=== PATIENT | male | born 1950 | race Caucasian/White ===

== ENCOUNTER 2019-08-28 14:04 | Outpatient (CLI) | payer BC, SELFPAY ==
--- NOTE | 2019-08-28 14:13 | CT_ITS ---
WS: [id number] CT ABDOMEN AND PELVIS WITH CONTRAST HISTORY: COLON CANCER TECHNIQUE: Imaging performed of the abdomen and pelvis with IV contrast. Single phase imaging of the abdomen. Coronal and sagittal reformats are submitted. All CT scans at [facility] use at least one of these dose optimization techniques: automated exposure control; mA and/or kV adjustment per patient size (includes targeted exams where dose is matched to clinical indication); or iterativ e reconstruction. IV CONTRAST: Omnipaque 300; 95 mL IV. Oral contrast: Yes. DLP: 1317.43 mGy.cm COMPARISON: None available. Lower thorax: Lung bases are clear. Mild enlargement of the cardiac chambers. There is an area of per icardial thickening posteriorly over the LEFT ventricle which has been present on multiple prior stud ies. Scattered coronary artery calcifications. No hiatal hernia. Liver/biliary system: Normal size with no intrahepatic dilatation. Gallbladder: Normal. No gallstones or wall thickening. No pericholecystic fluid. Pancreas: Calcifications in the pancreatic head have been present for multiple prior years and probab ly related to chronic pancreatitis. Spleen: Normal size spleen with granulomata. Adrenal glands: Normal. Right kidney: Severe atrophy of the RIGHT kidney. There is still enhancement of the cortex with sever e multifocal areas of cortical thinning. No hydronephrosis. Left kidney: Exophytic mass from the lower pole measures 17 mm. This could be a complex cyst. Overall mass has decreased in size from 33 mm on 05/27/2018 to 17 mm today. Additional smaller exophytic cyst from the mid kidney. The LEFT renal pelvis and the LEFT ureter are very slightly dilated. LEFT urete r becomes dilated to 10 mm near the pelvic brim. Ureter remains slightly dilated to the urinary bladd er. These findings were present on the prior studies but more prominent today. Etiology of the obstru ction and mild dilatation is not evident. Aorta: Mild atherosclerosis. No aneurysm. Lymphadenopathy: None. Free fluid: None. GI tract: Prior ileocolic anastomosis. Anastomotic sutures are unchanged in position. No solid mass o r obstruction. Perirectal fat stranding is again noted. Slightly asymmetric in course mucosal thicken ing on the LEFT measuring up to 10 mm. Abdominal wall: Unremarkable abdominal wall. No hernia. Pelvis: Normally distended urinary bladder. Surgical clip posterior to the bladder and anterior to th e rectum. No adenopathy or fluid. Bones: Mild anterior wedging of T10 and T12 is stable. CT/CT abdomen pelvis w con* [id number] IMPRESSION: 1. Status post RIGHT hemicolectomy with ileocolic anastomosis. No recurrent ma ss or obstruction. 2. There is continued perirectal fat stranding and soft tissue thickening surr ounding the rectum. This was described on the prior study. As described before this could be post therapeutic or inflammatory or neoplastic. 3. No adenopathy or metastatic disease identified. 4. Very minimal dilatation of the LEFT ureter but no obstructing process.
[2019-08-28] MEDS: iohexol 300 mg/mL 50 mL Btl PO (14:43)
[2019-08-28 15:52] LABS: Basophils % 0.7 %; Eosinophils # 0.3 10^3/uL (0.0-0.8); Eosinophils % 5.8 %; Hematocrit 34.2 % (42.0-52.0); Hemoglobin 11.4 g/dL (11.7-16.6); Lymphocytes # 1.5 10^3/uL (0.8-4.8); Lymphocytes % 26.4 %; Mean Corpuscular HGB Conc 33.3 g/dL (30.0-36.0); Mean Corpuscular Hemoglobin 29.3 pg (28.0-34.0); Mean Corpuscular Volume 87.9 fL (80-94); Mean Platelet Volume 8.7 fL (7.4-10.4); Monocytes # 0.4 10^3/uL (0.2-0.9); Monocytes % 6.7 %; Neutrophils # 3.3 10^3/uL (1.8-7.7); Neutrophils % 60.2 %; Nucleated Red Blood Cells % 0 %; Platelet Count 150 10^3/cmm (130-400); Red Blood Count 3.89 10^6/uL (4.1-5.3); Red Cell Distribution Width 13.9 % (12.1-15.1); White Blood Count 5.5 10^3/uL (4.0-10.0)
[2019-08-28 16:14] LABS: Carcinoembryonic Antigen 4.1 ng/mL (0.0-4.7)
[2019-08-28 16:29] LABS: Alanine Aminotransferase 25 U/L (0-41); Albumin Level 3.8 g/dL (3.5-5.2); Alkaline Phosphatase 160 IU/L (40-130); Anion Gap 17.7 (5-19); Aspartate Amino Transferase 33 U/L (0-40); Blood Urea Nitrogen 12 mg/dL (8-23); Calcium 9.7 mg/dL (8.5-10.5); Carbon Dioxide 24 mmol/L (22-29); Chloride 90 mmol/L (98-107); Globulin 4.1 g/dL (1.3-4.6); Glomerular Filtration Rate 60.4 mL/min (90-130); Glucose 109 mg/dL (65-115); Osmolality Calculated 259 mOsm/kg (285-295); Potassium 5.7 mmol/L (3.5-5.1); Sodium 126 mmol/L (136-145); Total Bilirubin 0.8 mg/dL (0.15-1.2); Total Protein 7.9 g/dL (6.6-8.7)
== END 2019-08-28 14:05 | disposition home or self-care (01) ==
PROVIDERS: Family Provider Nurse Practitioner Family; Visit Provider Internal Medicine Medical Oncology
DX: C18.2 Malignant neoplasm of ascending colon (principal); Z90.49 Acquired absence of other specified parts of digestive tract
CPT/HCPCS: 36415; 74177; 80053; 82378; 85025; Q9967

== ENCOUNTER → 2019-08-29 15:30 | Outpatient (BNVA) | payer BC, SELFPAY | PROVIDERS: Family Provider Nurse Practitioner Family; Visit Provider Internal Medicine Rheumatology | DX: M1A.9XX1 Chronic gout, unspecified, with tophus (tophi) (principal); M81.0 Age-related osteoporosis without current pathological fracture; M15.0 Primary generalized (osteo)arthritis; I10 Essential (primary) hypertension; M1A.0790 Idiopathic chronic gout, unspecified ankle and foot, without tophus (tophi); Z79.899 Other long term (current) drug therapy; Z87.891 Personal history of nicotine dependence | CPT/HCPCS: 36415; 84550; 99214 ==

== ENCOUNTER 2019-09-04 16:05 | Outpatient (CLI) | payer BC, SELFPAY ==
--- NOTE | 2019-09-08 15:13 | ONC FU_ITS ---
Dr. Matos Patient Follow-Up Note Patient: Darion Hamilton Unit #: [id number]: 1950 Dicatated By: Skyler Matos M.D.Date of Visit:Sep 04, 2019 Onc Med Follow-up/Prog Note Chief Complaint: Colon cancer. History of Present Illness: This is a 69 year-old man with low-grade (grade 1-2) infiltrating adenocarcinoma of the ascending colon, stage IIB (T4a, N0, M0). He had presented in March 2016 with iron deficiency anemia, hemoglobin 6.0 g. He was transfused a total of 4 units of packed red blood cells. He had noted some blood in the stool for 6-8 months. He had been aware of some decrease in his energy/activity tolerance, but he was not severely symptomatic with it. He underwent upper GI endoscopy and colonoscopy on 03/25/2016. The upper endoscopy did show some evidence of erosive gastritis in the antrum. Colonoscopy showed a 4 cm ulcerated mass in the ascending colon, suspicious for malignancy. Biopsy showed low-grade infiltrating adenocarcinoma. CT abdomen/pelvis showed a markedly atrophic right kidney. The pancreas also appeared to be atrophic. There were no acute findings. On 03/30/2016 he underwent laparoscopic right hemicolectomy with extracorporeal ileocolic stapled anastomosis. Pathology showed low-grade (well to moderately differentiated) infiltrating adenocarcinoma measuring 3.0 x 2.4 x 0.4 centimeters. There was invasion through the muscularis propria to the serosal surface. The proximal and distal margins were free, the tumor was noted to be extending to the radial margin. There was no involvement and 18 pericolonic lymph nodes. Mismatch repair protein analysis showed intact nuclear expression of MLH1, MSH2, MSH6, and PMS2. He had further evaluation with Oncotype DX. It showed a recurrence score of 11, corresponding to a 3-year recurrence risk of 20% for a T4 primary tumor. Given those results he opted not to take adjuvant chemotherapy. He is being followed on observation/expectant management. Surveillance colonoscopy on 05/25/2017 showed 2 pedunculated polyps measuring 5 mm and 2 sessile polyps measuring 3 mm, all in the descending colon. All were removed endoscopically. Pathology reported 2 adenomatous polyps and [address] Surve[address] scans on 08/13/2017 showed slight enlargement of a nonsimple cyst in the inferior pole of the left kidney compared to a previous study from March 2017. There was no evidence of recurrent or metastatic disease in the chest, abdomen, or pelvis. His repeat CT scans on 11/24/2017 showed no evidence of metastatic disease in the chest, abdomen, or pelvis. There was evidence of hepatomegaly with diffuse fatty infiltration of the liver. There was chronic compression of the T10 and T12 vertebral bodies with anterior wedging. He continued on observation/expectant management. At his follow-up visit in May 2018 there was a significant increase in his CEA level, to 13.7 ng/mL. His surveillance CT scans from 05/27/2018, though, showed no evidence of metastatic disease or other acute abnormality in the chest, abdomen, or pelvis. A repeat CEA level on 07/12/2018 was slightly higher at 15.0 ng/mL. His surveillance colonoscopy at that time showed patent ileocolic anastomosis with no evidence of recurrence. The only other finding was scattered diverticuli in the sigmoid colon. Further evaluation with PET/CT on 07/30/2018 showed an FDG avid 3.2 x 3.0 cm soft tissue lesion at the ascending colonic anastomosis, SUV 11.7. This was felt to have a high likelihood of recurrence. There was no evidence of any other metastatic disease. On review of his diagnostic CT scans, her did appear to be evidence of an enlarging mass lesion in the area of the anastomosis. With those findings, he was referred to Dr. Trinh. On 09/14/2018 he underwent laparoscopic surgery which included lysis of adhesions and ileocolectomy with extracorporeal stapled ileocolic anastomosis. A mass was present at the site of the prior ileocolic anastomosis. It was noted to be adherent to the abdominal wall. It was completely resected. Pathology showed low-grade mucinous adenocarcinoma measuring 4.1 x 3.2 x 3.0 cm. It was noted to be contained within serosal connective tissues, consistent with local recurrence as opposed to a new primary disease. The surgical margins were free. There was no involvement in 4 mesenteric lymph nodes. I had seen him for a follow-up visit on 09/27/2018. In the setting of completely resected recurrent disease, he was recommended to undergo adjuvant chemotherapy with 4 cycles of oxaliplatin/Xeloda. He was initially undecided about the chemotherapy, but he ultimately did opt to have treatment. His other medical illnesses include hypertension, GERD, degenerative arthritis, and anxiety/depression. He had a previous episode of GI bleeding from a duodenal diverticulum in 2006. He had smoked 1 pack of cigarettes daily for 35 years. He quit smoking in 2006. He had also chewed tobacco, but that he quit in March 2016. INTERIM HISTORY: He returned on 10/26/2018 for cycle 1 of oxaliplatin/Xeloda. He tolerated it pretty well. He was then able to continue with cycle 2 on 11/16/2018, with cycle 3 on 12/07/2018, and with cycle 4 on 12/28/2018. At that point, there had been a significant increase in his CEA level, to 8.1 ng/mL. Restaging PET/CT on 01/21/2019 showed a lesion at the colonic anastomosis with SUV increased to 17.0 compared to 11.7 on the prior study from July 2018. This did appear to be consistent with recurrence at the colonic anastomosis. There were no new lesions identified. He then had a surveillance colonoscopy on 02/08/2019. The colon was examined up to the ileocolic anastomosis, and there were no abnormalities seen. With those findings, he was taken back to surgery on 02/22/2019. The procedure included laparoscopic lysis of adhesions and laparoscopic partial colectomy with extracorporeal [id number] ileocolic stapled anastomosis and with omentectomy. There was no evidence, though, of any recurrent tumor. Pathology was benign. He was then followed on observation/expectant management. Surveillance CT abdomen/pelvis on 08/28/2019 showed no evidence of recurrent or metastatic disease. There was evidence of some perirectal fat stranding and soft tissue thickening surrounding the rectum, but unchanged from the prior study. There was severe atrophy of the right kidney. A 17 mm exophytic mass in the lower pole of the left kidney had decreased from the 05/27/2018 study. The left renal pelvis and left ureter were noted to be very slightly dilated. There was no evidence of an obstructing process. He is seen for a follow-up visit. He has been feeling pretty good generally. His main complaint is that his left knee is been hurting a lot, enough to limit his activity. His ECOG score is 1. He has good appetite. He has no fever or night sweats. He has no shortness of breath, cough, or chest pain. His acid reflux is adequately managed with medication. He complains that he has diarrhea quite a bit. He is not having abdominal pain. He has no complaints. He has no other joint or bone pain. He does report having headaches in the has occasional orthostatic lightheadedness. He has no focal neurologic symptoms. Medications: Amitriptyline HCl 1 (50 mg) Tablet Oral b.i.d., ClonazePAM 0.5 Tablet Oral daily, [facility] Omeprazole 1 (20 mg) Tablet, enteric coated Oral daily, Hydrocodone-Acetaminophen 1 (5-325 mg) Tablet Oral t.i.d., Metoprolol Tartrate 1 Tablet (of 50 mg) Oral t.i.d. Allergies: PenicillAMINE and Sulfa Antibiotics. Review of Systems: Constitutional - His energy level is okay. His activity is limited due to his left knee. He does some light walking and light non-strenous activity. Appetite is good and weight is up a few pounds from lst visit. No fever, chills, hot flashes, or night sweats. ECOG score is 1, ENMT - He has some sinus congestion/drainage. No mouth sores. No sore throat or difficulty swallowing, Hematologic/Lymphatic - No abnormal bruising or bleeding, Respiratory - No shortness of breath. No cough. No pleuritic pain or hemoptysis, Cardiovascular - No angina pain. No palpitations, Gastrointestinal - No nausea or vomiting. He has heartburn but it is well controlled with medication. He has frequent loose stools. No constipation. No blood in the stool or black stools. Denies any abdominal pain, Genitourinary (M) - No dysuria or hematuria. No urinary frequency. No urgency or incontinence, Musculoskeletal - He was arthritic pain in his left knee that has worsened and is limiting his activity, Integumentary - No skin complications, Neurologic - He has occasional sinus headaches. He has some occasional orthostatic dizziness. No numbness/paresthesias or other focal neurologic symptoms, Psychiatric - No anxiety or depression. No insomnia. Vital Signs: Blood pressure 148/74, pulse 63, respirations 18, temp 97.7 degrees, oxygen saturation 97%. Weight is 209 pounds. Physical Examination: Constitutional - He looks pretty good generally, Eyes - Sclerae nonicteric. Conjunctivae clear, ENMT - No lesions noted in the oral cavity, Hematologic/Lymphatic - No cervical, clavicular, or axillary adenopathy, Respiratory - Lungs are clear, Cardiovascular - Heart rhythm is regular. There is no murmur, gallop, or rub noted, Abdomen - Soft. Liver and spleen are not enlarged. There is no abdominal mass or ascites noted and there is no inguinal adenopathy, Extremities - Mild edema at the ankles, Neurologic - No focal neurologic deficits noted. Lab/Imaging: Test performed on Aug 28, 2019 15:40 Sodium 126 mmol/L Potassium 5.7 mmol/L Chloride 90 mmol/L CO2 24 mmol/L Anion Gap 17.7 BUN 12 mg/dL Creatinine 1.2 mg/dL Cr Clearance (Est) 79.3300 mL/min eGFR 60.4 mL/min Glucose 109 mg/dL Calcium 9.7 mg/dL Protein, Total 7.9 g/dL Albumin 3.8 g/dL Globulin 4.1 g/dL Bilirubin, Total 0.8 mg/dL ALT (SGPT) 25 U/L AST (SGOT) 33 U/L Alkaline Phosphatase 160 IU/L WBC 5.5 10 3/uL RBC 3.89 10 6/uL HGB 11.4 g/dL HCT 34.2 % MCV 87.9 fL MCH 29.3 pg MCHC 33.3 g/dL RDW 13.9 % Platelet Count 150 10 3/cmm MPV 8.7 fL Neutrophils 3.3 10 3/uL Lymphocytes 1.5 10 3/uL Monocytes 0.4 10 3/uL Eosinophils 0.3 10 3/uL Basophils 0.0 10 3/uL Neutrophil % 60.2 % Lymphocyte % 26.4 % Monocyte % 6.7 % Eosinophil % 5.8 % Basophils % 0.7 % CEA 4.1 ng/mL Impression: 1. Patient with moderately differentiated adenocarcinoma of the ascending colon, stage IIB (T4a, N0, M0). He underwent laparoscopic right hemicolectomy on 03/30/2016. The tumor was found to have intact mismatch repair proteins. An Oncotype DX assay showed a recurrence score of 11, corresponding to a 3-year risk of recurrence of 20%. 2. He had iron deficiency anemia at initial presentation, presumed secondary to GI blood loss. His other medical illnesses include: 3. Hypertension. 4. GERD. 5. Degenerative arthritis. 6. Anxiety/depression. 7. He has nicotine dependence (chewing tobacco). He opted not to take adjuvant chemotherapy. As such, he has been followed on observation/expectant management. At his follow-up visit in May 2018 there was a significant increase in his CEA level. There were no abnormal findings reported on his surveillance CT scans on 05/27/2018 and his repeat colonoscopy on 07/12/2018 also showed no significant abnormal findings. He CEA level, though, remained elevated, and a restaging PET/CT on 07/30/2018 did show an FDG avid soft tissue mass at the colonic anastomosis which was felt to be suspicious for local recurrence. There was no evidence for any other metastatic involvement. On review the diagnostic CT scan, it did appear that there was an enlarging mass in the area of the ileocolonic anastomosis. On 09/14/2018 he underwent laparoscopic surgery. A mass was noted at the anastomosis site. It was adherent to the abdominal wall. The procedure included lysis of adhesions and ileocolectomy with extracorporeal stapled ileocolic anastomosis. Pathology showed well-differentiated infiltrating adenocarcinoma involving serosal connective tissues, consistent with recurrent versus new primary colonic carcinoma. The tumor was completely resected with free margins. There was no involvement in 4 mesenteric lymph nodes. In the setting of completely resected recurrent disease, he was recommended to undergo adjuvant chemotherapy with 4 cycles of oxaliplatin/Xeloda. Initially he was undecided, but he ultimately did opt for treatment. He began his 4th cycle on 12/28/2018. Overall, he tolerated the chemotherapy well. However, at that point there was a significant increase in his CEA level, to 8.1 ng/mL. A restaging PET/CT on 01/21/2019 showed increased uptake at the ileocolonic anastomosis, consistent with recurrence at that site. There were no other areas of abnormal uptake. Surveillance colonoscopy on 2018 showed no abnormal findings. With those findings he was taken back to surgery on 02/22/2019. The procedure included laparoscopic lysis of adhesions and laparoscopic partial colectomy with ileal colonic anastomosis and with omentectomy. There was no evidence of recurrent tumor, and pathology was benign. A specific cause for the CEA elevation and for the PET/CT findings was never determined, but he had adequate recovery from the surgery, and at his followup visit on 03/14/2019 his CEA level was back down to 3.4 ng/mL. He has since then continued on observation/expectant management. Thus far his CEA has remained stable and he has has remained stable clinically with no evidence of recurrence of the colon cancer. Plan: He continues on observation/expectant management. He will have repeat lab studies in 3 months and he will be scheduled for a follow-up visit in 6 months. Signed By: Skyler Matos M.D. <<Signature on File>>
== END 2019-09-04 16:06 | disposition home or self-care (01) ==
LOC: ONCMED 16:15
PROVIDERS: Family Provider Nurse Practitioner Family; Visit Provider Internal Medicine Medical Oncology
DX: Z08 Encounter for follow-up examination after completed treatment for malignant neoplasm (principal); Z85.038 Personal history of other malignant neoplasm of large intestine; I10 Essential (primary) hypertension; K21.9 Gastro-esophageal reflux disease without esophagitis; M19.90 Unspecified osteoarthritis, unspecified site; F41.8 Other specified anxiety disorders; I12.9 Hypertensive chronic kidney disease with stage 1 through stage 4 chronic kidney disease, or unspecified chronic kidney disease; N18.9 Chronic kidney disease, unspecified; Z79.891 Long term (current) use of opiate analgesic; Z79.899 Other long term (current) drug therapy; Z90.49 Acquired absence of other specified parts of digestive tract; Z87.891 Personal history of nicotine dependence; Z92.21 Personal history of antineoplastic chemotherapy
CPT/HCPCS: G0463

== ENCOUNTER → 2019-09-13 09:13 | Outpatient (BNVA) | payer BC, SELFPAY | PROVIDERS: Family Provider Nurse Practitioner Family; PCP Nurse Practitioner Family; Referring Provider Nurse Practitioner Family; Visit Provider Anesthesiology Pain Medicine | DX: M25.562 Pain in left knee (principal); M81.0 Age-related osteoporosis without current pathological fracture; M15.0 Primary generalized (osteo)arthritis; M1A.9XX1 Chronic gout, unspecified, with tophus (tophi); Z79.891 Long term (current) use of opiate analgesic | CPT/HCPCS: 99205 ==

== ENCOUNTER → 2020-03-07 09:56 | Outpatient (BNVA) | payer BC, SELFPAY | PROVIDERS: PCP Nurse Practitioner Family; Visit Provider Internal Medicine Medical Oncology | DX: Z85.038 Personal history of other malignant neoplasm of large intestine (principal) | CPT/HCPCS: 80053; 82378; 82728; 83550; 85025 ==

== ENCOUNTER 2020-03-11 16:18 | Outpatient (CLI) | payer BC, SELFPAY ==
--- NOTE | 2020-03-15 07:00 | ONC FU_ITS ---
Dr. Matos Patient Follow-Up Note Patient: Darion Hamilton Unit #: [id number]: 1950 Dicatated By: Skyler Matos M.D.Date of Visit:Mar 11, 2020 Onc Med Follow-up/Prog Note Chief Complaint: Colon cancer. History of Present Illness: This is a 69 year-old man with low-grade (grade 1-2) infiltrating adenocarcinoma of the ascending colon, stage IIB (T4a, N0, M0). He had presented in March 2016 with iron deficiency anemia, hemoglobin 6.0 g. He was transfused a total of 4 units of packed red blood cells. He had noted some blood in the stool for 6-8 months. He had been aware of some decrease in his energy/activity tolerance, but he was not severely symptomatic with it. He underwent upper GI endoscopy and colonoscopy on 03/25/2016. The upper endoscopy did show some evidence of erosive gastritis in the antrum. Colonoscopy showed a 4 cm ulcerated mass in the ascending colon, suspicious for malignancy. Biopsy showed low-grade infiltrating adenocarcinoma. CT abdomen/pelvis showed a markedly atrophic right kidney. The pancreas also appeared to be atrophic. There were no acute findings. On 03/30/2016 he underwent laparoscopic right hemicolectomy with extracorporeal ileocolic stapled anastomosis. Pathology showed low-grade (well to moderately differentiated) infiltrating adenocarcinoma measuring 3.0 x 2.4 x 0.4 centimeters. There was invasion through the muscularis propria to the serosal surface. The proximal and distal margins were free, the tumor was noted to be extending to the radial margin. There was no involvement and 18 pericolonic lymph nodes. Mismatch repair protein analysis showed intact nuclear expression of MLH1, MSH2, MSH6, and PMS2. He had further evaluation with Oncotype DX. It showed a recurrence score of 11, corresponding to a 3-year recurrence risk of 20% for a T4 primary tumor. Given those results he opted not to take adjuvant chemotherapy. He is being followed on observation/expectant management. Surveillance colonoscopy on 05/25/2017 showed 2 pedunculated polyps measuring 5 mm and 2 sessile polyps measuring 3 mm, all in the descending colon. All were removed endoscopically. Pathology reported 2 adenomatous polyps and [address] hyper[address] polyp[address] Surve[address] scans on 08/13/2017 showed slight enlargement of a nonsimple cyst in the inferior pole of the left kidney compared to a previous study from March 2017. There was no evidence of recurrent or metastatic disease in the chest, abdomen, or pelvis. His repeat CT scans on 11/24/2017 showed no evidence of metastatic disease in the chest, abdomen, or pelvis. There was evidence of hepatomegaly with diffuse fatty infiltration of the liver. There was chronic compression of the T10 and T12 vertebral bodies with anterior wedging. He continued on observation/expectant management. At his follow-up visit in May 2018 there was a significant increase in his CEA level, to 13.7 ng/mL. His surveillance CT scans from 05/27/2018, though, showed no evidence of metastatic disease or other acute abnormality in the chest, abdomen, or pelvis. A repeat CEA level on 07/12/2018 was slightly higher at 15.0 ng/mL. His surveillance colonoscopy at that time showed patent ileocolic anastomosis with no evidence of recurrence. The only other finding was scattered diverticuli in the sigmoid colon. Further evaluation with PET/CT on 07/30/2018 showed an FDG avid 3.2 x 3.0 cm soft tissue lesion at the ascending colonic anastomosis, SUV 11.7. This was felt to have a high likelihood of recurrence. There was no evidence of any other metastatic disease. On review of his diagnostic CT scans, her did appear to be evidence of an enlarging mass lesion in the area of the anastomosis. With those findings, he was referred to Dr. Trinh. On 09/14/2018 he underwent laparoscopic surgery which included lysis of adhesions and ileocolectomy with extracorporeal stapled ileocolic anastomosis. A mass was present at the site of the prior ileocolic anastomosis. It was noted to be adherent to the abdominal wall. It was completely resected. Pathology showed low-grade mucinous adenocarcinoma measuring 4.1 x 3.2 x 3.0 cm. It was noted to be contained within serosal connective tissues, consistent with local recurrence as opposed to a new primary disease. The surgical margins were free. There was no involvement in 4 mesenteric lymph nodes. I had seen him for a follow-up visit on 09/27/2018. In the setting of completely resected recurrent disease, he was recommended to undergo adjuvant chemotherapy with 4 cycles of oxaliplatin/Xeloda. He was initially undecided about the chemotherapy, but he ultimately did opt to have treatment. He returned on 10/26/2018 for cycle 1 of oxaliplatin/Xeloda. He tolerated it pretty well. He was then able to continue with cycle 2 on 11/16/2018, with cycle 3 on 12/07/2018, and with cycle 4 on 12/28/2018. At that point, there had been a significant increase in his CEA level, to 8.1 ng/mL. Restaging PET/CT on 01/21/2019 showed a lesion at the colonic anastomosis with SUV increased to 17.0 compared to 11.7 on the prior study from July 2018. This did appear to be consistent with recurrence at the colonic anastomosis. There were no new lesions identified. He then had a surveillance colonoscopy on 02/08/2019. The colon was examined up to the ileocolic anastomosis, and there were no abnormalities seen. With those findings, he was taken back to surgery on 02/22/2019. The procedure included laparoscopic lysis of adhesions and laparoscopic partial colectomy with extracorporeal [id number] ileocolic stapled anastomosis and with omentectomy. There was no evidence, though, of any recurrent tumor. Pathology was benign. He was then followed on observation/expectant management. His other medical illnesses include hypertension, GERD, degenerative arthritis, and anxiety/depression. He had a previous episode of GI bleeding from a duodenal diverticulum in 2006. He had smoked 1 pack of cigarettes daily for 35 years. He quit smoking in 2006. He had also chewed tobacco, but that he quit in March 2016. INTERIM HISTORY: Surveillance CT abdomen/pelvis on 08/28/2019 showed no evidence of recurrent or metastatic disease. There was evidence of some perirectal fat stranding and soft tissue thickening surrounding the rectum, but unchanged from the prior study. There was severe atrophy of the right kidney. A 17 mm exophytic mass in the lower pole of the left kidney had decreased from the 05/27/2018 study. The left renal pelvis and left ureter were noted to be very slightly dilated. There was no evidence of an obstructing process. He is seen for a follow-up visit. He continued on observation/expectant management. He has been feeling pretty good generally. His energy has been okay, though he does have limited activity. He is able to do light work. ECOG score is 1. He has good appetite. He has gained weight. He has no fever or night sweats. He has had a recent cold with sore throat and cough. He is not short of breath. He does not complain of chest pain. His acid reflux is adequately managed with medication. His bowels are still sometimes runny. He has no complaints. He has pain in his left knee. He has no other joint or bone pain. He has no focal neurologic symptoms. Medications: Amitriptyline HCl 1 (50 mg) Tablet Oral b.i.d., ClonazePAM 0.5 Tablet Oral daily, [facility] Omeprazole 1 (20 mg) Tablet, enteric coated Oral daily, Metoprolol Tartrate 1 Tablet (of 50 mg) Oral t.i.d. Allergies: PenicillAMINE and Sulfa Antibiotics. Review of Systems: Constitutional - His energy has been okay, but he does have somewhat limited activity. He is able to do light work. He has good appetite. He has gained weight. He has no fever or night sweats. ECOG score is 1, ENMT - No sinus congestion/drainage. No mouth sores. He occasionally has sore throat. No difficulty swallowing, Hematologic/Lymphatic - No abnormal bruising or bleeding, Respiratory - No shortness of breath. He does have cough. No pleuritic pain or hemoptysis, Cardiovascular - No angina pain. No palpitations, Gastrointestinal - No nausea or vomiting. His acid reflux is adequately managed with medication. Bowel movements are still sometimes runny. No blood in the stool or black stools, Genitourinary (M) - No dysuria or hematuria. No urinary frequency. No urgency or incontinence, Musculoskeletal - He has pain in his left knee. No other joint or bone pain, Integumentary - No skin rash, Neurologic - No headache. He has a little bit of dizziness. No numbness or tingling. No other focal neurologic symptoms, Psychiatric - He has some anxiety. No depression. No insomnia. Vital Signs: Performed on Mar 11, 2020 13:17 Height - 71.00 in Weight - 217.4 lbs (HIGH) BSA - 2.19 sq.m BMI - 30.32 (HIGH) Temperature - 97.3 F (LOW) Pulse - 60 /min Respiration - 22 /min BP - 181/85 mm(hg) (HIGH) O2 Sat - 98 % Pain - 8 Physical Examination: Constitutional - He looks pretty good generally, Eyes - Sclerae nonicteric. Conjunctivae clear, ENMT - No lesions noted in the oral cavity, Hematologic/Lymphatic - No cervical, clavicular, or axillary adenopathy, Respiratory - Lungs are clear, Cardiovascular - Heart rhythm is regular. There is no murmur, gallop, or rub noted, Abdomen - Soft. Liver and spleen are not enlarged. There is no abdominal mass or ascites noted and there is no inguinal adenopathy, Extremities - Slight edema, Neurologic - No focal neurologic deficits noted. Lab/Imaging: CBC shows hemoglobin 11.2 g, white blood cell count 7200, and platelet count 143,000. Comprehensive metabolic profile is unremarkable except for slightly low sodium at 129 mmol/L. His bilirubin and liver enzymes are normal. Serum iron studies show low transferrin saturation at 16.4%. CEA level has increased just slightly, to 4.6 ng/mL. Impression: 1. Patient with moderately differentiated adenocarcinoma of the ascending colon, stage IIB (T4a, N0, M0). He underwent laparoscopic right hemicolectomy on 03/30/2016. The tumor was found to have intact mismatch repair proteins. An Oncotype DX assay showed a recurrence score of 11, corresponding to a 3-year risk of recurrence of 20%. 2. He had iron deficiency anemia at initial presentation, presumed secondary to GI blood loss. His other medical illnesses include: 3. Hypertension. 4. GERD. 5. Degenerative arthritis. 6. Anxiety/depression. 7. He has nicotine dependence (chewing tobacco). He opted not to take adjuvant chemotherapy. As such, he has been followed on observation/expectant management. At his follow-up visit in May 2018 there was a significant increase in his CEA level. There were no abnormal findings reported on his surveillance CT scans on 05/27/2018 and his repeat colonoscopy on 07/12/2018 also showed no significant abnormal findings. He CEA level, though, remained elevated, and a restaging PET/CT on 07/30/2018 did show an FDG avid soft tissue mass at the colonic anastomosis which was felt to be suspicious for local recurrence. There was no evidence for any other metastatic involvement. On review the diagnostic CT scan, it did appear that there was an enlarging mass in the area of the ileocolonic anastomosis. On 09/14/2018 he underwent laparoscopic surgery. A mass was noted at the anastomosis site. It was adherent to the abdominal wall. The procedure included lysis of adhesions and ileocolectomy with extracorporeal stapled ileocolic anastomosis. Pathology showed well-differentiated infiltrating adenocarcinoma involving serosal connective tissues, consistent with recurrent versus new primary colonic carcinoma. The tumor was completely resected with free margins. There was no involvement in 4 mesenteric lymph nodes. In the setting of completely resected recurrent disease, he was recommended to undergo adjuvant chemotherapy with 4 cycles of oxaliplatin/Xeloda. Initially he was undecided, but he ultimately did opt for treatment. He began his 4th cycle on 12/28/2018. Overall, he tolerated the chemotherapy well. However, at that point there was a significant increase in his CEA level, to 8.1 ng/mL. A restaging PET/CT on 01/21/2019 showed increased uptake at the ileocolonic anastomosis, consistent with recurrence at that site. There were no other areas of abnormal uptake. Surveillance colonoscopy on 2018 showed no abnormal findings. With those findings he was taken back to surgery on 02/22/2019. The procedure included laparoscopic lysis of adhesions and laparoscopic partial colectomy with ileal colonic anastomosis and with omentectomy. There was no evidence of recurrent tumor, and pathology was benign. A specific cause for the CEA elevation and for the PET/CT findings was never determined, but he had adequate recovery from the surgery, and at his followup visit on 03/14/2019 his CEA level was back down to 3.4 ng/mL. He then continued on observation/expectant management. His surveillance CT scans in August 2019 showed no evidence of recurrent or metastatic disease. His clinical status has since then remained stable. Thus far there has been just a slight increase in his CEA level. He is mildly anemic, though, and his serum iron studies are suggestive of iron deficiency. Plan: He continues on observation/expectant management for the colon cancer. He will be scheduled for a follow-up visit with surveillance CT scans in 6 months. In the meantime, he will start an oral iron supplement. Signed By: Skyler Matos M.D. <<Signature on File>>
== END 2020-03-11 16:19 | disposition home or self-care (01) ==
LOC: ONCMED 16:19
PROVIDERS: PCP Nurse Practitioner Family; Visit Provider Internal Medicine Medical Oncology
DX: Z08 Encounter for follow-up examination after completed treatment for malignant neoplasm (principal); Z85.038 Personal history of other malignant neoplasm of large intestine; D64.9 Anemia, unspecified; R97.0 Elevated carcinoembryonic antigen [CEA]; I10 Essential (primary) hypertension; K21.9 Gastro-esophageal reflux disease without esophagitis; M19.90 Unspecified osteoarthritis, unspecified site; F41.8 Other specified anxiety disorders; F17.220 Nicotine dependence, chewing tobacco, uncomplicated; Z92.21 Personal history of antineoplastic chemotherapy; Z90.49 Acquired absence of other specified parts of digestive tract
CPT/HCPCS: 99214

== ENCOUNTER 2020-03-18 08:48 | Outpatient (CLI) | payer BC, SELFPAY ==
--- NOTE | 2020-03-18 09:07 | CT_ITS ---
WS: [id number] CT CHEST, ABDOMEN, AND PELVIS TECHNIQUE: Contrast-enhanced CT of the chest, abdomen, and pelvis with coronal and sagittal reformatt ed images. CLINICAL INFORMATION: MALIGNANT NEOPLASM OF ASCENDING COLON COMPARISON: CT August 28, 2019, , May 27, 2018. PET/CT and 2 DLP: 2687.[address] scans at [facility] use at least one of these dose optimization techniques: automat ed exposure control; mA and/or kV adjustment per patient size (includes targeted exams where dose is matched to clinical indication); or iterative reconstruction. CT CHEST: Mild chronic emphysematous changes. Lungs well aerated. No suspicious pulmonary parenchymal abnormalities. Stable slight left pleural thickening. This is stable since May 27, 2018. Subseg mental atelectasis left lower lobe. Aortic arch calcification. Proximal main pulmonary arteries are normal. No mediastinal or hilar lymph adenopathy. No axillary lymphadenopathy.Stable posterior pericardial thickening. Stable mild compression T10 and T12 superior endplates. CT ABDOMEN AND PELVIS: Prior postoperative changes right hemicolectomy with ileocolic anastomosis. No evidence of recurrent mass or obstructing lesion. No adenopathy in the abdomen or pelvis. Mild rectosigmoid colonic wall thickening with perirectal fat induration is unchanged in appearance. Diffuse fatty infiltration liver. Gallbladder is contracted. Normal GE junction. Splenic granulomas. Small splenules. Mild fatty atrophy of the pancreas. Calcifications in the pancreatic head. Adrenal glands are normal. Atrophic right kidney. Mild left ureter dilatation. No evidence of obstruc tion. No significant hydronephrosis. This is unchanged in appearance. Increased attenuation exophytic left lower pole renal lesion measuring 14 mm is unchanged and may represent complex cyst. Normal caliber abdominal aorta. Aortic calcification. No abdominal or pelvic lymphadenopathy. No ing uinal lymphadenopathy. CT/CT chest abd pel w con* IMPRESSION: 1. No adenopathy in the chest abdomen or pelvis. 2. Both lungs are well aerated. 3. Status post right hemicolectomy with ileocolic anastomosis. No recurrent ma ss or obstructive lesion. 4. Stable mild induration the perirectal fat may be post therapeutic or inflam matory. 5. No other significant interval changes.
[2020-03-18] MEDS: iohexol 300 mg/mL 50 mL Btl PO (09:12)
[2020-03-18] MEDS: iohexol 300 mg/mL 100 mL Btl IV (10:23)
== END 2020-03-18 08:49 | disposition home or self-care (01) ==
LOC: RADWPI 08:54
PROVIDERS: PCP Nurse Practitioner Family; Visit Provider Internal Medicine Medical Oncology
DX: C18.2 Malignant neoplasm of ascending colon (principal)
CPT/HCPCS: 71260; 74177; Q9967

== ENCOUNTER 2020-09-09 12:42 | Outpatient (CLI) | payer MEDICARE, SELFPAY ==
[2020-09-09 13:24] LABS: Basophils # 0.1 10^3/uL (0.0-0.1); Eosinophils # 0.3 10^3/uL (0.0-0.8); Eosinophils % 3.5 %; Hematocrit 36.9 % (42.0-52.0); Hemoglobin 12.2 g/dL (11.7-16.6); Lymphocytes # 1.5 10^3/uL (0.8-4.8); Lymphocytes % 17.1 %; Mean Corpuscular HGB Conc 33.1 g/dL (30.0-36.0); Mean Corpuscular Hemoglobin 29.9 pg (28.0-34.0); Mean Corpuscular Volume 90.4 fL (80-94); Mean Platelet Volume 9.2 fL (7.4-10.4); Monocytes # 0.6 10^3/uL (0.2-0.9); Monocytes % 6.8 %; Neutrophils # 6.12 10^3/uL (1.8-7.7); Nucleated Red Blood Cells % 0 %; Platelet Count 152 10^3/cmm (130-400); Red Blood Count 4.08 10^6/uL (4.1-5.3); White Blood Count 8.6 10^3/uL (4.0-10.0)
[2020-09-09 13:50] LABS: Alanine Aminotransferase 31 U/L (0-41); Albumin Level 3.7 g/dL (3.5-5.2); Alkaline Phosphatase 129 IU/L (40-130); Anion Gap 15.4 (5-19); Aspartate Amino Transferase 33 U/L (0-40); Blood Urea Nitrogen 12 mg/dL (8-23); Calcium 8.6 mg/dL (8.5-10.5); Carbon Dioxide 24 mmol/L (22-29); Chloride 97 mmol/L (98-107); Globulin 3.3 g/dL (1.3-4.6); Glomerular Filtration Rate 66.6 mL/min (90-130); Glucose 113 mg/dL (65-115); Iron 72 ug/dL (59-158); Osmolality Calculated 275 mOsm/kg (285-295); Percent Saturation 25.6 % (20-50); Potassium 4.4 mmol/L (3.5-5.1); Sodium 132 mmol/L (136-145); Total Bilirubin 0.7 mg/dL (0.15-1.2); Total Iron Binding Capacity 281 mcg/dl; Unsaturated Iron Binding 209 ug/dL (112-347)
[2020-09-09 16:54] LABS: Carcinoembryonic Antigen 5.5 ng/mL (0.0-4.7)
--- NOTE | 2020-09-09 20:02 | ONC FU_ITS ---
Dr. Matos Patient Follow-Up Note Patient: Darion Hamilton Unit #: [id number]: 1950 Dicatated By: Skyler Matos M.D.Date of Visit:Sep 09, 2020 Onc Med Follow-up/Prog Note Chief Complaint: Colon cancer. History of Present Illness: This is a 69 year-old man with low-grade (grade 1-2) infiltrating adenocarcinoma of the ascending colon, stage IIB (T4a, N0, M0). He had presented in March 2016 with iron deficiency anemia, hemoglobin 6.0 g. He was transfused a total of 4 units of packed red blood cells. He had noted some blood in the stool for 6-8 months. He had been aware of some decrease in his energy/activity tolerance, but he was not severely symptomatic with it. He underwent upper GI endoscopy and colonoscopy on 03/25/2016. The upper endoscopy did show some evidence of erosive gastritis in the antrum. Colonoscopy showed a 4 cm ulcerated mass in the ascending colon, suspicious for malignancy. Biopsy showed low-grade infiltrating adenocarcinoma. CT abdomen/pelvis showed a markedly atrophic right kidney. The pancreas also appeared to be atrophic. There were no acute findings. On 03/30/2016 he underwent laparoscopic right hemicolectomy with extracorporeal ileocolic stapled anastomosis. Pathology showed low-grade (well to moderately differentiated) infiltrating adenocarcinoma measuring 3.0 x 2.4 x 0.4 centimeters. There was invasion through the muscularis propria to the serosal surface. The proximal and distal margins were free, the tumor was noted to be extending to the radial margin. There was no involvement and 18 pericolonic lymph nodes. Mismatch repair protein analysis showed intact nuclear expression of MLH1, MSH2, MSH6, and PMS2. He had further evaluation with Oncotype DX. It showed a recurrence score of 11, corresponding to a 3-year recurrence risk of 20% for a T4 primary tumor. Given those results he opted not to take adjuvant chemotherapy. He is being followed on observation/expectant management. Surveillance colonoscopy on 05/25/2017 showed 2 pedunculated polyps measuring 5 mm and 2 sessile polyps measuring 3 mm, all in the descending colon. All were removed endoscopically. Pathology reported 2 adenomatous polyps and [address] scans on 08/13/2017 showed slight enlargement of a nonsimple cyst in the inferior pole of the left kidney compared to a previous study from March 2017. There was no evidence of recurrent or metastatic disease in the chest, abdomen, or pelvis. His repeat CT scans on 11/24/2017 showed no evidence of metastatic disease in the chest, abdomen, or pelvis. There was evidence of hepatomegaly with diffuse fatty infiltration of the liver. There was chronic compression of the T10 and T12 vertebral bodies with anterior wedging. He continued on observation/expectant management. At his follow-up visit in May 2018 there was a significant increase in his CEA level, to 13.7 ng/mL. His surveillance CT scans from 05/27/2018, though, showed no evidence of metastatic disease or other acute abnormality in the chest, abdomen, or pelvis. A repeat CEA level on 07/12/2018 was slightly higher at 15.0 ng/mL. His surveillance colonoscopy at that time showed patent ileocolic anastomosis with no evidence of recurrence. The only other finding was scattered diverticuli in the sigmoid colon. Further evaluation with PET/CT on 07/30/2018 showed an FDG avid 3.2 x 3.0 cm soft tissue lesion at the ascending colonic anastomosis, SUV 11.7. This was felt to have a high likelihood of recurrence. There was no evidence of any other metastatic disease. On review of his diagnostic CT scans, her did appear to be evidence of an enlarging mass lesion in the area of the anastomosis. With those findings, he was referred to Dr. Trinh. On 09/14/2018 he underwent laparoscopic surgery which included lysis of adhesions and ileocolectomy with extracorporeal stapled ileocolic anastomosis. A mass was present at the site of the prior ileocolic anastomosis. It was noted to be adherent to the abdominal wall. It was completely resected. Pathology showed low-grade mucinous adenocarcinoma measuring 4.1 x 3.2 x 3.0 cm. It was noted to be contained within serosal connective tissues, consistent with local recurrence as opposed to a new primary disease. The surgical margins were free. There was no involvement in 4 mesenteric lymph nodes. I had seen him for a follow-up visit on 09/27/2018. In the setting of completely resected recurrent disease, he was recommended to undergo adjuvant chemotherapy with 4 cycles of oxaliplatin/Xeloda. He was initially undecided about the chemotherapy, but he ultimately did opt to have treatment. He returned on 10/26/2018 for cycle 1 of oxaliplatin/Xeloda. He tolerated it pretty well. He was then able to continue with cycle 2 on 11/16/2018, with cycle 3 on 12/07/2018, and with cycle 4 on 12/28/2018. At that point, there had been a significant increase in his CEA level, to 8.1 ng/mL. Restaging PET/CT on 01/21/2019 showed a lesion at the colonic anastomosis with SUV increased to 17.0 compared to 11.7 on the prior study from July 2018. This did appear to be consistent with recurrence at the colonic anastomosis. There were no new lesions identified. He then had a surveillance colonoscopy on 02/08/2019. The colon was examined up to the ileocolic anastomosis, and there were no abnormalities seen. With those findings, he was taken back to surgery on 02/22/2019. The procedure included laparoscopic lysis of adhesions and laparoscopic partial colectomy with extracorporeal [id number] ileocolic stapled anastomosis and with omentectomy. There was no evidence, though, of any recurrent tumor. Pathology was benign. He was then followed on observation/expectant management. His other medical illnesses include hypertension, GERD, degenerative arthritis, and anxiety/depression. He had a previous episode of GI bleeding from a duodenal diverticulum in 2006. He had smoked 1 pack of cigarettes daily for 35 years. He quit smoking in 2006. He had also chewed tobacco, but that he quit in March 2016. INTERIM HISTORY: His CT abdomen/pelvis on 08/28/2019 showed no evidence of recurrent or metastatic disease. There was evidence of some perirectal fat stranding and soft tissue thickening surrounding the rectum, but unchanged from the prior study. There was severe atrophy of the right kidney. A 17 mm exophytic mass in the lower pole of the left kidney had decreased from the 05/27/2018 study. The left renal pelvis and left ureter were noted to be very slightly dilated. There was no evidence of an obstructing process. Surveillance CT scans of the chest, abdomen, and pelvis on 03/18/2020 showed no evidence of recurrent or metastatic disease. Stable mild induration in the perirectal fat was felt to be consistent with post therapeutic or inflammatory change. The right kidney was noted to be atrophic and there was mild left ureteral dilatation but without evidence of obstruction. He is seen for a follow-up visit. He has been feeling pretty good generally. His energy has been okay. His ECOG score is 1. He has good appetite. He has no fever or night sweats. He does not complain of cough, shortness of breath, or chest pain. He has no GI or complaints. He continues to have pain in his left knee, which does limit his activity. He does not complain of headache. He sometimes has orthostatic dizziness. He has no focal neurologic symptoms. Medications: Amitriptyline HCl 1 (50 mg) Tablet Oral b.i.d., ClonazePAM 0.5 Tablet Oral daily, [facility] Omeprazole 1 (20 mg) Tablet, enteric coated Oral daily, Metoprolol Tartrate 1 Tablet (of 50 mg) Oral t.i.d. Allergies: PenicillAMINE and Sulfa Antibiotics. Vital Signs: Performed on Sep 09, 2020 14:54 Height - 71.00 in Weight - 218 lbs (HIGH) BSA - 2.19 sq.m BMI - 30.41 (HIGH) Temperature - 97.9 F (LOW) Pulse - 60 /min Respiration - 18 /min BP - 152/74 mm(hg) (HIGH) O2 Sat - 96 % Pain - 8 Fatigue - 5 Physical Examination: Constitutional - He looks pretty good generally, Eyes - Sclerae nonicteric. Conjunctivae clear, ENMT - No lesions noted in the oral cavity, Hematologic/Lymphatic - No cervical, clavicular, or axillary adenopathy, Respiratory - Lungs are clear, Cardiovascular - Heart rhythm is regular. There is no murmur, gallop, or rub noted, Abdomen - Soft. Liver and spleen are not enlarged. There is no abdominal mass or ascites noted and there is no inguinal adenopathy, Extremities - No edema, Neurologic - No focal neurologic deficits noted. Lab/Imaging: Test performed on Sep 09, 2020 13:04 Iron 72 mcg/dL Sodium 132 mmol/L Iron Binding Capacity (TIBC) 281 mcg/dl Potassium 4.4 mmol/L % Iron Saturation 25.6 % Chloride 97 mmol/L CO2 24 mmol/L UIBC 209 mcg/dL Anion Gap 15.4 BUN 12 mg/dL Creatinine 1.1 mg/dL Cr Clearance (Est) 89.90 mL/min eGFR 66.6 mL/min Glucose 113 mg/dL Osmolality - Calculated 275 mOsm/kg Calcium 8.6 mg/dL Protein, Total 7.0 g/dL Albumin 3.7 g/dL Globulin 3.3 g/dL Bilirubin, Total 0.7 mg/dL ALT (SGPT) 31 U/L AST (SGOT) 33 U/L Alkaline Phosphatase 129 IU/L WBC 8.6 10 3/uL RBC 4.08 10 6/uL HGB 12.2 g/dL HCT 36.9 % MCV 90.4 fL MCH 29.9 pg MCHC 33.1 g/dL RDW 14.0 % Platelet Count 152 10 3/cmm MPV 9.2 fL Neutrophils 6.12 10 3/uL Lymphocytes 1.5 10 3/uL Monocytes 0.6 10 3/uL Eosinophils 0.3 10 3/uL Basophils 0.1 10 3/uL Neutrophil % 71.0 % Lymphocyte % 17.1 % Monocyte % 6.8 % Eosinophil % 3.5 % Basophils % 1.0 % NRBC % 0 % CEA 5.5 ng/mL Problem List: 1. Patient with moderately differentiated adenocarcinoma of the ascending colon, stage IIB (T4a, N0, M0). He underwent laparoscopic right hemicolectomy on 03/30/2016. The tumor was found to have intact mismatch repair proteins. An Oncotype DX assay showed a recurrence score of 11, corresponding to a 3-year risk of recurrence of 20%. He declined adjuvant chemotherapy. 2. On 09/14/2018 he underwent laparoscopic surgery for an enlarging mass in the area of the ileocolonic anastomosis. A mass was noted at the anastomosis site. It was adherent to the abdominal wall. The procedure included lysis of adhesions and ileocolectomy with extracorporeal stapled ileocolic anastomosis. Pathology showed well-differentiated infiltrating adenocarcinoma involving serosal connective tissues, consistent with recurrent versus new primary colonic carcinoma. The tumor was completely resected with free margins. There was no involvement in 4 mesenteric lymph nodes. 3. He also required treatment for iron deficiency anemia. 4. Hypertension. 5. GERD. 6. Degenerative arthritis. 7. Anxiety/depression. 8. He has nicotine dependence (chewing tobacco). Problems Addressed with this Encounter and Plan: Patient with moderately differentiated adenocarcinoma of the ascending colon, stage IIB (T4a, N0, M0). He underwent laparoscopic right hemicolectomy on 03/30/2016. The tumor was found to have intact mismatch repair proteins. An Oncotype DX assay showed a recurrence score of 11, corresponding to a 3-year risk of recurrence of 20%. He opted not to take adjuvant chemotherapy. As such, he was followed on observation/expectant management. At his follow-up visit in May 2018 there was a significant increase in his CEA level. A restaging PET/CT on 07/30/2018 did show an FDG avid soft tissue mass at the colonic anastomosis which was felt to be suspicious for local recurrence. There was no evidence for any other metastatic involvement. On 09/14/2018 he underwent laparoscopic surgery. A mass was noted at the anastomosis site. It was adherent to the abdominal wall. The procedure included lysis of adhesions and ileocolectomy with extracorporeal stapled ileocolic anastomosis. Pathology showed well-differentiated infiltrating adenocarcinoma involving serosal connective tissues, consistent with recurrent versus new primary colonic carcinoma. The tumor was completely resected with free margins. There was no involvement in 4 mesenteric lymph nodes. In the setting of completely resected recurrent disease, he was recommended to undergo adjuvant chemotherapy with 4 cycles of oxaliplatin/Xeloda, which he completed in December 2018. At that point there was a significant increase in his CEA level, to 8.1 ng/mL. A restaging PET/CT on 01/21/2019 showed increased uptake at the ileocolonic anastomosis, consistent with recurrence at that site. There were no other areas of abnormal uptake. Surveillance colonoscopy on 02/08/2019 showed no abnormal findings. With those findings he was taken back to surgery on 02/22/2019. The procedure included laparoscopic lysis of adhesions and laparoscopic partial colectomy with ileal colonic anastomosis and with omentectomy. There was no evidence of recurrent tumor, and pathology was benign. He then continued on observation/expectant management. During follow-up his clinical status has remained stable. As of his follow-up visit in February [address] findings to suggest any further recurrence of the colon cancer. He is again showing a very gradual increase in his CEA level. As such, I will schedule a repeat his CT abdomen/pelvis. In the absence of any evidence of recurrent disease, I will just see him again in 6 months. Signed By: Skyler Matos M.D. <<Signature on File>>
== END 2020-09-09 12:43 | disposition home or self-care (01) ==
PROVIDERS: PCP Nurse Practitioner Family; Visit Provider Internal Medicine Medical Oncology
DX: Z08 Encounter for follow-up examination after completed treatment for malignant neoplasm (principal); Z85.038 Personal history of other malignant neoplasm of large intestine; R97.0 Elevated carcinoembryonic antigen [CEA]; Z86.2 Personal history of diseases of the blood and blood-forming organs and certain disorders involving the immune mechanism; Z90.49 Acquired absence of other specified parts of digestive tract; Z92.21 Personal history of antineoplastic chemotherapy; Z98.0 Intestinal bypass and anastomosis status
CPT/HCPCS: 80053; 82378; 83540; 83550; 85025; 99214

== ENCOUNTER 2020-09-24 11:17 | Outpatient (CLI) | payer MEDICARE, SELFPAY ==
--- NOTE | 2020-09-24 11:22 | CTR_ITS ---
PROCEDURE INFORMATION: Exam: CT Abdomen And Pelvis With Contrast Exam date and time: 09/24/2020 11:23 AM Age: 70 years old Clinical indication: Condition or disease; Cancer; Other: Colon; Additional info: Colon cancer TECHNIQUE: Imaging protocol: Computed tomography of the abdomen and pelvis with contrast. Radiation optimization: All CT scans at this facility use at least one of these dose optimization techniques: automated exposure control; mA and/or kV adjustment per patient size (includes targeted exams where dose is matched to clinical indication); or iterative reconstruction. Contrast material: OMNI 300; Contrast volume: 95 ml; Contrast route: INTRAVENOUS (IV); COMPARISON: CT chest abd pel w con* 03/18/2020 10:19 AM RADIATION DOSE METRICS: Total DLP (mGy-cm): 1959.59 FINDINGS: Lungs: Trace scarring/atelectasis in the lung bases. Liver: Normal size and density. No focal mass. Gallbladder and bile ducts: No intrahepatic or extrahepatic biliary dilitation. No calcified stones. Pancreas: Partial fatty atrophy of the pancreas. Calcifications in the pancreatic head and uncinate process, likely from prior pancreatitis. Spleen: Small splenules noted. Adrenal glands: Normal. Kidneys and ureters: Atrophy of the right kidney. A 1.5 cm exophytic lesion along the lateral left kidney measures 9 Hounsfield units and is unchanged compared to the prior exam. No stones or hydronephrosis. Stomach and bowel: Indistinct fat stranding around the rectum. Suture line noted in the transverse colon with changes of right hemicolectomy and ileocolic anastomosis. There is slight nodular thickening along the suture line which was not evident on the prior exam. Contrast passes normally into the colon. No signs of obstruction. No significant diverticula. Appendix: Status post appendectomy. Intraperitoneal space: No free air. No free fluid or evidence of abscess. Vasculature: Scattered vascular calcifications. Lymph nodes: No lymphadenopathy. Urinary bladder: Normal CT appearance. Reproductive: Normal CT appearance for age. Bones/joints: No acute abnormality. Soft tissues: Mild bilateral gynecomastia, greater on the left. Small fat containing right inguinal hernia. CT/CT abdomen pelvis w con* [id number] IMPRESSION: 1. Slight nodular thickening along the suture line at the ileocolic anastomosis which was not evident on the prior exam. This is concerning for possible recurrence. 2. Compared to the prior exam indistinct fat stranding around the rectum is more prominent. This may reflect posttreatment changes or proctitis. Rectal malignancy or metastatic disease is considered less likely. Radiation Dose CTDIVOL = (mGy): DLP = 1959.59 (mGy-cm)
[2020-09-24] MEDS: iohexol 300 mg/mL 100 mL Btl IV (12:56)
== END 2020-09-24 11:18 | disposition home or self-care (01) ==
PROVIDERS: PCP Nurse Practitioner Family; Visit Provider Internal Medicine Medical Oncology
DX: C18.2 Malignant neoplasm of ascending colon (principal)
CPT/HCPCS: 74177

== ENCOUNTER → 2020-12-13 15:26 | Outpatient (BNVA) | payer MEDICARE, SELFPAY | PROVIDERS: PCP Nurse Practitioner Family; Visit Provider Surgery | DX: Z11.52 Encounter for screening for COVID-19 (principal) | CPT/HCPCS: 87635 ==

== ENCOUNTER 2020-12-19 08:31 | Day surgery (SDC) | payer MEDICARE, SELFPAY ==
[2020-12-13 11:11] VITALS: BMI 30.1
[2020-12-16 13:07] VITALS: BMI 30.1
--- NOTE | 2020-12-19 09:10 | ANES.PREANE2 ---
Pre-Anesthetic Assessment Pre-Anesthetic Assessment: Height/Weight: Height 1.78 m Weight 95.254 kg Preop Diagnosis: screening colonoscopy Proposed Procedure: Operation Date: 12/19/20 10:00 Proposed Procedures p Colonoscopy 28891 z85.038(Not Applicable) - Adam Trinh MD Was Beta Danilo taken within 24 hours: Yes Was Clonidine taken within 24 hours: N/A Social: Social History: No alcohol and No tobacco Exam: Pre-Anes Outpt Exam: alert, oriented x 3, clear to auscultation bilaterally and regular rate & rhythm Airway: Submandibular: WNL Cervical ROM: WNL MP: 2 Dentition: Chipped Additional comments: Poor dentition CV/HEM: CV/HEM: HTN GI: GI: GERD Comments: Colon CA Musc/skel: Musc/skel: OA/DJD Neuropsych: Neuropsych: Anxiety Anesthetic Plan: ASA status: 3 Anesthesia: MAC Risk of > 500 ml blood loss (7ml/kg in children): No PFSH Anesthesia PFSH: Medical History (Updated 10/04/20 @ 16:24 by Adam Trinh MD) Chronic tophaceous gout of both hands History of colon cancer Hypertension Osteoarthritis Osteoporosis Surgical History (Updated 10/04/20 @ 16:24 by Adam Trinh MD) History of colonoscopy 2019 History of hemicolectomy History of laparoscopy adhesions Family History Other Arthritis Hypertension Denies family history of Rheumatoid arthritis Diabetes Lupus Anesthesia complication Bleeding disorder Social History Smoking and tobacco status: former smoker Alcohol intake: current Alcohol intake frequency: few times a month Alcohol type: beer Data Anesthesia Cardiac Studies: No Data to Display
--- NOTE | 2020-12-19 09:16 | W.PM.OPSFHP ---
Same Day Surgery H&P Indication for Procedure/HPI DATE OF PROCEDURE: December 19, 2020 CHIEF COMPLAINT/INDICATIONFOR SURGICAL PROCEDURE: colon cancer history PREOP DIAGNOSIS: screening colonoscopy PLANNED PROCEDRUE: Operation Date: 12/19/20 10:00 Proposed Procedures p Colonoscopy 19826 z85.038(Not Applicable) - Adam Trinh MD Medications/Allergies* Home Medications Medication Instructions Recorded Confirmed Type metoprolol tartrate 25 mg tablet 25 mg PO DAILY 08/28/19 12/16/20 History amitriptyline 50 mg tablet 50 mg PO .bedtime tab 08/29/19 12/16/20 History clonidine HCl 0.1 mg tablet 0.1 mg PO DAILY tab 08/29/19 12/16/20 History omeprazole 20 mg capsule,delayed 20 mg PO DAILY 08/29/19 12/16/20 History release triamterene 37.5 1 cap PO DAILY 08/29/19 12/16/20 History mg-hydrochlorothiazide 25 mg capsule clonazepam 1 mg tablet 1 mg PO BID tab 10/06/19 12/16/20 History allopurinol 300 mg PO QAM 12/16/20 12/16/20 History Allergies/Adverse Reactions Allergy/AdvReac Type Severity Reaction Status Date / Time Penicillins Allergy Unknown Unknown Verified 12/19/20 09:13 Sulfa (Sulfonamide Allergy Unknown Unknown Verified 12/19/20 09:13 Antibiotics) aspirin AdvReac Intermediate GI bleed Verified 12/19/20 09:13 ibuprofen AdvReac Intermediate GI bleed Verified 12/19/20 09:13 [From NeoProfen (ibuprofen lysn)(PF)] Pertinent History/Comorbid Conditions* Medical History (Updated 10/04/20 @ 16:24 by Adam Trinh MD) Chronic tophaceous gout of both hands History of colon cancer Hypertension Osteoarthritis Osteoporosis Surgical History (Updated 10/04/20 @ 16:24 by Adam Trinh MD) History of colonoscopy 2019 History of hemicolectomy History of laparoscopy adhesions Family History (Updated 10/16/19 @ 10:26 by Tara Harris, BOWEN) Arthritis Hypertension Denies family history of Rheumatoid arthritis Diabetes Lupus Anesthesia complication Bleeding disorder Social History Smoking and tobacco status: former smoker Alcohol intake: current Alcohol intake frequency: few times a month Alcohol type: beer Pertinent Exam Findings alert, oriented x 3 and regular rate & rhythm Recommendations Surgery/Procedure today Coding Level of Care Code Acute 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
[2020-12-19 09:18] VITALS: BP 126/70; PULSE 48; RESP 18; TEMP 36.2; O2SAT 100
[2020-12-19] MEDS: sodium chloride 0.9% 1,000 ML 30 ML IV (09:29)
[2020-12-19 10:30] VITALS: BP 125/66; PULSE 53; RESP 16; TEMP 36.5; O2SAT 100
[2020-12-19 10:43] VITALS: BP 145/72; PULSE 56; RESP 18; TEMP 36.4; O2SAT 95
--- NOTE | 2020-12-19 14:02 | ANE.PACU2 ---
Inpatient post-anesthesia follow up: Airway intact: Yes Vital signs: Temperature 97.5 F Pulse Rate 56 Respiratory Rate 18 Blood Pressure 145/72 Pulse Oximetry 95 Oxygen Delivery Me thod Room Air Oxygen Flow Rate 3 Fraction of Inspir ed Oxygen Hydration adequate: Yes Nausea and vomiting: No Pain level: 1 Mental status: Baseline
== END 2020-12-19 11:00 | disposition home or self-care (01) ==
PROVIDERS: PCP Nurse Practitioner Family; Visit Provider Surgery
PROC: 0DJD8ZZ Inspection of Lower Intestinal Tract, Via Natural or Artificial Opening Endoscopic (ICD-10-PCS; CPT 45378; principal; 2020-12-19 10:00)
DX: Z12.11 Encounter for screening for malignant neoplasm of colon (principal); Z85.038 Personal history of other malignant neoplasm of large intestine; I10 Essential (primary) hypertension; M19.90 Unspecified osteoarthritis, unspecified site; M81.0 Age-related osteoporosis without current pathological fracture; Z87.891 Personal history of nicotine dependence; K64.8 Other hemorrhoids; K21.9 Gastro-esophageal reflux disease without esophagitis
CPT/HCPCS: 45378; 96360; J2704; J7030

== ENCOUNTER → 2021-05-14 09:45 | Outpatient (BNVA) | payer MEDICARE, SELFPAY | PROVIDERS: PCP Nurse Practitioner Family; Visit Provider Orthopaedic Surgery | DX: M17.12 Unilateral primary osteoarthritis, left knee (principal); Z20.822 Contact with and (suspected) exposure to COVID-19 | CPT/HCPCS: 73562 ==

== ENCOUNTER → 2021-06-16 00:01 | Outpatient (BNVA) | payer MEDICARE, SELFPAY | PROVIDERS: PCP Nurse Practitioner Family; Visit Provider Orthopaedic Surgery | DX: Z20.822 Contact with and (suspected) exposure to COVID-19 (principal); Z01.812 Encounter for preprocedural laboratory examination | CPT/HCPCS: 87635 ==

== ENCOUNTER 2021-06-24 15:30 | Observation (INO) | payer MEDICARE, SELFPAY ==
[2021-06-18 10:20] VITALS: BMI 31.5
--- NOTE | 2021-06-18 10:24 | ECG_ITS ---
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 Measurements Intervals [place] Rate: 57 P: 193 IA: 169 QRS: 214 QRSD: 105 T: 196 QT: 404 QTc: 395 Interpretive Statements ECTOPIC ATRIAL BRADYCARDIA POSSIBLE ANTERIOR MYOCARDIAL INFARCTION , OF INDETERMINATE AGE [30 ms Q WAVE IN V3/V4, OR R < 0.2 mV IN V4] Compared to ECG 02/21/2019 12:52:40 Bradycardia, nonsinus now present Sinus rhythm no longer present Myocardial infarct finding still present Electronically Signed On 06-18-2021 20:48:01 LENS EXAMINER by Alexandro Alfaro M.D. [id number]
--- NOTE | 2021-06-18 11:19 | ANES.PREANE2 ---
Pre-Anesthetic Assessment Pre-Anesthetic Assessment: Height/Weight: Height 1.78 m Weight 99.79 kg Preop Diagnosis: screening colonoscopy Proposed Procedure: Operation Date: 06/23/21 09:35 Proposed Procedures p Total Knee Arthroplasty 88473 M17.12(Left) - Junior Decker MD Was Beta Danilo taken within 24 hours: Yes Was Clonidine taken within 24 hours: Yes Social: Social History: No alcohol and No tobacco Exam: Pre-Anes Outpt Exam: alert, oriented x 3, clear to auscultation bilaterally and regular rate & rhythm Airway: Submandibular: WNL Cervical ROM: WNL MP: 2 Dentition: Chipped Additional comments: Very poor dentition CV/HEM: CV/HEM: HTN GI: GI: GERD Musc/skel: Musc/skel: OA/DJD Neuropsych: Neuropsych: Anxiety Anesthetic Plan: ASA status: 3 Anesthesia: Regional (specify below) Other: SAB wit adductor blk Risk of > 500 ml blood loss (7ml/kg in children): No PFSH Anesthesia PFSH: Medical History Chronic tophaceous gout of both hands History of colon cancer Hypertension Osteoarthritis Osteoporosis Surgical History History of colonoscopy (12/19/20) 2019 History of hemicolectomy History of laparoscopy adhesions Family History Other Arthritis Hypertension Denies family history of Rheumatoid arthritis Diabetes Lupus Anesthesia complication Bleeding disorder Social History Smoking and tobacco status: former smoker Alcohol intake: current Alcohol intake frequency: few times a month Alcohol type: beer Data Anesthesia Cardiac Studies: No Data to Display
[2021-06-23] VITALS (32 sets, daily range): BP systolic 88–144; BP diastolic 48–81; PULSE 74–112; RESP 14–18; TEMP 36.4–36.9; O2SAT 95–99
[2021-06-23] MEDS: oxyCODONE 20 mg ER (12 HR) Tablet PO (08:45)
[2021-06-23] MEDS: acetaminophen 500 mg Tablet 1000 MG PO ×2 (08:45→19:15)
[2021-06-23] MEDS: sodium chloride 0.9% 1,000 ML 30 ML IV (08:45)
--- NOTE | 2021-06-23 08:54 | W.PM.OPSFHP ---
Same Day Surgery H&P Indication for Procedure/HPI DATE OF PROCEDURE: June 23, 2021 CHIEF COMPLAINT/INDICATIONFOR SURGICAL PROCEDURE: Osteoarthritis osteoarthritis left knee with severe pain and disability PREOP DIAGNOSIS: OsteoarthritisLeft knee PLANNED PROCEDRUE: Operation Date: 06/23/21 09:35 Proposed Procedures p Total Knee Arthroplasty 23322 M17.12(Left) - Junior Decker MD 71-year radiographs show severe tricompartmental degenerative disease with medial tibial bone loss Medications/Allergies* Home Medications Medication Instructions Recorded Confirmed Type metoprolol tartrate 25 mg tablet 25 mg PO DAILY 08/28/19 06/23/21 History amitriptyline 50 mg tablet 50 mg PO .bedtime tab 08/29/19 06/23/21 History clonidine HCl 0.1 mg tablet 0.1 mg PO DAILY tab 08/29/19 06/23/21 History omeprazole 20 mg capsule,delayed 20 mg PO DAILY 08/29/19 06/23/21 History release triamterene 37.5 1 cap PO DAILY 08/29/19 06/23/21 History mg-hydrochlorothiazide 25 mg capsule clonazepam 1 mg tablet 1 mg PO BID tab 10/06/19 06/23/21 History allopurinol 300 mg PO QAM 12/16/20 06/23/21 History Allergies/Adverse Reactions Allergy/AdvReac Type Severity Reaction Status Date / Time Penicillins Allergy Unknown Unknown Verified 05/14/21 09:37 Sulfa (Sulfonamide Allergy Unknown Unknown Verified 05/14/21 09:37 Antibiotics) aspirin AdvReac Intermediate GI bleed Verified 05/14/21 09:37 ibuprofen AdvReac Intermediate GI bleed Verified 05/14/21 09:37 [From NeoProfen (ibuprofen lysn)(PF)] Pertinent History/Comorbid Conditions* Medical History (Updated 05/14/21 @ 10:29 by Junior Decker MD) Chronic tophaceous gout of both hands History of colon cancer Hypertension Osteoarthritis Osteoporosis Surgical History (Updated 12/19/20 @ 10:33 by Adam Trinh MD) History of colonoscopy (12/19/20) 2019 History of hemicolectomy History of laparoscopy adhesions Family History (Updated 10/16/19 @ 10:26 by Tara Harris RN) Arthritis Hypertension Denies family history of Rheumatoid arthritis Diabetes Lupus Anesthesia complication Bleeding disorder Social History Smoking and tobacco status: former smoker Alcohol intake: current Alcohol intake frequency: few times a month Alcohol type: beer Pertinent Exam Findings alert, oriented x 3, clear to auscultation bilaterally, regular rate & rhythm and operative site marked Recommendations Surgery/Procedure today Other Plans: We will proceed with left will have revision components available to deal with medial tibial bone loss. 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
[2021-06-23] MEDS: gabapentin 300 mg Capsule PO ×2 (08:55→19:15)
[2021-06-23 09:24] LABS: Potassium 4.3 mmol/L (3.5-5.1)
--- NOTE | 2021-06-23 09:29 | P.ANESUD_ITS ---
Pre-Anesthetic Update Pre-Anesthetic Assessment: Date of Surgery/Procedure: 06/23/21 Preop Lore gnosis: OsteoarthritisLeft knee Proposed Procedure: Operation Date: 06/23/21 09:35 Proposed Procedures p Total Knee Arthroplasty 01287 M17.12(Left) - Junior Decker MD Any changes to Pre-Anesthetic Assessment?: No Last Intake: Intake Last Liquid Date 06/22/21 Last Liquid Time 18:30 Last Solid Date 06/22/21 Last Solid Time 18:30 Labs Last 48hrs: Laboratory Results - last 48 hr 06/23/21 08:45 Potassium 4.3 Vitals: Temperature 97.9 F 06/23/21 08:53 Temperature Source Temporal Artery S can 06/23/21 08:53 Pulse Rate 75 06/23/21 08:53 Pulse Rhythm 06/23/21 08:53 Pulse Strength 3+ Normal 06/23/21 08:53 Respiratory Rate 18 06/23/21 08:53 Blood Pressure 142/75 06/23/21 08:53 Blood Pressure Charline n 97 06/23/21 08:53 Pulse Oximetry 99 06/23/21 08:53 Oxygen Delivery Me thod 06/23/21 08:53 Exam: Pre-Anes Outpt Exam: alert, oriented x 3, clear to auscultation bilaterally and regular rate & rhythm Cardiac Studies: No Data to Display
[2021-06-23] MEDS: tranexamic acid 1,000 mg/10mL SDV 1000 MG IV (10:05)
--- NOTE | 2021-06-23 10:08 | ANES.PROC ---
Anesthesia Procedures Procedure/Date: 06/23/21 Nerve Block ^: Nerve Block 1: Main Anesthesia: spinal anesthesia block Time Out Performed: Yes Consent: requested by attending/covering physician, from patient, risks and benefits reviewed and patient agrees to proceed Nerve block location: adductor canal (left) Anesthesia monitors applied: pulse oximetry, EKG, BP cuff and oxygen Anesthetic Used: ropivicaine 0.5% Amount of anesthesia used (mL): 20 Ultrasound used to: recognize landmarks Nerve Stimulator Used?: No Interscalene/Femoral BLK: 4 stimuplex 21 g needle used for position and inplane approach and visualize local anesthetic spread Injection: neg aspiration of heme Patient Tolerated Procedure: well Complications: none
--- NOTE | 2021-06-23 10:11 | SUR.OPER ---
family updated of surgical status
[2021-06-23] MEDS: EPINEPHrine 1 mg/mL INJ XX (10:20)
[2021-06-23] MEDS: tranexamic acid 1,000 mg/10mL SDV 1000 MG XX (10:20)
[2021-06-23] MEDS: ketorolac 30 mg/mL INJ IM (10:21)
--- NOTE | 2021-06-23 11:22 | SUR.OPER ---
family updated of surgical status
--- NOTE | 2021-06-23 12:22 | SUR.OPER ---
family updated of surgical status
--- NOTE | 2021-06-23 13:16 | XRR_ITS ---
PROCEDURE INFORMATION: Exam: XR Left Knee Exam date and time: 06/23/2021 1:16 PM Age: 71 years old Clinical indication: Device placement; Joint replacement hardware; Prior surgery; Surgery date: Post-operative (0-2 days); Additional info: Left total knee arthroplasty TECHNIQUE: Imaging protocol: XR Left knee. Views: 1 or 2 views. COMPARISON: CR XR knee LT 3V* [id number] 05/14/2021 9:53 AM FINDINGS: Bones/joints: Metallic orthopedic joint replacement is present in good position. Soft tissues: Normal. Other findings: No evidence of loosening is seen. This finding was not visible on prior examination. XR/XR knee LT 1-2V [id number] IMPRESSION: 1. Metallic knee replacement in good position 2. Otherwise No acute findings.
--- NOTE | 2021-06-23 13:47 | P.OP_ITS ---
Operative Report Date of procedure: June 23, 2021 Pre-op Diagnosis: OsteoarthritisLeft knee Post-op diagnosis: same Post-op Findings: Same Procedure Done: Left total knee arthroplasty Implants: Jose total knee arthroplasty components were used includin) Size 7 Triathalon total stablized femoral component 2) Size 7 universal Triathalon tibial component 3) 38 mm /11 mm thickness Tritanium asymetric patella 4) Size 7/9 mm thickness CPS tibial bearing insert 5) 15 mm x 50mm cemented femoral stem with 25 mm stem family welfare social work professor 6) 12 mm x 50 mm cemented tibial stem with 25 mm stem family welfare social work professor 7) 10 mm, size 7 tibial augmentation half block Pathology: none sent Surgeon: Junior Decker Anesthesia: Nerve Block (Spinal, adductor canal block) Estimated blood loss (mL): 200 Tourniquet time (min): 118 Complications: None Findings: The patient had severe tricompartmental with marked medial tibial bone loss, multiple loose bodies, and fixed varus alignment. He had a hypoplastic lateral femoral condyle Condition: stable Disposition: PACU Procedure: The patient was taken to the operating room. Patient was given 1 g of tranexamic acid . The above anesthesia provided by the anesthesia service. A timeout was performed. The patient was prepped and draped in the usual fashion with the lower extremity exposed. A anterior incision was made, midline, from a point proximal to the patella to the distal tibial tubercle. The knee was entered through a medial parapatellar approach. The patella could be displaced laterally and the knee flexed. Large fixed synovial loose bodies were removed from the medial gutter. Prominent osteophytes about the patella were removed to allow better access to the knee. The patellar fat pad was resected to provide better visibility. Retractors were placed medially and laterally adjacent to the tibial plateau. I release of the medial deep and proximal superficial collateral ligaments was accomplished and dissection accomplished posteriorly. Multiple fixed loose bodies were removed from that medial synovial soft tissue. To allow more room to work in visualization of the tibial deformity a saw was used to remove prominent anterior tibial articular bone. The femoral canal was drilled in line with the longitudinal axis of the femur. Intramedullary femoral guide for used to make a distal femoral cut in 5 degrees of valgus, resecting 8 mm from the more prominent medial condyle. The femoral measuring guide was then placed over the distal femur. Rotation was verified checking the relationship of the guide to the condyle and the trochlear groove. Due to the hypoplastic lateral femoral condyle an extra 5 degrees of rotation was placed across the cutting guidethe femur was measured and cut for the size 7 femoral component. The resection resulted in minimal posterior chamfer and posterior cuts from the dysplastic lateral femoral condyle. As this left us with approximately 4 mm of cement buildup required over the posterior distal femur I decision was made to proceed with a stem. The box cut was made for the Total Stabilized femoral component. The distal femoral canal was reamed up to 15 mm for a cemented stem. Next a extra medullary guide was placed across the tibia removing approximately 11 mm from the higher lateral tibial plateau. This resulted in a remaining 1 cm posterior medial defect. The tibial canal was entered with sequential hand reamers and the intramedullary guides used to create a 10 mm step cut across the medial tibial plateau limiting the posterior medial bony deficiency. The desired tibial baseplate was then chosen. The tibia was prepared and sequential reaming performed distally to 15 mm. A trial reduction with the femur, tibial baseplate, and stems was done with a 9 mm thickness posterior stabilizing insert, assuring that the knee was stable throughout full motion. Patellar thickness was then measured. The patella was cut removing articular cartilage and prepared for appropriate size patellar button. The posterior capsule and collateral ligaments were then injected with a solution of 100 mL of 0.2% ropivacaine, 1 mL of a 1:1000 epinephrine solution, 30 mg of Toradol, and 1 g of tranexamic acid. The tourniquet was then deflated at 90 minutes. On the back table the femoral component was assembled to the 15 x 50mm cemented stem. The tibial component was assembled with the 10 mm tibial augment half block and 12 mm x 50 mm cemented stem. Initially, 2 bags of [place] Simplex cement with tobramycin were mixed. Cement was packed in to the trabecular bone over the tibia and is well placed around the tibial stem. The stem was then cemented into place. 2 additional bags of tobramycin cement were mixed with cement again packed around the stem and abundant cement over the area of the lateral femoral condyle and the femoral component was cemented in the place. Finally the patellar button was cemented. The knee was irrigated with pulsatile lavage. The extensor retinaculum was closed with a running 1 Stratafix.. The subcutaneous tissues were closed with 2-0 Vicryl and the skin was closed with a running 4-0 Stratafix. The wound was covered with a Dermabond Prinio dressing. It was covered with 4xrs and a compressive Tubigauae was applied. The patient was taken to recovery room in stable condition.
[2021-06-23] MEDS: albumin 12.5 GM/50 ML VIAL IV (14:14)
--- NOTE | 2021-06-23 14:54 | ANE.PACU2 ---
Inpatient post-anesthesia follow up: Airway intact: Yes Vital signs: Temperature 98.5 F Pulse Rate 110 Respiratory Rate 18 Blood Pressure 106/52 Pulse Oximetry 98 Oxygen Delivery Me thod Nasal Cannula Oxygen Flow Rate 3 Fraction of Inspir ed Oxygen Hydration adequate: Yes Nausea and vomiting: No Pain level: 2 Additional Comments: Patient confused pre-op with some difficulty answering questions correctly per pre op RN. Patient responsive to voice. He does know his current location at the hospital in [place] however does not respond correctly to month or year.
--- NOTE | 2021-06-23 15:00 | ANE.PACU2 ---
Inpatient post-anesthesia follow up: Airway intact: Yes Vital signs: Temperature 98.5 F Pulse Rate 110 Respiratory Rate 18 Blood Pressure 106/52 Pulse Oximetry 98 Oxygen Delivery Me thod Nasal Cannula Oxygen Flow Rate 3 Fraction of Inspir ed Oxygen Hydration adequate: Yes (Initially soft in PACU. 25% albumin and 500ml crystalloid improved BP) Nausea and vomiting: No Pain level: 3 Mental status: Baseline Additional Comments: Patient confused in pre op with difficulty in answering questions appropriately and requiring assistance from his spouse. Know location [facility] however not able to correctly identify month/year stating May 1920 alternating with 2001 and 2021.
--- NOTE | 2021-06-23 16:20 | SUR.PHASEI ---
1414 Pts blood pressure continues to run low. CUSTOMER CARE VOICE CONSULTANT Will notified and orders for Albumin and to be followed by a 250 cc bolus. Albumin started. Blood pressures began to trend upward. Pt arouses to verbal stimuli. Is alert and confused.
[2021-06-23] MEDS: allopurinol 100 mg Tablet 200 MG PO (19:15)
[2021-06-23] MEDS: oxyCODONE 5 mg IR Tab/Cap PO ×2 (19:47→21:52)
[2021-06-23] MEDS: sodium chloride 0.9% 1,000 ML 100 ML IV (21:02)
[2021-06-23] MEDS: amitriptyline 25 mg Tablet 50 MG PO (21:53)
[2021-06-24] VITALS (11 sets, daily range): BP systolic 112–143; BP diastolic 52–76; PULSE 76–115; RESP 14–20; TEMP 36.5–36.8; O2SAT 92–100
[2021-06-24] MEDS: oxyCODONE 5 mg IR Tab/Cap 10 MG PO ×3 (01:58→10:58)
[2021-06-24] MEDS: acetaminophen 500 mg Tablet 1000 MG PO ×3 (03:02→17:55)
[2021-06-24 04:12] LABS: Hemoglobin 10.6 g/dL (11.7-16.6)
[2021-06-24] MEDS: allopurinol 300 mg Tablet PO (06:05)
--- NOTE | 2021-06-24 09:17 | PC.NURSE ---
Patient Fall Patient assisted to chair by PT, call light within reach, as well as phone and remote for TV. Patient instructed not to get up without assistance. Patient up in chair for 5 minutes and attempted to ambulate to find his phone. Timothy from housekeeping heard patient yelling for help. Upon entry patient noted to be sitting in the floor leaning against his bed. Patient reports he hit his face on the bedside table, no bruising or lacerations noted. Patient has small skin tear on left arm. No other injuries noted, full assessment performed. Dr. Decker notified and no further orders at this time.
[2021-06-24] MEDS: pantoprazole DR 40 mg Tablet PO (09:50)
[2021-06-24] MEDS: cloNIDine 0.1 mg Tablet PO (09:50)
[2021-06-24] MEDS: aspirin 325 mg EC Tablet PO (09:50)
[2021-06-24] MEDS: metoprolol tartrate 25 mg Tablet PO (09:50)
[2021-06-24] MEDS: gabapentin 300 mg Capsule PO ×2 (09:50→17:55)
--- NOTE | 2021-06-24 11:12 | PC.NURSE ---
Patient is sitting in chair, extensive education provided to regarding patient ambulating without assistance. Call light in lap.
[2021-06-24] MEDS: allopurinol 100 mg Tablet 200 MG PO (17:55)
--- NOTE | 2021-06-24 20:00 | PC.NURSE ---
Ice pack changed
--- NOTE | 2021-06-24 20:02 | P.PN_ITS ---
Subjective Subjective: Interval history: Pain ok with po meds. Sandoval dc'd this afternoon. Unable to voidas of 1730pm. Unsteady with gait Vitals/I&O/Wt Last Vital Signs Temp 98.2 F 06/24/21 13:48 Pulse 78 06/24/21 13:48 Resp 16 06/24/21 13:48 BP 136/52 06/24/21 13:48 Pulse Ox 100 06/24/21 13:48 06/24/21 06/24/21 06/24/21 06:59 14:59 22:59 Intake Total 2160 / 2160 500 / 2660 Output Total 400 / 1350 150 / 150 Balance -400 / 1570 2009 500 / 2510 Physical Exam Narrative: EXAM NARRATIVE: L knee dressing clean and dry. Expected swelling knee Urinary Catheter Management^: Sandoval Latex: Cath Placed During This Visit: yes, but has since been removed by the nurse Reason for Continuing Indwelling Catheter: Decision to DC Catheter Urinary Catheter Date of Insertion: 06/23/21 Urinary Catheter Time of Insertion: 10:00 Date Urinary Catheter Removed: 06/24/21 Time Urinary Catheter Discontinued: 07:58 Data : 06/24/21 04:00 06/23/21 08:45 A&P Assessment and plan (1) Osteoarthritis of left knee: Status: Resolved (2) Status post left knee replacement: Continyue with physical therapy. Status: Acute Attestations Medical Necessity Statement*: DC home when stable with walker Coding Level of Care Code Acute Machine Operator Replanter for Dary Juan Diagnoses Osteoarthritis of left knee M17.12 Status post left knee replacement Z96.652
[2021-06-24] MEDS: amitriptyline 25 mg Tablet 50 MG PO (20:39)
--- NOTE | 2021-06-24 22:30 | PC.NURSE ---
Bladder scan average 450-500. Straight cath done, 450 urine out.
[2021-06-24 23:10] LABS: Basophils # 0.1 10^3/uL (0.0-0.1); Basophils % 0.6 %; Eosinophils # 0.7 10^3/uL (0.0-0.8); Eosinophils % 5.1 %; Hematocrit 31.2 % (42.0-52.0); Hemoglobin 9.8 g/dL (11.7-16.6); Lymphocytes # 1.5 10^3/uL (0.8-4.8); Lymphocytes % 11.5 %; Mean Corpuscular HGB Conc 31.4 g/dL (30.0-36.0); Mean Corpuscular Hemoglobin 30.5 pg (28.0-34.0); Mean Corpuscular Volume 97.2 fl (80-94); Mean Platelet Volume 9.8 fL (7.4-10.4); Monocytes # 1.1 10^3/uL (0.2-0.9); Monocytes % 7.9 %; Neutrophils # 9.97 10^3/uL (1.8-7.7); Neutrophils % 74.4 %; Nucleated Red Blood Cells % 0 %; Platelet Count 133 10^3/cmm (130-400); Red Blood Count 3.21 10^6/uL (4.1-5.3); Red Cell Distribution Width 13.9 % (12.1-15.1); White Blood Count 13.4 10^3/uL (4.0-10.0)
[2021-06-24 23:26] LABS: Alanine Aminotransferase 6 U/L (0-41); Albumin Level 2.3 g/dL (3.5-5.2); Alkaline Phosphatase 124 IU/L (40-130); Anion Gap 13.9 (5-19); Aspartate Amino Transferase 22 U/L (0-40); Blood Urea Nitrogen 12 mg/dL (8-23); Calcium 6.7 mg/dL (8.5-10.5); Carbon Dioxide 20 mmol/L (22-29); Chloride 106 mmol/L (98-107); Globulin 2.7 g/dL (1.3-4.6); Glomerular Filtration Rate 35.3 mL/min (90-130); Glucose 143 mg/dL (65-115); Osmolality Calculated 284 mOsm/kg (285-295); Potassium 3.9 mmol/L (3.5-5.1); Sodium 136 mmol/L (136-145); Total Bilirubin 0.7 mg/dL (0.15-1.2)
[2021-06-25] MEDS: acetaminophen 500 mg Tablet 1000 MG PO ×2 (01:58→08:36)
[2021-06-25 04:30] VITALS: BP 103/58; PULSE 90; RESP 14; O2SAT 94
[2021-06-25 04:57] VITALS: RESP 16; O2SAT 94
[2021-06-25] MEDS: oxyCODONE 5 mg IR Tab/Cap 10 MG PO (04:57)
[2021-06-25] MEDS: allopurinol 300 mg Tablet PO (06:25)
[2021-06-25 08:00] VITALS: BP 112/71; PULSE 90; RESP 20; TEMP 37
[2021-06-25] MEDS: metoprolol tartrate 25 mg Tablet PO (08:36)
[2021-06-25] MEDS: pantoprazole DR 40 mg Tablet PO (08:36)
[2021-06-25 08:37] VITALS: BP 112/71
[2021-06-25] MEDS: cloNIDine 0.1 mg Tablet PO (08:37)
[2021-06-25] MEDS: gabapentin 300 mg Capsule PO (08:37)
[2021-06-25] MEDS: aspirin 325 mg EC Tablet PO (08:38)
--- NOTE | 2021-06-25 08:57 | PC.OT ---
OT TREATMENT ATTEMPTED. OFFERED GROOMING. PATIENT REFUSES STATING THAT HIS WILL HELP HIM WHEN SHE COMES IN TO VISIT. AGAIN OFFERED GROOMING TO FRESHEN UP BEFORE HIS CAME BUT HE DECLINED ADAMANTLY.
[2021-06-25] MEDS: pneumococcal (23 valent) SDV 0.5 mL IM (10:29)
[2021-06-25 13:00] VITALS: BP 112/60; PULSE 92; RESP 18; TEMP 36.8; O2SAT 99
--- NOTE | 2021-06-25 13:07 | P.DS_ITS ---
Discharge Providers Date of Admission: 06/24/21 15:30 Date of Discharge: June 25, 2021 Attending Provider at Admission: Junior Decker MD Attending Provider at Discharge: Junior Decker MD Primary Care Provider: Julia Diego APN Diagnoses at Discharge Discharge Diagnosis (1) Osteoarthritis of left knee: Status: Resolved (2) Status post left knee replacement: Status: Acute Reason for Visit Reason for Visit: Left knee arthritis Hospital Course Hospital Course The patient tolerated surgery well. They remained hemodynamically stable. They was begun on aspirin and foot pumps for DVT prophylaxis. The patient was mobi lized with therapy beginning the day of surgery but had some confusion and was slow to follow therapy cues. By the second postoperative day he was independent with the walker. He was unable to urinate the first day and a Sandoval catheter was placed. As the pain was adequately controlled and they were fully mobile they were discharged home. He will be discharged with his Sandoval catheter to be removed in clinic on Wednesday Physical Exam Narrative: EXAM NARRATIVE: On the day of discharge his knee incision was clean. They had no drainage. There is minimal swelling in the thigh and knee and the calf. No distal neurovascular deficits were noted Urinary Catheter Management^: Sandoval Latex: Cath Placed During This Visit: yes, but has since been removed by the nurse Reason for Continuing Indwelling Catheter: Acute Urinary Retention or Obstruction Urinary Catheter Date of Insertion: 06/25/21 Urinary Catheter Time of Insertion: 05:30 Date Urinary Catheter Removed: 06/24/21 Time Urinary Catheter Discontinued: 07:58 Discharge Data Data Completed and Pending: Completed Studies During Hospitalization Category Date Time Status XR knee LT 1-2V 7 3560 Routine Exams 06/23/21 13:16 Completed Labs from last 24 hours 06/24/21 06/24/21 22:57 22:57 WBC 13.4 H RBC 3.21 L Hgb 9.8 L Hct 31.2 L MCV 97.2 H MCH 30.5 MCHC 31.4 RDW 13.9 Plt Count 133 MPV 9.8 Neut % (Auto) 74.4 Lymph % (Auto) 11.5 Carbon % (Auto) 7.9 Eos % (Auto) 5.1 Baso % (Auto) 0.6 Neut # (Auto) 9.97 H Lymph # (Auto) 1.5 Carbon # (Auto) 1.1 H Eos # (Auto) 0.7 Baso # (Auto) 0.1 Nucleated RBC % (a uto) 0 Nucleated RBCs # 0.0 Sodium 136 Potassium 3.9 Chloride 106 Carbon Dioxide 20 L Anion Gap 13.9 BUN 12 Creatinine 1.9 H GFR Calculation 35.3 L Glucose 143 H Calculated Osmolal ity 284 L Calcium 6.7 L Total Bilirubin 0.7 AST 22 ALT 6 Alkaline Phosphata se 124 Total Protein 5.0 L Albumin 2.3 L Globulin 2.7 Vitals: Last Vital Signs Temp 98.6 F 06/25/21 08:00 Pulse 90 06/25/21 08:00 Resp 20 H 06/25/21 08:00 BP 112/71 06/25/21 08:37 Pulse Ox 94 06/25/21 04:57 Discharge Plan Discharge Condition: Stable Prescriptions: New oxycodone 5 mg Tablet 5 mg PO Q4H PRN (Reason: Severe Pain) 7 Days Qty: 40 RF: 0 gabapentin 300 mg Capsule 300 mg PO BID 7 Days Qty: 14 RF: 0 acetaminophen 500 mg Tablet 1,000 mg PO Q8H 7 Days Qty: 42 RF: 0 aspirin 325 mg Tablet,Delayed Release (Dr/Ec) 325 mg PO DAILY 30 Days RF: 0 Continued amitriptyline 50 mg tablet 50 mg PO .bedtime RF: 0 omeprazole 20 mg capsule,delayed release(DR/EC) 20 mg PO DAILY RF: 0 triamterene-hydrochlorothiazid 37.5-25 mg capsule 1 cap PO DAILY RF: 0 clonidine HCl 0.1 mg tablet 0.1 mg PO DAILY RF: 0 allopurinol 100 mg tablet 200 mg PO QDAY Qty: 60 RF: 3 alendronate [Fosamax] 70 mg tablet 70 mg PO .once a week 30 Days Qty: 4 RF: 3 metoprolol tartrate 25 mg tablet 25 mg PO DAILY RF: 0 clonazepam 1 mg tablet 1 mg PO BID RF: 0 allopurinol 300 mg tablet 300 mg PO QAM RF: 0 Discontinued mupirocin 2 % ointment 1 applic topical BID Qty: 15 RF: 0 Discharge Orders: Discharge Order (Routine); Ordered 06/25/21 Ordered By: Junior Decker Other Ambulatory Orders: DME: [employer] (Order) Location: None Selected Ordered By: Junior Decker DME: Walker (Order) Location: None Selected Ordered By: Junior Decker [place] [facility] [place] [facility] [place] [Outside] Junior Decker MD [Physician] - 06/27/21 8:45 am Discharge Diet: Advance as tolerated Discharge Activity: Limit activity as instructed Activity Restrictions/Additional Instructions: Okay to shower Keep Tubigauze sleeve in place for swelling. Okay to remove for hygiene. Apply FirstIce up to 20 min/hr for pain and swelling Take Celebrex twice a day for the next 15 days for pain , discontinue other anti-inflammatories Take Neurontin twice a day for 7 days. Take Tylenol 500mg (1-2 tabs) as needed 3 times a day for mild pain take oxycodone for breakthrough pain. Exercises per physical therapy. May weight-bear as tolerated on total knee arthroplasty Discharge Attestations Time Spent in Discharge Care*: other Quality Metrics Clinical Quality Measures During this hospital stay, did patient experience: None Coding Level of Care Code Acute g [facility] note Diagnoses Osteoarthritis of left knee M17.12 Status post left knee replacement Z96.652
[2021-06-25 13:30] VITALS: BP 112/60; PULSE 92; RESP 18; TEMP 36.8; O2SAT 99
== END 2021-06-25 13:50 | disposition home or self-care (01) ==
LOC: OBGYN 06-25 10:21
PROVIDERS: Admitting Provider Orthopaedic Surgery; PCP Nurse Practitioner Family; Visit Provider Orthopaedic Surgery
PROC: (CPT 27447; principal; 2021-06-23 09:15)
DX: M17.12 Unilateral primary osteoarthritis, left knee (principal); I10 Essential (primary) hypertension; K21.9 Gastro-esophageal reflux disease without esophagitis; Z85.038 Personal history of other malignant neoplasm of large intestine; M81.0 Age-related osteoporosis without current pathological fracture; Z87.891 Personal history of nicotine dependence
CPT/HCPCS: 27447; 36415; 36592; 51702; 64447; 73560; 76942; 80053; 84132; 85018; 85025; 90471; 90686; 90732; 93005; 96365; 97110; 97116; 97162; 97166; 97530; C1776; G0378; J0171; J0690; J1580; J1885; J2250; J2405; J2704; J2795; J3010; J7030; P9047

== ENCOUNTER → 2021-08-18 14:35 | Outpatient (BNVA) | payer MEDICARE, SELFPAY | PROVIDERS: PCP Nurse Practitioner Family; Visit Provider Orthopaedic Surgery | DX: Z47.1 Aftercare following joint replacement surgery (principal); Z96.652 Presence of left artificial knee joint | CPT/HCPCS: 73562 ==

== ENCOUNTER 2021-08-21 13:16 | Outpatient (CLI) | payer MEDICARE, SELFPAY ==
[2021-08-21 13:55] LABS: Basophils % 0.8 %; Eosinophils # 0.3 10^3/uL (0.0-0.8); Eosinophils % 6.5 %; Hematocrit 27.7 % (42.0-52.0); Hemoglobin 8.8 g/dL (11.7-16.6); Lymphocytes # 0.7 10^3/uL (0.8-4.8); Lymphocytes % 19.1 %; Mean Corpuscular HGB Conc 31.8 g/dL (30.0-36.0); Mean Corpuscular Hemoglobin 29.1 pg (28.0-34.0); Mean Corpuscular Volume 91.7 fl (80-94); Mean Platelet Volume 10.7 fL (7.4-10.4); Monocytes # 0.2 10^3/uL (0.2-0.9); Neutrophils # 2.62 10^3/uL (1.8-7.7); Neutrophils % 68.3 %; Nucleated Red Blood Cells % 0 %; Platelet Count 140 10^3/cmm (130-400); Red Blood Count 3.02 10^6/uL (4.1-5.3); Red Cell Distribution Width 14.3 % (12.1-15.1); White Blood Count 3.8 10^3/uL (4.0-10.0)
== END 2021-08-21 13:17 | disposition home or self-care (01) ==
PROVIDERS: PCP Nurse Practitioner Family; Visit Provider Orthopaedic Surgery
DX: S72.141D Displaced intertrochanteric fracture of right femur, subsequent encounter for closed fracture with routine healing (principal); X58.XXXD Exposure to other specified factors, subsequent encounter
CPT/HCPCS: 85025

== ENCOUNTER 2021-10-02 08:28 | Outpatient (CLI) | payer MEDICARE, SELFPAY ==
[2021-10-02 09:00] LABS: Basophils # 0.1 10^3/uL (0.0-0.1); Eosinophils # 0.6 10^3/uL (0.0-0.8); Lymphocytes # 1.4 10^3/uL (0.8-4.8); Lymphocytes % 18.5 %; Mean Corpuscular Hemoglobin 28.2 pg (28.0-34.0); Monocytes # 0.4 10^3/uL (0.2-0.9); Monocytes % 5.3 %; Neutrophils # 5.19 10^3/uL (1.8-7.7); Neutrophils % 66.7 %; Nucleated Red Blood Cells % 0 %; Platelet Count 185 10^3/cmm (130-400); Red Blood Count 2.84 10^6/uL (4.1-5.3); Red Cell Distribution Width 15.9 % (12.1-15.1); White Blood Count 7.8 10^3/uL (4.0-10.0)
[2021-10-02 09:17] LABS: Alanine Aminotransferase 15 U/L (0-41); Albumin Level 2.5 g/dL (3.5-5.2); Alkaline Phosphatase 211 IU/L (40-130); Anion Gap 20.5 (5-19); Aspartate Amino Transferase 16 U/L (0-40); Blood Urea Nitrogen 56 mg/dL (8-23); Carbon Dioxide 13 mmol/L (22-29); Chloride 106 mmol/L (98-107); Ferritin 504 ng/mL (30-400); Globulin 4.3 g/dL (1.3-4.6); Glomerular Filtration Rate 8.2 mL/min (90-130); Glucose 120 mg/dL (65-115); Iron 45 ug/dL (59-158); Osmolality Calculated 299 mOsm/kg (285-295); Percent Saturation 37.5 % (20-50); Potassium 3.5 mmol/L (3.5-5.1); Sodium 136 mmol/L (136-145); Total Bilirubin 0.3 mg/dL (0.15-1.2); Total Iron Binding Capacity 120 mcg/dl; Total Protein 6.8 g/dL (6.6-8.7); Unsaturated Iron Binding 75 ug/dL (112-347)
[2021-10-02 09:52] LABS: Carcinoembryonic Antigen 7.6 ng/mL (0.0-4.7)
--- NOTE | 2021-10-02 10:13 | US_ITS ---
WS: [id number] ULTRASOUND RENAL TECHNIQUE: Ultrasound examination of both kidneys. CLINICAL INFORMATION: ELEVATED CREATININE COMPARISON: CT September 24, 2020 FINDINGS: RIGHT: Atrophic RIGHT kidney. History of trauma. Atrophic RIGHT kidney. Hydronephrosis: None. Perinephric fluid: None. Right kidney measures: 6.2 cm x 3.6 cm x 3.9 cm. LEFT: Left kidney is somewhat enlarged with increased echogenicity Echogenicity: Increased Cortical thickness: 1.5 cm; Normal. Hydronephrosis: None. Perinephric fluid: None. Left kidney measures: 12.3 cm x 5.7 cm x 5.4 cm. Normal visualized aorta. Distended bladder. US/US renal BI* [id number] IMPRESSION: 1. Atrophic RIGHT kidney. 2. Increased echogenicity LEFT kidney can be seen with chronic medical renal d isease. 3. No hydronephrosis in either kidney. 4. Urine distended bladder measuring 341 cc 5. Previously described LEFT lower pole renal cyst not seen today.
--- NOTE | 2021-10-02 11:22 | ONC FU_ITS ---
Dr. Matos Patient Follow-Up Note Patient: Darion Hamilton Unit #: [id number]: 1950 Dicatated By: Skyler Matos M.D.Date of Visit:Oct 02, 2021 Onc Med Follow-up/Prog Note Chief Complaint: Colon cancer. History of Present Illness: This is a 71 year-old man with low-grade (grade 1-2) infiltrating adenocarcinoma of the ascending colon, stage IIB (T4a, N0, M0) at initial diagnosis in 2015. He had presented in March 2016 with iron deficiency anemia, hemoglobin 6.0 g. He was transfused a total of 4 units of packed red blood cells. He had noted some blood in the stool for 6-8 months. He had been aware of some decrease in his energy/activity tolerance, but he was not severely symptomatic with it. He underwent upper GI endoscopy and colonoscopy on 03/25/2016. The upper endoscopy did show some evidence of erosive gastritis in the antrum. Colonoscopy showed a 4 cm ulcerated mass in the ascending colon, suspicious for malignancy. Biopsy showed low-grade infiltrating adenocarcinoma. CT abdomen/pelvis showed a markedly atrophic right kidney. The pancreas also appeared to be atrophic. There were no acute findings. On 03/30/2016 he underwent laparoscopic right hemicolectomy with extracorporeal ileocolic stapled anastomosis. Pathology showed low-grade (well to moderately differentiated) infiltrating adenocarcinoma measuring 3.0 x 2.4 x 0.4 centimeters. There was invasion through the muscularis propria to the serosal surface. The proximal and distal margins were free, the tumor was noted to be extending to the radial margin. There was no involvement and 18 pericolonic lymph nodes. Mismatch repair protein analysis showed intact nuclear expression of MLH1, MSH2, MSH6, and PMS2. He had further evaluation with Oncotype DX. It showed a recurrence score of 11, corresponding to a 3-year recurrence risk of 20% for a T4 primary tumor. Given those results he opted not to take adjuvant chemotherapy. He is being followed on observation/expectant management. Surveillance colonoscopy on 05/25/2017 showed 2 pedunculated polyps measuring 5 mm and 2 sessile polyps measuring 3 mm, all in the descending colon. All were removed endoscopically. Pathology reported 2 adenomatous polyps and [address] hyper[address] scans on 08/13/2017 showed slight enlargement of a nonsimple cyst in the inferior pole of the left kidney compared to a previous study from March 2017. There was no evidence of recurrent or metastatic disease in the chest, abdomen, or pelvis. His repeat CT scans on 11/24/2017 showed no evidence of metastatic disease in the chest, abdomen, or pelvis. There was evidence of hepatomegaly with diffuse fatty infiltration of the liver. There was chronic compression of the T10 and T12 vertebral bodies with anterior wedging. He continued on observation/expectant management. At his follow-up visit in May 2018 there was a significant increase in his CEA level, to 13.7 ng/mL. His surveillance CT scans from 05/27/2018, though, showed no evidence of metastatic disease or other acute abnormality in the chest, abdomen, or pelvis. A repeat CEA level on 07/12/2018 was slightly higher at 15.0 ng/mL. His surveillance colonoscopy at that time showed patent ileocolic anastomosis with no evidence of recurrence. The only other finding was scattered diverticuli in the sigmoid colon. Further evaluation with PET/CT on 07/30/2018 showed an FDG avid 3.2 x 3.0 cm soft tissue lesion at the ascending colonic anastomosis, SUV 11.7. This was felt to have a high likelihood of recurrence. There was no evidence of any other metastatic disease. On review of his diagnostic CT scans, her did appear to be evidence of an enlarging mass lesion in the area of the anastomosis. With those findings, he was referred to Dr. Trinh. On 09/14/2018 he underwent laparoscopic surgery which included lysis of adhesions and ileocolectomy with extracorporeal stapled ileocolic anastomosis. A mass was present at the site of the prior ileocolic anastomosis. It was noted to be adherent to the abdominal wall. It was completely resected. Pathology showed low-grade mucinous adenocarcinoma measuring 4.1 x 3.2 x 3.0 cm. It was noted to be contained within serosal connective tissues, consistent with local recurrence as opposed to a new primary disease. The surgical margins were free. There was no involvement in 4 mesenteric lymph nodes. I had seen him for a follow-up visit on 09/27/2018. In the setting of completely resected recurrent disease, he was recommended to undergo adjuvant chemotherapy with 4 cycles of oxaliplatin/Xeloda. He was initially undecided about the chemotherapy, but he ultimately did opt to have treatment. He returned on 10/26/2018 for cycle 1 of oxaliplatin/Xeloda. He tolerated it pretty well. He was then able to continue with cycle 2 on 11/16/2018, with cycle 3 on 12/07/2018, and with cycle 4 on 12/28/2018. At that point, there had been a significant increase in his CEA level, to 8.1 ng/mL. Restaging PET/CT on 01/21/2019 showed a lesion at the colonic anastomosis with SUV increased to 17.0 compared to 11.7 on the prior study from July 2018. This did appear to be consistent with recurrence at the colonic anastomosis. There were no new lesions identified. He then had a surveillance colonoscopy on 02/08/2019. The colon was examined up to the ileocolic anastomosis, and there were no abnormalities seen. With those findings, he was taken back to surgery on 02/22/2019. The procedure included laparoscopic lysis of adhesions and laparoscopic partial colectomy with extracorporeal [id number] ileocolic stapled anastomosis and with omentectomy. There was no evidence, though, of any recurrent tumor. Pathology was benign. He was then followed on expectant management. His CT abdomen/pelvis on 08/28/2019 showed no evidence of recurrent or metastatic disease. There was evidence of some perirectal fat stranding and soft tissue thickening surrounding the rectum, but unchanged from the prior study. There was severe atrophy of the right kidney. A 17 mm exophytic mass in the lower pole of the left kidney had decreased from the 05/27/2018 study. The left renal pelvis and left ureter were noted to be very slightly dilated. There was no evidence of an obstructing process. Surveillance CT scans of the chest, abdomen, and pelvis on 03/18/2020 showed no evidence of recurrent or metastatic disease. Stable mild induration in the perirectal fat was felt to be consistent with post therapeutic or inflammatory change. The right kidney was noted to be atrophic and there was mild left ureteral dilatation but without evidence of obstruction. As of his follow-up visit on 09/09/2020 he appeared stable clinically. His surveillance CT of the abdomen/pelvis on 09/24/2020 showed slight nodular thickening along the suture line at the ileocolic anastomosis and compared to the prior exam indistinct fat stranding noted around the rectum appeared slightly more prominent. This was thought to most likely represent posttreatment changes of proctitis. His follow-up colonoscopy on 12/19/2020 showed no evidence of recurrence at the ileocolic anastomosis. Findings in the rectum were limited to internal hemorrhoids. There were no other abnormalities noted. He His other medical illnesses include hypertension, GERD, degenerative arthritis, and anxiety/depression. He had a previous episode of GI bleeding from a duodenal diverticulum in 2006. He had smoked 1 pack of cigarettes daily for 35 years. He quit smoking in 2006. He had also chewed tobacco, but that he quit in March 2016. INTERIM HISTORY: On 06/23/2021 he underwent left total knee arthroplasty. There were no complications with the procedure. He is seen for a scheduled follow-up visit. He has not been feeling good. He has very limited activity. He is doing physical therapy, but he wears down very quickly, and he does not have much activity otherwise. ECOG score is 3. His appetite is poor. He has had a weight loss of more than 40 pounds in the past year. He does not have fever or night sweats. He has not had sore mouth or throat. He does not complain of cough, and he has not been having shortness of breath or chest pain. He sometimes has nausea. His acid reflux is adequately managed with medication. Bowel function has been okay. He has no complaints. In particular, he seems to have good urine output. He still has some pain in the left knee, which he has been managing with tramadol. He has not been taking any nonsteroidal medication. He has a little bit of orthostatic lightheadedness. He does not complain of headache, and he has no focal neurologic symptoms. Medications: Amitriptyline HCl 1 - 2 Tablet (of 75 mg) Oral at bedtime, ClonazePAM 0.5 - 1 Tablet Oral t.i.d., [facility] Omeprazole 1 (20 mg) Tablet, enteric coated Oral daily, Cyproheptadine HCl 1 Tablet (of 4 mg) Oral b.i.d., hydrOXYzine HCl 0.5 - 1 Tablet (of 50 mg) Oral b.i.d., Omeprazole 1 Tablet (of 20 mg) Tablet, enteric coated Oral b.i.d., Ondansetron 1 Tablet (of 4 mg) Tablet Dispersable Oral q 4 hours, Triamterene-HCTZ 1 Tablet (of 37.5-25 mg) Oral b.i.d. PRN Allergies: PenicillAMINE and Sulfa Antibiotics. Vital Signs: Performed on Oct 02, 2021 10:28 Height - 71.00 in Weight - 175.0 lbs (LOW) BSA - 1.99 sq.m BMI - 24.41 Temperature - 97.9 F (LOW) Pulse - 91 /min Respiration - 18 /min BP - 106/70 mm(hg) O2 Sat - 99 % Pain - 0 Fatigue - 5 Physical Examination: Constitutional - He appears generally weak, Eyes - Sclerae nonicteric. Conjunctivae clear, ENMT - No lesions noted in the oral cavity, Hematologic/Lymphatic - No cervical, clavicular, or axillary adenopathy, Respiratory - Lungs sound clear, Cardiovascular - Heart rhythm is regular. There is no murmur, gallop, or rub noted, Abdomen - Soft. Liver and spleen are not enlarged. There is no abdominal mass or ascites noted and there is no inguinal adenopathy, Extremities - Slight edema, Neurologic - No focal neurologic deficits noted. Lab/Imaging: CBC shows hemoglobin 8.0 g with hematocrit 25.0%. Red cell indices are normal. The white blood cell count is 7800 and the platelet count is 185,000. Comprehensive metabolic profile shows elevated BUN and creatinine at 56 and 6.7 mg/dL. The venous CO2 is low at 13 mmol/L. Potassium is borderline at 3.5 mmol/L. Alkaline phosphatase is mildly elevated at 211/130 IU/L. Bilirubin and the other liver enzymes are normal. Albumin is low at 2.5 g/dL. The calculated serum globulin is normal at 4.3 g/dL. His CEA level is up slightly at 7.6 ng/mL. Problem List: 1. Patient with moderately differentiated adenocarcinoma of the ascending colon, stage IIB (T4a, N0, M0). He underwent laparoscopic right hemicolectomy on 03/30/2016. The tumor was found to have intact mismatch repair proteins. An Oncotype DX assay showed a recurrence score of 11, corresponding to a 3-year risk of recurrence of 20%. He declined adjuvant chemotherapy. 2. On 09/14/2018 he underwent laparoscopic surgery for an enlarging mass in the area of the ileocolonic anastomosis. A mass was noted at the anastomosis site. It was adherent to the abdominal wall. The procedure included lysis of adhesions and ileocolectomy with extracorporeal stapled ileocolic anastomosis. Pathology showed well-differentiated infiltrating adenocarcinoma involving serosal connective tissues, consistent with recurrent versus new primary colonic carcinoma. The tumor was completely resected with free margins. There was no involvement in 4 mesenteric lymph nodes. 3. He also required treatment for iron deficiency anemia. 4. Hypertension. 5. GERD. 6. Degenerative arthritis. 7. Anxiety/depression. 8. He has nicotine dependence (chewing tobacco). Problems Addressed with this Encounter and Plan: Patient with moderately differentiated adenocarcinoma of the ascending colon, stage IIB (T4a, N0, M0). He underwent laparoscopic right hemicolectomy on 03/30/2016. The tumor was found to have intact mismatch repair proteins. An Oncotype DX assay showed a recurrence score of 11, corresponding to a 3-year risk of recurrence of 20%. He opted not to take adjuvant chemotherapy. As such, he was followed on observation/expectant management. At his follow-up visit in May 2018 there was a significant increase in his CEA level. A restaging PET/CT on 07/30/2018 did show an FDG avid soft tissue mass at the colonic anastomosis which was felt to be suspicious for local recurrence. There was no evidence for any other metastatic involvement. On 09/14/2018 he underwent laparoscopic surgery. A mass was noted at the anastomosis site. It was adherent to the abdominal wall. The procedure included lysis of adhesions and ileocolectomy with extracorporeal stapled ileocolic anastomosis. Pathology showed well-differentiated infiltrating adenocarcinoma involving serosal connective tissues, consistent with recurrent versus new primary colonic carcinoma. The tumor was completely resected with free margins. There was no involvement in 4 mesenteric lymph nodes. In the setting of completely resected recurrent disease, he was recommended to undergo adjuvant chemotherapy with 4 cycles of oxaliplatin/Xeloda, which he completed in December 2018. At that point there was a significant increase in his CEA level, to 8.1 ng/mL. A restaging PET/CT on 01/21/2019 showed increased uptake at the ileocolonic anastomosis, consistent with recurrence at that site. There were no other areas of abnormal uptake. Surveillance colonoscopy on 02/08/2019 showed no abnormal findings. With those findings he was taken back to surgery on 02/22/2019. The procedure included laparoscopic lysis of adhesions and laparoscopic partial colectomy with ileal colonic anastomosis and with omentectomy. There was no evidence of recurrent tumor, and pathology was benign. He then continued on expectant management. As of his follow-up visit in August 2020 he appeared stable clinically, and his surveillance CT scan in September 2020 showed just minor changes at the ileocolic anastomosis and in the rectum. His repeat colonoscopy in December 2020 showed no significant abnormalities. He presents today for scheduled follow-up. There has been a significant decline in his performance status following a left total knee arthroplasty procedure in June 2021. At that time there had been some decline in his renal function with his creatinine increased to 1.9 mg/dL. He is now in complete renal failure with BUN 56 and creatinine 6.7 mg/dL. He is acidotic with his venous CO2 decreased at 13 mmol/L. He also now has moderately severe anemia, hemoglobin 8.0 g/dL. At this point I have arranged for bilateral renal ultrasound to be done urgently. I have contacted Dr. Llanos and I am arranging for direct admission to the hospital. Signed By: Skyler Matos M.D. <<Signature on File>>
== END 2021-10-02 08:29 | disposition home or self-care (01) ==
PROVIDERS: PCP Nurse Practitioner Family; Visit Provider Internal Medicine Medical Oncology
DX: Z08 Encounter for follow-up examination after completed treatment for malignant neoplasm (principal); Z85.038 Personal history of other malignant neoplasm of large intestine; N19 Unspecified kidney failure; D50.9 Iron deficiency anemia, unspecified; I10 Essential (primary) hypertension; K21.9 Gastro-esophageal reflux disease without esophagitis; F41.9 Anxiety disorder, unspecified; F32.A Depression, unspecified; F17.220 Nicotine dependence, chewing tobacco, uncomplicated
CPT/HCPCS: 36415; 76770; 80053; 82378; 82728; 83540; 83550; 85025; 99215

== ENCOUNTER 2021-10-02 12:24 | Inpatient (IN) | payer MEDICARE, SELFPAY ==
[2021-10-02 12:20] VITALS: BMI 24.4
--- NOTE | 2021-10-02 12:29 | PM.HP ---
Providers/Chief Complaint Admitting Physician: Brendan Llanos MD Primary Care Provider: Julia Diego APN Chief Complaint: Acute kidney Injury History of Present Illness Darion Hamilton is a 71 year old male with history of colon cancer stage IIb with diagnosis in 2015. He is currently on expectant management. Presenting as a direct admission from his oncologist office when he was discovered to have severe acute kidney injury. Patient reports he takes occasional dose of ibuprofen. He has had urinary retention in the past. Last renal function measured was a creatinine of 1.9 in June. He denies any dysuria, blood in his urine, fever. He has been very weak lately, itches, and has not been eating very much. He has not had any vomiting. Review of Systems General: Reports: 10 or more systems reviewed and unremarkable except in HPI and below Const: Reports: fatigue and malaise; Denies: fever(s) or chills Eyes: Denies: change in vision ENMT: Denies: throat pain Card: Denies: chest pain Resp: Reports: other (Some shortness of breath with exertion) GI: Reports: early satiety; Denies: abdominal pain, nausea or vomiting : Denies: flank pain or difficulty urinating Musc: Denies: neck pain Skin/Breast: Denies: rash Neuro: Denies: headache(s) Psych: Denies: anxiety or depression Endo: Denies: polyuria Ba/Lymph: Denies: easy bruising All/Imm: Denies: urticaria Medications/Allergies Home Medications Medication Instructions Recorded Confirmed Last Taken Type omeprazole 20 mg capsule,delayed 20 mg PO BID 08/29/19 10/02/21 06/22/21 History release triamterene 37.5 1 cap PO DAILY 08/29/19 10/02/21 06/22/21 History mg-hydrochlorothiazide 25 mg capsule clonazepam 1 mg tablet 0.5 - 1 mg PO BID tab 10/06/19 10/02/21 06/23/21 History amitriptyline 75 mg tablet 75 - 150 mg PO BEDTIME 10/02/21 10/02/21 Unknown History cyproheptadine 4 mg tablet 4 mg PO BID 10/02/21 10/02/21 Unknown History hydroxyzine HCl 50 mg tablet 25 - 50 mg PO BID 10/02/21 10/02/21 Unknown History ondansetron 4 mg disintegrating 4 mg PO Q6H 10/02/21 10/02/21 Unknown History tablet Allergies Allergy/AdvReac Type Severity Reaction Status Date / Time Penicillins Allergy Unknown Unknown Verified 07/08/21 13:47 Sulfa (Sulfonamide Allergy Unknown Unknown Verified 07/08/21 13:47 Antibiotics) aspirin AdvReac Intermediate GI bleed Verified 07/08/21 13:47 ibuprofen AdvReac Intermediate GI bleed Verified 07/08/21 13:47 [From NeoProfen (ibuprofen lysn)(PF)] PFSH Acute PFSH: Medical History Chronic tophaceous gout of both hands History of colon cancer Hypertension Osteoarthritis Osteoporosis Surgical History History of colonoscopy (12/19/20) 2019 History of hemicolectomy History of laparoscopy adhesions Family History Other Arthritis Hypertension Denies family history of Rheumatoid arthritis Diabetes Lupus Anesthesia complication Bleeding disorder Social History Smoking and tobacco status: former smoker Alcohol intake: current Alcohol intake frequency: few times a month Alcohol type: beer Physical Exam Narrative: General exam is a white male, tired appearing, in no distress HEENT: Pupils equally round. Oropharynx clear. Neck is supple no lymphadenopathy or thyromegaly Cardiovascular regular rate and rhythm, no murmur Lungs clear no wheezing or crackles Abdomen soft nontender positive bowel sounds. No obvious organomegaly exams deferred Extremities no cyanosis clubbing. Trace edema bilaterally. Skin no rash Neuro no focal deficits. Data Other Labs: Renal ultrasound done today demonstrated increased echogenicity left kidney, atrophic right kidney, distended bladder with 340 cc. Left renal cyst noted. White blood cell count 7.8, hemoglobin 8.0, platelet count 185 Sodium 136 potassium 3.5 chloride 106 CO2 13 BUN 56 creatinine 6.7 iron 45% saturation 37 LFTs normal with exception of alk phos of 211 Albumin 2.5 CEA 7.6 A&P Assessment and plan (1) Acute kidney injury: Severe acute kidney injury, etiology unknown. Has an atrophic kidney on ultrasound, urinary retention Place Sandoval, start on Flomax Avoid all anti-inflammatories As renal function deterioration is associated with significant metabolic acidosis will start on sodium bicarb twice daily Hold diuretics if he is still on these. Med rec has yet to be completed. Discontinue his tricyclic antidepressant if still on this medicine, med rec has yet to be completed Hydration Check CK Consider nephrology consult if function does not improve Status: Acute (2) Urinary retention: See above Status: Acute (3) Anemia: May be related to renal failure Check stool Hemoccult Iron saturation normal Continue to follow closely Status: Acute (4) Hypertension: Hold diuretics Status: Acute Qualifiers: Hypertension type: essential hypertension Qualified Code(s): I10 - Essential (primary) hypertension Plan Multiple other medical problems as outlined in past medical history Full code Heparin for DVT prophylaxis Attestations Medical Necessity Statement*: Will need greater than 2 midnight stay secondary to severe acute kidney injury Coding Level of Care Code 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
--- NOTE | 2021-10-02 12:34 | XR_ITS ---
WS: [id number] Portable AP upright chest, 10/02/2021 Clinical Data: dyspnea Comparison: Portable chest, 04/08/2016. Findings: No nodules, masses or effusions are seen. The heart is normal. The pulmonary vascularity is not increased. No pneumonia or pneumothorax is seen. The aortic arch and descending thoracic aorta s how calcification tortuosity. Right diaphragm is elevated. XR/XR chest 1V portable [id number] Impression: Atherosclerosis.
[2021-10-02] MEDS: heparin 5,000 unit/mL INJ 1 mL 5000 UNIT SUBCUT (13:58)
[2021-10-02 14:30] LABS: Creatine Phosphokinase 20 U/L (39-308); Thyroid Stimulating Hormone 4.38 uIU/mL (0.27-4.20)
[2021-10-02 14:45] VITALS: PULSE 63; O2SAT 99
[2021-10-02] MEDS: sodium chloride 0.9% 1,000 ML 100 ML IV (15:09)
[2021-10-02 15:32] LABS: Add Urine Microscopic? NO; Charge for UA Resulting for Rev
[2021-10-02 15:36] LABS: Bilirubin Urine Neg (Negative); Blood Urine Neg (Negative); Glucose Urine UA Norm (Normal); Ketones Urine Negative (Negative); Leukocyte Esterase Urine Negative (Negative); Nitrate Urine Negative (Negative); Protein Urine Neg (Negative); Urine Appearance Clear (CLEAR); Urine Color Yellow (Yellow); Urobilinogen Urine Norm (Negative); pH Urine 5 (5-7)
[2021-10-02 15:47] LABS: Estmated Average Glucose 100; Hemoglobin A1C 5.1 % (4.0-6.0)
[2021-10-02 16:00] VITALS: BP 131/77; PULSE 82; RESP 12; TEMP 36.4; O2SAT 100
[2021-10-02] MEDS: sodium bicarbonate 650 mg Tablet PO (18:08)
[2021-10-02 20:00] VITALS: BP 128/72; PULSE 76; RESP 17; TEMP 36.6; O2SAT 98
[2021-10-02] MEDS: tamsulosin 0.4 mg Capsule PO (20:02)
[2021-10-02 23:56] VITALS: BP 137/80; PULSE 83; RESP 16; TEMP 36.7; O2SAT 98
[2021-10-03] VITALS (10 sets, daily range): BP systolic 102–133; BP diastolic 57–76; PULSE 74–85; RESP 16–20; TEMP 36.1–37; O2SAT 96–99
[2021-10-03] MEDS: sodium chloride 0.9% 1,000 ML 100 ML IV (00:26)
[2021-10-03] MEDS: heparin 5,000 unit/mL INJ 1 mL 5000 UNIT SUBCUT ×2 (00:26→13:38)
[2021-10-03 07:31] LABS: Alanine Aminotransferase 15 U/L (0-41); Alkaline Phosphatase 199 IU/L (40-130); Anion Gap 18.5 (5-19); Aspartate Amino Transferase 19 U/L (0-40); Basophils % 0.6 %; Blood Urea Nitrogen 60 mg/dL (8-23); Calcium 6.8 mg/dL (8.5-10.5); Carbon Dioxide 12 mmol/L (22-29); Chloride 111 mmol/L (98-107); Eosinophils # 0.2 10^3/uL (0.0-0.8); Globulin 3.2 g/dL (1.3-4.6); Glomerular Filtration Rate 8.1 mL/min (90-130); Glucose 99 mg/dL (65-115); Hematocrit 21.3 % (42.0-52.0); Hemoglobin 6.6 g/dL (11.7-16.6); Lymphocytes # 0.7 10^3/uL (0.8-4.8); Lymphocytes % 14.5 %; Magnesium 1.3 mg/dL (1.7-2.3); Mean Corpuscular Hemoglobin 27.8 pg (28.0-34.0); Mean Corpuscular Volume 89.9 fl (80-94); Mean Platelet Volume 10.3 fL (7.4-10.4); Monocytes # 0.3 10^3/uL (0.2-0.9); Neutrophils # 3.57 10^3/uL (1.8-7.7); Neutrophils % 73.7 %; Nucleated Red Blood Cells % 0 %; Osmolality Calculated 303 mOsm/kg (285-295); Phosphorus 6.9 mg/dL (2.5-4.5); Platelet Count 140 10^3/cmm (130-400); Potassium 3.5 mmol/L (3.5-5.1); Red Blood Count 2.37 10^6/uL (4.1-5.3); Red Cell Distribution Width 15.8 % (12.1-15.1); Sodium 138 mmol/L (136-145); Total Bilirubin 0.2 mg/dL (0.15-1.2); Total Protein 5.2 g/dL (6.6-8.7); White Blood Count 4.8 10^3/uL (4.0-10.0)
--- NOTE | 2021-10-03 08:14 | PC.NURSE ---
Notified Dr. Llanos of critical creat at 6.8 and repeat Hgb of 6.6
--- NOTE | 2021-10-03 09:53 | PM.PN ---
Subjective Subjective: Darion reports he feels okay. Denies any particular concerns. No chest pain or shortness of breath. Medications: Reviewed: Yes Vitals/I&O/Wt Last Vital Signs Temp 98.3 F 10/03/21 07:06 Pulse 81 10/03/21 08:46 Resp 16 10/03/21 07:06 BP 128/67 10/03/21 07:06 Pulse Ox 99 10/03/21 08:46 10/02/21 10/03/21 10/03/21 22:59 06:59 14:59 Intake Total 928.333 / 928.333 Output Total 660 / 660 Balance 268.333 / 268.333 Weight last 48 hrs Weight 79.379 kg Physical Exam Narrative: General exam is a white male, pale appearing Neck is supple no lymphadenopathy or thyromegaly Cardiovascular regular rate and rhythm, no murmur Lungs clear no wheezing or crackles Abdomen soft nontender positive bowel sounds. No obvious organomegaly exams deferred Extremities no cyanosis clubbing. Trace edema bilaterally. Skin no rash Urinary Catheter Management: Sandoval: Cath Placed During This Visit: yes Reason for Continuing Indwelling Catheter: Acute Urinary Retention or Obstruction Urinary Catheter Date of Insertion: 10/02/21 Urinary Catheter Time of Insertion: 15:10 Data : 10/03/21 06:46 10/03/21 06:46 A&P Assessment and plan (1) Acute kidney injury: Severe acute kidney injury, etiology unknown. Has an atrophic kidney on ultrasound, urinary retention Sandoval placed yesterday. Patient started on Flomax. Avoid all anti-inflammatories As renal function deterioration is associated with significant metabolic acidosis will start on sodium bicarb twice daily Hold diuretics if he is still on these. Med rec has yet to be completed. Discontinue his tricyclic antidepressant if still on this medicine, med rec has yet to be completed Continue hydration CK was checked and not elevated Nephrology consult today secondary to failure of renal function to improve Urinalysis was checked and normal. Status: Acute (2) Urinary retention: See above. Sandoval placed Status: Acute (3) Anemia: May be related to renal failure Stool Hemoccult pending Iron saturation normal Secondary to hemoglobin decreasing to 6.6 will transfuse 1 unit of packed red blood cells, and recheck hemoglobin 1 hour following transfusion Continue Protonix Status: Acute (4) Hypertension: Hold diuretics Status: Acute Qualifiers: Hypertension type: essential hypertension Qualified Code(s): I10 - Essential (primary) hypertension Plan Hypomagnesemia, supplement Low albumin. 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
[2021-10-03] MEDS: magnesium sulfate premix 2 GM/50 ML PIGGYBACK IV (09:57)
[2021-10-03] MEDS: pantoprazole DR 40 mg Tablet PO (10:00)
[2021-10-03] MEDS: sodium bicarbonate 650 mg Tablet PO ×2 (10:00→17:46)
--- NOTE | 2021-10-03 10:23 | PC.PHAR ---
pt [facility] pt just started with them on 09/26/21-pt states he knows what medications he takes-pts med list from [facility] has the pt takes allopurinol 300mg daily last filled 10/06/20 90d/s and aspirin 81mg daily pt states cant take aspirin-pt states he thinks he takes metoprolol tart 50mg bid prn bp last filled 06/26/21 90d/s medication is not on pts med list from [facility]-omeprazole 20mg bid and hydroxyzine hcl 25-50mg bid prn filled on 09/21/21 90d/s was not on the pts med list from [facility]-pt states he is taking-notes are made in the pharmacy comments-
--- NOTE | 2021-10-03 10:29 | PC.CHAP ---
Pastoral Care Encounter/Spiritual Assessment Type of Contact [] Declined pe electrical engineer visit [] Patient/Family/Request visit [] Outpatient visit [] Follow-up visit [] Physician referral [] Code/Alert [x] Routine visit [] Staff referral [] Actively dying [x] Patient sleeping [] Family support [] [] Out of room [] Palliative care [] [] Receiving care in room [] Pre-surgical visit [] Trauma [] Long length of stay [] ICU visit [] Other: Relational/Emotional Strength [] Patient feels connected with others/family/visitors/staff [] Distress [] Loneliness/isolation [] Abandonment Spirituality of Patient [] Person of Aletha [] Attends Pentecostalism of their Aletha [] Believes in Prayer [] Reads Bible or Gnosticist materials [] There are Spiritual issues to be addressed Draw Machine Operator Interventions [] Prayer [] Active listening [] Non-anxious presence [] Spiritual/emotional support [] Crisis/trauma care [] Spiritual counseling [] Bereavement support [] Provided bereavement packet [] Provided Bible/devotional materials [] Provided toy/stuffed animal, coloring book to patient or family member [] Provided Communion [] Anointing/[place] [] Salvation [] Completed spiritual assessment [] Other: Impact on Illness or Injury [] Angry [] Fearful [] Anxious [] Often cries [] Exhaustion [] Unable to work [] Unable to attend adventist [] Unable to walk/stand [] Unable to read [] Unable to drive [] Unable to eat/drink [] Unable to sleep [] Unable to be with family [] Patient intubated [] Other: Summary Time spent with patient
--- NOTE | 2021-10-03 13:28 | P.CONIM_ITS ---
Providers/Reason For Consult Consulting Physician/Specialty*: Nephrology Reason for Consult*: Renal Failure Attending Physician: Brendan Llanos MD Primary Care Provider: Julia Diego APN History of Present Illness History of Present Illness Thank for consultation, today had the pleasure of reviewing Mr. Hamilton for evaluation of renal failure. Back in June, he had his knee replaced. It was noted that his creatinine was 1.9 which was higher than had previously been in 2020, at which time his creatinine was 1.1 mg/dL. Postoperatively he had difficulty passing his urine, however, his Sandoval catheter was removed and subsequently he was able to pass urine. Following this time, he had a relatively unremarkable clinical course. However it was noted over the last few months that he progressively became more anorexic and weaker. This became progressively more profound over the last few weeks to the point where he was taken to his primary care doctor's office. Labs were performed to anemia was identified with a hemoglobin of 8.8. No specific therapy was recommended, and no renal function panel was done at that particular time. He was seen in his outpatient oncology office, where he is being followed for colon cancer, and labs were done that identified an elevated creatinine he was subsequently referred to our facility. He has no other obvious inciting trigger i.e. no recent exposure to potentially nephrotoxic medications including anti-inflammatory medications, Bactrim etc. He is passing his urine with sluggish flow, admission ultrasound scan did not identify hydronephrosis. He came off his antihypertensives a few months ago as he had lost weight and the blood pressure came down and so his stopped giving them to him. He has taken omeprazole now for the last few years, it is not changed and is the only potential nephrotoxic exposure. On admission creatinine 6.8, he received gentle IV fluid, Sandoval catheter was placed, creatinine went up to 6.9 mg/dL. Acidosis was also noted as well as a variety of other chemical abnormalities including anion gap metabolic acidosis, hypocalcemia, hypoproteinemia. Renal sonogram demonstrated right renal atrophy which is known and is chronic, the left kidney looks normal. Urinalysis performed demonstrates no evidence of protein or blood and is entirely benign. He denies any extremity edema, shortness of breath or other hypervolemic symptoms. No specific uremic symptoms, other than the fatigue that he describes. This includes myoclonus, altered mental status, dysgeusia, nausea and vomiting. Review of Systems Narrative: ROS 12 point review of systems completed per HPI and subjective assessment, this includes Constitutional: Weakness, fatigue Respiratory: No SOB on exertion, comfortable at rest CardioVasc: No chest pain, palpitations Gastrointestinal: No nausea, no vomiting Neurological: No seizures, no AMS Derm: No new rashes, lesions or wounds Immunological: No seasonal and no food allergies Medications/Allergies Home Medications Medication Instructions Recorded Confirmed Last Taken Type omeprazole 20 mg capsule,delayed 20 mg PO BID 08/29/19 10/03/21 06/22/21 History release clonazepam 1 mg tablet 0.5 - 1 mg PO TID PRN tab 10/06/19 10/03/21 06/23/21 History amitriptyline 75 mg tablet 75 - 150 mg PO BEDTIME 10/02/21 10/03/21 Unknown History cyproheptadine 4 mg tablet 4 mg PO BID 10/02/21 10/03/21 Unknown History hydroxyzine HCl 50 mg tablet 25 - 50 mg PO BID PRN 10/02/21 10/03/21 Unknown History ondansetron 4 mg disintegrating 4 mg PO Q4H PRN 10/02/21 10/03/21 Unknown H istory tablet acetaminophen 500 mg tablet 1,000 mg PO Q8H PRN 10/03/21 10/03/21 Unknown Hist ory metoprolol tartrate 50 mg tablet 50 mg PO BID PRN 10/03/21 10/03/21 Unknown History triamterene 37.5 1 tab PO DAILY 10/03/21 10/03/21 Unknown History mg-hydrochlorothiazide 25 mg tablet Allergies Allergy/AdvReac Type Severity Reaction Status Date / Time Penicillins Allergy Unknown Unknown Verified 07/08/21 13:47 Sulfa (Sulfonamide Allergy Unknown Unknown Verified 07/08/21 13:47 Antibiotics) aspirin AdvReac Intermediate GI bleed Verified 07/08/21 13:47 ibuprofen AdvReac Intermediate GI bleed Verified 07/08/21 13:47 [From NeoProfen (ibuprofen lysn)(PF)] Current Medications Generic Name Dose Route Start Last Admin Trade Name Freq PRN Reason Stop Dose Admin Heparin Sodium (Porcine) 5,000 unit 10/02/21 13:00 10/03/21 00:26 Heparin 5,000 Unit/Ml Inj 1 Ml SUBCUT 5,000 unit Q12H LAURE Administration Pantoprazole Sodium 40 mg 10/03/21 09:00 10/03/21 10:[address] 40 Mg Tablet PO 40 mg DAILY LAURE Administration Sodium Bicarbonate 650 mg 10/02/21 18:00 10/03/21 10:00 Sodium Bicarbonate 650 Mg Tablet PO 650 mg BID LAURE Administration Tamsulosin HCl 0.4 mg 10/02/21 21:00 10/02/21 20:02 Tamsulosin 0.4 Mg Capsule PO 0.4 mg BEDTIME LAURE Administration PFSH Acute PFSH: Medical History Chronic tophaceous gout of both hands History of colon cancer Hypertension Osteoarthritis Osteoporosis Surgical History History of colonoscopy (12/19/20) 2019 History of hemicolectomy History of laparoscopy adhesions Family History Other Arthritis Hypertension Denies family history of Rheumatoid arthritis Diabetes Lupus Anesthesia complication Bleeding disorder Social History Smoking and tobacco status: former smoker Alcohol intake: current Alcohol intake frequency: few times a month Alcohol type: beer Vitals/I&O/Wt Last Vital Signs Temp 97.0 F L 10/03/21 13:25 Pulse 74 10/03/21 13:25 Resp 16 10/03/21 13:25 BP 117/64 10/03/21 13:25 Pulse Ox 97 10/03/21 11:33 10/02/21 10/03/21 10/03/21 22:59 06:59 14:59 Intake Total 928.333 / 928.333 170 / 170 Output Total 660 / 660 Balance 268.333 / 268.333 170 / 170 Weight last 48 hrs Weight 79.379 kg Physical Exam Narrative: Constitutional: Awake, comfortable HEENT: Wet mucosa, no jvp, non icteric Lungs: Bilaterally clear without discernible wheeze, rales in all lung zones CVS: S1 S2, no murmurs Abdo: Soft, BS ok Ext 4: Minimal edema, peripheral perfusion with no cyanosis Neurological: Grossly non-focal Urinary Catheter Management: Sandoval: Cath Placed During This Visit: yes Reason for Continuing Indwelling Catheter: Acute Urinary Retention or Obstruction Urinary Catheter Date of Insertion: 10/02/21 Urinary Catheter Time of Insertion: 15:10 Data : 10/03/21 06:46 10/03/21 06:46 A&P Assessment and plan (1) Acute kidney injury: Status: Acute Plan 1. Renal failure This is a troublesome, vexing case. He has benign urine, and atrophic right kidney but a normal-appearing left kidney with subacute decline in his kidney functionality over the last few months. The benign urine would argue against there being an acute glomerulonephritis which would be amenable to intervention should it be diagnosed i.e. with kidney biopsy, however, a kidney biopsy may be the only way to diagnose the underlying cause of renal failure. I think is reasonable to treat with blood transfusion as well as gentle IV hyd ration over the , I will send basic serology as well and make a decision by Wednesday to either pursue kidney biopsy of the left kidney versus empirically starting hemodialysis if there is no recovery. Avoid usual nephrotoxic agents Work-up to include urinalysis, urine sodium, creatinine, urea, urine protein, urine eosinophils We will get uric acid, will send EMMY, ANCA, SPEP for what it is with although I believe the diagnostic yield will be very low. Strict I's and O's 2. Chemistry Reflective of advanced kidney disease including anion gap metabolic acidosis, hypocalcemia, hyperphosphatemia. On oral bicarb we will switch IV fluids to bicarb infusion, will replace calcium and give calcitriol 3. Anemia Again reflective of advanced kidney disease given the normal MCV. Receiving a blood transfusion, will give a dose of Epogen, iron levels look okay. 4. Hypertension Since he had such a low oral intake, his blood pressure has come down. We will continue to monitor blood pressure closely. Thank you for consultation, as always it is a pleasure to follow patients with you > 20 minutes spent in evaluation management of case with greater than 50% of time in [id number] counseling. Joey Rothman MD Nephrology [phone] Patient seen and examined via telemedicine, with the assistance of the bedside RN Coding Level of Care Code Acute Lead Tinner for [facility] Yessica Diagnoses Acute kidney injury N17.9
[2021-10-03] MEDS: sodium bicarbonate 150 MEQ in dextrose 5% 1,000 ML 100 MEQ IV (13:30)
[2021-10-03] MEDS: sodium chloride 0.9% (100 ml) 100 ML (13:38)
[2021-10-03 17:31] LABS: Basophils % 0.5 %; Eosinophils # 0.3 10^3/uL (0.0-0.8); Eosinophils % 5.5 %; Hemoglobin 8.4 g/dL (11.7-16.6); Lymphocytes # 0.9 10^3/uL (0.8-4.8); Lymphocytes % 15.2 %; Mean Corpuscular HGB Conc 33.6 g/dL (30.0-36.0); Mean Corpuscular Hemoglobin 29.3 pg (28.0-34.0); Mean Corpuscular Volume 87.1 fl (80-94); Monocytes # 0.4 10^3/uL (0.2-0.9); Monocytes % 7.7 %; Neutrophils # 3.96 10^3/uL (1.8-7.7); Neutrophils % 70.7 %; Nucleated Red Blood Cells % 0 %; Platelet Count 145 10^3/cmm (130-400); Red Blood Count 2.87 10^6/uL (4.1-5.3); Red Cell Distribution Width 15.3 % (12.1-15.1); White Blood Count 5.6 10^3/uL (4.0-10.0)
[2021-10-03] MEDS: tamsulosin 0.4 mg Capsule PO (20:52)
[2021-10-04] VITALS: BP 125/76; PULSE 80; RESP 20; TEMP 36.7; O2SAT 96
[2021-10-04] MEDS: heparin 5,000 unit/mL INJ 1 mL 5000 UNIT SUBCUT ×2 (00:14→13:30)
[2021-10-04] MEDS: sodium bicarbonate 150 MEQ in dextrose 5% 1,000 ML 100 MEQ IV ×2 (01:20→16:42)
[2021-10-04 04:00] VITALS: BP 132/66; PULSE 80; RESP 18; TEMP 36.7; O2SAT 98
[2021-10-04 05:51] LABS: Basophils % 0.5 %; Eosinophils # 0.2 10^3/uL (0.0-0.8); Eosinophils % 5.3 %; Hemoglobin 7.1 g/dL (11.7-16.6); Lymphocytes % 24.8 %; Mean Corpuscular HGB Conc 32.3 g/dL (30.0-36.0); Mean Corpuscular Hemoglobin 28.7 pg (28.0-34.0); Mean Corpuscular Volume 89.1 fl (80-94); Mean Platelet Volume 10.4 fL (7.4-10.4); Monocytes # 0.3 10^3/uL (0.2-0.9); Monocytes % 7.5 %; Neutrophils # 2.46 10^3/uL (1.8-7.7); Neutrophils % 61.6 %; Nucleated Red Blood Cells % 0 %; Platelet Count 135 10^3/cmm (130-400); Red Blood Count 2.47 10^6/uL (4.1-5.3); Red Cell Distribution Width 15.4 % (12.1-15.1)
[2021-10-04 06:09] LABS: Alanine Aminotransferase 13 U/L (0-41); Albumin Level 1.7 g/dL (3.5-5.2); Alkaline Phosphatase 175 IU/L (40-130); Anion Gap 17.9 (5-19); Aspartate Amino Transferase 15 U/L (0-40); Blood Urea Nitrogen 50 mg/dL (8-23); Calcium 6.7 mg/dL (8.5-10.5); Carbon Dioxide 14 mmol/L (22-29); Chloride 108 mmol/L (98-107); Glucose 113 mg/dL (65-115); Magnesium 1.8 mg/dL (1.7-2.3); Osmolality Calculated 298 mOsm/kg (285-295); Sodium 137 mmol/L (136-145); Total Bilirubin 0.3 mg/dL (0.15-1.2); Total Protein 4.7 g/dL (6.6-8.7)
[2021-10-04 06:29] LABS: Potassium 2.9 mmol/L (3.5-5.1)
[2021-10-04] MEDS: potassium chloride ER 20 mEq Tablet 40 MEQ PO (06:44)
[2021-10-04 07:45] VITALS: BP 123/65; PULSE 77; RESP 17; TEMP 36.8; O2SAT 96
[2021-10-04] MEDS: sodium bicarbonate 650 mg Tablet PO ×2 (09:24→18:21)
[2021-10-04] MEDS: pantoprazole DR 40 mg Tablet PO (09:24)
--- NOTE | 2021-10-04 11:09 | PC.NURSE ---
RN ANSWERED PTS CALL LIGHT. IV HAD ALARMED. PTS VISITOR HAD TURNED PUMP OFF. EDUC HER THAT SHE COULD NOT BOTHER THE MEDICATION PUMPS. SHE GOT UPSET AND STATED, THAT IT BOTHERED THEM. RN REEDUCATED PT AND VISITOR ABOUT NOT BOTHERING MEDICATION PUMP.
--- NOTE | 2021-10-04 11:16 | P.PN_ITS ---
Subjective Subjective: Mr. Hamilton feels arguably slightly improved. A little more brighter. Still feels very weak, still appears very ashen. Urine output noted to be 1000 mL. Received blood transfusion remains on intravenous fluid. No overt uremic symptoms except for fatigue. No extremity edema no other hypervolemic symptoms. Medications: Reviewed: Yes Vitals/I&O/Wt Last Vital Signs Temp 98.3 F 10/04/21 07:45 Pulse 77 10/04/21 07:45 Resp 17 10/04/21 07:45 BP 123/65 10/04/21 07:45 Pulse Ox 96 10/04/21 07:45 10/03/21 10/04/21 10/04/21 22:59 06:59 14:59 Intake Total 590 / 1760 1950 / 3710 Output Total 1000 / 1000 Balance 590 / 1760 950 / 2710 Weight last 48 hrs Weight 81.012 kg Weight 79.379 kg Physical Exam Narrative: Constitutional: Awake, comfortable HEENT: Wet mucosa, no jvp, non icteric Lungs: Bilaterally clear without discernible wheeze, rales in all lung zones CVS: S1 S2, no murmurs Abdo: Soft, BS ok Ext 4: Minimal edema, peripheral perfusion with no cyanosis Neurological: Grossly non-focal Urinary Catheter Management: Sandoval: Cath Placed During This Visit: yes Reason for Continuing Indwelling Catheter: Acute Urinary Retention or Obstruction Urinary Catheter Date of Insertion: 10/02/21 Urinary Catheter Time of Insertion: 15:10 Data : 10/04/21 04:24 10/04/21 04:24 A&P Assessment and plan (1) Acute kidney injury: Status: Acute Plan 1. Renal failure Renal function is slightly improved. I remain very cautiously optimistic that perhaps we are seeing some degree of renal recovery although GFR has only improved from 8 up to 9 mL/min. As I wrote yesterday this is a troublesome, vexing case. He has benign urine, and atrophic right kidney but a normal-appearing left kidney with subacute decline in his kidney functionality over the last few months. The benign urine would argue against there being an acute glomerulonephritis which would be amenable to intervention should it be diagnosed i.e. with kidney biopsy, however, a kidney biopsy may be the only way to diagnose the underlying cause of renal failure. Continue very gentle IV hydration No acute indication for dialysis today, continue to monitor closely over the next few days. Strict I's and O's 2. Chemistry Reflective of advanced kidney disease including anion gap metabolic acidosis, hypocalcemia, hyperphosphatemia. Potassium replacement On oral bicarb we will switch IV fluids to bicarb infusion, will replace calcium and give calcitriol 3. Anemia Again reflective of advanced kidney disease given the normal MCV. Receiving a blood transfusion, s/p Epogen, iron levels look okay. 4. Hypertension Since he had such a low oral intake, his blood pressure has come down. We will continue to monitor blood pressure closely. Thank you for consultation, as always it is a pleasure to follow patients with you > 20 minutes spent in evaluation management of case with greater than 50% of time in [id number] counseling. Joey Rothman MD Nephrology [phone] Patient seen and examined via telemedicine, with the assistance of the bedside RN Attestations Medical Necessity Statement*: Eval for TIMMY Coding Level of Care Code Acute Financial Reporting Accountant for [facility] Diagnoses Acute kidney injury N17.9
[2021-10-04 12:00] VITALS: BP 134/65; PULSE 77; RESP 17; TEMP 36.9; O2SAT 97
[2021-10-04] MEDS: calcium gluconate 0.9% NaCL 1 GM/50 ML PREMIX IV (13:24)
--- NOTE | 2021-10-04 15:49 | P.PN_ITS ---
Subjective Subjective: Patient was seen and examined this morning currently having good urine output, BUN and serum creatinine is trending down, no need for urgent dialysis. Medications: Reviewed: Yes Medication Review Details: Generic Name Dose Route Start Last Admin Trade Name Leandra PRN Reason Stop Dose Admin Calcitriol 0.25 mcg 10/04/21 18:00 10/05/21 08:51 Calcitriol 0.25 Mcg Capsule PO 0.25 mcg BID LAURE Administration Heparin Sodium (Po rcine) 5,000 unit 10/02/21 13:00 10/05/21 00:13 Heparin 5,000 Un it/Ml Inj 1 Ml SUBCUT 5,000 unit Q12H LAURE Administration Sodium Bicarbonate 150 meq/ 1,150 mls @ 100 m ls/hr 10/03/21 12:30 10/05/21 02:06 Dextrose IV 100 mls/hr .[id number] LAURE Administration Ondansetron HCl 4 mg 10/02/21 12:24 10/05/21 02:08 Ondansetron 2 Mg /Ml Sdv 2 Ml IVP 4 mg Q6H PRN Administration vomiting, or N/V if npo Pantoprazole Sodiu m 40 mg 10/03/21 09:00 10/05/21 08:[address] 40 Mg Tablet PO 40 mg DAILY LAURE Administration Sodium Bicarbonate 650 mg 10/02/21 18:00 10/05/21 08:51 Sodium Bicarbona te 650 Mg Tablet PO 650 mg BID LAURE Administration Tamsulosin HCl 0.4 mg 10/02/21 21:00 10/04/21 20:11 Tamsulosin 0.4 M g Capsule PO 0.4 mg BEDTIME LAURE Administration Vitals/I&O/Wt Last Vital Signs Temp 98.5 F 10/04/21 12:00 Pulse 77 10/04/21 12:00 Resp 17 10/04/21 12:00 BP 134/65 10/04/21 12:00 Pulse Ox 97 10/04/21 12:00 10/04/21 10/04/21 10/04/21 06:59 14:59 22:59 Intake Total 1950 / 3710 240 / 240 50 / 290 Output Total 1000 / 1000 Balance 950 / 2710 240 / 240 50 / 290 Weight last 48 hrs Weight 81.012 kg Physical Exam Const: COMMON NORMALS: patient oriented x3 HENMT: COMMON NORMALS: normocephalic and atraumatic HEAD & SCALP: normoce phalic and atraumatic Eye: GENERAL EYE: appearance normal, both eyes and all related structures Chest: COMMONS NORMALS: normal inspection of the chest and normal palpation of entire chest wall CHEST: Yes Symmetrical chest wall rise Resp: COMMON NORMALS: normal respiratory effort, No retractions, No use of accessory muscles and clear to auscultation bilaterally EFFORT & INSPECTION: Yes symmetric chest movement AUSCULTATION: clear to auscultation bilaterally Cardio: COMMON NORMALS: regular rate, regular rhythm, S1 normal heart sound present, S2 normal heart sound present, No gallops present (Cardio), No murmurs present (Cardio), No rub (Cardio) and Peripheral pulses 2+ throughout RATE: regular rate RHYTHM: regular rhythm HEART SOUNDS: S1 normal heart sound present and S2 normal heart sound present PERIPHERAL PULSES: Peripheral pulses 2+ throughout GI: COMMON NORMALS: Normal to inspection, nondistended, normoactive bowel sounds present, Soft to palpation, non-tender, No hepatosplenomegaly present and no masses AUSCULTATION: Yes normoactive bowel sounds PALPATION: Yes Soft t o palpation and Yes No hepatosplenomegaly present RECTAL EXAM: Yes deferred Extremity: COMMON NORMALS: no clubbing, cyanosis or edema and no pedal edema Neuro: COMMON NORMALS: patient oriented x3 Urinary Catheter Management: Sandoval: Cath Placed During This Visit: yes Reason for Continuing Indwelling Catheter: Acute Urinary Retention or Obstruction Urinary Catheter Date of Insertion: 10/02/21 Urinary Catheter Time of Insertion: 15:10 Data : 10/04/21 04:24 10/05/21 09:06 A&P Assessment and plan (1) Acute kidney injury: Severe acute kidney injury, etiology unknown. Has an atrophic kidney on ultrasound, urinary retention Sandoval placed yesterday. Patient started on Flomax. Avoid all anti-inflammatories As renal function deterioration is associated with significant metabolic acidosis will start on sodium bicarb twice daily Hold diuretics if he is still on these. Med rec has yet to be completed. Discontinue his tricyclic antidepressant if still on this medicine, med rec has yet to be completed Continue hydration CK was checked and not elevated Nephrology consult today secondary to failure of renal function to improve Urinalysis was checked and normal. Status: Acute (2) Urinary retention: See above. Sandoval placed Status: Acute (3) Anemia: May be related to renal failure Stool Hemoccult pending Iron saturation normal Secondary to hemoglobin decreasing to 6.6 will transfuse 1 unit of packed red blood cells, and recheck hemoglobin 1 hour following transfusion Continue Protonix Status: Acute (4) Hypertension: Hold diuretics Status: Acute Qualifiers: Hypertension type: essential hypertension Qualified Code(s): I10 - Essential (primary) hypertension Plan Hypomagnesemia, supplement Low albumin. Probably secondary to protein calorie malnutrition Multiple other medical problems as outlined in past medical history Full code Heparin for DVT prophylaxis Attestations Medical Necessity Statement*: Patient is still in hospital for management of acute renal failure. Time Spent in Patient Care: Greater than 35 minutes (>than 50% of time spent in counselling and/or direct pt care on unit) . Coding Level of Care Code Acute Last Puller for [facility] Fwd Exam Comprehensive Diagnoses Acute kidney injury N17.9 Urinary retention R33.9 Anemia D64.9 Hypertension I10 Hypertension type: essential hypertension
[2021-10-04 16:00] VITALS: BP 138/72; PULSE 76; RESP 17; TEMP 36.8; O2SAT 98
[2021-10-04] MEDS: calcitriol 0.25 mcg Capsule PO (18:20)
[2021-10-04 20:00] VITALS: BP 135/68; PULSE 80; RESP 17; TEMP 36.6; O2SAT 98
[2021-10-04] MEDS: tamsulosin 0.4 mg Capsule PO (20:11)
[2021-10-05] VITALS: BP 120/61; PULSE 80; RESP 16; TEMP 36.8; O2SAT 96
[2021-10-05] MEDS: heparin 5,000 unit/mL INJ 1 mL 5000 UNIT SUBCUT ×2 (00:13→13:17)
[2021-10-05] MEDS: sodium bicarbonate 150 MEQ in dextrose 5% 1,000 ML 100 MEQ IV ×2 (02:06→17:39)
[2021-10-05] MEDS: ondansetron 2 mg/ML SDV 2 mL 4 MG IVP ×3 (02:08→17:39)
[2021-10-05 04:00] VITALS: BP 118/63; PULSE 91; TEMP 36.6; O2SAT 94
[2021-10-05 07:52] VITALS: BP 161/81; PULSE 84; RESP 14; TEMP 36.7; O2SAT 97
--- NOTE | 2021-10-05 08:49 | P.PN_ITS ---
Subjective Subjective: No new issues with Mr. Hamilton today. He did miss his clonazepam and amitriptyline, feels that he has some anxiety, nausea and sickness related to missing this dosing otherwise no acute issues. Making a good volume of urine, made 1300 mL of urine yesterday. Labs pending for today. No other acute uremic symptoms. No extremity edema or other hypervolemic symptoms. Medications: Reviewed: Yes Vitals/I&O/Wt Last Vital Signs Temp 97.9 F 10/05/21 04:00 Pulse 91 10/05/21 04:00 Resp 16 10/05/21 00:00 BP 118/63 10/05/21 04:00 Pulse Ox 94 10/05/21 04:00 10/04/21 10/05/21 10/05/21 22:59 06:59 14:59 Intake Total 410 / 1800 1180 / 2980 Output Total 800 / 800 500 / 1300 Balance -390 / 1000 680 / 1680 Weight last 48 hrs Weight 81.012 kg Physical Exam Narrative: Constitutional: Awake, comfortable HEENT: Wet mucosa, no jvp, non icteric Lungs: Bilaterally clear without discernible wheeze, rales in all lung zones CVS: S1 S2, no murmurs Abdo: Soft, BS ok Ext 4: Minimal edema, peripheral perfusion with no cyanosis Neurological: Grossly non-focal Urinary Catheter Management: Sandoval: Cath Placed During This Visit: yes Reason for Continuing Indwelling Catheter: Acute Urinary Retention or Obstruction Urinary Catheter Date of Insertion: 10/02/21 Urinary Catheter Time of Insertion: 15:10 Data : 10/04/21 04:24 10/04/21 04:24 A&P Assessment and plan (1) Acute kidney injury: Status: Acute Plan 1. Renal failure Renal function pending for today Renal function is slightly improved. I remain very cautiously optimistic that perhaps we are seeing some degree of renal recovery although GFR has only improved from 8 up to 9 mL/min. As I wrote yesterday this is a troublesome, vexing case. He has benign urine, and atrophic right kidney but a normal-appearing left kidney with subacute decline in his kidney functionality over the last few months. The benign urine would argue against there being an acute glomerulonephritis which would be amenable to intervention should it be diagnosed i.e. with kidney biopsy, however, a kidney biopsy may be the only way to diagnose the underlying cause of renal failure. Continue very gentle IV hydration No acute indication for dialysis today, continue to monitor closely over the next few days. Strict I's and O's 2. Chemistry Labs pending for today Reflective of advanced kidney disease including anion gap metabolic acidosis, hypocalcemia, hyperphosphatemia. Potassium replacement On oral bicarb we will switch IV fluids to bicarb infusion, will replace calcium and give calcitriol 3. Anemia Again reflective of advanced kidney disease given the normal MCV. Receiving a blood transfusion, s/p Epogen, iron levels look okay. 4. Hypertension Since he had such a low oral intake, his blood pressure has come down. We will continue to monitor blood pressure closely. Thank you for consultation, as always it is a pleasure to follow patients with you > 20 minutes spent in evaluation management of case with greater than 50% of time in [id number] counseling. Joey Rothman MD Nephrology [phone] Patient seen and examined via telemedicine, with the assistance of the bedside RN Attestations Medical Necessity Statement*: iesha for TIMMY Coding Level of Care Code Acute Audiovisual Technician for [facility] Diagnoses Acute kidney injury N17.9
[2021-10-05] MEDS: pantoprazole DR 40 mg Tablet PO (08:51)
[2021-10-05] MEDS: potassium chloride ER 20 mEq Tablet 40 MEQ PO (08:51)
[2021-10-05] MEDS: sodium bicarbonate 650 mg Tablet PO ×2 (08:51→17:13)
[2021-10-05] MEDS: calcitriol 0.25 mcg Capsule PO ×2 (08:51→17:13)
[2021-10-05 09:36] LABS: Anion Gap 16.3 (5-19); Blood Urea Nitrogen 43 mg/dL (8-23); Calcium 6.7 mg/dL (8.5-10.5); Carbon Dioxide 25 mmol/L (22-29); Chloride 102 mmol/L (98-107); Glomerular Filtration Rate 9.6 mL/min (90-130); Glucose 108 mg/dL (65-115); Potassium 3.3 mmol/L (3.5-5.1); Sodium 140 mmol/L (136-145)
[2021-10-05] MEDS: CLONazepam 1 mg Tablet PO ×2 (10:03→21:34)
--- NOTE | 2021-10-05 10:56 | PC.SOCIAL ---
IMM Update pg 2 of IMM updated and reviewed w/ patient. Copy provided and Copy placed in chart.
[2021-10-05 11:26] VITALS: BP 124/65; PULSE 73; RESP 14; TEMP 36.6; O2SAT 97
[2021-10-05 15:54] VITALS: BP 123/75; PULSE 79; RESP 16; TEMP 36.4; O2SAT 100
--- NOTE | 2021-10-05 16:55 | P.PN_ITS ---
Subjective Subjective: Overall it seems that his kidney function is on the road to recovery, no uremic symptoms, BUN/creatinine is trending down, decent urine output, hypokalemic. No other acute events Medications: Reviewed: Yes Medication Review Details: Generic Name Dose Route Start Last Admin Trade Name Freq PRN Reason Stop Dose Admin Calcitriol 0.25 mcg 10/04/21 18:00 10/05/21 08:51 Calcitriol 0.25 Mcg Capsule PO 0.25 mcg BID LAURE Administration Heparin Sodium (Po rcine) 5,000 unit 10/02/21 13:00 10/05/21 00:13 Heparin 5,000 Un it/Ml Inj 1 Ml SUBCUT 5,000 unit Q12H LAURE Administration Sodium Bicarbonate 150 meq/ 1,150 mls @ 100 m ls/hr 10/03/21 12:30 10/05/21 02:06 Dextrose IV 100 mls/hr .[id number] LAURE Administration Ondansetron HCl 4 mg 10/02/21 12:24 10/05/21 02:08 Ondansetron 2 Mg /Ml Sdv 2 Ml IVP 4 mg Q6H PRN Administration vomiting, or N/V if npo Pantoprazole Sodiu m 40 mg 10/03/21 09:00 10/05/21 08:[address] 40 Mg Tablet PO 40 mg DAILY LAURE Administration Sodium Bicarbonate 650 mg 10/02/21 18:00 10/05/21 08:51 Sodium Bicarbona te 650 Mg Tablet PO 650 mg BID LAURE Administration Tamsulosin HCl 0.4 mg 10/02/21 21:00 10/04/21 20:11 Tamsulosin 0.4 M g Capsule PO 0.4 mg BEDTIME LAURE Administration Vitals/I&O/Wt Last Vital Signs Temp 97.9 F 10/05/21 11:26 Pulse 73 10/05/21 11:26 Resp 14 10/05/21 11:26 BP 124/65 10/05/21 11:26 Pulse Ox 97 10/05/21 11:26 10/05/21 10/05/21 10/05/21 06:59 14:59 22:59 Intake Total 1180 / 2980 Output Total 500 / 1300 Balance 680 / 1680 Weight last 48 hrs Weight 81.012 kg Physical Exam Const: COMMON NORMALS: patient oriented x3 HENMT: COMMON NORMALS: normocephalic and atraumatic HEAD & SCALP: normocephalic and atraumatic Eye: GENERAL EYE: appearance normal, both eyes and all related structures Chest: COMMONS NORMALS: normal inspection of the chest and normal palpation of entire chest wall CHEST: Yes Symmetrical chest wall rise Resp: COMMON NORMALS: normal respiratory effort, No retractions, No use of accessory muscles and clear to auscultation bilaterally EFFORT & INSPECTION: Yes symmetric chest movement AUSCULTATION: clear to auscultation bilaterally Cardio: COMMON NORMALS: regular rate, regular rhythm, S1 normal heart sound present, S2 normal heart sound present, No gallops present (Cardio), No murmurs present (Cardio), No rub (Cardio) and Peripheral pulses 2+ throughout RATE: regular rate RHYTHM: regular rhythm HEART SOUNDS: S1 normal heart sound present and S2 normal heart sound present PERIPHERAL PULSES: Peripheral pulses 2+ throughout GI: COMMON NORMALS: Normal to inspection, nondistended, normoactive bowel sounds present, Soft to palpation, non-tender, No hepatosplenomegaly present and no masses AUSCULTATION: Yes normoactive bowel sounds PALPATION: Yes Soft to palpation and Yes No hepatosplenomegaly present RECTAL EXAM: Yes deferred Extremity: COMMON NORMALS: no clubbing, cyanosis or edema and no pedal edema Neuro: COMMON NORMALS: patient oriented x3 Urinary Catheter Management: Sandoval: Cath Placed During This Visit: yes Reason for Continuing Indwelling Catheter: Acute Urinary Retention or Obstruction Urinary Catheter Date of Insertion: 10/02/21 Urinary Catheter Time of Insertion: 15:10 Data : 10/04/21 04:24 10/05/21 09:06 A&P Assessment and plan (1) Acute kidney injury: Severe acute kidney injury, etiology unknown. Has an atrophic kidney on ultrasound, urinary retention Sandoval placed yesterday. Patient started on Flomax. Avoid all anti-inflammatories As renal function deterioration is associated with significant metabolic acidosis will start on sodium bicarb twice daily Hold diuretics if he is still on these. Med rec has yet to be completed. Discontinue his tricyclic antidepressant if still on this medicine, med rec has yet to be completed Continue hydration CK was checked and not elevated Nephrology consult today secondary to failure of renal function to improve Urinalysis was checked and normal. Status: Acute (2) Urinary retention: See above. Sandoval placed Status: Acute (3) Anemia: May be related to renal failure Stool Hemoccult pending Iron saturation normal Secondary to hemoglobin decreasing to 6.6 will transfuse 1 unit of packed red blood cells, and recheck hemoglobin 1 hour following transfusion Continue Protonix Status: Acute (4) Hypertension: Hold diuretics Status: Acute Qualifiers: Hypertension type: essential hypertension Qualified Code(s): I10 - Essential (primary) hypertension Plan Hypomagnesemia, supplement Low albumin. Probably secondary to protein calorie malnutrition Multiple other medical problems as outlined in past medical history Full code Heparin for DVT prophylaxis Attestations Medical Necessity Statement*: Patient is still in hospital management acute renal failure. Time Spent in Patient Care: Greater than 35 minutes (>than 50% of time spent in counselling and/or direct pt care on unit) . Coding Level of Care Code Acute Subsurface Augmentee Operator for Dary Juan Diagnoses Acute kidney injury N17.9 Urinary retention R33.9 Anemia D64.9 Hypertension I10 Hypertension type: essential hypertension
[2021-10-05 20:00] VITALS: BP 126/70; PULSE 82; RESP 22; TEMP 36.8; O2SAT 95
[2021-10-05] MEDS: tamsulosin 0.4 mg Capsule PO (21:31)
[2021-10-05 21:46] LABS: Glucose Point of Care 109 mg/dL (70-110)
[2021-10-06] VITALS (7 sets, daily range): BP systolic 106–136; BP diastolic 57–79; PULSE 71–81; RESP 16–18; TEMP 36.5–37.5; O2SAT 92–98
[2021-10-06] MEDS: heparin 5,000 unit/mL INJ 1 mL 5000 UNIT SUBCUT ×2 (03:05→13:37)
[2021-10-06] MEDS: sodium bicarbonate 150 MEQ in dextrose 5% 1,000 ML 100 MEQ IV (04:28)
--- NOTE | 2021-10-06 04:57 | PC.NURSE ---
Event- Assist to the floor While Nurse tech was assisting patient from the bedside commode back into the bed, patient's sock was slipping off of his foot and patient's foot began to slide on the floor. The patient was not able to continue to bear his weight and was leaning heavily on the Nurse Tech, who then lowered the patient to the floor and called for assistance to help move him the the bed safely. This nurse assisted the Nurse Tech and helped lift the patient back to his feet and back into bed. Patient denied any complaints of pain, this nurse assessed for redness and/or bruising but no injury noted. Vital signs were taken and found to be WNL for this patient.
[2021-10-06 05:44] LABS: Basophils % 0.5 %; Eosinophils # 0.3 10^3/uL (0.0-0.8); Eosinophils % 5.8 %; Hematocrit 22.3 % (42.0-52.0); Hemoglobin 7.3 g/dL (11.7-16.6); Lymphocytes # 0.6 10^3/uL (0.8-4.8); Lymphocytes % 14.7 %; Mean Corpuscular HGB Conc 32.7 g/dL (30.0-36.0); Mean Corpuscular Hemoglobin 28.4 pg (28.0-34.0); Mean Corpuscular Volume 86.8 fl (80-94); Mean Platelet Volume 10.4 fL (7.4-10.4); Monocytes # 0.2 10^3/uL (0.2-0.9); Monocytes % 4.4 %; Neutrophils # 3.19 10^3/uL (1.8-7.7); Neutrophils % 74.4 %; Nucleated Red Blood Cells % 0 %; Platelet Count 136 10^3/cmm (130-400); Red Blood Count 2.57 10^6/uL (4.1-5.3); Red Cell Distribution Width 15.3 % (12.1-15.1); White Blood Count 4.3 10^3/uL (4.0-10.0)
[2021-10-06 06:11] LABS: Albumin Level 1.9 g/dL (3.5-5.2); Anion Gap 14.5 (5-19); Blood Urea Nitrogen 45 mg/dL (8-23); Calcium 7.5 mg/dL (8.5-10.5); Carbon Dioxide 30 mmol/L (22-29); Chloride 100 mmol/L (98-107); Glomerular Filtration Rate 10.1 mL/min (90-130); Glucose 111 mg/dL (65-115); Phosphorus 4.2 mg/dL (2.5-4.5); Potassium 3.5 mmol/L (3.5-5.1); Sodium 141 mmol/L (136-145)
[2021-10-06] MEDS: pantoprazole DR 40 mg Tablet PO (08:58)
[2021-10-06] MEDS: sodium bicarbonate 650 mg Tablet PO (08:58)
[2021-10-06] MEDS: calcitriol 0.25 mcg Capsule PO ×2 (08:58→17:40)
[2021-10-06 12:22] LABS: Glucose Point of Care 102 mg/dL (70-110)
--- NOTE | 2021-10-06 14:00 | P.PN_ITS ---
Subjective Subjective: Mr. Hamilton is doing well. No acute issues. Passing his urine. Receiving intravenous fluid, not becoming fluid overloaded i.e. no extremity edema, shortness of breath etc. His energy level is improving. Hemodynamics look stable. Medications: Reviewed: Yes Medication Review Details: Generic Name Dose Route Start Last Admin Trade Name Freq PRN Reason Stop Dose Admin Calcitriol 0.25 mcg 10/04/21 18:00 10/05/21 08:51 Calcitriol 0.25 Mcg Capsule PO 0.25 mcg BID LAURE Administration Heparin Sodium (Po rcine) 5,000 unit 10/02/21 13:00 10/05/21 00:13 Heparin 5,000 Un it/Ml Inj 1 Ml SUBCUT 5,000 unit Q12H LAURE Administration Sodium Bicarbonate 150 meq/ 1,150 mls @ 100 m ls/hr 10/03/21 12:30 10/05/21 02:06 Dextrose IV 100 mls/hr .[id number] LAURE Administration Ondansetron HCl 4 mg 10/02/21 12:24 10/05/21 02:08 Ondansetron 2 Mg /Ml Sdv 2 Ml IVP 4 mg Q6H PRN Administration vomiting, or N/V if npo Pantoprazole Sodiu m 40 mg 10/03/21 09:00 10/05/21 08:[address] 40 Mg Tablet PO 40 mg DAILY LAURE Administration Sodium Bicarbonate 650 mg 10/02/21 18:00 10/05/21 08:51 Sodium Bicarbona te 650 Mg Tablet PO 650 mg BID LAURE Administration Tamsulosin HCl 0.4 mg 10/02/21 21:00 10/04/21 20:11 Tamsulosin 0.4 M g Capsule PO 0.4 mg BEDTIME LAURE Administration Vitals/I&O/Wt Last Vital Signs Temp 98.2 F 10/06/21 11:48 Pulse 75 10/06/21 11:48 Resp 18 10/06/21 11:48 BP 136/75 10/06/21 11:48 Pulse Ox 94 10/06/21 11:48 10/05/21 10/06/21 10/06/21 22:59 06:59 14:59 Intake Total 240 / 1390 1321.667 / 2711.667 500 / 500 Output Total 400 / 400 750 / 1150 Balance -160 / 990 571.667 / 1561.667 500 / 500 Physical Exam Narrative: Constitutional: Awake, comfortable HEENT: Wet mucosa, no jvp, non icteric Lungs: Bilaterally clear without discernible wheeze, rales in all lung zones CVS: S1 S2, no murmurs Abdo: Soft, BS ok Ext 4: Minimal edema, peripheral perfusion with no cyanosis Neurological: Grossly non-focal Urinary Catheter Management: Sandoval: Cath Placed During This Visit: yes Reason for Continuing Indwelling Catheter: Acute Urinary Retention or Obstruction Urinary Catheter Date of Insertion: 10/02/21 Urinary Catheter Time of Insertion: 15:10 Data : 10/06/21 05:32 10/06/21 05:32 A&P Assessment and plan (1) Acute kidney injury: Status: Acute Plan 1. Renal failure Renal function continues to improve with gentle IV hydration and stopping his PPI. Therefore, he either has prerenal azotemia to cause this decline in kidney function versus chronic tubulointerstitial nephritis from PPI. Renal function does continue to get better, continue gentle IV hydration for the time being. This is reassuring news, moving away from him dialysis. Continue very gentle IV hydration No acute indication for dialysis today, continue to monitor closely over the next few days. Strict I's and O's 2. Chemistry Labs appreciated. Becoming alkalotic. DC bicarb. Will give lactated Ringer's. Cont calcitriol 3. Anemia Again reflective of advanced kidney disease given the normal MCV. Receiving a blood transfusion, s/p Epogen, iron levels look okay. 4. Hypertension Since he had such a low oral intake, his blood pressure has come down. We will continue to monitor blood pressure closely. Thank you for consultation, as always it is a pleasure to follow patients with you > 20 minutes spent in evaluation management of case with greater than 50% of time in [id number] counseling. Joey Rothman MD Nephrology [phone] Patient seen and examined via telemedicine, with the assistance of the bedside RN Attestations Medical Necessity Statement*: eval for TIMMY Coding Level of Care Code Acute Manager Wealth Management for [employer] Diagnoses Acute kidney injury N17.9
[2021-10-06 15:59] LABS: Add Urine Culture? Yes; Add Urine Microscopic? YES; Bilirubin Urine Neg (Negative); Blood Urine 3+ (Negative); Glucose Urine UA Norm (Normal); Ketones Urine Negative (Negative); Leukocyte Esterase Urine 1+ (Negative); Nitrate Urine Negative (Negative); Protein Urine Trace (Negative); RBC Urine 80-100 /hpf (0-2); Specific Gravity, Urine 1.005 (1.005-1.030); Urine Appearance Hazy (CLEAR); Urine Color Yellow (Yellow); Urobilinogen Urine Neg (Negative); pH Urine 5 (5-7)
--- NOTE | 2021-10-06 17:11 | PM.PN ---
Subjective Subjective: Hospital course, labs appreciated. On examination lying comfortably in bed with family at bedside. Patient awake and alert. Denies any nausea vomiting, headache. Good urine output in last [address] Denies any new active complaints. Vitals/I&O/Wt Last Vital Signs Temp 98.3 F 10/06/21 15:41 Pulse 75 10/06/21 15:41 Resp 18 10/06/21 15:41 BP 127/75 10/06/21 15:41 Pulse Ox 98 10/06/21 15:41 10/06/21 10/06/21 10/06/21 06:59 14:59 22:59 Intake Total 1321.667 / 2711.667 1458.333 / 1458.333 Output Total 750 / 1150 Balance 571.667 / 9046.552 1695.333 / 1458.333 Physical Exam Narrative: General exam is a white male, pale appearing Neck is supple no lymphadenopathy or thyromegaly Cardiovascular regular rate and rhythm, no murmur Lungs clear no wheezing or crackles Abdomen soft nontender positive bowel sounds. No obvious organomegaly exams deferred Extremities no cyanosis clubbing. Trace edema bilaterally. Skin no rash Urinary Catheter Management: Sandoval: Cath Placed During This Visit: yes Reason for Continuing Indwelling Catheter: Acute Urinary Retention or Obstruction Urinary Catheter Date of Insertion: 10/02/21 Urinary Catheter Time of Insertion: 15:10 Data : 10/06/21 05:32 10/06/21 05:32 A&P Assessment and plan (1) Acute kidney injury: Severe acute kidney injury, etiology unknown. Stable to resolving. Appreciate nephrology recommendations. Hold off on kidney biopsy for now. Medical reconciliation done for nephrotoxic drugs. Avoid usual. Monitor urine output. Continue Sandoval catheter. Continue with gentle IV hydration. Monitor BMP daily. Status: Acute (2) Urinary retention: See above. Sandoval placed Status: Acute (3) Anemia: Hemoglobin stable. Most likely secondary to renal failure. Transfuse keeping hemoglobin over 7. Protonix. Status: Acute (4) Hypertension: Hold diuretics Status: Acute Qualifiers: Hypertension type: essential hypertension Qualified Code(s): I10 - Essential (primary) hypertension Plan Full code Heparin for DVT prophylaxis Protonix OPD prophylaxis Attestations Medical Necessity Statement*: Require further hospitalization for management of acute renal failure Time Spent in Patient Care: Greater than 35 minutes Coding Level of Care Code Acute Diazo Technician for g 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
[2021-10-06] MEDS: lactated ringers 1,000 ML 75 ML IV (17:40)
--- NOTE | 2021-10-06 18:20 | PC.NURSE ---
Patient AAOx4, resting in bed currently but OOBTC most of shift. Lost IV access for long period with US having difficulty placing. New IV placed and new orders started. VSS, no new events, tolerating diet, good berrios UOP, no needs at this time. Room clean and clutter free with call light in reach. WIll report to oncoming nurse at shift change.
[2021-10-06] MEDS: tamsulosin 0.4 mg Capsule PO (20:17)
[2021-10-06 20:19] LABS: Glucose Point of Care 112 mg/dL (70-110)
[2021-10-07] VITALS (11 sets, daily range): BP systolic 96–144; BP diastolic 63–76; PULSE 72–83; RESP 14–18; TEMP 36.4–36.9; O2SAT 96–100
[2021-10-07] MEDS: heparin 5,000 unit/mL INJ 1 mL 5000 UNIT SUBCUT ×2 (00:51→13:43)
[2021-10-07] MEDS: lactated ringers 1,000 ML 75 ML IV (03:55)
--- NOTE | 2021-10-07 05:25 | NUR.SHIFT ---
Rested in bed throughout shift, oriented x4. Up to bedside commode with stand by assist without distress, did have bm so stool sent to lab for occult blood test per orders, test negative for occult blood. No complaints of pain made this shift. Sandoval intact and patent draining clear yellow urine. 20 G IV in left antecubital intact and infusing LR at 75ml/hr.
[2021-10-07 05:30] LABS: Basophils % 0.6 %; Eosinophils # 0.2 10^3/uL (0.0-0.8); Eosinophils % 4.7 %; Hematocrit 21.8 % (42.0-52.0); Lymphocytes # 0.9 10^3/uL (0.8-4.8); Lymphocytes % 27.9 %; Mean Corpuscular HGB Conc 32.1 g/dL (30.0-36.0); Mean Corpuscular Hemoglobin 28.9 pg (28.0-34.0); Mean Corpuscular Volume 90.1 fl (80-94); Mean Platelet Volume 10.6 fL (7.4-10.4); Monocytes # 0.3 10^3/uL (0.2-0.9); Neutrophils % 56.5 %; Nucleated Red Blood Cells % 0 %; Platelet Count 111 10^3/cmm (130-400); Red Blood Count 2.42 10^6/uL (4.1-5.3); Red Cell Distribution Width 15.2 % (12.1-15.1); White Blood Count 3.2 10^3/uL (4.0-10.0)
[2021-10-07 05:42] LABS: Albumin Level 1.9 g/dL (3.5-5.2); Blood Urea Nitrogen 35 mg/dL (8-23); Calcium 7.3 mg/dL (8.5-10.5); Carbon Dioxide 30 mmol/L (22-29); Chloride 98 mmol/L (98-107); Glomerular Filtration Rate 10.1 mL/min (90-130); Glucose 92 mg/dL (65-115); Phosphorus 4.3 mg/dL (2.5-4.5); Sodium 138 mmol/L (136-145)
[2021-10-07 05:49] LABS: Anion Gap 13.3 (5-19); Potassium 3.3 mmol/L (3.5-5.1)
--- NOTE | 2021-10-07 06:16 | PC.NURSE ---
Asked patient to get up to chair at this time. Patient states he would like to wait until its closer to the time that food arrives.
[2021-10-07 06:42] LABS: Glucose Point of Care 109 mg/dL (70-110)
[2021-10-07 06:42] LABS: Glucose Point of Care 97 mg/dL (70-110)
[2021-10-07] MEDS: calcitriol 0.25 mcg Capsule PO ×2 (08:34→17:14)
[2021-10-07] MEDS: pantoprazole DR 40 mg Tablet PO (08:35)
--- NOTE | 2021-10-07 11:04 | PC.SOCIAL ---
IMM Update Pg. 2 of IMM updated and reviewed with patient, who verbalized understanding. Copy provided.
[2021-10-07 11:38] LABS: Glucose Point of Care 94 mg/dL (70-110)
[2021-10-07 12:26] LABS: Creatinine, Random Urine 77 mg/dL (20-320); Protein, Total, Random 51 mg/dL (5-25); Protein/Creatinine Ratio 0.662 (0.022-0.128); Protein/Creatinine Ratio 662 mg/g creat (22-128)
--- NOTE | 2021-10-07 12:44 | PM.PN ---
Subjective Subjective: Feels good, no new issues. Sandoval removed. Feels otherwise well. No edema and no uremic Sx Medications: Reviewed: Yes Medication Review Details: Generic Name Dose Route Start Last Admin Trade Name Freq PRN Reason Stop Dose Admin Calcitriol 0.25 mcg 10/04/21 18:00 10/05/21 08:51 Calcitriol 0.25 Mcg Capsule PO 0.25 mcg BID LAURE Administration Heparin Sodium (Po rcine) 5,000 unit 10/02/21 13:00 10/05/21 00:13 Heparin 5,000 Un it/Ml Inj 1 Ml SUBCUT 5,000 unit Q12H LAURE Administration Sodium Bicarbonate 150 meq/ 1,150 mls @ 100 m ls/hr 10/03/21 12:30 10/05/21 02:06 Dextrose IV 100 mls/hr .[id number] LAURE Administration Ondansetron HCl 4 mg 10/02/21 12:24 10/05/21 02:08 Ondansetron 2 Mg /Ml Sdv 2 Ml IVP 4 mg Q6H PRN Administration vomiting, or N/V if npo Pantoprazole Sodiu m 40 mg 10/03/21 09:00 10/05/21 08:[address] 40 Mg Tablet PO 40 mg DAILY LAURE Administration Sodium Bicarbonate 650 mg 10/02/21 18:00 10/05/21 08:51 Sodium Bicarbona te 650 Mg Tablet PO 650 mg BID LAURE Administration Tamsulosin HCl 0.4 mg 10/02/21 21:00 10/04/21 20:11 Tamsulosin 0.4 M g Capsule PO 0.4 mg BEDTIME LAURE Administration Vitals/I&O/Wt Last Vital Signs Temp 97.9 F 10/07/21 12:00 Pulse 81 10/07/21 12:00 Resp 18 10/07/21 12:00 BP 96/63 10/07/21 12:00 Pulse Ox 97 10/07/21 12:00 10/06/21 10/07/21 10/07/21 22:59 06:59 14:59 Intake Total 240 / 6226.434 5265 / 2698.333 120 / 120 Output Total 500 / 500 450 / 950 300 / 300 Balance -260 / 1198.333 550 / 1748.333 -180 / -180 Physical Exam Narrative: Constitutional: Awake, comfortable HEENT: Wet mucosa, no jvp, non icteric Lungs: Bilaterally clear without discernible wheeze, rales in all lung zones CVS: S1 S2, no murmurs Abdo: Soft, BS ok Ext 4: Minimal edema, peripheral perfusion with no cyanosis Neurological: Grossly non-focal Urinary Catheter Management: Sandoval: Cath Placed During This Visit: yes, but has since been removed by the nurse Reason for Continuing Indwelling Catheter: Decision to DC Catheter Urinary Catheter Date of Insertion: 10/02/21 Urinary Catheter Time of Insertion: 15:10 Date Urinary Catheter Removed: 10/07/21 Time Urinary Catheter Discontinued: 11:58 Data : 10/07/21 04:05 10/07/21 04:05 Micro: Microbiology 10/07/21 00:46 Occult Blood (FIT) - Final Stool - Stool Aspirate A&P Assessment and plan (1) Acute kidney injury: Status: Acute Plan 1. Renal failure Renal functionstalled at 5.6 Either has prerenal azotemia to cause this decline in kidney function versus chronic tubulointerstitial nephritis from PPI. Sandoval removed DC ivf Oral intake is encouraged Strict I's and O's 2. Chemistry Labs appreciated. Becoming alkalotic. Bicarb now stopped. Cont calcitriol 3. Anemia Again reflective of advanced kidney disease given the normal MCV. Receiving a blood transfusion, s/p Epogen, iron levels look okay. 4. Hypertension Since he had such a low oral intake, his blood pressure has come down. We will continue to monitor blood pressure closely. - ok for DC f/u in Dr Scott's office in 1-2 weeks time Thank you for consultation, as always it is a pleasure to follow patients with you > 20 minutes spent in evaluation management of case with greater than 50% of time in [id number] counseling. Joey Rothman MD Nephrology [phone] Patient seen and examined via telemedicine, with the assistance of the bedside RN Attestations Medical Necessity Statement*: eval for TIMMY Coding Level of Care Code Acute Storage Battery Inspector And Tester for Dary Fwd Diagnoses Acute kidney injury N17.9
--- NOTE | 2021-10-07 12:48 | P.DS_ITS ---
Discharge Providers Date of Admission: 10/02/21 12:24 Date of Discharge: October 07, 2021 Attending Provider at Admission: Brendan Llanos MD Attending Provider at Discharge: Davin Wei MD Consults: Nephrology Primary Care Provider: Julia Diego APN Diagnoses at Discharge Discharge Diagnosis (1) Acute kidney injury: Status: Acute Reason for Visit Reason for Visit: Acute kidney Injury Hospital Course Hospital Course Darion Hamilton is a 71 year old male with history of colon cancer stage IIb with diagnosis in 2016.? He is currently on expectant management. Presenting as a direct admission from his oncologist office when he was discovered to have severe acute kidney injury. As per his history: Back in June, he had his knee replaced.? It was noted that his creatinine was 1.9 which was higher than had previously been in 2020, at which time his creatinine was 1.1 mg/dL.? Postoperatively he had difficulty passing his urine, however, his Sandoval catheter was removed and subsequently he was able to pass urine. Following this time, he had a relatively unremarkable clinical course.? However it was noted over the last few months that he progressively became more anorexic and weaker.? This became progressively more profound over the last few weeks to the point where he was taken to his primary care doctor's office.? Labs were performed to anemia was identified with a hemoglobin of 8.8.? No specific therapy was recommended, and no renal function panel was done at that particular time. He has no other obvious inciting trigger i.e. no recent exposure to potentially nephrotoxic medications including anti-inflammatory medications, Bactrim etc.? He is passing his urine with sluggish flow, admission ultrasound scan did not identify hydronephrosis.? He came off his antihypertensives a few months ago as he had lost weight and the blood pressure came down and so his stopped giving them to him. He has taken omeprazole now for the last few years, it is not changed and is the only potential nephrotoxic exposure. On admission creatinine 6.8, he received gentle IV fluid, Sandoval catheter was placed, creatinine went up to 6.9 mg/dL.? Acidosis was also noted as well as a variety of other chemical abnormalities including anion gap metabolic acidosis, hypocalcemia, hypoproteinemia.? Renal sonogram demonstrated right renal atrophy which is known and is chronic, the left kidney looks normal.? Urinalysis performed demonstrates no evidence of protein or blood and is entirely benign. Patient admitted to the hospital for further evaluation and management of acute renal failure. Nephrology was consulted and he was started on conservative treatment with IV fluids and management of acidosis. Patient continued to have appropriate urine output. His kidney functions improved and then stabilized. It is believed that patient either had prerenal azotemia to cause a decline in kidney function versus chronic tubulointerstitial nephritis from PPI. As kidney function stabilized and he was found to have a single kidney plans for possible kidney biopsy of working kidney were put on hold. During hospitalization patient was found to be anemic which is most likely secondary to iron deficiency anemia in setting of chronic kidney disease. He was given overall treatment of blood transfusion. His hemoglobin otherwise remained stable. He has been discharged hemodynamically stable condition advised to follow-up with Dr. Scott from nephrology within the next 2 weeks for close follow-up. Physical Exam Narrative: General exam is a white male, pale appearing Neck is supple no lymphadenopathy or thyromegaly Cardiovascular regular rate and rhythm, no murmur Lungs clear no wheezing or crackles Abdomen soft nontender positive bowel sounds. No obvious organomegaly exams deferred Extremities no cyanosis clubbing. Trace edema bilaterally. Skin no rash Urinary Catheter Management: Sandoval: Cath Placed During This Visit: yes, but has since been removed by the nurse Reason for Continuing Indwelling Catheter: Decision to DC Catheter Urinary Catheter Date of Insertion: 10/02/21 Urinary Catheter Time of Insertion: 15:10 Date Urinary Catheter Removed: 10/07/21 Time Urinary Catheter Discontinued: 11:58 Discharge Data Studies Completed and Pending Completed Studies During Hospitalization Category Date Time Status XR chest 1V portable [id number] Routine Exams 10/02/21 12:34 Completed Pending at discharge Category Date Time Status ANCA [Anti-Neutrophil Cytoplasmic AB] Routine Lab 10/06/21 17:00 Received CBC Auto Diff [Complete Blood Count w/Auto] AM LABS Lab 10/08/21 04:00 Ordered Leukocyte Reduced RBC Stat Lab 10/07/21 11:55 Results [facility] EMMY Profile Routine Lab 10/06/21 17:00 Received Renal Function Panel AM LABS Lab 10/08/21 04:00 Ordered Serum Protien Electrophoresis [Total Protein Lab 10/06/21 17:00 Received Electrophoresis] Routine Type and Screen Stat Lab 10/07/21 11:55 Results Urine Protein Electrop Random Routine Lab 10/06/21 14:38 Results Radiology Impressions Chest X-Ray 10/02/21 12:34 Impression: Atherosclerosis. Laboratory Results WBC 3.2 10^3/uL (4.0-10.0) L 10/07/21 04:05 Corrected WBC Cancelled 10/03/21 04:20 RBC 2.42 10^6/uL (4.1-5.3) L 10/07/21 04:05 Hgb 7.0 g/dL (11.7-16.6) L 10/07/21 04:05 Hct 21.8 % (42.0-52.0) L 10/07/21 04:05 MCV 90.1 fl (80-94) 10/07/21 04:05 MCH 28.9 pg (28.0-34.0) 10/07/21 04:05 MCHC 32.1 g/dL (30.0-36.0) 10/07/21 04:05 RDW 15.2 % (12.1-15.1) H 10/07/21 04:05 Plt Count 111 10^3/cmm (130-400) L 10/07/21 04:05 MPV 10.6 fL (7.4-10.4) H 10/07/21 04:05 Gran % Cancelled 10/03/21 04:20 Neut % (Auto) 56.5 % 10/07/21 04:05 Lymph % (Auto) 27.9 % 10/07/21 04:05 Pershing % (Auto) 10.0 % 10/07/21 04:05 Eos % (Auto) 4.7 % 10/07/21 04:05 Baso % (Auto) 0.6 % 10/07/21 04:05 Neut # (Auto) 1.80 10^3/uL (1.8-7.7) 10/07/21 04:05 Lymph # (Auto) 0.9 10^3/uL (0.8-4.8) 10/07/21 04:05 Pershing # (Auto) 0.3 10^3/uL (0.2-0.9) 10/07/21 04:05 Eos # (Auto) 0.2 10^3/uL (0.0-0.8) 10/07/21 04:05 Baso # (Auto) 0.0 10^3/uL (0.0-0.1) 10/07/21 04:05 Absolute Gran (auto) Cancelled 10/03/21 04:20 Nucleated RBC % (auto) 0 % 10/07/21 04:05 Nucleated RBCs # 0.0 /100WBC 10/07/21 04:05 Sodium 138 mmol/L (136-145) 10/07/21 04:05 Potassium 3.3 mmol/L (3.5-5.1) L 10/07/21 04:05 Chloride 98 mmol/L (98-107) 10/07/21 04:05 Carbon Dioxide 30 mmol/L (22-29) H 10/07/21 04:05 Anion Gap 13.3 (5-19) 10/07/21 04:05 BUN 35 mg/dL (8-23) H 10/07/21 04:05 Creatinine 5.6 mg/dL (0.7-1.2) H* 10/07/21 04:05 GFR Calculation 10.1 mL/min (90-130) L 10/07/21 04:05 Glucose 92 mg/dL (65-115) 10/07/21 04:05 POC Glucose 94 mg/dL (70-110) 10/07/21 11:26 Estimat Average Glucose 100 10/02/21 08:48 Hemoglobin A1c 5.1 % (4.0-6.0) 10/02/21 08:48 Calculated Osmolality 298 mOsm/kg (285-295) H 10/04/21 04:24 Calcium 7.3 mg/dL (8.5-10.5) L 10/07/21 04:05 Phosphorus 4.3 mg/dL (2.5-4.5) 10/07/21 04:05 Magnesium 1.8 mg/dL (1.7-2.3) 10/04/21 04:24 Total Bilirubin 0.3 mg/dL (0.15-1.2) 10/04/21 04:24 AST 15 U/L (0-40) 10/04/21 04:24 ALT 13 U/L (0-41) 10/04/21 04:24 Alkaline Phosphatase 175 IU/L (40-130) H 10/04/21 04:24 Creatine Kinase 20 U/L (39-308) L 10/02/21 08:48 Total Protein 4.7 g/dL (6.6-8.7) L 10/04/21 04:24 Albumin 1.9 g/dL (3.5-5.2) L 10/07/21 04:05 Globulin 3.0 g/dL (1.3-4.6) 10/04/21 04:24 TSH 4.38 uIU/mL (0.27-4.20) H 10/02/21 08:48 Urine Color Yellow (Yellow) 10/06/21 14:28 Urine Appearance Hazy (CLEAR) A 10/06/21 14:28 Urine pH 5 (5-7) 10/06/21 14:28 Ur Specific [place] 1.005 (1.005-1.030) 10/06/21 14:28 Urine Protein Trace (Negative) 10/06/21 14:28 Urine Glucose (UA) Norm (Normal) 10/06/21 14: Urine Ketones Negative (Negative) 10/06/21 14:28 Urine Blood 3+ (Negative) H 10/06/21 14:28 Urine Nitrate Negative (Negative) 10/06/21 14:28 Urine Bilirubin Neg (Negative) 10/06/21 14:28 Urine Urobilinogen Neg mg/dL (Negative) 10/06/21 14:28 Ur Leukocyte Esterase 1+ (Negative) H 10/06/21 14:28 Urine RBC 80-100 /hpf (0-2) H 10/06/21 14:28 Urine WBC 5-10 /hpf (0-5) H 10/06/21 14:28 Ur Squamous Epith Cells None /hpf (0-5) 10/06/21 14:28 Amorphous Sediment Not Reportable 10/06/21 14:28 Urine Bacteria None /hpf (NONE) 10/06/21 14:28 Ur Random Creatinine 77 mg/dL (20-320) 10/06/21 14:38 U Random Total Protein 51 mg/dL (5-25) H 10/06/21 14:38 Protein/Creatinin Ratio 662 mg/g creat (22-128) H 10/06/21 14:38 Protein/Creat Ratio 24h 0.662 (0.022-0.128) H 04/18/22 14:38 Blood Type A Positive 10/07/21 11:55 Rho(D) Type Positive 10/07/21 11:55 Antibody Screen Negative 10/03/21 08:25 Crossmatch See Detail 10/07/21 11:55 Vitals Last Vital Signs Temp 97.9 F 10/07/21 12:00 Pulse 81 10/07/21 12:00 Resp 18 10/07/21 12:00 BP 96/63 10/07/21 12:00 Pulse Ox 97 10/07/21 12:00 Discharge Plan Discharge Patient Disposition: Home Condition: Stable Prescriptions: New tamsulosin 0.4 mg Capsule 0.4 mg PO BEDTIME Qty: 30 0RF calcitriol 0.25 mcg Capsule 0.25 mcg PO BID Qty: 30 0RF Continued omeprazole 20 mg capsule,delayed release(DR/EC) 20 mg PO BID 0RF cyproheptadine [Periactin] 4 mg Tablet 4 mg PO BID 0RF hydroxyzine HCl 50 mg Tablet 25 - 50 mg PO BID PRN (Reason: moderate anxiety) 0RF ondansetron [Zofran ODT] 4 mg Tablet,Disintegrating 4 mg PO Q4H PRN (Reason: Nausea And Vomiting) 0RF Tylenol Ex Str Rapid Release 500 mg Tablet 1,000 mg PO Q8H PRN (Reason: Pain) 0RF metoprolol tartrate 50 mg tablet 50 mg PO BID PRN (Reason: Blood Pressure) 0RF Changed clonazepam 1 mg tablet 0.5 mg PO TID PRN (Reason: Anxiety) Qty: 0 0RF amitriptyline 75 mg tablet 75 mg PO BEDTIME Qty: 0 0RF Discontinued triamterene-hydrochlorothiazid 37.5-25 mg tablet 1 tab PO DAILY 0RF Discharge Orders: Discharge Order (Routine); Ordered 10/07/21 Ordered By: Davin Wei Referrals: [facility] [Outside] Alan Scott MD [Referring] - 2 weeks Diego,LIAM Dumont [Primary Care Provider] - 7-10 days Discharge Diet: As Directed Discharge Activity: Resume usual activity and Increase activity as tolerated Patient Instructions: Opioid Safety Activity Restrictions/Additional Instructions: Renal nondialysis diet. Please follow-up with your primary care provider within the next 1 week for repeat CBC, CMP. Please follow-up with nephrology/Dr. Scott close monitoring as an outpatient. Discharge Attestations Time Spent in Discharge Care*: greater than 30 min Specific Discharge Activities: educating patient, educating and/or supporting family/caregiver, discussing with pcp/other providers, discussing with director case management/social workers/dc planners, documenting/other paperwork and evaluating patient/reviewing data Status at Discharge: Cognitive status at discharge: cognitively intact , Behavioral status at discharge: cooperative , Functional status at discharge: independent ambulation , Overall status at discharge: patient is progressing back to baseline Quality Metrics Clinical Quality Measures [ No reported AMI, CVA or VTE this stay] Coding Level of Care Code Acute Chg FW DC note Diagnoses Acute kidney injury N17.9
[2021-10-07] MEDS: sodium chloride 0.9% (100 ml) 100 ML 30 ML (13:43)
[2021-10-07 18:00] LABS: Glucose Point of Care 114 mg/dL (70-110)
[2021-10-07] MEDS: tamsulosin 0.4 mg Capsule PO (18:35)
--- NOTE | 2021-10-07 18:36 | PC.NURSE ---
Patient having urinary retention, Noemi notified orders to place berrios and have patient f/u with [facility]entino. Dicharge education reviewed with patient and at bedside with education on changing berrios bags and care. Verbally acknowledges to call for appointment and to follow discharge plan of care.
[2021-10-08 09:37] LABS: PROTEIN, TOTAL 5.1 g/dL (6.1-8.1)
[2021-10-08 12:29] LABS: Anti-Double Strand DNA AB 1 IU/mL; Jo-1 Antibody <1.0 NEG AI (<1.0 NEG); SM/RNP Antibodies <1.0 NEG AI (<1.0 NEG); SS-B/LA IGG <1.0 NEG AI (<1.0 NEG); Scleroderma Ab(Scl-70) Ab <1.0 NEG AI (<1.0 NEG); Ss-A/Ro Igg <1.0 NEG AI (<1.0 NEG)
[2021-10-08 16:23] LABS: ALPHA 1 GLOBULIN 0.4 g/dL (0.2-0.3); ALPHA 2 GLOBULIN 0.6 g/dL (0.5-0.9); BETA 1 GLOBULIN 0.3 g/dL (0.4-0.6); BETA 2 GLOBULIN 0.7 g/dL (0.2-0.5); GAMMA GLOBULIN 1.2 g/dL (0.8-1.7)
[2021-10-09 08:49] LABS: Albumin,Urine Random 40 %; Alpha-1-Globulins Urine Random 5 %; Alpha-2-Globulins Urine Random 11 %; Beta-Globulin,Urine Random 23 %; Gamma Globulin,Urine Random 21 %
[2021-10-09 12:13] LABS: ANCA Screen NEGATIVE (NEGATIVE)
== END 2021-10-07 19:07 | disposition home health service (06) | DRG 683 ==
PROVIDERS: Internal Medicine; Internal Medicine Nephrology; Admitting Provider Internal Medicine; PCP Nurse Practitioner Family; Visit Provider Student in an Organized Health Care Education/Training Program
DX: N17.9 Acute kidney failure, unspecified (principal); E87.2 Acidosis; Z85.038 Personal history of other malignant neoplasm of large intestine; M1A.9XX1 Chronic gout, unspecified, with tophus (tophi); I12.9 Hypertensive chronic kidney disease with stage 1 through stage 4 chronic kidney disease, or unspecified chronic kidney disease; N18.9 Chronic kidney disease, unspecified; M81.0 Age-related osteoporosis without current pathological fracture; Z90.49 Acquired absence of other specified parts of digestive tract; Z87.891 Personal history of nicotine dependence; R33.9 Retention of urine, unspecified; D50.9 Iron deficiency anemia, unspecified; E83.42 Hypomagnesemia; E83.51 Hypocalcemia
CPT/HCPCS: 36415; 36416; 36430; 51702; 71045; 76770; 80053; 80069; 81001; 81003; 82274; 82378; 82550; 82570; 82728; 82962; 83036; 83516; 83540; 83550; 83735; 84100; 84155; 84156; 84165; 84166; 84443; 85025; 86225; 86235; 86850; 86900; 86920; 96372; J0610; J1644; J2405; J3475; J7030; P9016; Q3014

== ENCOUNTER 2021-10-15 16:02 | Outpatient (CLI) | payer MEDICARE, SELFPAY ==
[2021-10-15 16:18] LABS: Blood Urea Nitrogen 32 mg/dL (8-23); Calcium 7.4 mg/dL (8.5-10.5); Carbon Dioxide 16 mmol/L (22-29); Chloride 105 mmol/L (98-107); Glomerular Filtration Rate 13.1 mL/min (90-130); Glucose 97 mg/dL (65-115); Phosphorus 5.5 mg/dL (2.5-4.5); Sodium 138 mmol/L (136-145)
[2021-10-15 16:20] LABS: Anion Gap 21.2 (5-19); Potassium 4.2 mmol/L (3.5-5.1)
== END 2021-10-15 16:03 | disposition home or self-care (01) ==
PROVIDERS: PCP Nurse Practitioner Family; Visit Provider Internal Medicine Nephrology
DX: N17.9 Acute kidney failure, unspecified (principal)
CPT/HCPCS: 80069

== ENCOUNTER 2021-11-10 14:14 | Oncology outpatient (recurring) (ONCR) | payer MEDICARE, SELFPAY ==
[2021-11-10 15:24] LABS: Basophils % 0.4 %; Eosinophils # 0.2 10^3/uL (0.0-0.8); Eosinophils % 3.3 %; Hematocrit 25.6 % (42.0-52.0); Hemoglobin 8.1 g/dL (11.7-16.6); Lymphocytes # 0.8 10^3/uL (0.8-4.8); Lymphocytes % 11.4 %; Mean Corpuscular HGB Conc 31.6 g/dL (30.0-36.0); Mean Corpuscular Hemoglobin 29.7 pg (28.0-34.0); Mean Corpuscular Volume 93.8 fl (80-94); Mean Platelet Volume 10.7 fL (7.4-10.4); Monocytes # 0.4 10^3/uL (0.2-0.9); Neutrophils # 5.59 10^3/uL (1.8-7.7); Neutrophils % 79.3 %; Nucleated Red Blood Cells % 0 %; Platelet Count 151 10^3/cmm (130-400); Red Blood Count 2.73 10^6/uL (4.1-5.3); Red Cell Distribution Width 16.7 % (12.1-15.1)
[2021-11-10 15:54] LABS: Slide Review Slide Review Perform
[2021-11-10 16:04] LABS: Erythrocyte Sedimentation Rate 42 mm/hr (0-10)
[2021-11-10 16:49] LABS: Carcinoembryonic Antigen 8.5 ng/mL (0.0-4.7)
[2021-11-10 17:00] LABS: Alanine Aminotransferase 13 U/L (0-41); Albumin Level 2.6 g/dL (3.5-5.2); Alkaline Phosphatase 153 IU/L (40-130); Anion Gap 21.4 (5-19); Aspartate Amino Transferase 18 U/L (0-40); Blood Urea Nitrogen 57 mg/dL (8-23); Calcium 8.4 mg/dL (8.5-10.5); Carbon Dioxide 14 mmol/L (22-29); Chloride 105 mmol/L (98-107); Glomerular Filtration Rate 8.1 mL/min (90-130); Glucose 110 mg/dL (65-115); Osmolality Calculated 298 mOsm/kg (285-295); Potassium 4.4 mmol/L (3.5-5.1); Sodium 136 mmol/L (136-145); Total Bilirubin 0.3 mg/dL (0.15-1.2); Total Protein 6.6 g/dL (6.6-8.7)
[2021-11-10 17:59] LABS: Ferritin 525 ng/mL (30-400); Iron 24 ug/dL (59-158); Percent Saturation 19.6 % (20-50); Total Iron Binding Capacity 122 mcg/dl; Unsaturated Iron Binding 98 ug/dL (112-347)
[2021-11-11 15:13] LABS: Erythropoietin 6.9 mIU/mL (2.6-18.5)
== END 2021-11-18 23:59 | disposition home or self-care (01) ==
LOC: ONCMED 14:17
PROVIDERS: PCP Nurse Practitioner Family; Visit Provider Internal Medicine Medical Oncology
DX: C18.2 Malignant neoplasm of ascending colon (principal); N18.6 End stage renal disease
CPT/HCPCS: 36415; 80053; 82378; 82668; 82728; 83540; 83550; 85025; 85651; 99214; 99999

== ENCOUNTER → 2021-11-11 13:34 | Outpatient (BNVA) | payer MEDICARE, SELFPAY | PROVIDERS: PCP Nurse Practitioner Family; Visit Provider Nurse Practitioner Family | DX: N17.9 Acute kidney failure, unspecified (principal); R33.9 Retention of urine, unspecified | CPT/HCPCS: 99203 ==

== ENCOUNTER 2021-11-11 14:35 | Inpatient (IN) | payer MEDICARE, SELFPAY ==
[2021-11-11] VITALS (8 sets, daily range): BP systolic 128–141; BP diastolic 70–81; PULSE 76–100; RESP 14–18; TEMP 36.6–36.8; O2SAT 93–98; BMI 22.9
--- NOTE | 2021-11-11 14:40 | XR_ITS ---
WS: [id number] Exam: XR chest 1V portable [id number] Date/Time of Exam: 11/11/2021 2:43 PM Reason For Exam: fatigue Comparison 10/02/2021. The lungs are clear and fully expanded. Pleural thickening at the left costophrenic angle. Heart size is top limits normal. Large bowel interposed beneath the right diaphragm with chronic elevation of t he right diaphragm. The superior mediastinum is normal in contour. Bony structures are intact. XR/XR chest 1V portable [id number] IMPRESSION: 1. No acute cardiopulmonary finding. No change.
--- NOTE | 2021-11-11 14:40 | ECG_ITS ---
[facility] Test Date: 2021-11-11 Pat Name: Darion Hamilton Department: Room: Gender: Male It Analyst: : 1950 Requested By: Ida Flood Order Number: [id number] Alli MD: Alexandro Alfaro M.D. Measurements Intervals [place] Rate: 82 P: -2 VA: 162 QRS: -55 QRSD: 106 T: 3 QT: 400 QTc: 469 Interpretive Statements Possible SINUS RHYTHM LOW QRS VOLTAGE IN PRECORDIAL LEADS [QRS DEFLECTION < 1.0 mV IN CHEST LEADS] INCOMPLETE RIGHT BUNDLE BRANCH BLOCK [90+ ms QRS DURATION, TERMINAL R IN V1/V2, 40+ ms S IN I/aVL/V4/V5/V6] INFERIOR MYOCARDIAL INFARCTION , PROBABLY OLD [40+ ms Q WAVE AND/OR ST/T ABNORMALITY IN II/aVF] ANTEROSEPTAL MYOCARDIAL INFARCTION , OF INDETERMINATE AGE [40+ ms Q WAVE IN V1-V4] Compared to ECG 06/18/2021 10:33:21 Low QRS voltage now present Incomplete right bundle-branch block now present Bradycardia, nonsinus no longer present Myocardial infarct finding still present Heavy baseline artifact, need to repeat Electronically Signed On 11-11-2021 18:53:31 CDT by Alexandro Alfaro M.D. [email or web address]
--- NOTE | 2021-11-11 14:53 | W.ED.GENADLT ---
HPI - General Adult General: Chief complaint: Recheck/Abnormal Lab/Rx Stated complaint: high creatinine; weakness Time Seen by Provider: 11/11/21 14:38 History of Present Illness: Patient is a 70-year-old male with a history of colon adenocarcinoma followed by Dr. Matos not currently on chemotherapy, chronically Sandoval dependent, CKD who presents the emergency room for concerns of worsening creatinine. Patient was recently hospitalized in September of this year for acute kidney failure. Since then, patient was discharged with a Sandoval. Yesterday, patient had routine blood work done by Dr. Matos's office noted to have a creatinine of 6.9. Patient says that earlier this morning, he was seen in Dr. Pederson's office had his indwelling Sandoval removed. Since then, patient has been unable to urinate. Patient has no other focal complaints other than decreased p.o. intake. No other focal complaints at this time. Onset: chronic/unknown Duration:ongoing Location:home Severity:moderate Associated symptoms: Deny chest pain, dyspnea, nausea, rash, palpitations or vomiting Review of Systems Const: Denies: fever(s) or chills Eyes: Denies: change in vision ENMT: Denies: mouth pain Card: Denies: chest pain or palpitations Resp: Denies: dyspnea or non-productive cough GI: Denies: abdominal pain, nausea, vomiting or diarrhea : Denies: dysuria Musc: Denies: extremity pain Skin/Breast: Denies: rash or new lesions Neuro: Denies: weakness in extremities Psych: Reports: other (Normal mood) Ba/Lymph: Denies: easy bruising PFSH ED PFSH: Medical History Chronic tophaceous gout of both hands End stage renal disease Hypertension Malignant neoplasm of ascending colon Osteoarthritis Osteoporosis Surgical History History of colonoscopy (12/19/20) 2019 History of hemicolectomy (03/30/16) laparoscopic right hemicolectomy with extracorporeal ileocolic stapled anastomosis History of laparoscopy (09/14/18) laparoscopy with lysis of adhesions and ileocolectomy with extracorporeal stapled ileocolic anastomosis History of laparoscopy (02/22/19) laparoscopic lysis of adhesions and laparoscopic partial colectomy with ileal colonic anastomosis and with omentectomy Hx of total knee arthroplasty (06/23/21) left Family History Father , AT 72 CAD (coronary artery disease) Brother Cancer Brain Mother , AT AGE 96 Diabetes Other Arthritis Hypertension Denies family history of Rheumatoid arthritis Lupus Clotting disorder Dementia Hyperlipidemia Psychiatric illness Chronic kidney disease (CKD) Suicide Anesthesia complication Bleeding disorder Lung disease Stroke Social History Smoking and tobacco status: former smoker Alcohol intake: never Marital status: Current occupational status: retired History of recent travel: No Physical Exam Const: COMMON NORMALS: alert HENMT: COMMON NORMALS: atraumatic HEAD & SCALP: atraumatic MOUTH: moist mucous membranes abnormal Eye: COMMON NORMALS: EOMs intact bilaterally and conjunctivae normal CONJUNCTIVA: Yes conjunctivae normal Neck/C-Spine: COMMON NORMALS: full ROM and supple Resp: COMMON NORMALS: normal respiratory effort and clear to auscultation bilaterally AUSCULTATION: clear to auscultation bilaterally Cardio: COMMON NORMALS: regular rate RATE: regular rate GI: COMMON NORMALS: Soft to palpation and non-tender PALPATION: Yes Soft to palpation Extremity: COMMON NORMALS: full ROM Neuro: SENSORIUM/ORIENTATION: Yes alert MOTOR EXAM: No Abnormal motor strength present and Other motor observations present (no focal motor deficits) Psych: COMMON NORMALS: speech normal SPEECH: Yes normal speech MOOD & AFFECT: Yes euthymic mood Course Vital Signs: Vital signs: Vital Signs Temperature 98.9 F 11/14/21 11:22 Pulse Rate 78 11/14/21 11:22 Respiratory Rate 17 11/14/21 11:22 Blood Pressure 153/83 11/14/21 11:22 Pulse Oximetry 98 11/14/21 11:[address] [facility] - General Adult Medical Decision Making 71-year-old male with history of previous colon adenocarcinoma followed by Dr. Matos, CKD requiring chronic indwelling Sandoval followed by Dr. Pederson presenting to the emergency room for decreased p.o. intake, and elevated creatinine. On physical exam, patient appears to have dry mucous membrane. Rest of vitals within normal limit. No focal findings on physical exam. Patient had new indwelling Sandoval that was placed. Creatinine of 6.7. Case was discussed with Dr. Gee who recommended inpatient admission and close follow-up. Disposition: admission Lab Data : 11/14/21 03:21 11/14/21 03:21 Radiology Impressions Chest X-Ray 11/11/21 14:40 IMPRESSION: 1. No acute cardiopulmonary finding. No change. Renal Ultrasound 11/11/21 15:39 IMPRESSION: 1. Technically very difficult and extremely limited evaluation of the kidneys. 2. Would be difficult to exclude hydronephrosis or mass. Laboratory Results WBC 6.3 10^3/uL (4.0-10.0) 11/11/21 15:30 RBC 2.78 10^6/uL (4.1-5.3) L 11/11/21 15:30 Hgb 8.1 g/dL (11.7-16.6) L 11/11/21 15:30 Hct 25.6 % (42.0-52.0) L 11/11/21 15:30 MCV 92.1 fl (80-94) 11/11/21 15:30 MCH 29.1 pg (28.0-34.0) 11/11/21 15:30 MCHC 31.6 g/dL (30.0-36.0) 11/11/21 15:30 RDW 16.4 % (12.1-15.1) H 11/11/21 15:30 Plt Count 148 10^3/cmm (130-400) 11/11/21 15:30 MPV 10.0 fL (7.4-10.4) 11/11/21 15:30 Neut % (Auto) 80.4 % 11/11/21 15:30 Lymph % (Auto) 10.6 % 11/11/21 15:30 Ross % (Auto) 4.7 % 11/11/21 15:30 Eos % (Auto) 3.5 % 11/11/21 15:30 Baso % (Auto) 0.5 % 11/11/21 15:30 Neut # (Auto) 5.10 10^3/uL (1.8-7.7) 11/11/21 15:30 Lymph # (Auto) 0.7 10^3/uL (0.8-4.8) L 11/11/21 15:30 Ross # (Auto) 0.3 10^3/uL (0.2-0.9) 11/11/21 15:30 Eos # (Auto) 0.2 10^3/uL (0.0-0.8) 11/11/21 15:30 Baso # (Auto) 0.0 10^3/uL (0.0-0.1) 11/11/21 15:30 Nucleated RBC % (auto) 0 % 11/11/21 15:30 Nucleated RBCs # 0.0 /100WBC 11/11/21 15:30 Sodium 136 mmol/L (136-145) 11/11/21 15:30 Potassium 4.2 mmol/L (3.5-5.1) 11/11/21 15:30 Chloride 103 mmol/L (98-107) 11/11/21 15:30 Carbon Dioxide 15 mmol/L (22-29) L 11/11/21 15:30 Anion Gap 22.2 (5-19) H 11/11/21 15:30 BUN 55 mg/dL (8-23) H 11/11/21 15:30 Creatinine 6.8 mg/dL (0.7-1.2) H* 11/11/21 15:30 GFR Calculation 8.1 mL/min (90-130) L 11/11/21 15:30 Glucose 103 mg/dL (65-115) 11/11/21 15:30 Calculated Osmolality 297 mOsm/kg (285-295) H 11/11/21 15:30 Uric Acid 11.1 mg/dL (3.4-7.0) H 11/11/21 15:28 Calcium 8.5 mg/dL (8.5-10.5) 11/11/21 15:30 Total Bilirubin 0.3 mg/dL (0.15-1.2) 11/11/21 15:30 AST 20 U/L (0-40) 11/11/21 15:30 ALT 13 U/L (0-41) 11/11/21 15:30 Alkaline Phosphatase 158 IU/L (40-130) H 11/11/21 15:30 Troponin T Baseline 39 ng/L (0-15) H 11/11/21 15:30 Total Protein 6.9 g/dL (6.6-8.7) 11/11/21 15:30 Albumin 2.8 g/dL (3.5-5.2) L 11/11/21 15:30 Globulin 4.1 g/dL (1.3-4.6) 11/11/21 15:30 Lipase 5 U/L (13-60) L 11/11/21 15:30 Urine Color Yellow (Yellow) 11/11/21 17:00 Urine Appearance Cloudy (CLEAR) 11/11/21 17:00 Urine pH 5 (5-7) 11/11/21 17:00 Ur Specific [place] 1.010 (1.005-1.030) 11/11/21 17:00 Urine Protein Trace (Negative) 11/11/21 17:00 Urine Glucose (UA) Norm (Normal) 11/11/21 17:00 Urine Ketones Negative (Negative) 11/11/21 17:00 Urine Blood 3+ (Negative) H 11/11/21 17:00 Urine Nitrate Negative (Negative) 11/11/21 17:00 Urine Bilirubin Neg (Negative) 11/11/21 17:00 Urine Urobilinogen Norm mg/dL (Negative) 11/11/21 17:00 Ur Leukocyte Esterase 2+ (Negative) H 11/11/21 17:00 Urine RBC 0-4 /hpf (0-2) H 11/11/21 17:00 Urine WBC Too numerous to cnt /hpf (0-5) H 11/11/21 17:00 Ur Squamous Epith Cells 0-4 /hpf (0-5) H 11/11/21 17:00 Ur Transition Epith Cell Cancelled 11/11/21 17:00 Ur Renal Epithelial Cell Cancelled 11/11/21 17:00 Calcium Oxalate Crystal Cancelled 11/11/21 17:00 Uric Acid Crystals Cancelled 11/11/21 17:00 Triple Phos Crystals Cancelled 11/11/21 17:00 Other Crystals Cancelled 11/11/21 17:00 Amorphous Sediment Not Reportable 11/11/21 17:00 Urine Bacteria 1+ /hpf (NONE) H 11/11/21 17:00 Hyaline Casts Cancelled 11/11/21 17:00 Fine Granular Casts Cancelled 11/11/21 17:00 Coarse Granular Casts Cancelled 11/11/21 17:00 RBC Casts Cancelled 11/11/21 17:00 Other Casts Cancelled 11/11/21 17:00 Urine Mucus Cancelled 11/11/21 17:00 Urine Trichomonas Cancelled 11/11/21 17:00 Urine Yeast Cancelled 11/11/21 17:00 Urine Sperm Cancelled 11/11/21 17:00 Ur Oval Fat Bodies Cancelled 11/11/21 17:00 Ur Random Sodium 31 mmol/L 11/11/21 17:00 Ur Random Potassium 10 mmol/L 11/11/21 17:00 Ur Random Chloride 21 mmol/L 11/11/21 17:00 Hep Bs Antigen Non-reactive (Nonreactive) 11/11/21 15:28 Hep Bs Antibody 3.5 (11.5-1000) L 11/11/21 15:28 Hepatitis C Antibody Non-reactive (Nonreactive) 11/11/21 15:28 Discharge Plan Discharge Patient Disposition: Admitted As Inpatient Admit Provider: Sha Valentino Clinical Impression: Acute kidney injury superimposed on chronic kidney disease Condition: Stable Coding Level of Care Code ED Milieu Counselor for Chg Fwd Exam Comprehensive
--- NOTE | 2021-11-11 15:17 | P.CONIM_ITS ---
Providers/Reason For Consult Consulting Physician/Specialty*: dilcia morris md / telenephrology Reason for Consult*: progressive renal failure Primary Care Provider: Julia Diego APN History of Present Illness History of Present Illness Darion Hamilton is a 71 year old male with history of colon cancer stage IIb with diagnosis in 2016.? He is currently on expectant management. Pt had normal cr in 2020 at 1.1 mg/dl. by jun 2021- cr 1.9. he had a knee replacement and was admitted in September 2021 w/ TIMMY- peaked cr 6.8 mg/dl. had fluids and d/c w/ cr 5.6 mg/dl. by October 15 cr was 4.5 mg/dl. On November 10, 2021 cr again 6.8 mg/dl. Pt was referred to who removed his berrios and pt sent to ER for further renal eval. Pt had a renal us in September 2021 w/ atrophic right kidney and enlarged left kidney. On September admission was concern for obstruction, prerenal and possible AIN. his serologies were and SPEP were negative. He had BP meds stopped, PPI stopped and d/c home w/ a berrios. Pt c/o weakness and weight loss, poor appetite, itching, nausea, sleep reversal. Review of Systems Narrative: weak, weight loss, nausea, [place], SOB, normal uop. itching, poor MS Medications/Allergies Home Medications Medication Instructions Recorded Confirmed Last Taken Type hydroxyzine HCl 50 mg tablet 25 - 50 mg PO BID PRN 10/02/21 11/11/21 Unknown History acetaminophen 500 mg tablet 1,000 mg PO Q8H PRN 10/03/21 11/11/21 Unknown History calcitriol 0.25 mcg capsule 0.25 mcg PO BID #30 cap 10/07/21 11/11/21 Unknown Rx tamsulosin 0.4 mg capsule 0.4 mg PO DAILY 11/10/21 11/11/21 Unknown History clonazepam 1 mg tablet 0.5 - 1 mg PO TID PRN 11/11/21 11/11/21 11/10/21 History cyproheptadine 4 mg tablet 4 mg PO BID 11/11/21 11/11/21 11/10/21 History levofloxacin 500 mg tablet 500 mg PO DAILY 11/11/21 11/11/21 11/11/21 History sodium bicarbonate 650 mg tablet 650 mg PO TID 11/11/21 11/11/21 11/11/21 History Allergies Allergy/AdvReac Type Severity Reaction Status Date / Time Penicillins Allergy Unknown Unknown Verified 11/11/21 15:33 Sulfa (Sulfonamide Allergy Unknown Unknown Verified 11/11/21 15:33 Antibiotics) aspirin AdvReac Intermediate GI bleed Verified 11/11/21 15:33 ibuprofen AdvReac Intermediate GI bleed Verified 11/11/21 15:33 [From NeoProfen (ibuprofen lysn)(PF)] Home Medications ? tamsulosin 0.4 mg Capsule ?? 0.4 mg PO BEDTIME Qty: 30 0RF ? calcitriol 0.25 mcg Capsule ?? 0.25 mcg PO BID Qty: 30 0RF Continued ? omeprazole 20 mg capsule,delayed release(DR/EC) ?? 20 mg PO BID 0RF ? cyproheptadine [Periactin] 4 mg Tablet ?? 4 mg PO BID 0RF ? hydroxyzine HCl 50 mg Tablet ?? 25 - 50 mg PO BID PRN (Reason: moderate anxiety) 0RF ? ondansetron [Zofran ODT] 4 mg Tablet,Disintegrating ?? 4 mg PO Q4H PRN (Reason: Nausea And Vomiting) 0RF ? Tylenol Ex Str Rapid Release 500 mg Tablet ?? 1,000 mg PO Q8H PRN (Reason: Pain) 0RF ? metoprolol tartrate 50 mg tablet ?? 50 mg PO BID PRN (Reason: Blood Pressure) 0RF Changed ? clonazepam 1 mg tablet ?? 0.5 mg PO TID PRN (Reason: Anxiety) Qty: 0 0RF ? amitriptyline 75 mg tablet ?? 75 mg PO BEDTIME Qty: 0 0RF Discontinued ? triamterene-hydrochlorothiazid 37.5-25 mg tablet ?? 1 tab PO DAILY 0RF Discharge Orders: Discharge Order? (Routine); Ordered 10/07/21 ?? Ordered By:? Davin Wei PFSH Acute PFSH: Medical History Chronic tophaceous gout of both hands End stage renal disease Hypertension Malignant neoplasm of ascending colon Osteoarthritis Osteoporosis Surgical History History of colonoscopy (12/19/20) 2019 History of hemicolectomy (03/30/16) laparoscopic right hemicolectomy with extracorporeal ileocolic stapled anastomosis History of laparoscopy (09/14/18) laparoscopy with lysis of adhesions and ileocolectomy with extracorporeal stapled ileocolic anastomosis History of laparoscopy (02/22/19) laparoscopic lysis of adhesions and laparoscopic partial colectomy with ileal colonic anastomosis and with omentectomy Hx of total knee arthroplasty (06/23/21) left Family History Father , AT 72 CAD (coronary artery disease) Brother Cancer Brain Mother , AT AGE 96 Diabetes Other Arthritis Hypertension Denies family history of Rheumatoid arthritis Lupus Clotting disorder Dementia Hyperlipidemia Psychiatric illness Chronic kidney disease (CKD) Suicide Anesthesia complication Bleeding disorder Lung disease Stroke Social History Smoking and tobacco status: former smoker Alcohol intake: never Marital status: Current occupational status: retired History of recent travel: No Vitals/I&O/Wt Last Vital Signs Temp 98.1 F 11/11/21 14:47 Pulse 81 11/11/21 14:47 Resp 14 11/11/21 14:47 BP 135/73 11/11/21 14:47 Pulse Ox 93 11/11/21 14:47 Weight last 48 hrs Weight 72.575 kg Physical Exam Narrative: thin, NARD vss heent- nc/at, eomi, anicteric neck supple lungs clear heart reg abd soft, nt, nd, m+bs ext trace edema neuro- a,a, o x 3, asterixis Data : 11/11/21 03:28 11/11/21 03:28 A&P Assessment and plan (1) Acute kidney injury: 71 yr old man w/ colon ca and progressive renal failure 1. check ua, ur na, ur pr, cr. -check renal us. he has h/o atrophic right kidney and colon ca. ensure no hydronephrosis -urology removed berrios today -check ck, c3, c4, hep serologies -give bicarb drip -will likely need dialysis soon -check echo - for pericardial effusion 2. renal bone- mineral- metabolism- check pth, vit d, ca, phos- he is on home calcitriol 3. anemia- per onc- iv iron, may need SHIVA -check UIFE 4. BP okay 5. 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
[2021-11-11] MEDS: sodium chloride 0.9% 1,000 ML 999 ML IV (15:23)
[2021-11-11 15:32] LABS: Basophils % 0.5 %; Eosinophils # 0.2 10^3/uL (0.0-0.8); Eosinophils % 3.5 %; Hematocrit 25.6 % (42.0-52.0); Hemoglobin 8.1 g/dL (11.7-16.6); Lymphocytes # 0.7 10^3/uL (0.8-4.8); Lymphocytes % 10.6 %; Mean Corpuscular HGB Conc 31.6 g/dL (30.0-36.0); Mean Corpuscular Hemoglobin 29.1 pg (28.0-34.0); Mean Corpuscular Volume 92.1 fl (80-94); Monocytes # 0.3 10^3/uL (0.2-0.9); Monocytes % 4.7 %; Neutrophils % 80.4 %; Nucleated Red Blood Cells % 0 %; Platelet Count 148 10^3/cmm (130-400); Red Blood Count 2.78 10^6/uL (4.1-5.3); Red Cell Distribution Width 16.4 % (12.1-15.1); White Blood Count 6.3 10^3/uL (4.0-10.0)
--- NOTE | 2021-11-11 15:38 | USCV_ITS ---
Darion Hamilton Age: 71 Gender: M : 1950 Exam Date: 11/11/2021 16:10 Ordering Phys: Lazaro Riley MD Technologist: BETO Exam Location: [facility] [place] Indication: RENAL FAILURE, HYPERTENSION BP: 120 / 72 HR: 131 Rhythm: Sinus Technical Quality: MEASUREMENTS (Male / Female) Normal Values 2D ECHO LV Diastolic Diameter PLAX 5.6 cm 4.2 - 5.9 / 3.9 - 5.3 cm LV Systolic Diameter PLAX 3.8 cm IVS Diastolic Thickness 1.2 cm 0.6 - 1.0 / 0.6 - 0.9 cm IVS Systolic Thickness 1.8 cm LVPW Diastolic Thickness 1.2 cm 0.6 - 1.0 / 0.6 - 0.9 cm LVPW Systolic Thickness 1.8 cm LVOT Diameter 2.0 cm LV Ejection Fraction 2D Teich 60.5 % LV Ejection Fraction MOD 2C 66.5 % LV Ejection Fraction 2C AL 66.7 % LA Diameter 3.7 cm LA Width 4.1 cm LA Height 5.3 cm RA Width 3.6 cm RA Height 4.0 cm Aorta at Sinotubular Diameter 2.3 cm M-MODE Aortic Annulus Diameter 2.7 cm LA Ao Ratio MM 1.3 MV E Point Septal Separation 0.4 cm DOPPLER AV Peak Velocity 193.0 cm/s LVOT Peak Velocity 108.0 cm/s AV Area Cont Eq vti 1.7 cm squared AV Area Cont Eq pk 1.7 cm squared MV Peak Velocity 141.0 cm/s MV Area PHT 5.1 cm squared Mitral E to A Ratio 1.1 MV E' Velocity 62.0 cm/s Mitral E to MV E' Ratio 9.3 Mitral E to LV E' Lateral Ratio 9.4 Mitral E to LV E' Septal Ratio 9.2 TR Peak Velocity 235.8 cm/s TR Peak Gradient 22.2 mmHg TR Mean Velocity 204.6 cm/s TR Mean Gradient 17.6 mmHg TR Velocity Time Integral 76.7 cm TV Peak E Velocity 82.0 cm/s Right Atrial Pressure 8.0 mmHg Pulmonary Artery Systolic Pressu 30.2 mmHg PV Peak Velocity 182.0 cm/s RV Acceleration Time 0.1 s RV Ejection Time 0.3 s RV AcT/ET 0.2 FINDINGS Left Ventricle Normal left ventricular size, systolic function and wall thickness, with no regional wall motion abnormalities. Left ventricular ejection fraction is estimated at 65 %. Normal diastolic function. Right Ventricle Normal right ventricular size and systolic function. Right ventricular systolic pressure 30.2 mmHg. Right Atrium Normal right atrial size. Left Atrium Mildly increased left atrial size. Mitral Valve Mild mitral annular calcification. Mildly thickened mitral valve. No mitral valve stenosis. Mild mitral valve regurgitation. Aortic Valve Aortic valve not well visualized. No aortic valve stenosis. No aortic valve regurgitation. Tricuspid Valve Structurally normal tricuspid valve. Pulmonic Valve Pulmonic valve not well visualized. No pulmonary valve stenosis. No pulmonary valve regurgitation. Pericardium No pericardial effusion. Prominent epicardial fat. Aorta Normal size aortic root and proximal ascending aorta. IVC Inferior vena cava not visualized. CONCLUSIONS 1. Normal left ventricular size, systolic function and wall thickness, with no regional wall motion abnormalities. Left ventricular ejection fraction is estimated at 65 %. Normal diastolic function. 2. Normal right ventricular size and systolic function. 3. Mildly increased left atrial size. 4. Mild mitral valve regurgitation. 5. Normal pulmonary artery pressure. 6. No prior similar studies to compare. Paloma Tracey MD (Electronically Signed) Final Date: 11 Nov 2021 17:48 S
--- NOTE | 2021-11-11 15:39 | US_ITS ---
WS: [id number] RENAL ULTRASOUND HISTORY: becca COMPARISON: None available. TECHNIQUE: 2-D and color Doppler imaging of the kidney submitted. Right kidney: 8.1 cm x 5.3 cm x 4.1 cm. Very difficult to visualize the kidney. Kidney is very echogenic. Mass or hydronephrosis would not be visible. Left kidney: 10.4 cm x 5.3 cm x 5.0 cm. Poorly visualized kidney. Would be difficult to exclude mass or hydronephrosis. Aorta: Not visualized. Urinary Bladder: Not visualized. US/US renal BI* [id number] IMPRESSION: 1. Technically very difficult and extremely limited evaluation of the kidneys. 2. Would be difficult to exclude hydronephrosis or mass.
[2021-11-11] MEDS: ferric gluconate 125 MG in sodium chloride 0.9% (100 ml) 100 ML 110 MG IV (15:57)
[2021-11-11 15:59] LABS: Alanine Aminotransferase 13 U/L (0-41); Albumin Level 2.8 g/dL (3.5-5.2); Alkaline Phosphatase 158 IU/L (40-130); Anion Gap 22.2 (5-19); Aspartate Amino Transferase 20 U/L (0-40); Blood Urea Nitrogen 55 mg/dL (8-23); Calcium 8.5 mg/dL (8.5-10.5); Carbon Dioxide 15 mmol/L (22-29); Chloride 103 mmol/L (98-107); Globulin 4.1 g/dL (1.3-4.6); Glomerular Filtration Rate 8.1 mL/min (90-130); Glucose 103 mg/dL (65-115); Lipase 5 U/L (13-60); Osmolality Calculated 297 mOsm/kg (285-295); Potassium 4.2 mmol/L (3.5-5.1); Sodium 136 mmol/L (136-145); Total Bilirubin 0.3 mg/dL (0.15-1.2); Total Protein 6.9 g/dL (6.6-8.7)
[2021-11-11 16:01] LABS: Troponin(5th) Baseline 39 ng/L (0-15)
[2021-11-11 16:26] LABS: Hepatitis B Surface AB 3.5 (11.5-1000); Hepatitis B Surface Antigen Non-Reactive (Nonreactive); Hepatitis C Virus Antibody Non-Reactive (Nonreactive)
[2021-11-11 16:30] LABS: Uric Acid 11.1 mg/dL (3.4-7.0)
--- NOTE | 2021-11-11 16:36 | PM.HP ---
Providers/Chief Complaint Primary Care Provider: Julia Diego APN Chief Complaint: high creatinine; weakness History of Present Illness Darion Hamilton is a 71 year old male with PMH of ?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 diagnosed in 2015 currently on expectant management recent h/o ?left total knee arthroplasty in June 2021. patient was recently admitted in the hospital in september with TIMMY on CKD.During that hospital stay SCR had peaked to 6.8, he was managed conservatively during that hospital stay with I.V Fluids with improvement in renal function he was discharged home. Patient was in urology clinic today, where his berrios was removed and was sent to ER as his SCR was again found to be 6.8 today.During last admission patient was discharged on berrios catheter as he failed voiding trial. When I examined the patient today he was complaining of generalized weakness fatigue poor appetite for last couple of. Post discharge from the hospital in September he was ambulating at home with walker, but lately he has mostly been bed bound. Nephrology was consulted by the ER Physician for the possible need for dialysis. Pertinent imaging studies: US renal BI: Poor quality study: Right kidney: 8.1 cm x 5.3 cm x 4.1 cm, Left kidney: 10.4 cm x 5.3 cm x 5.0 cm, Xray chest : No pleural effusion, no infiltrates Pertinent Labs : WBC : 6.3 H&H : 8.1/25 , PLT : 148 , Na: 136 , K: 4.2 , BUN/SCR: 57/6.8 HCO3:14 , Patient was started on bicarb drip in the ER. Review of Systems General: Reports: 10 or more systems reviewed and unremarkable except in HPI and below Const: Denies: fever(s), chills, body aches, change in appetite or diaphoresis Card: Denies: palpitations, edema, swelling of feet/ankles, dyspnea on exertion, orthopnea or leg pain with exertion Resp: Denies: dyspnea, productive cough, wheezing or pain on inspiration GI: Denies: abdominal pain, nausea, vomiting, diarrhea or constipation : Denies: flank pain or difficulty urinating Musc: Denies: back pain, extremity pain or extremity swelling Neuro: Denies: headache(s), difficulty walking or confusion Medications/Allergies Home Medications Medication Instructions Recorded Confirmed Last Taken Type hydroxyzine HCl 50 mg tablet 25 - 50 mg PO BID PRN 10/02/21 11/11/21 Unknown History acetaminophen 500 mg tablet 1,000 mg PO Q8H PRN 10/03/21 11/11/21 Unknown History calcitriol 0.25 mcg capsule 0.25 mcg PO BID #30 cap 10/07/21 11/11/21 11/10/21 Rx tamsulosin 0.4 mg capsule 0.4 mg PO DAILY 11/10/21 11/11/21 11/10/21 History clonazepam 1 mg tablet 0.5 - 1 mg PO TID PRN 11/11/21 11/11/21 11/10/21 History cyproheptadine 4 mg tablet 4 mg PO BID 11/11/21 11/11/21 11/10/21 History levofloxacin 500 mg tablet 500 mg PO DAILY 11/11/21 11/11/21 11/11/21 History sodium bicarbonate 650 mg tablet 650 mg PO TID 11/11/21 11/11/21 11/11/21 History Allergies Allergy/AdvReac Type Severity Reaction Status Date / Time Penicillins Allergy Unknown Unknown Verified 11/11/21 15:33 Sulfa (Sulfonamide Allergy Unknown Unknown Verified 11/11/21 15:33 Antibiotics) aspirin AdvReac Intermediate GI bleed Verified 11/11/21 15:33 ibuprofen AdvReac Intermediate GI bleed Verified 11/11/21 15:33 [From NeoProfen (ibuprofen lysn)(PF)] PFSH Acute PFSH: Medical History Chronic tophaceous gout of both hands End stage renal disease Hypertension Malignant neoplasm of ascending colon Osteoarthritis Osteoporosis Surgical History History of colonoscopy (12/19/20) 2019 History of hemicolectomy (03/30/16) laparoscopic right hemicolectomy with extracorporeal ileocolic stapled anastomosis History of laparoscopy (09/14/18) laparoscopy with lysis of adhesions and ileocolectomy with extracorporeal stapled ileocolic anastomosis History of laparoscopy (02/22/19) laparoscopic lysis of adhesions and laparoscopic partial colectomy with ileal colonic anastomosis and with omentectomy Hx of total knee arthroplasty (06/23/21) left Family History Father , AT 72 CAD (coronary artery disease) Brother Cancer Brain Mother , AT AGE 96 Diabetes Other Arthritis Hypertension Denies family history of Rheumatoid arthritis Lupus Clotting disorder Dementia Hyperlipidemia Psychiatric illness Chronic kidney disease (CKD) Suicide Anesthesia complication Bleeding disorder Lung disease Stroke Social History Smoking and tobacco status: former smoker Alcohol intake: never Marital status: Current occupational status: retired History of recent travel: No Vitals/I&O/Wt Last Vital Signs Temp 98.1 F 11/11/21 14:47 Pulse 81 11/11/21 14:47 Resp 14 11/11/21 14:47 BP 135/73 11/11/21 14:47 Pulse Ox 93 11/11/21 14:47 Weight last 48 hrs Weight 72.575 kg Physical Exam Const: COMMON NORMALS: patient oriented x3 HENMT: COMMON NORMALS: normocephalic and atraumatic HEAD & SCALP: normocephalic and atraumatic Chest: CHEST: Yes Symmetrical chest wall rise Resp: COMMON NORMALS: normal respiratory effort, No retractions, No use of accessory muscles and clear to auscultation bilaterally EFFORT & INSPECTION: Yes symmetric chest movement AUSCULTATION: clear to auscultation bilaterally Cardio: COMMON NORMALS: regular rate, regular rhythm, S1 normal heart sound present, S2 normal heart sound present, No gallops present (Cardio), No murmurs present (Cardio), No rub (Cardio) and Peripheral pulses 2+ throughout RATE: regular rate RHYTHM: regular rhythm HEART SOUNDS: S1 normal heart sound present and S2 normal heart sound present PERIPHERAL PULSES: Peripheral pulses 2+ throughout GI: COMMON NORMALS: Normal to inspection, nondistended, normoactive bowel sounds present, Soft to palpation, non-tender, No hepatosplenomegaly present and no masses AUSCULTATION: Yes normoactive bowel sounds PALPATION: Yes Soft to palpation and Yes No hepatosplenomegaly present RECTAL EXAM: Yes deferred Extremity: NARRATIVE EXTREMITY EXAM: Trace bilateral lower extremity pitting edema Neuro: COMMON NORMALS: patient oriented x3 Urinary Catheter Management: Berrios: Cath Placed During This Visit: yes Urinary Catheter Date of Insertion: 11/11/21 Urinary Catheter Time of Insertion: 15:37 Data : 11/11/21 15:30 11/11/21 15:30 A&P Assessment and plan (1) Acute kidney injury superimposed on chronic kidney disease: Status: Acute (2) Anemia: Status: Acute (3) Hypertension: Status: Acute Plan 71 year old male with PMH of ?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 diagnosed in 2015 currently on expectant management recent h/o ?left total knee arthroplasty in June 2021. Came in with chief complaint of generalized weakness fatigue poor appetite going on for the last 1 to 2 weeks. Assessment: TIMMY on worsening CKD stage IV Random urine sodium: Random urine creatinine Random urine protein Renal ultrasound: Currently on bicarb drip Monitor intake output charting Avoid nephrotoxic's Monitor BMP Urinalysis: Too numerous to count WBC : Less likely UTI, possibly secondary to indwelling Berrios catheter. Follow 2D echo Renal on board Near possibility of dialysis. Increased anion gap metabolic acidosis likely secondary to TIMMY on CKD: Currently on bicarb drip Goal serum bicarb is 22-24 Iron deficiency anemia: Serum iron:24 , serum ferritin:525, percent saturation:19.6 , TIBC:122 Currently on IV iron Elevated troponin: Likely secondary to underlying CKD Patient currently denies any chest pain shortness of breath palpitation Follow 2D echo Attestations Medical Necessity Statement*: Patient needs to be in hospital for the management of TIMMY on worsening CKD,possible need for dialysis.Anticipated LOS Greater then 2 midnights. Time Spent in Patient Care: Greater than 35 minutes (>than 50% of time spent in counselling and/or direct pt care on unit). 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
--- NOTE | 2021-11-11 16:40 | ECG_ITS ---
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 Measurements Intervals [place] Rate: 84 P: 26 UT: 238 QRS: -50 QRSD: 114 T: 30 QT: 425 QTc: 505 Interpretive Statements Regular supraventricular rhythm. Heavy baseline artifact. Further interpretation is not possible Electronically Signed On 11-11-2021 18:57:58 CDT by Alexandro Alfaro M.D. [id number]
[2021-11-11] MEDS: calcitriol 0.25 mcg Capsule PO (17:29)
[2021-11-11] MEDS: heparin 5,000 unit/mL INJ 1 mL 5000 UNIT SUBCUT (17:29)
[2021-11-11 17:31] LABS: Add Urine Culture? Yes; Add Urine Microscopic? YES; Bacteria Urine 1+ /hpf; Bilirubin Urine Neg (Negative); Blood Urine 3+ (Negative); Glucose Urine UA Norm (Normal); Ketones Urine Negative (Negative); Leukocyte Esterase Urine 2+ (Negative); Nitrate Urine Negative (Negative); Protein Urine Trace (Negative); RBC Urine 0-4 /hpf (0-2); Squamous Epithelial Cell Urine 0-4 /hpf (0-5); Urine Appearance Cloudy (CLEAR); Urine Color Yellow (Yellow); Urobilinogen Urine Norm (Negative); WBC Urine TOO NUMEROUS TO CNT /hpf (0-5); pH Urine 5 (5-7)
[2021-11-11 17:44] LABS: Potassium, Radom Urine 10 mmol/L; Urine Random Chloride 21 mmol/L; Urine Random Sodium 31 mmol/L
[2021-11-11 17:51] LABS: Troponin 5 2HR 34.46 ng/L (0-15)
[2021-11-11 18:01] LABS: Troponin 5 2HR Delta -4.54 ABS# (0-10)
--- NOTE | 2021-11-11 20:40 | ECG_ITS ---
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 Measurements Intervals [place] Rate: 77 P: 101 RI: 204 QRS: -37 QRSD: 113 T: 8 QT: 412 QTc: 467 Interpretive Statements SINUS RHYTHM LEFT AXIS DEVIATION [QRS AXIS < -30] LOW QRS VOLTAGE IN PRECORDIAL LEADS [QRS DEFLECTION < 1.0 mV IN CHEST LEADS] POSSIBLE ANTERIOR MYOCARDIAL INFARCTION , PROBABLY OLD [30 ms Q WAVE IN V3/V4, OR R < 0.2 mV IN V4] Compared to ECG 11/11/2021 16:41:13 Left-axis deviation now present Low QRS voltage now present Myocardial infarct finding now present Supraventricular rhythm no longer present Electronically Signed On 11-12-2021 22:11:49 CDT by Paloma Tracey M.D. [id number]
[2021-11-12] VITALS (8 sets, daily range): BP systolic 110–130; BP diastolic 58–67; PULSE 67–84; RESP 12–19; TEMP 36.4–36.8; O2SAT 92–98
[2021-11-12 05:26] LABS: Basophils % 0.4 %; Eosinophils # 0.1 10^3/uL (0.0-0.8); Eosinophils % 3.5 %; Hematocrit 28.5 % (42.0-52.0); Hemoglobin 9.6 g/dL (11.7-16.6); Lymphocytes # 0.4 10^3/uL (0.8-4.8); Lymphocytes % 13.8 %; Mean Corpuscular HGB Conc 33.7 g/dL (30.0-36.0); Mean Corpuscular Hemoglobin 29.3 pg (28.0-34.0); Mean Corpuscular Volume 86.9 fl (80-94); Monocytes # 0.2 10^3/uL (0.2-0.9); Monocytes % 7.3 %; Neutrophils # 1.93 10^3/uL (1.8-7.7); Neutrophils % 74.2 %; Nucleated Red Blood Cells % 0 %; Platelet Count 106 10^3/cmm (130-400); Red Blood Count 3.28 10^6/uL (4.1-5.3); White Blood Count 2.6 10^3/uL (4.0-10.0)
[2021-11-12 05:46] LABS: Alanine Aminotransferase 10 U/L (0-41); Albumin Level 2.5 g/dL (3.5-5.2); Alkaline Phosphatase 118 IU/L (40-130); Anion Gap 19.8 (5-19); Aspartate Amino Transferase 16 U/L (0-40); Blood Urea Nitrogen 57 mg/dL (8-23); Calcium 7.6 mg/dL (8.5-10.5); Carbon Dioxide 17 mmol/L (22-29); Chloride 103 mmol/L (98-107); Globulin 2.9 g/dL (1.3-4.6); Glomerular Filtration Rate 7.6 mL/min (90-130); Glucose 107 mg/dL (65-115); Magnesium 1.3 mg/dL (1.7-2.3); Osmolality Calculated 298 mOsm/kg (285-295); Phosphorus 4.9 mg/dL (2.5-4.5); Potassium 3.8 mmol/L (3.5-5.1); Sodium 136 mmol/L (136-145); Total Bilirubin 0.3 mg/dL (0.15-1.2); Total Protein 5.4 g/dL (6.6-8.7)
[2021-11-12 05:47] LABS: Calcium 7.5 mg/dL (8.5-10.5)
[2021-11-12 05:54] LABS: Parathyroid Hormone 113.1 pg/mL (15-65)
[2021-11-12 06:01] LABS: 25 Hydroxy Vitamin D 7 ng/mL (30-100)
[2021-11-12] MEDS: heparin 5,000 unit/mL INJ 1 mL 5000 UNIT SUBCUT ×2 (06:18→18:26)
--- NOTE | 2021-11-12 09:25 | P.PN_ITS ---
Subjective Subjective: Patient was seen and examined this morning he was complaining of some abdominal discomfort. BUN and serum creatinine has progressively worsened: Urine output in the last 24 hours 450cc, Medications: Medication Review Details: Generic Name Dose Route Start Last Admin Trade Name Leandra PRN Reason Stop Dose Admin Calcitriol 0.25 mcg 11/11/21 18:00 11/11/21 17:29 Calcitriol 0.25 Mcg Capsule PO 0.25 mcg BID LAURE Administration Heparin Sodium (Po rcine) 5,000 unit 11/11/21 18:00 11/12/21 06:18 Heparin 5,000 Un it/Ml Inj 1 Ml SUBCUT 5,000 unit Q12H LAURE Administration Sodium Bicarbonate 100 meq/ 1,100 mls @ 100 m ls/hr 11/11/21 16:00 11/12/21 06:18 Dextrose IV 100 mls/hr .Q11H LAURE Administration Ferric Sodium Gluc stephenie 125 mg 110 mls @ 110 mls /hr 11/11/21 15:45 11/11/21 18:39 / Sodium Chlorid e IV 11/18/21 16:44 Infused Q24H LAURE Infusion Vitals/I&O/Wt Last Vital Signs Temp 97.7 F 11/12/21 08:00 Pulse 74 11/12/21 08:00 Resp 16 11/12/21 08:00 BP 125/65 11/12/21 08:00 Pulse Ox 97 11/12/21 08:00 11/11/21 11/12/21 11/12/21 22:59 06:59 14:59 Intake Total 1690 / 1690 620 / 2310 Output Total 450 / 450 Balance 1690 / 1690 170 / 1860 Weight last 48 hrs Weight 72.575 kg Physical Exam Const: COMMON NORMALS: patient oriented x3 HENMT: COMMON NORMALS: normocephalic and atraumatic HEAD & SCALP: normocephalic and atraumatic Eye: GENERAL EYE: appearance normal, both eyes and all related structures Resp: COMMON NORMALS: clear to auscultation bilaterally EFFORT & INSPECTION: Yes symmetric chest movement AUSCULTATION: clear to auscultation bilaterally Cardio: COMMON NORMALS: regular rate, regular rhythm, S1 normal heart sound present, S2 normal heart sound present, No gallops present (Cardio), No murmurs present (Cardio), No rub (Cardio) and Peripheral pulses 2+ throughout RATE: regular rate RHYTHM: regular rhythm HEART SOUNDS: S1 normal heart sound present and S2 normal heart sound present PERIPHERAL PULSES: Peripheral pulses 2+ throughout GI: COMMON NORMALS: Normal to inspection, nondistended, normoactive bowel sounds present, Soft to palpation, non-tender, No hepatosplenomegaly present and no masses AUSCULTATION: Yes normoactive bowel sounds PALPATION: Yes Soft to palpation and Yes No hepatosplenomegaly present RECTAL EXAM: Yes deferred Extremity: NARRATIVE EXTREMITY EXAM: Trace bilateral lower extremity pitting edema Neuro: COMMON NORMALS: patient oriented x3 Urinary Catheter Management: Sandoval: Cath Placed During This Visit: yes Reason for Continuing Indwelling Catheter: Other Urinary Catheter Date of Insertion: 11/11/21 Urinary Catheter Time of Insertion: 15:37 Data : 11/12/21 04:34 11/12/21 04:34 A&P Assessment and plan (1) Acute kidney injury superimposed on chronic kidney disease: Status: Acute (2) Anemia: Status: Acute (3) Hypertension: Status: Acute Plan 71 year old male with PMH of ?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 diagnosed in 2016 currently on expectant management recent h/o ?left total knee arthroplasty in June 2021. Came in with chief complaint of generalized weakness fatigue poor appetite going on for the last 1 to 2 weeks. Assessment: TIMMY on worsening CKD stage IV Random urine sodium:31 Random urine creatinine: Random urine protein UPCR FENA Renal ultrasound: Currently on bicarb drip Monitor intake output charting Avoid nephrotoxic's Monitor BMP Urinalysis: Too numerous to count WBC : Less likely UTI, possibly secondary to indwelling Sandoval catheter. Follow 2D echo Renal on board Near possibility of dialysis. Increased anion gap metabolic acidosis likely secondary to TIMMY on CKD: Currently on bicarb drip Goal serum bicarb is 22-24 Iron deficiency anemia: Serum iron:24 , serum ferritin:525, percent saturation:19.6 , TIBC:122 Currently on IV iron Elevated troponin: Likely secondary to underlying CKD Patient currently denies any chest pain shortness of breath palpitation Follow 2D echo Attestations Medical Necessity Statement*: Patient is to be in hospital for management of TIMMY and worsening CKD. Time Spent in Patient Care: Greater than 35 minutes (>than 50% of time spent in counselling and/or direct pt care on unit) . 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
[2021-11-12] MEDS: tamsulosin 0.4 mg Capsule PO (10:01)
[2021-11-12] MEDS: b-complex-vitamin c Tablet 1 EACH PO (10:01)
[2021-11-12] MEDS: calcitriol 0.25 mcg Capsule PO ×2 (10:01→18:27)
--- NOTE | 2021-11-12 10:13 | PC.CHAP ---
Pastoral Care Encounter/Spiritual Assessment Type of Contact [] Declined packing and wrapping supervisor visit [] Patient/Family/Request visit [] Outpatient visit [] Follow-up visit [] Physician referral [] Code/Alert [x] Routine visit [] Staff referral [] Actively dying [] Patient sleeping [] Family support [] [] Out of room [] Palliative care [] [] Receiving care in room [] Pre-surgical visit [] Trauma [] Long length of stay [] ICU visit [] Other: Relational/Emotional Strength [x] Patient feels connected with others/family/visitors/staff [] Distress [] Loneliness/isolation [] Abandonment Spirituality of Patient [x] Person of Aletha [x] Attends Protestant of their Aletha [x] Believes in Prayer [] Reads Bible or Worship materials [] There are Spiritual issues to be addressed 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 Vehicle Team Technician Interventions [x] Prayer [x] Active listening [x] Non-anxious presence [x] Spiritual/emotional support [] Crisis/trauma care [] Spiritual counseling [] Bereavement support [] Provided bereavement packet [] Provided Bible/devotional materials [] Provided toy/stuffed animal, coloring book to patient or family member [] Provided Communion [] Anointing/[facility] [] Salvation [x] Completed spiritual assessment [] Other: Impact on Illness or Injury [] Angry [] Fearful [] Anxious [] Often cries [] Exhaustion [] Unable to work [] Unable to attend mandaeism [] Unable to walk/stand [] Unable to read [] Unable to drive [] Unable to eat/drink [] Unable to sleep [] Unable to be with family [] Patient intubated [] Other: Summary Time spent with patient 10 min
--- NOTE | 2021-11-12 14:25 | P.PN_ITS ---
Subjective Subjective: Mrs. Hamilton feels okay, a little bit weak, some vague abdominal discomfort. No specifically uremic symptoms. Urine output 450 mL overnight. Remains on IV fluid. No extremity edema, shortness of breath or other hypervolemic symptoms. Vitals/I&O/Wt Last Vital Signs Temp 97.9 F 11/12/21 11:34 Pulse 74 11/12/21 11:34 Resp 18 11/12/21 11:34 BP 130/67 11/12/21 11:34 Pulse Ox 98 11/12/21 11:34 11/11/21 11/12/21 11/12/21 22:59 06:59 14:59 Intake Total 1690 / 1690 620 / 2310 Output Total 450 / 450 Balance 1690 / 1690 170 / 1860 Weight last 48 hrs Weight 72.575 kg Physical Exam Narrative: Constitutional: Awake, comfortable HEENT: Wet mucosa, no jvp, non icteric Lungs: Bilaterally clear without discernible wheeze, rales in all lung zones CVS: S1 S2, no murmurs Abdo: Soft, BS ok Ext 4: Minimal edema, peripheral perfusion with no cyanosis Neurological: Grossly non-focal Urinary Catheter Management: Sandoval: Cath Placed During This Visit: yes Reason for Continuing Indwelling Catheter: Other Urinary Catheter Date of Insertion: 11/11/21 Urinary Catheter Time of Insertion: 15:37 Data : 11/12/21 04:34 11/12/21 04:34 A&P Assessment and plan (1) Acute kidney injury superimposed on chronic kidney disease: Status: Acute Plan 1. Acute kidney injury on chronic kidney disease Unclear etiology, it may simply be progression of underlying glomerulopathy/nephron attrition Replacement Sandoval catheter has not helped If we do not see recovery of his renal function in the next 24-48 hours, will initiate him on what I anticipate to be long-term hemodialysis. Continue IV hydration for the time being Avoid usual nephrotoxic agents Dose medication for GFR less than 50 2. Chemistry Nongap metabolic acidosis, likely secondary to advanced kidney damage Currently on IV fluid with bicarb, continue this for the time being 3. CKD-MB Albumin 2.5 thus corrected calcium is roughly 8.8 i.e. within normal range. PTH is elevated, however this is secondary to vitamin D deficiency. Currently on Rocaltrol. 4. Hemodynamics These look stable. Joey Rothman MD Nephrology [phone] Patient seen and examined via telemedicine, with the assistance of the bedside RN > 25 min spent in evaluation and mgmt of patient Attestations Medical Necessity Statement*: Eval for TIMMY on CKD Coding Level of Care Code Acute Title One Kindergarten Teacher for g Fwd Diagnoses Acute kidney injury superimposed on chronic kidney disease N17.9; N18.9
[2021-11-12] MEDS: FUROsemide 10 mg/mL SDV 4mL 40 MG IVP (16:15)
[2021-11-12] MEDS: ferric gluconate 125 MG in sodium chloride 0.9% (100 ml) 100 ML 110 MG IV (16:50)
[2021-11-12 18:04] LABS: Creatinine Urine, Random 54 mg/dL (39-259)
[2021-11-13] VITALS (18 sets, daily range): BP systolic 90–148; BP diastolic 46–75; PULSE 68–87; RESP 14–17; TEMP 36.7–37.2; O2SAT 92–100
--- NOTE | 2021-11-13 04:10 | PC.NURSE ---
patient stated he urinated 1xs in toilet on his own.
[2021-11-13] MEDS: heparin 5,000 unit/mL INJ 1 mL 5000 UNIT SUBCUT (05:11)
[2021-11-13 06:08] LABS: Alanine Aminotransferase 9 U/L (0-41); Albumin Level 2.2 g/dL (3.5-5.2); Alkaline Phosphatase 108 IU/L (40-130); Aspartate Amino Transferase 16 U/L (0-40); Blood Urea Nitrogen 50 mg/dL (8-23); Calcium 7.4 mg/dL (8.5-10.5); Carbon Dioxide 24 mmol/L (22-29); Chloride 99 mmol/L (98-107); Globulin 3.5 g/dL (1.3-4.6); Glomerular Filtration Rate 7.5 mL/min (90-130); Glucose 118 mg/dL (65-115); Magnesium 1.2 mg/dL (1.7-2.3); Osmolality Calculated 294 mOsm/kg (285-295); Phosphorus 4.6 mg/dL (2.5-4.5); Sodium 135 mmol/L (136-145); Total Bilirubin 0.3 mg/dL (0.15-1.2); Total Protein 5.7 g/dL (6.6-8.7)
[2021-11-13 07:31] LABS: Basophils % 0.6 %; Eosinophils # 0.1 10^3/uL (0.0-0.8); Eosinophils % 4.1 %; Lymphocytes # 0.7 10^3/uL (0.8-4.8); Lymphocytes % 21.6 %; Mean Corpuscular HGB Conc 32.1 g/dL (30.0-36.0); Mean Corpuscular Hemoglobin 29.1 pg (28.0-34.0); Mean Corpuscular Volume 90.6 fl (80-94); Mean Platelet Volume 9.6 fL (7.4-10.4); Monocytes # 0.2 10^3/uL (0.2-0.9); Monocytes % 6.1 %; Neutrophils # 2.31 10^3/uL (1.8-7.7); Neutrophils % 67.3 %; Nucleated Red Blood Cells % 0 %; Platelet Count 129 10^3/cmm (130-400); Red Blood Count 2.13 10^6/uL (4.1-5.3); Red Cell Distribution Width 15.8 % (12.1-15.1); White Blood Count 3.4 10^3/uL (4.0-10.0)
[2021-11-13 07:43] LABS: Hematocrit 19.3 % (42.0-52.0); Hemoglobin 6.2 g/dL (11.7-16.6)
--- NOTE | 2021-11-13 08:17 | PC.NURSE ---
Notified Dr. Valentino of Critical Hgb 6.2. Dr. Valention wants Hgb repeated.
--- NOTE | 2021-11-13 08:18 | PC.NURSE ---
Notified Dr. Valentino of patient sliding of the bedside toilet onto bottom. Vitals at 0750 bp 97/47, p 87, temp 98.3, O2 97%, Resp 16. Vitals at 0800 BP 134/63, P 81, Temp 98.6, O2 100%, Rest 14. Patient stats he does not hurt any where.
[2021-11-13 09:48] LABS: Anti-streptolysin O <50 IU/mL (<200)
[2021-11-13 09:53] LABS: Hemoglobin 6.2 g/dL (11.7-16.6)
[2021-11-13] MEDS: b-complex-vitamin c Tablet 1 EACH PO (09:53)
[2021-11-13] MEDS: calcitriol 0.25 mcg Capsule PO ×2 (09:53→18:08)
[2021-11-13] MEDS: potassium chloride ER 20 mEq Tablet 40 MEQ PO (09:53)
[2021-11-13] MEDS: tamsulosin 0.4 mg Capsule PO (09:53)
--- NOTE | 2021-11-13 09:58 | PM.PN ---
Subjective Subjective: Mr. Hamilton feels generally unwell, he is confused, poor conception of everything is happening. He does tend to have delirious episodes in the hospital. No extremity edema, shortness of breath or other hypervolemic symptoms. No other overt uremic symptoms. Urine output is reasonable. Medications: Medication Review Details: Generic Name Dose Route Start Last Admin Trade Name Ariasq PRN Reason Stop Dose Admin Calcitriol 0.25 mcg 11/11/21 18:00 11/11/21 17:29 Calcitriol 0.25 Mcg Capsule PO 0.25 mcg BID LAURE Administration Heparin Sodium (Po rcine) 5,000 unit 11/11/21 18:00 11/12/21 06:18 Heparin 5,000 Un it/Ml Inj 1 Ml SUBCUT 5,000 unit Q12H LAURE Administration Sodium Bicarbonate 100 meq/ 1,100 mls @ 100 m ls/hr 11/11/21 16:00 11/12/21 06:18 Dextrose IV 100 mls/hr .Q11H LAURE Administration Ferric Sodium Gluc stephenie 125 mg 110 mls @ 110 mls /hr 11/11/21 15:45 11/11/21 18:39 / Sodium Chlorid e IV 11/18/21 16:44 Infused Q24H LAURE Infusion Vitals/I&O/Wt Last Vital Signs Temp 98.6 F 11/13/21 08:00 Pulse 74 11/13/21 08:00 Resp 14 11/13/21 08:00 BP 134/63 11/13/21 08:00 Pulse Ox 98 11/13/21 08:00 11/12/21 11/13/21 11/13/21 22:59 06:59 14:59 Intake Total 1690 / 1690 1255 / 2945 Output Total 2040 / 2040 900 / 2940 Balance -350 / -350 355 / 5 Weight last 48 hrs Weight 72.575 kg Physical Exam Narrative: Constitutional: Awake, comfortable HEENT: Wet mucosa, no jvp, non icteric Lungs: Bilaterally clear without discernible wheeze, rales in all lung zones CVS: S1 S2, no murmurs Abdo: Soft, BS ok Ext 4: Minimal edema, peripheral perfusion with no cyanosis Neurological: Grossly non-focal Urinary Catheter Management: Sandoval: Cath Placed During This Visit: yes Reason for Continuing Indwelling Catheter: Other Urinary Catheter Date of Insertion: 11/11/21 Urinary Catheter Time of Insertion: 15:37 Data : 11/13/21 08:50 11/13/21 04:56 Micro: Microbiology 11/11/21 17:00 Urine Culture - Preliminary Urine,Clean Catch Staphylococcus species A&P Assessment and plan (1) Acute kidney injury superimposed on chronic kidney disease: Status: Acute Plan 1. Acute kidney injury on chronic kidney disease Unclear etiology, it may simply be progression of underlying glomerulopathy/nephron attrition Replacement Sandoval catheter has not helped Renal function very poor but stable. I discussed with his Shantelle. I am concerned that if we discharge him with poor but stable function will be difficult for him to expeditiously have dialysis organized as an outpatient in the coming weeks, and with this in mind I would like to organize dialysis while he is here. Will keep n.p.o. tonight Unless there is a miraculous recovery and his renal function plan to do dialysis tomorrow Avoid usual nephrotoxic agents Dose medication for GFR less than 50 2. Chemistry DC bicarb, low dose K replacement 3. CKD-MB Albumin 2.5 thus corrected calcium is roughly 8.8 i.e. within normal range. PTH is elevated, however this is secondary to vitamin D deficiency. Currently on Rocaltrol. 4. Hemodynamics These look stable. Joey Rothman MD Nephrology [phone] Patient seen and examined via telemedicine, with the assistance of the bedside RN > 25 min spent in evaluation and mgmt of patient Attestations Medical Necessity Statement*: eval for renal failure Coding Level of Care Code Acute Slide Forming Machine Operator for [facility] Fwd Diagnoses Acute kidney injury superimposed on chronic kidney disease N17.9; N18.9
[2021-11-13 11:23] LABS: KAPPA LIGHT CHAIN, FREE, SERUM 156.4 mg/L (3.3-19.4); KAPPA/LAMBDA LIGHT CHAINS FREE 1.08 (0.26-1.65); LAMBDA LIGHT CHAIN, FREE, SERU 144.8 mg/L (5.7-26.3)
--- NOTE | 2021-11-13 11:41 | PM.PN ---
Subjective Subjective: Patient was seen and examined this morning, currently euvolemic, denies any shortness of breath, no bilateral lower extremity edema. Given his overall non improving kidney function, there is a good likelihood that he will go on long-term dialysis, possibly will plan to Put tunneled cath by tomorrow and start him on hemodialysis. Hemoglobin is dropped to 6.2 today: No evident active source of bleeding: We will plan to transfuse 2 units PRBC today. Hold on prophylactic anticoagulation, continue to monitor H&H. Medications: Medication Review Details: Generic Name Dose Route Start Last Admin Trade Name Leandra PRN Reason Stop Dose Admin Calcitriol 0.25 mcg 11/11/21 18:00 11/13/21 09:53 Calcitriol 0.25 Mcg Capsule PO 0.25 mcg BID LAURE Administration Heparin Sodium (Po rcine) 5,000 unit 11/11/21 18:00 11/13/21 05:11 Heparin 5,000 Un it/Ml Inj 1 Ml SUBCUT 5,000 unit Q12H LAURE Administration Ferric Sodium Gluc stephenie 125 mg 110 mls @ 110 mls /hr 11/11/21 15:45 11/12/21 19:51 / Sodium Chlorid e IV 11/18/21 16:44 Infused Q24H LAURE Infusion Multivitamins 1 each 11/12/21 09:00 11/13/21 09:53 U-Fcgxrbn-Ngpxxu n C Tablet PO 1 each DAILY LAURE Administration Tamsulosin HCl 0.4 mg 11/12/21 09:00 11/13/21 09:53 Tamsulosin 0.4 M g Capsule PO 0.4 mg DAILY LAURE Administration Vitals/I&O/Wt Last Vital Signs Temp 98.6 F 11/13/21 08:00 Pulse 74 11/13/21 08:00 Resp 14 11/13/21 08:00 BP 134/63 11/13/21 08:00 Pulse Ox 98 11/13/21 08:00 11/12/21 11/13/21 11/13/21 22:59 06:59 14:59 Intake Total 1690 / 1690 1255 / 2945 320 / 320 Output Total 0 / 0 900 / 2940 Balance -350 / -350 355 / 5 320 / 320 Weight last 48 hrs Weight 72.575 kg Physical Exam Const: COMMON NORMALS: patient oriented x3 HENMT: COMMON NORMALS: normocephalic and atraumatic HEAD & SCALP: normocephalic and atraumatic Eye: COMMON NORMALS: no scleral icterus GENERAL EYE: appearance normal, both eyes and all related structures Chest: COMMONS NORMALS: normal inspection of the chest and normal palpation of entire chest wall CHEST: Yes Symmetrical chest wall rise Resp: COMMON NORMALS: clear to auscultation bilaterally EFFORT & INSPECTION: Yes symmetric chest movement AUSCULTATION: clear to auscultation bilaterally Cardio: COMMON NORMALS: regular rate, regular rhythm, S1 normal heart sound present, S2 normal heart sound present, No gallops present (Cardio), No murmurs present (Cardio), No rub (Cardio) and Peripheral pulses 2+ throughout RATE: regular rate RHYTHM: regular rhythm HEART SOUNDS: S1 normal heart sound present and S2 normal heart sound present PERIPHERAL PULSES: Peripheral pulses 2+ throughout GI: COMMON NORMALS: Normal to inspection, nondistended, normoactive bowel sounds present, Soft to palpation, non-tender, No hepatosplenomegaly present and no masses AUSCULTATION: Yes normoactive bowel sounds PALPATION: Yes Soft to palpation and Yes No hepatosplenomegaly present RECTAL EXAM: Yes deferred Extremity: COMMON NORMALS: no clubbing, cyanosis or edema and no pedal edema NARRATIVE EXTREMITY EXAM: Trace bilateral lower extremity pitting edema Neuro: COMMON NORMALS: patient oriented x3 Urinary Catheter Management: Sandoval: Cath Placed During This Visit: yes Reason for Continuing Indwelling Catheter: Other Urinary Catheter Date of Insertion: 11/11/21 Urinary Catheter Time of Insertion: 15:37 Data : 11/13/21 08:50 11/13/21 04:56 Micro: Microbiology 11/11/21 17:00 Urine Culture - Preliminary Urine,Clean Catch Staphylococcus species A&P Assessment and plan (1) Acute kidney injury superimposed on chronic kidney disease: Status: Acute (2) Anemia: Status: Acute (3) Hypertension: Status: Acute Plan 71 year old male with PMH of ?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 diagnosed in 2015 currently on expectant management recent h/o ?left total knee arthroplasty in June 2021. Came in with chief complaint of generalized weakness fatigue poor appetite going on for the last 1 to 2 weeks. Assessment: TIMMY on worsening CKD stage IV: Unclear etiology. Random urine sodium:31 Random urine creatinine: Random urine protein UPCR: FENA Renal ultrasound: Currently on bicarb drip Monitor intake output charting Avoid nephrotoxic's Monitor BMP Urinalysis: Too numerous to count WBC : Less likely UTI, possibly secondary to indwelling Sandoval catheter. Follow 2D echo Renal on board Near possibility of dialysis. Increased anion gap metabolic acidosis likely secondary to TIMMY on CKD: Was on bicarb drip has been discontinued. Goal serum bicarb is 22-24 Iron deficiency anemia: Serum iron:24 , serum ferritin:525, percent saturation:19.6 , TIBC:122 Currently on IV iron Due to drop in hemoglobin to 6.2 : No evident active source of bleeding: S/p 2 unit PRBC transfusion. FOBT Elevated troponin: Likely secondary to underlying CKD Patient currently denies any chest pain shortness of breath palpitation Follow 2D echo: Normal LV size and systolic function, no RWMA , LVEF 65%, normal RV size and systolic function. Attestations Medical Necessity Statement*: Patient needs to be in hospital for management of end-stage renal disease, possible need for hemodialysis. Time Spent in Patient Care: Greater than 35 minutes (>than 50% of time spent in counselling and/or direct pt care on unit). Coding Level of Care Code Acute Import Export Clerk for Dary Juan Diagnoses Acute kidney injury superimposed on chronic kidney disease N17.9; N18.9 Anemia D64.9 Hypertension I10
[2021-11-13] MEDS: magnesium sulfate premix 2 GM/50 ML PIGGYBACK IV (12:02)
[2021-11-13] MEDS: sodium chloride 0.9% (100 ml) 100 ML 125 ML ×2 (13:32→18:08)
[2021-11-13 15:17] LABS: Anti-Double Strand DNA AB 1 IU/mL
--- NOTE | 2021-11-13 17:37 | PC.NURSE ---
Dr. Valentino approved Iron to be given after blood transfusion tonight.
[2021-11-13] MEDS: hyDROXYzine 25 mg Capsule PO (21:05)
[2021-11-13] MEDS: CLONazepam 1 mg Tablet 0.5 MG PO (21:05)
[2021-11-13] MEDS: ferric gluconate 125 MG in sodium chloride 0.9% (100 ml) 100 ML 110 MG IV (21:06)
[2021-11-14] VITALS (8 sets, daily range): BP systolic 133–163; BP diastolic 68–83; PULSE 70–78; RESP 15–17; TEMP 36.7–37.2; O2SAT 94–98
[2021-11-14 04:37] LABS: Basophils % 0.8 %; Eosinophils # 0.2 10^3/uL (0.0-0.8); Eosinophils % 3.8 %; Hematocrit 24.7 % (42.0-52.0); Hemoglobin 8.3 g/dL (11.7-16.6); Lymphocytes # 0.8 10^3/uL (0.8-4.8); Mean Corpuscular HGB Conc 33.6 g/dL (30.0-36.0); Mean Corpuscular Hemoglobin 28.4 pg (28.0-34.0); Mean Corpuscular Volume 84.6 fl (80-94); Monocytes # 0.3 10^3/uL (0.2-0.9); Monocytes % 7.5 %; Neutrophils # 2.66 10^3/uL (1.8-7.7); Neutrophils % 66.4 %; Nucleated Red Blood Cells % 0 %; Platelet Count 133 10^3/cmm (130-400); Red Blood Count 2.92 10^6/uL (4.1-5.3); Red Cell Distribution Width 15.3 % (12.1-15.1)
[2021-11-14 05:01] LABS: Alanine Aminotransferase 11 U/L (0-41); Albumin Level 2.2 g/dL (3.5-5.2); Alkaline Phosphatase 114 IU/L (40-130); Anion Gap 16.6 (5-19); Aspartate Amino Transferase 21 U/L (0-40); Blood Urea Nitrogen 45 mg/dL (8-23); Calcium 7.7 mg/dL (8.5-10.5); Carbon Dioxide 23 mmol/L (22-29); Chloride 100 mmol/L (98-107); Globulin 3.2 g/dL (1.3-4.6); Glomerular Filtration Rate 8.2 mL/min (90-130); Glucose 91 mg/dL (65-115); Magnesium 1.6 mg/dL (1.7-2.3); Osmolality Calculated 293 mOsm/kg (285-295); Phosphorus 4.1 mg/dL (2.5-4.5); Potassium 3.6 mmol/L (3.5-5.1); Sodium 136 mmol/L (136-145); Total Bilirubin 0.5 mg/dL (0.15-1.2); Total Protein 5.4 g/dL (6.6-8.7)
--- NOTE | 2021-11-14 10:25 | PC.SOCIAL ---
IMM Update pg 2 of IMM updated and reviewed w/ patients who is @ bedside. Copy provided and copy placed in chart.
--- NOTE | 2021-11-14 10:38 | P.PN_ITS ---
Subjective Subjective: Patient was seen and examined this morning, currently euvolemic, denies any shortness of breath, no bilateral lower extremity edema. BUN and serum creatinine has improved,though he continue to have poor appetite,sleepy,feel cold,mild intermittent confusion. Medications: Medication Review Details: Generic Name Dose Route Start Last Admin Trade Name Leandra PRN Reason Stop Dose Admin Calcitriol 0.25 mcg 11/11/21 18:00 11/13/21 09:53 Calcitriol 0.25 Mcg Capsule PO 0.25 mcg BID LAURE Administration Heparin Sodium (Po rcine) 5,000 unit 11/11/21 18:00 11/13/21 05:11 Heparin 5,000 Un it/Ml Inj 1 Ml SUBCUT 5,000 unit Q12H LAURE Administration Ferric Sodium Gluc stephenie 125 mg 110 mls @ 110 mls /hr 11/11/21 15:45 11/12/21 19:51 / Sodium Chlorid e IV 11/18/21 16:44 Infused Q24H LAURE Infusion Multivitamins 1 each 11/12/21 09:00 11/13/21 09:53 R-Xmqqphs-Qeguts n C Tablet PO 1 each DAILY LAURE Administration Tamsulosin HCl 0.4 mg 11/12/21 09:00 11/13/21 09:53 Tamsulosin 0.4 M g Capsule PO 0.4 mg DAILY LAURE Administration Vitals/I&O/Wt Last Vital Signs Temp 98.0 F 11/14/21 07:35 Pulse 78 11/14/21 07:35 Resp 17 11/14/21 07:35 BP 150/68 11/14/21 07:35 Pulse Ox 97 11/14/21 07:35 11/13/21 11/14/21 11/14/21 22:59 06:59 14:59 Intake Total 820 / 1931.667 560 / 2491.667 Output Total 750 / 750 600 / 1350 Balance 70 / 1181.667 -40 / 1141.667 Physical Exam Const: COMMON NORMALS: patient oriented x3 HENMT: COMMON NORMALS: normocephalic and atraumatic HEAD & SCALP: normocephalic and atraumatic Eye: COMMON NORMALS: no scleral icterus GENERAL EYE: appearance normal, both eyes and all related structures Chest: COMMONS NORMALS: normal inspection of the chest and normal palpation of entire chest wall CHEST: Yes Symmetrical chest wall rise Resp: COMMON NORMALS: clear to auscultation bilaterally EFFORT & INSPECTION: Yes symmetric chest movement AUSCULTATION: clear to auscultation bilaterally Cardio: COMMON NORMALS: regular rate, regular rhythm, S1 normal heart sound present, S2 normal heart sound present, No gallops present (Cardio), No murmurs present (Cardio), No rub (Cardio) and Peripheral pulses 2+ throughout RATE: regular rate RHYTHM: regular rhythm HEART SOUNDS: S1 normal heart sound present and S2 normal heart sound present PERIPHERAL PULSES: Peripheral pulses 2+ throughout GI: COMMON NORMALS: Normal to inspection, nondistended, normoactive bowel sounds present, Soft to palpation, non-tender, No hepatosplenomegaly present and no masses AUSCULTATION: Yes normoactive bowel sounds PALPATION: Yes Soft to palpation and Yes No hepatosplenomegaly present RECTAL EXAM: Yes deferred Extremity: COMMON NORMALS: no clubbing, cyanosis or edema and no pedal edema NARRATIVE EXTREMITY EXAM: Trace bilateral lower extremity pitting edema Neuro: COMMON NORMALS: patient oriented x3 Urinary Catheter Management: Sandoval: Cath Placed During This Visit: yes Reason for Continuing Indwelling Catheter: Chronic Indwelling Urinary Catheter on Admission Urinary Catheter Date of Insertion: 11/11/21 Urinary Catheter Time of Insertion: 15:37 Data : 11/14/21 03:21 11/14/21 03:21 Micro: Microbiology 11/13/21 18:00 Occult Blood (FIT) - Final Stool Routine Collection 11/11/21 17:00 Urine Culture - Preliminary Urine,Clean Catch Staphylococcus species A&P Assessment and plan (1) Acute kidney injury superimposed on chronic kidney disease: Status: Acute (2) Anemia: Status: Acute (3) Hypertension: Status: Acute Plan 71 year old male with PMH of ?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 diagnosed in 2016 currently on expectant management recent h/o ?left total knee arthroplasty in June 2021. Came in with chief complaint of generalized weakness fatigue poor appetite going on for the last 1 to 2 weeks. Assessment: TIMMY on worsening CKD stage IV: Unclear etiology. Random urine sodium:31 Random urine creatinine: Random urine protein UPCR: FENA Renal ultrasound: Was on bicarb drip Monitor intake output charting Avoid nephrotoxic's Monitor BMP Urinalysis: Too numerous to count WBC : Less likely UTI, possibly secondary to indwelling Sandoval catheter. 2D echo:Normal lV size, systolic function and wall ?thickness, with no regional wall motion abnormalities. LVEF 65 %. Normal diastolic function. Normal RV size and systolic function. Mildly increased left atrial size. Mild mitral valve regurgitation. Normal pulmonary artery pressure. Plan for tunneled H/D Catheter in morning and then H/D.Will plan to discharge after dialysis. 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 Renal on board Surgery on board for H/D catheter Placement. Increased anion gap metabolic acidosis likely secondary to TIMMY on CKD: Was on bicarb drip has been discontinued. Goal serum bicarb is 22-24 Iron deficiency anemia: Serum iron:24 , serum ferritin:525, percent saturation:19.6 , TIBC:122 Currently on IV iron Due to drop in hemoglobin to 6.2 : No evident active source of bleeding: S/p 2 unit PRBC transfusion. FOBT Elevated troponin: Likely secondary to underlying CKD Patient currently denies any chest pain shortness of breath palpitation Follow 2D echo: Normal LV size and systolic function, no RWMA , LVEF 65%, normal RV size and systolic function. Attestations Medical Necessity Statement*: Patient needs to be in hospital for the man agement for TIMMY ON CKD.Need for H/D Time Spent in Patient Care: Greater than 35 minutes (>than 50% of time spent in counselling and/or direct pt care on unit) . Coding Level of Care Code Acute Boomswing Operator for [facility] Fwd Exam Comprehensive Diagnoses Acute kidney injury superimposed on chronic kidney disease N17.9; N18.9 Anemia D64.9 Hypertension I10
--- NOTE | 2021-11-14 14:17 | P.PN_ITS ---
Subjective Subjective: Patient sinus feels generally okay, he is weak, slightly confused with is not severe. Poor appetite. Poor oral intake and food today. No extremity edema, shortness of breath or other hypervolemic symptoms. No other additional uremic symptoms. Medications: Medication Review Details: Generic Name Dose Route Start Last Admin Trade Name Ariasq PRN Reason Stop Dose Admin Calcitriol 0.25 mcg 11/11/21 18:00 11/13/21 09:53 Calcitriol 0.25 Mcg Capsule PO 0.25 mcg BID LAURE Administration Heparin Sodium (Po rcine) 5,000 unit 11/11/21 18:00 11/13/21 05:11 Heparin 5,000 Un it/Ml Inj 1 Ml SUBCUT 5,000 unit Q12H LAURE Administration Ferric Sodium Gluc stephenie 125 mg 110 mls @ 110 mls /hr 11/11/21 15:45 11/12/21 19:51 / Sodium Chlorid e IV 11/18/21 16:44 Infused Q24H LAURE Infusion Multivitamins 1 each 11/12/21 09:00 11/13/21 09:53 O-Unmnzce-Gvhqvy n C Tablet PO 1 each DAILY LAURE Administration Tamsulosin HCl 0.4 mg 11/12/21 09:00 11/13/21 09:53 Tamsulosin 0.4 M g Capsule PO 0.4 mg DAILY LAURE Administration Vitals/I&O/Wt Last Vital Signs Temp 98.9 F 11/14/21 11:22 Pulse 78 11/14/21 11:22 Resp 17 11/14/21 11:22 BP 153/83 11/14/21 11:22 Pulse Ox 98 11/14/21 11:22 11/13/21 11/14/21 11/14/21 22:59 06:59 14:59 Intake Total 820 / 1931.667 560 / 2491.667 Output Total 750 / 750 600 / 1350 Balance 70 / 1181.667 -40 / 1141.667 Physical Exam Narrative: Constitutional: Awake, comfortable HEENT: Wet mucosa, no jvp, non icteric Lungs: Bilaterally clear without discernible wheeze or rales in all lung zones CVS: S1 S2, no murmurs Abdo: Soft, BS ok Ext 4: Minimal edema, peripheral perfusion with no cyanosis Neurological: Grossly non-focal Urinary Catheter Management: Sandoval: Cath Placed During This Visit: yes Reason for Continuing Indwelling Catheter: Chronic Indwelling Urinary Catheter on Admission Urinary Catheter Date of Insertion: 11/11/21 Urinary Catheter Time of Insertion: 15:37 Data : 11/14/21 03:21 11/14/21 03:21 Micro: Microbiology 11/11/21 17:00 Urine Culture - Final Urine,Clean Catch Methicillin Resis Staph Aureus 11/13/21 18:00 Occult Blood (FIT) - Final Stool Routine Collection A&P Assessment and plan (1) Acute kidney injury superimposed on chronic kidney disease: 1.? Acute kidney injury on chronic kidney disease Unclear etiology, it may simply be progression of underlying glomerulopathy/nephron attrition Replacement Sandoval catheter has not helped I had another nice discussion with him and his . They are okay for him to proceed with hemodialysis in the next day or so NPO for tunneled hemodialysis catheter tomorrow depending on surgeon availabi lity. Avoid usual nephrotoxic agents Dose medication for GFR less than 50 2.? Chemistry DC bicarb, low dose K replacement 3.? CKD-MB Albumin 2.5 thus corrected calcium is roughly 8.8 i.e. within normal range.? PTH is elevated, however this is secondary to vitamin D deficiency.? Currently on Rocaltrol. 4.? Hemodynamics These look stable. 5. Anemia of ESRD s/p transfusion Joey Rothman MD Nephrology [phone] Patient seen and examined via telemedicine, with the assistance of the bedside RN > 25 min spent in evaluation and mgmt of patient Status: Acute Attestations Medical Necessity Statement*: renal failure Coding Level of Care Code Acute Family Court Counsellor for Dary Juan Diagnoses Acute kidney injury superimposed on chronic kidney disease N17.9; N18.9
[2021-11-14] MEDS: ferric gluconate 125 MG in sodium chloride 0.9% (100 ml) 100 ML 110 MG IV (17:09)
[2021-11-14] MEDS: calcitriol 0.25 mcg Capsule PO (17:11)
--- NOTE | 2021-11-14 17:13 | PM.CONSULT ---
Providers/Reason For Consult Consulting Physician/Specialty*: Hospitalist service Reason for Consult*: Placement of tunneled hemodialysis catheter Attending Physician: Sha Valentino MD Primary Care Provider: Julia Diego APN History of Present Illness History of Present Illness Darion Hamilton is a 71 year old male with history of prior colon resection and chemotherapy for colon cancer who presents with acute kidney injury. His creatinine is greater than 6 and he has been feeling overall weak and complaining of poor appetite. Nephrology has asked for dialysis catheter placement not special hemodialysis in the next couple of days. No prior history of central line placement: Clavicle fracture. Medications/Allergies Home Medications Medication Instructions Recorded Confirmed Last Taken Type hydroxyzine HCl 50 mg tablet 25 - 50 mg PO BID PRN 10/02/21 11/11/21 Unknown History acetaminophen 500 mg tablet 1,000 mg PO Q8H PRN 10/03/21 11/11/21 Unknown History calcitriol 0.25 mcg capsule 0.25 mcg PO BID #30 cap 10/07/21 11/11/21 11/10/21 Rx tamsulosin 0.4 mg capsule 0.4 mg PO DAILY 11/10/21 11/11/21 11/10/21 History clonazepam 1 mg tablet 0.5 - 1 mg PO TID PRN 11/11/21 11/11/21 11/10/21 History cyproheptadine 4 mg tablet 4 mg PO BID 11/11/21 11/11/21 11/10/21 History levofloxacin 500 mg tablet 500 mg PO DAILY 11/11/21 11/11/21 11/11/21 History sodium bicarbonate 650 mg tablet 650 mg PO TID 11/11/21 11/11/21 11/11/21 History Allergies Allergy/AdvReac Type Severity Reaction Status Date / Time Penicillins Allergy Unknown Unknown Verified 11/11/21 15:33 Sulfa (Sulfonamide Allergy Unknown Unknown Verified 11/11/21 15:33 Antibiotics) aspirin AdvReac Intermediate GI bleed Verified 11/11/21 15:33 ibuprofen AdvReac Intermediate GI bleed Verified 11/11/21 15:33 [From NeoProfen (ibuprofen lysn)(PF)] Current Medications Generic Name Dose Route Start Last Admin Trade Name Freq PRN Reason Stop Dose Admin Calcitriol 0.25 mcg 11/11/21 18:00 11/14/21 17:11 Calcitriol 0.25 Mcg Capsule PO 0.25 mcg BID LAURE Administration Clonazepam 0.5 mg 11/11/21 16:32 11/13/21 21:05 Clonazepam 1 Mg Tablet PO 0.5 mg TID PRN Administration Anxiety Heparin Sodium (Porcine) 5,000 unit 11/11/21 18:00 11/13/21 05:11 Heparin 5,000 Unit/Ml Inj 1 Ml SUBCUT 5,000 unit Q12H LAURE Administration Hydroxyzine Pamoate 25 mg 11/11/21 16:37 11/13/21 21:05 Hydroxyzine 25 Mg Capsule PO 25 mg BID PRN Administration moderate anxiety Ferric Sodium Gluconate 125 mg 110 mls @ 110 mls/hr 11/11/21 15:45 11/14/21 17:09 / Sodium Chloride IV 11/18/21 16:44 110 mls/hr Q24H LAURE Administration Multivitamins 1 each 11/12/21 09:00 11/14/21 09:09 I-Pxtkplo-Ovbwiuj C Tablet PO Not Given DAILY LAURE Tamsulosin HCl 0.4 mg 11/12/21 09:00 11/14/21 09:09 Tamsulosin 0.4 Mg Capsule PO Not Given DAILY LAURE PFSH Acute PFSH: Medical History Chronic tophaceous gout of both hands End stage renal disease Hypertension Malignant neoplasm of ascending colon Osteoarthritis Osteoporosis Surgical History History of colonoscopy (12/19/20) 2019 History of hemicolectomy (03/30/16) laparoscopic right hemicolectomy with extracorporeal ileocolic stapled anastomosis History of laparoscopy (09/14/18) laparoscopy with lysis of adhesions and ileocolectomy with extracorporeal stapled ileocolic anastomosis History of laparoscopy (02/22/19) laparoscopic lysis of adhesions and laparoscopic partial colectomy with ileal colonic anastomosis and with omentectomy Hx of total knee arthroplasty (06/23/21) left Family History Father , AT 72 CAD (coronary artery disease) Brother Cancer Brain Mother , AT AGE 96 Diabetes Other Arthritis Hypertension Denies family history of Rheumatoid arthritis Lupus Clotting disorder Dementia Hyperlipidemia Psychiatric illness Chronic kidney disease (CKD) Suicide Anesthesia complication Bleeding disorder Lung disease Stroke Social History Smoking and tobacco status: former smoker Alcohol intake: never Marital status: Current occupational status: retired History of recent travel: No Vitals/I&O/Wt Last Vital Signs Temp 98.6 F 11/14/21 14:56 Pulse 73 11/14/21 14:56 Resp 17 11/14/21 14:56 BP 134/75 11/14/21 14:56 Pulse Ox 96 11/14/21 14:56 11/14/21 11/14/21 11/14/21 06:59 14:59 22:59 Intake Total 560 / 2491.667 Output Total 600 / 1350 Balance -40 / 1141.667 Physical Exam Narrative: HEENT: Normocephalic Eye: Sclera /conjunctiva normal Abdomen: Soft to palpation Neurological: Oriented to place person and time Skin: Intact, no lesions appreciated on gross exam Urinary Catheter Management: Sandoval: Cath Placed During This Visit: yes Reason for Continuing Indwelling Catheter: Chronic Indwelling Urinary Catheter on Admission Urinary Catheter Date of Insertion: 11/11/21 Urinary Catheter Time of Insertion: 15:37 Data : 11/14/21 03:21 11/14/21 03:21 Micro: Microbiology 11/11/21 17:00 Urine Culture - Final Urine,Clean Catch Methicillin Resis Staph Aureus 11/13/21 18:00 Occult Blood (FIT) - Final Stool Routine Collection A&P Assessment and plan (1) Acute kidney injury superimposed on chronic kidney disease: 71-year-old male with history of acute kidney injury superimposed on chronic kidney disease requiring dialysis the next 24 to 48 hours Plan for placement of tunneled hemodialysis catheter under MAC tomorrow N.p.o. after midnight Procedure, risks, benefits and alternatives have been discussed with the patient who wishes to proceed with surgery. 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
--- NOTE | 2021-11-14 17:28 | P.ANESASSM_ITS ---
Pre-Anesthetic Assessment Height/Weight: Height 1.78 m Weight 72.575 kg Temp Pulse Resp BP Pulse Ox 98.6 F 73 17 134/75 96 11/14/21 14:56 11/14/21 14:56 11/14/21 14:56 11/14/21 14:56 11/14/21 14:56 Preop Diagnosis: ESRD Operation Date: 11/15/21 08:00 Proposed Procedures p Dialysis Catheter Insertion(Not Applicable) - Adam Trinh MD Familial anesthetic complications: None Was Beta Danilo taken within 24 hours: N/A Was Clonidine taken within 24 hours: N/A Social No alcohol and No tobacco Airway Submandibular: Other (Recessed chin) Cervical ROM: Other (Limited ) Mallampati: Class IV (Limited cooperation ) Dentition: false Pulmonary None reported CV/HEM Anemia and Hypertension EKG 11/11/21 Interpretive Statements SINUS RHYTHM LEFT AXIS DEVIATION? [QRS AXIS < -30] LOW QRS VOLTAGE IN PRECORDIAL LEADS? [QRS DEFLECTION < 1.0 mV IN CHEST LEADS] POSSIBLE ANTERIOR MYOCARDIAL INFARCTION , PROBABLY OLD [30 ms Q WAVE IN V3/V4, OR R < 0.2 mV IN V4] Compared to ECG 11/11/2021 16:41:13 Left-axis deviation now present Low QRS voltage now present Myocardial infarct finding now present Supraventricular rhythm no longer present Electronically Signed On 11-12-2021 22:11:49 CDT by Paloma Tracey M.D. [email or web address] Chronic Renal Failure Hepatic None reported GI None reported colon malignancy Metabolic None reported [facility] Osteoarthritis/DJD Neuropsych Seizure Anesthetic Plan ASA status: 3 Anesthesia: Anesthesia Evaluation and General Other: I discussed with the patient and his spouse risks, goals, and benefits of MAC and general anesthesia. We discussed spectrum of MAC anesthesia including conversion to general as well as possibility of recall of intraoperative stimuli including discomfort/pain. Patient agrees to proceed with MAC. Patient had spouse sign consent (Edmar Hamilton). Risk of > 500 ml blood loss (7ml/kg in children): No Medications/Allergies Home Medications Medication Instructions Recorded Confirmed Last Taken Type hydroxyzine HCl 50 mg tablet 25 - 50 mg PO BID PRN 10/02/21 11/11/21 Unknown History acetaminophen 500 mg tablet 1,000 mg PO Q8H PRN 10/03/21 11/11/21 Unknown History calcitriol 0.25 mcg capsule 0.25 mcg PO BID #30 cap 10/07/21 11/11/21 11/10/21 Rx tamsulosin 0.4 mg capsule 0.4 mg PO DAILY 11/10/21 11/11/21 11/10/21 History clonazepam 1 mg tablet 0.5 - 1 mg PO TID PRN 11/11/21 11/11/21 11/10/21 History cyproheptadine 4 mg tablet 4 mg PO BID 11/11/21 11/11/21 11/10/21 History levofloxacin 500 mg tablet 500 mg PO DAILY 11/11/21 11/11/21 11/11/21 History sodium bicarbonate 650 mg tablet 650 mg PO TID 11/11/21 11/11/21 11/11/21 History Allergies Allergy/AdvReac Type Severity Reaction Status Date / Time Penicillins Allergy Unknown Unknown Verified 11/11/21 15:33 Sulfa (Sulfonamide Allergy Unknown Unknown Verified 11/11/21 15:33 Antibiotics) aspirin AdvReac Intermediate GI bleed Verified 11/11/21 15:33 ibuprofen AdvReac Intermediate GI bleed Verified 11/11/21 15:33 [From NeoProfen (ibuprofen lysn)(PF)] Current Medications Generic Name Dose Route Start Last Admin Trade Name Freq PRN Reason Stop Dose Admin Calcitriol 0.25 mcg 11/11/21 18:00 11/14/21 17:11 Calcitriol 0.25 Mcg Capsule PO 0.25 mcg BID LAURE Administration Clonazepam 0.5 mg 11/11/21 16:32 11/13/21 21:05 Clonazepam 1 Mg Tablet PO 0.5 mg TID PRN Administration Anxiety Heparin Sodium (Porcine) 5,000 unit 11/11/21 18:00 11/13/21 05:11 Heparin 5,000 Unit/Ml Inj 1 Ml SUBCUT 5,000 unit Q12H LAURE Administration Hydroxyzine Pamoate 25 mg 11/11/21 16:37 11/13/21 21:05 Hydroxyzine 25 Mg Capsule PO 25 mg BID PRN Administration moderate anxiety Ferric Sodium Gluconate 125 mg 110 mls @ 110 mls/hr 11/11/21 15:45 11/14/21 17:09 / Sodium Chloride IV 11/18/21 16:44 110 mls/hr Q24H LAURE Administration Multivitamins 1 each 11/12/21 09:00 11/14/21 09:09 J-Vebwsue-Uducxqj C Tablet PO Not Given DAILY LAURE Tamsulosin HCl 0.4 mg 11/12/21 09:00 11/14/21 09:09 Tamsulosin 0.4 Mg Capsule PO Not Given DAILY LAURE Additional Medication Information Generic Name Dose Route Start Last Admin Trade Name Leandra PRN Reason Stop Dose Admin Calcitriol 0.25 mcg 11/11/21 18:00 11/13/21 09:53 Calcitriol 0.25 Mcg Capsule PO 0.25 mcg BID LAURE Administration Heparin Sodium (Porcine) 5,000 unit 11/11/21 18:00 11/13/21 05:11 Heparin 5,000 Unit/Ml Inj 1 Ml SUBCUT 5,000 unit Q12H LAURE Administration Ferric Sodium Gluconate 125 mg 110 mls @ 110 mls/hr 11/11/21 15:45 11/12/21 19:51 / Sodium Chloride IV 11/18/21 16:44 Infused Q24H LAURE Infusion Multivitamins 1 each 11/12/21 09:00 11/13/21 09:53 C-Mgdbtea-Fxkdycc C Tablet PO 1 each DAILY LAURE Administration Tamsulosin HCl 0.4 mg 11/12/21 09:00 11/13/21 09:53 Tamsulosin 0.4 Mg Capsule PO 0.4 mg DAILY LAURE Administration [facility] Anesthesia Medical History Chronic tophaceous gout of both hands End stage renal disease Hypertension Malignant neoplasm of ascending colon Osteoarthritis Osteoporosis Surgical History History of colonoscopy (12/19/20) 2019 History of hemicolectomy (03/30/16) laparoscopic right hemicolectomy with extracorporeal ileocolic stapled anastomosis History of laparoscopy (09/14/18) laparoscopy with lysis of adhesions and ileocolectomy with extracorporeal stapled ileocolic anastomosis History of laparoscopy (02/22/19) laparoscopic lysis of adhesions and laparoscopic partial colectomy with ileal colonic anastomosis and with omentectomy Hx of total knee arthroplasty (06/23/21) left Family History Father , AT 72 CAD (coronary artery disease) Brother Cancer Brain Mother , AT AGE 96 Diabetes Other Arthritis Hypertension Denies family history of Rheumatoid arthritis Lupus Clotting disorder Dementia Hyperlipidemia Psychiatric illness Chronic kidney disease (CKD) Suicide Anesthesia complication Bleeding disorder Lung disease Stroke Social History Smoking and tobacco status: former smoker Alcohol intake: never Marital status: Current occupational status: retired History of recent travel: No Data Anesthesia : 11/14/21 03:21 11/14/21 03:21 Short CBC 11/13/21 11/13/21 11/13/21 Range/Units 04:56 07:22 08:50 WBC Cancelled 3.4 L Hgb Cancelled 6.2 L* D 6.2 L* Hct Cancelled 19.3 L* D MCV Cancelled 90.6 Plt Count Cancelled 129 L Neut % (Auto) Cancelled 67.3 Neut # (Auto) Cancelled 2.31 11/14/21 Range/Units 03:21 WBC 4.0 Hgb 8.3 L D Hct 24.7 L MCV 84.6 D Plt Count 133 Neut % (Auto) 66.4 Neut # (Auto) 2.66 BMP 11/13/21 11/14/21 04:56 03:21 Sodium 135 L 136 Potassium 3.0 L 3.6 Chloride 99 100 Carbon Dioxide 24 23 BUN 50 H 45 H Creatinine 7.3 H* 6.7 H* Glucose 118 H 91 Calcium 7.4 L 7.7 L Liver Function 11/13/21 11/14/21 Range/Units 04:56 03:21 Total Bilirubin 0.3 0.5 (0.15-1.2) mg/dL AST 16 21 (0-40) U/L ALT 9 11 (0-41) U/L Alkaline Phosphatase 108 114 (40-130) IU/L Albumin 2.2 L 2.2 L (3.5-5.2) g/dL Blood Bank 11/13/21 07:22 Blood Type A Positive Rho(D) Type Positive Antibody Screen Negative Microbiology 11/11/21 17:00 Urine Culture - Final Urine,Clean Catch Methicillin Resis Staph Aureus 11/13/21 18:00 Occult Blood (FIT) - Final Stool Routine Collection Cardiac Studies: Echocardiogram 11/11/21
--- NOTE | 2021-11-14 19:18 | PM.MISC ---
Miscellaneous Note Note: Went to see patient tonight. He declined discussion of anesthesia tonight as he would like to speak with his about the proposed procedure for tomorrow. Keep NPO after midnight.
[2021-11-14] MEDS: bacitracin ointment Pkt 1 EACH TOPICAL (20:44)
[2021-11-15] VITALS (15 sets, daily range): BP systolic 104–158; BP diastolic 66–78; PULSE 71–81; RESP 14–18; TEMP 36.4–36.8; O2SAT 94–98
--- NOTE | 2021-11-15 | SCC_ITS ---
Procedure done: 1. Placement of 16 Hungarian AshSplit 27 cm long tunneled hemodialysis catheter in the right internal jugular vein 58.8 seconds of fluoroscopic guidance, for a cumulative dose of 2.81 mGy, was provided to Dr. Trinh by the radiology department. C-arm images of the chest were saved for the patient's permanent record. [facility]
--- NOTE | 2021-11-15 | SCC_ITS ---
Procedure done: 1. Placement of 16 Italian AshSplit 27 cm long tunneled hemodialysis catheter in the right internal jugular vein 2. Fluoroscopic guidance and interpretation for placement of catheter 3. Ultrasound guidance to access the right internal jugular vein 58.8 seconds of fluoroscopic guidance, for a cumulative dose of 2.81 mGy, was provided to Dr. Trinh by the radiology department. C-arm images of the chest were saved for the patient's permanent record. [facility]
--- NOTE | 2021-11-15 07:38 | PM.PN ---
Subjective Subjective: No issues overnight Vitals/I&O/Wt Last Vital Signs Temp 98.1 F 11/15/21 07:26 Pulse 77 11/15/21 07:26 Resp 16 11/15/21 07:26 BP 155/66 11/15/21 07:26 Pulse Ox 97 11/15/21 07:26 11/14/21 11/15/21 11/15/21 22:59 06:59 14:59 Intake Total 230 / 230 0 / 230 Output Total 1250 / 1250 Balance 230 / -1020 -1250 / -1020 Physical Exam Narrative: Patient is awake and alert Urinary Catheter Management: Sandoval: Cath Placed During This Visit: yes, but has since been removed by the nurse Reason for Continuing Indwelling Catheter: Decision to DC Catheter Urinary Catheter Date of Insertion: 11/11/21 Urinary Catheter Time of Insertion: 15:37 Date Urinary Catheter Removed: 11/14/21 Time Urinary Catheter Discontinued: 12:00 Data : 11/14/21 03:21 11/14/21 03:21 Micro: Microbiology 11/11/21 17:00 Urine Culture - Final Urine,Clean Catch Methicillin Resis Staph Aureus A&P Assessment and plan (1) Acute kidney injury superimposed on chronic kidney disease: 71-year-old male with history of acute kidney injury superimposed on chronic kidney disease requiring dialysis the next 24 to 48 hours Plan for placement of tunneled hemodialysis catheter under MAC today Status: Acute Attestations Medical Necessity Statement*: As per primary Coding Level of Care Code 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
--- NOTE | 2021-11-15 07:44 | SC_ITS ---
WS: [id number] C-arm fluoroscopy for dialysis catheter placement, 11/15/2021. Clinical Data: hemodialysis catheter in the right internal jugular vein Comparison: None. Findings: Insertion of right dialysis catheter via the internal jugular vein. The catheter ends in the superior vena cava and there is also a distal end and the tip is not visualized. SC/C-arm FL for CVA [id number] Impression: Insertion of right dialysis catheter into the internal jugular vein and superio r vena cava.
[2021-11-15] MEDS: vancomycin 1,000 MG in sodium chloride 0.9% 250 ML 250 MG IV (07:50)
[2021-11-15] MEDS: heparin, porcine 1,000 unit/mL INJ 10 mL 10000 UNIT INJECTION (08:40)
[2021-11-15] MEDS: lidocaine 2% INJ 20 mL INJECTION (08:41)
--- NOTE | 2021-11-15 09:21 | PM.OP ---
Operative Report Date of procedure: November 15, 2021 Pre-op diagnosis: ESRD requiring dialysis Post-op diagnosis: ESRD requiring dialysis Procedure done: 1. Placement of 16 Saudi Arabian AshSplit 27 cm long tunneled hemodialysis catheter in the right internal jugular vein 2. Fluoroscopic guidance and interpretation for placement of catheter 3. Ultrasound guidance to access the right internal jugular vein Pathology: none sent Surgeon: Adam Trinh Anesthesia: MAC Estimated blood loss (mL): 25 Condition: stable Disposition: PACU Procedure: The patient was taken to the operating room and placed under MAC after IV antibiotic had been administered. The chest and neck were prepped and draped in a sterile manner bilaterally. An ultrasound of the right internal jugular vein revealed patent flow, no thrombus identified. Using introducer needle the internal jugular vein on the right side was accessed and guidewire passed into the right atrium under fluoroscopy. Under fluoroscopy the location for the dialysis catheter was marked. Using 11 blade a skin incision was extended at the vein access site as well as the previously marked location on the right chest wall. The dialysis catheter was attached to the tunneler and passed subcutaneously, exiting at the venous access site. Serial dilators were passed over the guidewire under fluoroscopy. Finally the dilator peel-away sheath was passed over the guidewire and the inner dilator and guidewire was removed and the dialysis catheter was introduced into the right internal jugular vein as the peel-away sheath was removed. The tip of the catheter was noted to be in the right atrium. Both ports of the catheter dee dee blood and flushed easily. The catheter was sutured to the skin using 2-0 Prolene and the venous access site was closed with 4-0 Monocryl and Dermabond. A total of 5 mL of 1:10,000 heparin was injected into the 2 ports under dialysis catheter. Pressure dressings were applied since there was bleeding from the catheter entry site. Fluoroscopic guidance and interpretation for passage of guidewire and dilator and placement of catheter in the right atrium.
--- NOTE | 2021-11-15 09:23 | ANE.PACU2 ---
Inpatient post-anesthesia follow up: Airway intact: Yes Vital signs: Temperature 97.5 F Pulse Rate 73 Respiratory Rate 16 Blood Pressure 133/71 Pulse Oximetry 95 Oxygen Delivery Me thod [ Room Air Current Rate & Del suzie] Oxygen Delivery Me thod Room Air Oxygen Flow Rate Fraction of Inspir ed Oxygen Hydration adequate: Yes Nausea and vomiting: No Pain level: 1 Mental status: Baseline
--- NOTE | 2021-11-15 09:58 | P.PN_ITS ---
Subjective Subjective: Patient seen following placement of his tunneled dialysis catheter. Currently sleepy at this time following his anesthesia. No other new issues at this time. No uremic symptoms. He is remains comfortable. Medications: Medication Review Details: Generic Name Dose Route Start Last Admin Trade Name Leandra PRN Reason Stop Dose Admin Calcitriol 0.25 mcg 11/11/21 18:00 11/13/21 09:53 Calcitriol 0.25 Mcg Capsule PO 0.25 mcg BID LAURE Administration Heparin Sodium (Po rcine) 5,000 unit 11/11/21 18:00 11/13/21 05:11 Heparin 5,000 Un it/Ml Inj 1 Ml SUBCUT 5,000 unit Q12H LAURE Administration Ferric Sodium Gluc stephenie 125 mg 110 mls @ 110 mls /hr 11/11/21 15:45 11/12/21 19:51 / Sodium Chlorid e IV 11/18/21 16:44 Infused Q24H LAURE Infusion Multivitamins 1 each 11/12/21 09:00 11/13/21 09:53 Z-Pgkonnk-Qgvvpp n C Tablet PO 1 each DAILY LAURE Administration Tamsulosin HCl 0.4 mg 11/12/21 09:00 11/13/21 09:53 Tamsulosin 0.4 M g Capsule PO 0.4 mg DAILY LAURE Administration Vitals/I&O/Wt Last Vital Signs Temp 97.5 F L 11/15/21 09:01 Pulse 73 11/15/21 09:11 Resp 16 11/15/21 09:11 BP 133/71 11/15/21 09:11 Pulse Ox 95 11/15/21 09:11 11/14/21 11/15/21 11/15/21 22:59 06:59 14:59 Intake Total 230 / 230 0 / 230 250 / 250 Output Total 1250 / 1250 10 / 10 Balance 230 / 230 -1250 / -1020 240 / 240 Physical Exam Narrative: Constitutional: Awake, comfortable HEENT: Wet mucosa, no jvp, non icteric Lungs: Bilaterally clear without discernible wheeze or rales in all lung zones CVS: S1 S2, no murmurs Abdo: Soft, BS ok Ext 4: Minimal edema, peripheral perfusion with no cyanosis Neurological: Grossly non-focal Urinary Catheter Management: Sandoval: Cath Placed During This Visit: yes, but has since been removed by the nurse Reason for Continuing Indwelling Catheter: Decision to DC Catheter Urinary Catheter Date of Insertion: 11/11/21 Urinary Catheter Time of Insertion: 15:37 Date Urinary Catheter Removed: 11/14/21 Time Urinary Catheter Discontinued: 12:00 Data : 11/14/21 03:21 11/14/21 03:21 Micro: Microbiology 11/11/21 17:00 Urine Culture - Final Urine,Clean Catch Methicillin Resis Staph Aureus A&P Assessment and plan (1) Acute kidney injury superimposed on chronic kidney disease: 1.? Acute kidney injury on chronic kidney disease S/p tunneled line Dialysis to initiate on gentle settings today. We will let him rest tomorrow and perform another session on Wednesday. Of note is reinitiate dialysis will use gentle settings with progressive up titration in dialysis prescription intensity to avoid disequilibrium. Case management to set up outpatient hemodialysis Avoid usual nephrotoxic agents Dose medication for GFR less than 50 2.? Chemistry Minor noncritical aberration, 3K bath with dialysis today. 3.? CKD-MB Albumin 2.5 thus corrected calcium is roughly 8.8 i.e. within normal range.? PTH is elevated, however this is secondary to vitamin D deficiency.? Currently on Rocaltrol. 4.? Hemodynamics These look stable. 5. Anemia of ESRD s/p transfusion 6. Disposition Case management to set up outpatient hemodialysis after which time he will be safe for discharge. Joey Rothman MD Nephrology [phone] Patient seen and examined via telemedicine, with the assistance of the bedside RN > 25 min spent in evaluation and mgmt of patient Status: Acute Attestations Medical Necessity Statement*: eval for ESRD Coding Level of Care Code Acute Patient Access Specialist for [facility] Fwd Diagnoses Acute kidney injury superimposed on chronic kidney disease N17.9; N18.9
--- NOTE | 2021-11-15 10:27 | P.PN_ITS ---
Subjective Subjective: Patient was seen and examined this morning, status post tunneled hemodialysis catheter placement, patient was complaining of feeling cold this morning, no other complaints. Medications: Medication Review Details: Generic Name Dose Route Start Last Admin Trade Name Leandra PRN Reason Stop Dose Admin Bacitracin 1 each 11/14/21 18:00 11/14/21 20:44 Bacitracin Ointm ent Pkt TOPICAL 1 each BID LAURE Administration Protocol Calcitriol 0.25 mcg 11/11/21 18:00 11/14/21 17:11 Calcitriol 0.25 Mcg Capsule PO 0.25 mcg BID LAURE Administration Clonazepam 0.5 mg 11/11/21 16:32 11/13/21 21:05 Clonazepam 1 Mg Tablet PO 0.5 mg TID PRN Administration Anxiety Heparin Sodium (Po rcine) 5,000 unit 11/11/21 18:00 11/13/21 05:11 Heparin 5,000 Un it/Ml Inj 1 Ml SUBCUT 5,000 unit Q12H LAURE Administration Hydroxyzine Pamoat e 25 mg 11/11/21 16:37 11/13/21 21:05 Hydroxyzine 25 M g Capsule PO 25 mg BID PRN Administration moderate anxiety Ferric Sodium Gluc stephenie 125 mg 110 mls @ 110 mls /hr 11/11/21 15:45 11/14/21 18:09 / Sodium Chlorid e IV 11/18/21 16:44 Infused Q24H [facility] Infusion Multivitamins 1 each 11/12/21 09:00 11/14/21 09:09 V-Lnfqkvo-Mbxprp n C Tablet PO Not Given DAILY [facility] Tamsulosin HCl 0.4 mg 11/12/21 09:00 11/14/21 09:09 Tamsulosin 0.4 M g Capsule PO Not Given DAILY [facility] Vitals/I&O/Wt Last Vital Signs Temp 97.5 F L 11/15/21 09:01 Pulse 73 11/15/21 09:11 Resp 16 11/15/21 09:11 BP 133/71 11/15/21 09:11 Pulse Ox 95 11/15/21 09:11 11/14/21 11/15/21 11/15/21 22:59 06:59 14:59 Intake Total 230 / 230 0 / 230 250 / 250 Output Total 1250 / 1250 10 10 Balance 230 / 230 -1250 / -1020 240 / 240 Physical Exam Const: COMMON NORMALS: patient oriented x3 HENMT: COMMON NORMALS: normocephalic and atraumatic HEAD & SCALP: normocephalic and atraumatic Resp: COMMON NORMALS: clear to auscultation bilaterally EFFORT & INSPECTION: Yes symmetric chest movement AUSCULTATION: clear to auscultation bilaterally Cardio: COMMON NORMALS: regular rate, regular rhythm, S1 normal heart sound present, S2 normal heart sound present, No gallops present (Cardio), No murmurs present (Cardio), No rub (Cardio) and Peripheral pulses 2+ throughout RATE: regular rate RHYTHM: regular rhythm HEART SOUNDS: S1 normal heart sound present and S2 normal heart sound present PERIPHERAL PULSES: Peripheral pulses 2+ throughout GI: COMMON NORMALS: Normal to inspection, nondistended, normoactive bowel sounds present, Soft to palpation, non-tender, No hepatosplenomegaly present and no masses AUSCULTATION: Yes normoactive bowel sounds PALPATION: Yes Soft to palpation and Yes No hepatosplenomegaly present RECTAL EXAM: Yes deferred Extremity: COMMON NORMALS: no clubbing, cyanosis or edema and no pedal edema NARRATIVE EXTREMITY EXAM: Trace bilateral lower extremity pitting edema Neuro: COMMON NORMALS: patient oriented x3 Urinary Catheter Management: Sandoval: Cath Placed During This Visit: yes, but has since been removed by the nurse Reason for Continuing Indwelling Catheter: Decision to DC Catheter Urinary Catheter Date of Insertion: 11/11/21 Urinary Catheter Time of Insertion: 15:37 Date Urinary Catheter Removed: 11/14/21 Time Urinary Catheter Discontinued: 12:00 Data : 11/14/21 03:21 11/14/21 03:21 Micro: Microbiology 11/11/21 17:00 Urine Culture - Final Urine,Clean Catch Methicillin Resis Staph Aureus A&P Assessment and plan (1) Acute kidney injury superimposed on chronic kidney disease: Status: Acute (2) Anemia: Status: Acute (3) Hypertension: Status: Acute Plan 71 year old male with PMH of ?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 diagnosed in 2015 currently on expectant management recent h/o ?left total knee arthroplasty in June 2021. Came in with chief complaint of generalized weakness fatigue poor appetite going on for the last 1 to 2 weeks. Assessment: TIMMY on worsening CKD stage IV: Unclear etiology. S/P tunneled H/D Catheter placement. Plan is to hemodialyzed him today for 2 hours. Random urine sodium:31 Random urine creatinine: Random urine protein UPCR: FENA Renal ultrasound: Was on bicarb drip Monitor intake output charting Avoid nephrotoxic's Monitor BMP Urinalysis: Too numerous to count WBC : Less likely UTI, possibly secondary to indwelling Sandoval catheter. 2D echo:Normal lV size, systolic function and wall ?thickness, with no regional wall motion abnormalities. LVEF 65 %. Normal diastolic function. Normal RV size and systolic function. Mildly increased left atrial size. Mild mitral valve regurgitation. Normal pulmonary artery pressure. director workers compensation have been instructed to arrange for H/D Chair as outpatient. Patient will follow Dr. Scott as outpatient Renal on board Increased anion gap metabolic acidosis likely secondary to TIMMY on CKD: Was on bicarb drip has been discontinued. Goal serum bicarb is 22-24 Iron deficiency anemia: Serum iron:24 , serum ferritin:525, percent saturation:19.6 , TIBC:122 Currently on IV iron Due to drop in hemoglobin to 6.2 : No evident active source of bleeding: S/p 2 unit PRBC transfusion. FOBT Elevated troponin: Likely secondary to underlying CKD Patient currently denies any chest pain shortness of breath palpitation Follow 2D echo: Normal LV size and systolic function, no RWMA , LVEF 65%, normal RV size and systolic function. Attestations Medical Necessity Statement*: Patient needs to be in hospital for hemodialysis. Time Spent in Patient Care: Greater than 35 minutes (>than 50% of time spent in counselling and/or direct pt care on unit) . Coding Level of Care Code Acute Landscaper Helper for g Fwd Exam Detailed Diagnoses Acute kidney injury superimposed on chronic kidney disease N17.9; N18.9 Anemia D64.9 Hypertension I10
--- NOTE | 2021-11-15 12:04 | PC.NURSE ---
Entered patient's room to do site check on tunneled dialysis catheter and found patient's gown and bed saturated in blood. Pressure was immediately applied and help called. Dr. Trinh notified and at bedside to put stitch in. Pressure held for approximately 35 minutes. New compression dressing applied. Vital signs remained stable and patient tolerated well. at bedside.
[2021-11-15 13:08] LABS: Basophils % 0.7 %; Eosinophils # 0.1 10^3/uL (0.0-0.8); Eosinophils % 2.9 %; Hematocrit 24.2 % (42.0-52.0); Hemoglobin 7.6 g/dL (11.7-16.6); Lymphocytes # 0.6 10^3/uL (0.8-4.8); Lymphocytes % 14.4 %; Mean Corpuscular HGB Conc 31.4 g/dL (30.0-36.0); Mean Corpuscular Hemoglobin 28.6 pg (28.0-34.0); Mean Platelet Volume 8.9 fL (7.4-10.4); Monocytes # 0.2 10^3/uL (0.2-0.9); Monocytes % 5.4 %; Neutrophils # 3.38 10^3/uL (1.8-7.7); Neutrophils % 76.1 %; Nucleated Red Blood Cells % 0 %; Platelet Count 110 10^3/cmm (130-400); Red Blood Count 2.66 10^6/uL (4.1-5.3); Red Cell Distribution Width 15.8 % (12.1-15.1); White Blood Count 4.4 10^3/uL (4.0-10.0)
[2021-11-15 13:23] LABS: Anion Gap 19.6 (5-19); Blood Urea Nitrogen 47 mg/dL (8-23); Calcium 7.9 mg/dL (8.5-10.5); Carbon Dioxide 19 mmol/L (22-29); Chloride 106 mmol/L (98-107); Glomerular Filtration Rate 9.6 mL/min (90-130); Glucose 76 mg/dL (65-115); Osmolality Calculated 303 mOsm/kg (285-295); Potassium 3.6 mmol/L (3.5-5.1); Sodium 141 mmol/L (136-145)
--- NOTE | 2021-11-15 15:16 | PC.PT ---
Client was not available for PT this date as had a procedure.
[2021-11-15] MEDS: ferric gluconate 125 MG in sodium chloride 0.9% (100 ml) 100 ML 110 MG IV (15:52)
[2021-11-15] MEDS: bacitracin ointment Pkt 1 EACH TOPICAL (17:47)
[2021-11-15] MEDS: calcitriol 0.25 mcg Capsule PO (17:47)
--- NOTE | 2021-11-15 18:08 | PC.NURSE ---
Patient's dressing at this time has moderate amount of serosang drainage but doesn't appear to be actively bleeding at this time. Report to be given to oncoming shift
[2021-11-16 00:17] LABS: Kappa Free Light Chains Urine 107.15 mg/L (<=32.90)
[2021-11-16 03:54] VITALS: BP 108/63; PULSE 72; RESP 16; TEMP 36.9; O2SAT 98
[2021-11-16 05:30] LABS: Basophils % 0.4 %; Eosinophils # 0.2 10^3/uL (0.0-0.8); Eosinophils % 3.6 %; Hematocrit 29.5 % (42.0-52.0); Hemoglobin 9.7 g/dL (11.7-16.6); Lymphocytes # 0.7 10^3/uL (0.8-4.8); Lymphocytes % 14.3 %; Mean Corpuscular HGB Conc 32.9 g/dL (30.0-36.0); Mean Corpuscular Volume 88.3 fl (80-94); Mean Platelet Volume 9.7 fL (7.4-10.4); Monocytes # 0.3 10^3/uL (0.2-0.9); Neutrophils # 3.52 10^3/uL (1.8-7.7); Neutrophils % 75.5 %; Nucleated Red Blood Cells % 0 %; Platelet Count 101 10^3/cmm (130-400); Red Blood Count 3.34 10^6/uL (4.1-5.3); Red Cell Distribution Width 15.5 % (12.1-15.1); White Blood Count 4.7 10^3/uL (4.0-10.0)
[2021-11-16 05:45] LABS: Anion Gap 22.6 (5-19); Blood Urea Nitrogen 33 mg/dL (8-23); Calcium 8.1 mg/dL (8.5-10.5); Carbon Dioxide 18 mmol/L (22-29); Chloride 100 mmol/L (98-107); Glomerular Filtration Rate 12.7 mL/min (90-130); Glucose 66 mg/dL (65-115); Osmolality Calculated 289 mOsm/kg (285-295); Potassium 3.6 mmol/L (3.5-5.1); Sodium 137 mmol/L (136-145)
[2021-11-16 07:51] VITALS: PULSE 76; RESP 18; O2SAT 97
[2021-11-16 08:00] VITALS: BP 122/70; PULSE 64; RESP 12; TEMP 36.6; O2SAT 96
--- NOTE | 2021-11-16 08:29 | P.PN_ITS ---
Subjective Subjective: No issues with dialysis, this went well yesterday. Today he is resting, comfortable. No uremic symptoms, no hypervolemic symptoms. Snadoval catheter remains in place, comfortable to him. No other acute issues. at bedside. Exit site was oozing but this has now stopped Medications: Medication Review Details: Generic Name Dose Route Start Last Admin Trade Name Freq PRN Reason Stop Dose Admin Bacitracin 1 each 11/14/21 18:00 11/14/21 20:44 Bacitracin Ointm ent Pkt TOPICAL 1 each BID LAURE Administration Protocol Calcitriol 0.25 mcg 11/11/21 18:00 11/14/21 17:11 Calcitriol 0.25 Mcg Capsule PO 0.25 mcg BID LAURE Administration Clonazepam 0.5 mg 11/11/21 16:32 11/13/21 21:05 Clonazepam 1 Mg Tablet PO 0.5 mg TID PRN Administration Anxiety Heparin Sodium (Po rcine) 5,000 unit 11/11/21 18:00 11/13/21 05:11 Heparin 5,000 Un it/Ml Inj 1 Ml SUBCUT 5,000 unit Q12H LAURE Administration Hydroxyzine Pamoat e 25 mg 11/11/21 16:37 11/13/21 21:05 Hydroxyzine 25 M g Capsule PO 25 mg BID PRN Administration moderate anxiety Ferric Sodium Gluc stephenie 125 mg 110 mls @ 110 mls /hr 11/11/21 15:45 11/14/21 18:09 / Sodium Chlorid e IV 11/18/21 16:44 Infused Q24H [facility] Infusion Multivitamins 1 each 11/12/21 09:00 11/14/21 09:09 E-Ldboxpy-Zksthp n C Tablet PO Not Given DAILY [facility] Tamsulosin HCl 0.4 mg 11/12/21 09:00 11/14/21 09:09 Tamsulosin 0.4 M g Capsule PO Not Given DAILY [facility] Vitals/I&O/Wt Last Vital Signs Temp 97.8 F 11/16/21 08:00 Pulse 64 11/16/21 08:00 Resp 12 11/16/21 08:00 BP 122/70 11/16/21 08:00 Pulse Ox 96 11/16/21 08:00 11/15/21 11/16/21 11/16/21 22:59 06:59 14:59 Intake Total 650 / 900 400 / 1300 Output Total 1300 / 1310 750 / 2060 Balance -650 / -410 -350 / -760 Weight last 48 hrs Weight 76.3 kg Physical Exam Narrative: Constitutional: Awake, comfortable HEENT: Wet mucosa, no jvp, non icteric Lungs: Bilaterally clear without discernible wheeze or rales in all lung zones CVS: S1 S2, no murmurs Abdo: Soft, BS ok Ext 4: Minimal edema, peripheral perfusion with no cyanosis Neurological: Grossly non-focal Urinary Catheter Management: Sandoval: Cath Placed During This Visit: yes, but has since been removed by the nurse Reason for Continuing Indwelling Catheter: Accurate Measurement of Urinary Output in Critically Ill Patients Urinary Catheter Date of Insertion: 11/11/21 Urinary Catheter Time of Insertion: 15:37 Date Urinary Catheter Removed: 11/14/21 Time Urinary Catheter Discontinued: 12:00 Data : 11/16/21 04:18 11/16/21 04:18 A&P Assessment and plan (1) Acute kidney injury superimposed on chronic kidney disease: 1.? Acute kidney injury on chronic kidney disease > likely to now be ESRD S/p tunneled line HD tomorrow entry manager to et up outpatient dialysis Avoid usual nephrotoxic agents Dose medication for GFR less than 50 2.? Chemistry Minor noncritical aberration 3.? CKD-MB Albumin 2.5 thus corrected calcium is roughly 8.8 i.e. within normal range.? PTH is elevated, however this is secondary to vitamin D deficiency.? Currently on Rocaltrol. 4.? Hemodynamics These look stable. 5. Anemia of ESRD s/p transfusion 6. Disposition Case management to set up outpatient hemodialysis after which time he will be safe for discharge. 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
--- NOTE | 2021-11-16 08:36 | P.PN_ITS ---
Subjective Subjective: Patient did well with dialysis yesterday , had some bleeding from the surgical site which was controlled with [id number] 3-0 Prolene suture. After the suture was placed he did well yesterday but this morning he had further bleeding which stopped with application of a sandbag Medications: Reviewed: Yes Vitals/I&O/Wt Last Vital Signs Temp 97.8 F 11/16/21 08:00 Pulse 64 11/16/21 08:00 Resp 12 11/16/21 08:00 BP 122/70 11/16/21 08:00 Pulse Ox 96 11/16/21 08:00 11/15/21 11/16/21 11/16/21 22:59 06:59 14:59 Intake Total 650 / 1300 400 / 1300 Output Total 1300 / 2060 750 / 2060 Balance -650 / -760 -350 / -760 Weight last 48 hrs Weight 168 lb 3.403 oz Physical Exam Narrative: Right chest: No evidence of active bleeding, there is some subcutan eous ecchymosis Urinary Catheter Management: Sandoval: Cath Placed During This Visit: yes, but has since been removed by the nurse Reason for Continuing Indwelling Catheter: Accurate Measurement of Urinary Outpu t in Critically Ill Patients Urinary Catheter Date of Insertion: 11/11/21 Urinary Catheter Time of Insertion: 15:37 Date Urinary Catheter Removed: 11/14/21 Time Urinary Catheter Discontinued: 12:00 Data : 11/16/21 04:18 11/16/21 04:18 A&P Assessment and plan (1) S/P hemodialysis catheter insertion: 71-year-old male with ARF on CKD who had a hemodialysis catheter placed yesterday. He received dialysis yesterday and the catheter functioned well but he did have bleeding from the skin incision which was controlled with [id number] suture and pressure dressings. At this point we will continue to observe, his hemoglobin is stable. 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
--- NOTE | 2021-11-16 10:21 | PC.SOCIAL ---
IMM Update pg 2 of IMM updated and reviewed w/ patient and . Copy provided and Copy in chart updated.
[2021-11-16 11:23] VITALS: BP 145/77; PULSE 79; RESP 12; O2SAT 100
[2021-11-16 11:23] LABS: C Reactive Protein 38.9 mg/L (0.0-4.9)
--- NOTE | 2021-11-16 11:29 | P.PN_ITS ---
Subjective Subjective: Patient was seen this morning, at bedside, he is a bit tired this morning, a bit drowsy, she tells me that he has not been feeling well, he tells me he has had a poor appetite, he did not eat much of his breakfast, his tells me that she typically gives him protein shakes twice a day, he also complains the dialysis catheter insertion site blood last night, his a pressure dressing applied on top, the bleeding has stopped, he has a Sandoval catheter in place, no nausea, no vomiting, no shortness of breath, no fevers, no abdominal pain, he has had his left knee replaced, since then, his tells me that he has had a slow downward decline, he did work with physical therapy yesterday, h is ambulation has improved, but continues to have pain with bearing weight in his left knee Vitals/I&O/Wt Last Vital Signs Temp 97.8 F 11/16/21 08:00 Pulse 79 11/16/21 11:23 Resp 12 11/16/21 11:23 BP 145/77 11/16/21 11:23 Pulse Ox 100 11/16/21 11:23 11/15/21 11/16/21 11/16/21 22:59 06:59 14:59 Intake Total 650 / 900 400 / 1300 Output Total 1300 / 1310 750 / 2060 Balance -650 / -410 -350 / -760 Weight last 48 hrs Weight 76.3 kg Physical Exam Const: COMMON NORMALS: no acute distress and patient oriented x3 Resp: COMMON NORMALS: normal respiratory effort, No retractions, No use of accessory muscles and clear to auscultation bilaterally AUSCULTATION: clear to auscultation bilaterally Cardio: COMMON NORMALS: regular rate, regular rhythm, S1 normal heart sound present and S2 normal heart sound present RATE: regular rate RHYTHM: regular rhythm HEART SOUNDS: S1 normal heart sound present and S2 normal heart sound present GI: COMMON NORMALS: Normal to inspection, nondistended, normoactive bowel sounds present, Soft to palpation and non-tender PALPATION: Yes Soft to palpation Extremity: COMMON NORMALS: no pedal edema Neuro: COMMON NORMALS: patient oriented x3 Psych: COMMON NORMALS: mental status grossly normal Urinary Catheter Management: Sandoval: Cath Placed During This Visit: yes, but has since been removed by the nurse Reason for Continuing Indwelling Catheter: Accurate Measurement of Urinary Output in Critically Ill Patients Urinary Catheter Date of Insertion: 11/11/21 Urinary Catheter Time of Insertion: 15:37 Date Urinary Catheter Removed: 11/14/21 Time Urinary Catheter Discontinued: 12:00 Data : 11/16/21 04:18 11/16/21 04:18 A&P Assessment and plan (1) Acute kidney injury superimposed on chronic kidney disease: Status: Acute (2) Anemia: Status: Acute (3) Hypertension: Status: Acute Plan 71 year old male with PMH of ?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 diagnosed in 2015 currently on expectant management recent h/o ?left total knee arthroplasty in June 2021. Came in with chief complaint of generalized weakness fatigue poor appetite going on for the last 1 to 2 weeks. Assessment: TIMMY on worsening CKD stage IV: Unclear etiology. S/P tunneled H/D Catheter placement. Received a session of dialysis yesterday, will receive session tomorrow Has a chair time for dialysis, on Wednesday Random urine sodium:31 Monitor intake output charting Avoid nephrotoxic's Monitor BMP Urinalysis: Too numerous to count WBC : Less likely UTI, possibly secondary to indwelling Sandoval catheter. 2D echo:Normal lV size, systolic function and wall ?thickness, with no regional wall motion abnormalities. LVEF 65 %. Normal diastolic function. Normal RV size and systolic function. Mildly increased left atrial size. Mild mitral valve regurgitation. Normal pulmonary artery pressure. 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 Patient will follow Dr. Scott as outpatient Renal on board Will likely be discharged on Wednesday after dialysis Urine cultures positive for MRSA, possible contaminant? -Does have a Sandoval catheter placed -We will repeat urine cultures, blood cultures, inflammatory markers -Hold off on treatment until urine repeat urine culture and urinalysis Increased anion gap metabolic acidosis likely secondary to TIMMY on CKD: Was on bicarb drip has been discontinued. Iron deficiency anemia: Serum iron:24 , serum ferritin:525, percent saturation:19.6 , TIBC:122 Currently on IV iron Due to drop in hemoglobin to 6.2 : No evident active source of bleeding: S/p 2 unit PRBC transfusion. FOBT Elevated troponin: Likely secondary to underlying CKD Patient currently denies any chest pain shortness of breath palpitation Follow 2D echo: Normal LV size and systolic function, no RWMA , LVEF 65%, normal RV size and systolic function. Add nephjuan manuel guzman Attestations Medical Necessity Statement*: Patient requires hospitalization for acute kidney injury, CKD, requiring dialysis Coding Level of Care Code Acute Network Controller for Chg Fwd Diagnoses Acute kidney injury superimposed on chronic kidney disease N17.9; N18.9 Anemia D64.9 Hypertension I10
[2021-11-16 11:30] LABS: Procalcitonin 0.43 ng/mL (0-0.5)
[2021-11-16 12:03] LABS: Erythrocyte Sedimentation Rate 31 mm/hr (0-10)
[2021-11-16 15:37] VITALS: BP 121/75; PULSE 70; O2SAT 97
[2021-11-16] MEDS: ferric gluconate 125 MG in sodium chloride 0.9% (100 ml) 100 ML 110 MG IV (16:44)
[2021-11-16] MEDS: calcitriol 0.25 mcg Capsule PO (18:18)
[2021-11-16] MEDS: bacitracin ointment Pkt 1 EACH TOPICAL (18:18)
[2021-11-16 18:35] LABS: Urine Color Yellow (Yellow)
[2021-11-16 18:36] LABS: Add Urine Microscopic? YES; Bilirubin Urine 1+ (Negative); Blood Urine 3+ (Negative); Glucose Urine UA Norm (Normal); Ketones Urine 1+ (Negative); Leukocyte Esterase Urine 2+ (Negative); Nitrate Urine Negative (Negative); Protein Urine Neg (Negative); Urobilinogen Urine Norm (Negative); pH Urine 5 (5-7)
[2021-11-16 18:40] LABS: Add Urine Culture? Yes; Bacteria Urine 2+ /hpf; RBC Urine >100 /hpf (0-2); Squamous Epithelial Cell Urine 0-4 /hpf (0-5); WBC Urine 0-4 /hpf (0-5)
[2021-11-16 20:00] VITALS: BP 136/72; PULSE 74; RESP 16; TEMP 36.7; O2SAT 99
[2021-11-17] VITALS (7 sets, daily range): BP systolic 112–173; BP diastolic 64–79; PULSE 71–95; RESP 15–18; TEMP 36.3–36.8; O2SAT 97–100
[2021-11-17 04:39] LABS: Basophils % 0.6 %; Eosinophils # 0.3 10^3/uL (0.0-0.8); Eosinophils % 4.9 %; Hematocrit 22.2 % (42.0-52.0); Hemoglobin 7.3 g/dL (11.7-16.6); Lymphocytes % 20.1 %; Mean Corpuscular HGB Conc 32.9 g/dL (30.0-36.0); Mean Corpuscular Hemoglobin 29.1 pg (28.0-34.0); Mean Corpuscular Volume 88.4 fl (80-94); Mean Platelet Volume 9.1 fL (7.4-10.4); Monocytes # 0.3 10^3/uL (0.2-0.9); Monocytes % 6.5 %; Neutrophils # 3.42 10^3/uL (1.8-7.7); Neutrophils % 67.3 %; Nucleated Red Blood Cells % 0 %; Platelet Count 100 10^3/cmm (130-400); Red Blood Count 2.51 10^6/uL (4.1-5.3); Red Cell Distribution Width 15.4 % (12.1-15.1); White Blood Count 5.1 10^3/uL (4.0-10.0)
[2021-11-17 04:54] LABS: Anion Gap 23.7 (5-19); Blood Urea Nitrogen 38 mg/dL (8-23); Calcium 8.4 mg/dL (8.5-10.5); Carbon Dioxide 17 mmol/L (22-29); Chloride 98 mmol/L (98-107); Glomerular Filtration Rate 10.4 mL/min (90-130); Glucose 67 mg/dL (65-115); Osmolality Calculated 287 mOsm/kg (285-295); Potassium 3.7 mmol/L (3.5-5.1); Sodium 135 mmol/L (136-145)
[2021-11-17] MEDS: heparin, porcine 1,000 unit/mL INJ 10 mL 10000 UNIT HE (10:14)
[2021-11-17] MEDS: tamsulosin 0.4 mg Capsule PO (11:33)
[2021-11-17] MEDS: bacitracin ointment Pkt 1 EACH TOPICAL ×2 (11:33→17:40)
[2021-11-17] MEDS: b-complex-vitamin c Tablet 1 EACH PO (11:33)
[2021-11-17] MEDS: calcitriol 0.25 mcg Capsule PO ×2 (11:33→17:40)
--- NOTE | 2021-11-17 11:52 | P.PN_ITS ---
Subjective Subjective: Mr. Hamilton just returned from dialysis. The treatment went well with no complications. Following dialysis he remains very sleepy. Hemodynamics reviewed and remained stable. No extremity edema, shortness of breath or other hypervolemic symptoms. Medications: Reviewed: Yes Medication Review Details: Generic Name Dose Route Start Last Admin Trade Name Freq PRN Reason Stop Dose Admin Bacitracin 1 each 11/14/21 18:00 11/14/21 20:44 Bacitracin Ointm ent Pkt TOPICAL 1 each BID LAURE Administration Protocol Calcitriol 0.25 mcg 11/11/21 18:00 11/14/21 17:11 Calcitriol 0.25 Mcg Capsule PO 0.25 mcg BID LAURE Administration Clonazepam 0.5 mg 11/11/21 16:32 11/13/21 21:05 Clonazepam 1 Mg Tablet PO 0.5 mg TID PRN Administration Anxiety Heparin Sodium (Po rcine) 5,000 unit 11/11/21 18:00 11/13/21 05:11 Heparin 5,000 Un it/Ml Inj 1 Ml SUBCUT 5,000 unit Q12H LAURE Administration Hydroxyzine Pamoat e 25 mg 11/11/21 16:37 11/13/21 21:05 Hydroxyzine 25 M g Capsule PO 25 mg BID PRN Administration moderate anxiety Ferric Sodium Gluc stephenie 125 mg 110 mls @ 110 mls /hr 11/11/21 15:45 11/14/21 18:09 / Sodium Chlorid e IV 11/18/21 16:44 Infused Q24H [facility] Infusion Multivitamins 1 each 11/12/21 09:00 11/14/21 09:09 G-Tscnhdv-Uuxcak n C Tablet PO Not Given DAILY [facility] Tamsulosin HCl 0.4 mg 11/12/21 09:00 11/14/21 09:09 Tamsulosin 0.4 M g Capsule PO Not Given DAILY [facility] Vitals/I&O/Wt Last Vital Signs Temp 98.3 F 11/17/21 07:42 Pulse 72 11/17/21 07:42 Resp 16 11/17/21 07:42 BP 173/66 11/17/21 07:42 Pulse Ox 97 11/17/21 07:42 11/16/21 11/17/21 11/17/21 22:59 06:59 14:59 Intake Total 210 / 210 Output Total 0 / 0 175 / 175 Balance 210 / 210 -175 / 35 Weight last 48 hrs Weight 76.3 kg Physical Exam Narrative: Constitutional: Awake, comfortable HEENT: Wet mucosa, no jvp, non icteric Lungs: Bilaterally clear without discernible wheeze or rales in all lung zones CVS: S1 S2, no murmurs Abdo: Soft, BS ok Ext 4: Minimal edema, peripheral perfusion with no cyanosis Neurological: Grossly non-focal Urinary Catheter Management: Sandoval: Cath Placed During This Visit: yes, but has since been removed by the nurse Reason for Continuing Indwelling Catheter: Accurate Measurement of Urinary Output in Critically Ill Patients Urinary Catheter Date of Insertion: 11/11/21 Urinary Catheter Time of Insertion: 15:37 Date Urinary Catheter Removed: 11/14/21 Time Urinary Catheter Discontinued: 12:00 Data : 11/17/21 04:20 11/17/21 04:20 Micro: Microbiology 11/16/21 13:30 Blood Culture - Preliminary Blood SPECIMEN COLLECTED 11/16/21 13:28 Blood Culture - Preliminary Blood SPECIMEN COLLECTED A&P Assessment and plan (1) Acute kidney injury superimposed on chronic kidney disease: 1.? 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 Chemistry Minor noncritical aberration inc acidosis, should correct with effective dialysis 3.? CKD-MB Albumin 2.5 thus corrected calcium is roughly 8.8 i.e. within normal range.? PTH is elevated, however this is secondary to vitamin D deficiency.? Currently on Rocaltrol. 4.? Hemodynamics These look stable. 5. Anemia of ESRD s/p transfusion, iv iron Will also give EPO 6. Disposition Case management to set up outpatient hemodialysis after which time he will be safe for discharge. Joey Rothman MD Nephrology [phone] Patient seen and examined via telemedicine, with the assistance of the bedside RN > 25 min spent in evaluation and mgmt of patient Status: Acute Attestations Medical Necessity Statement*: ESRD mgmt Coding Level of Care Code Acute Distributed Generation Project Manager for [facility] Fwd Diagnoses Acute kidney injury superimposed on chronic kidney disease N17.9; N18.9
[2021-11-17] MEDS: epoetin alfa 10,000 unit/mL INJ 10000 UNIT SUBCUT (13:03)
--- NOTE | 2021-11-17 14:11 | PC.HD ---
Dialysis cath with pressure dressing, c/d/i, with bruising and swelling noted around dressing. Dressing left intact.
--- NOTE | 2021-11-17 15:07 | P.PN_ITS ---
Subjective Subjective: Hospital course, labs appreciated. On examination seen during dialysis. Has remained hemodynamically stable and afebrile. Tolerating dialysis well. Bleeding from dialysis catheter insertion site resolved. Vitals/I&O/Wt Last Vital Signs Temp 97.8 F 11/17/21 12:00 Pulse 76 11/17/21 12:00 Resp 16 11/17/21 12:00 BP 137/69 11/17/21 12:00 Pulse Ox 100 11/17/21 12:00 11/17/21 11/17/21 11/17/21 06:59 14:59 22:59 Output Total 175 / 175 Balance -175 / 35 Weight last 48 hrs Weight 76.3 kg Physical Exam Const: COMMON NORMALS: no acute distress and patient oriented x3 HENMT: COMMON NORMALS: normocephalic and atraumatic HEAD & SCALP: normocephalic and atraumatic Eye: COMMON NORMALS: no scleral icterus GENERAL EYE: appearance normal, both eyes and all related structures Chest: COMMONS NORMALS: normal inspection of the chest and normal palpation of entire chest wall CHEST: Yes Symmetrical chest wall rise Resp: COMMON NORMALS: normal respiratory effort, No retractions, No use of accessory muscles and clear to auscultation bilaterally EFFORT & INSPECTION: Yes symmetric chest movement AUSCULTATION: clear to auscultation bilaterally Cardio: COMMON NORMALS: regular rate, regular rhythm, S1 normal heart sound present, S2 normal heart sound present, No gallops present (Cardio), No murmurs present (Cardio), No rub (Cardio) and Peripheral pulses 2+ throughout RATE: regular rate RHYTHM: regular rhythm HEART SOUNDS: S1 normal heart sound present and S2 normal heart sound present PERIPHERAL PULSES: Peripheral pulses 2+ throughout GI: COMMON NORMALS: Normal to inspection, nondistended, normoactive bowel sounds present, Soft to palpation, non-tender, No hepatosplenomegaly present and no masses AUSCULTATION: Yes normoactive bowel sounds PALPATION: Yes Soft to palpation and Yes No hepatosplenomegaly present RECTAL EXAM: Yes deferred Extremity: COMMON NORMALS: no clubbing, cyanosis or edema and no pedal edema NARRATIVE EXTREMITY EXAM: Trace bilateral lower extremity pitting edema Neuro: COMMON NORMALS: patient oriented x3 Psych: COMMON NORMALS: mental status grossly normal Urinary Catheter Management: Sandoval: Cath Placed During This Visit: yes, but has since been removed by the nurse Reason for Continuing Indwelling Catheter: Accurate Measurement of Urinary Output in Critically Ill Patients Urinary Catheter Date of Insertion: 11/11/21 Urinary Catheter Time of Insertion: 15:37 Date Urinary Catheter Removed: 11/14/21 Time Urinary Catheter Discontinued: 12:00 Data : 11/17/21 04:20 11/17/21 04:20 Micro: Microbiology 11/16/21 13:30 Blood Culture - Preliminary Blood NEGATIVE TO DATE 11/16/21 13:28 Blood Culture - Preliminary Blood NEGATIVE TO DATE A&P Assessment and plan (1) Acute kidney injury superimposed on chronic kidney disease: Status: Acute (2) Anemia: Status: Acute (3) Hypertension: Status: Acute Plan 71 year old male with PMH of ?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 diagnosed in 2015 currently on expectant management recent h/o ?left total knee arthroplasty in June 2021. Came in with chief complaint of generalized weakness fatigue poor appetite going on for the last 1 to 2 weeks. Assessment: TIMMY on worsening CKD stage IV: Post HD catheter placement. Patient nephrology recommendations. Plan for 1 more session of dialysis today. 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 Awaiting chair time as an outpatient. Medical reconciliation done for nephrotoxic drugs. Blood pressure well controlled. Chronic Sandoval catheterization. Urinalysis: Too numerous to count WBC : Less likely UTI, possibly secondary to indwelling Sandoval catheter. 2D echo:Normal lV size, systolic function and wall ?thickness, with no regional wall motion abnormalities. LVEF 65 %. Normal diastolic function. Normal RV size and systolic function. Mildly increased left atrial size. Mild mitral valve regurgitation. Normal pulmonary artery pressure. Urine cultures positive for MRSA, possible contaminant? Repeat urine culture, blood culture sent. Hold off antibiotics for now. Does have a Sandoval catheter placed Given on new HD catheter will need to follow-up blood cultures to avoid Iron deficiency anemia: Serum iron:24 , serum ferritin:525, percent saturation:19.6 , TIBC:122 Currently on IV iron Due to drop in hemoglobin to 6.2 : No evident active source of bleeding: S/p 2 unit PRBC transfusion. FOBT Elevated troponin: Likely secondary to underlying CKD Patient currently denies any chest pain shortness of breath palpitation Follow 2D echo: Normal LV size and systolic function, no RWMA , LVEF 65%, normal RV size and systolic function. Renal dialysis diet with protein shakes. Famotidine for PUD prophylaxis. Hold off on heparin given bleeding from HD catheter site yesterday. SCDs for DVT prophylaxis. Attestations Medical Necessity Statement*: Requires further hospitalization for management of CKD, hemodialysis with a new HD catheter replacement while outpatient chair time is sought Time Spent in Patient Care: 16 - 35 minutes Coding Level of Care Code Acute Integration Analyst for D[employer] Diagnoses Acute kidney injury superimposed on chronic kidney disease N17.9; N18.9 Anemia D64.9 Hypertension I10
[2021-11-17] MEDS: ferric gluconate 125 MG in sodium chloride 0.9% (100 ml) 100 ML 110 MG IV (17:30)
[2021-11-18] VITALS: BP 111/66; PULSE 73; RESP 16; TEMP 36.7; O2SAT 99
[2021-11-18 04:00] VITALS: BP 113/66; PULSE 73; RESP 18; TEMP 36.6; O2SAT 99
[2021-11-18 06:05] LABS: Basophils % 0.5 %; Eosinophils # 0.2 10^3/uL (0.0-0.8); Eosinophils % 3.8 %; Hematocrit 22.8 % (42.0-52.0); Hemoglobin 7.5 g/dL (11.7-16.6); Lymphocytes # 1.1 10^3/uL (0.8-4.8); Lymphocytes % 19.5 %; Mean Corpuscular HGB Conc 32.9 g/dL (30.0-36.0); Mean Corpuscular Hemoglobin 28.7 pg (28.0-34.0); Mean Corpuscular Volume 87.4 fl (80-94); Monocytes # 0.4 10^3/uL (0.2-0.9); Monocytes % 7.5 %; Neutrophils # 3.76 10^3/uL (1.8-7.7); Neutrophils % 68.3 %; Nucleated Red Blood Cells % 0 %; Platelet Count 111 10^3/cmm (130-400); Red Blood Count 2.61 10^6/uL (4.1-5.3); Red Cell Distribution Width 15.4 % (12.1-15.1); White Blood Count 5.5 10^3/uL (4.0-10.0)
[2021-11-18 06:32] LABS: Anion Gap 22.5 (5-19); Blood Urea Nitrogen 20 mg/dL (8-23); Calcium 8.4 mg/dL (8.5-10.5); Carbon Dioxide 20 mmol/L (22-29); Chloride 100 mmol/L (98-107); Glomerular Filtration Rate 16.4 mL/min (90-130); Glucose 72 mg/dL (65-115); Osmolality Calculated 289 mOsm/kg (285-295); Potassium 3.5 mmol/L (3.5-5.1); Sodium 139 mmol/L (136-145)
[2021-11-18 07:52] VITALS: BP 117/66; PULSE 73; RESP 16; TEMP 36.5; O2SAT 100
--- NOTE | 2021-11-18 08:28 | PC.SOCIAL ---
IMM Update Pg. 2 of IMM updated and reviewed with patient, who verbalized understanding. Copy provided.
[2021-11-18] MEDS: tamsulosin 0.4 mg Capsule PO (08:37)
[2021-11-18] MEDS: b-complex-vitamin c Tablet 1 EACH PO (08:37)
[2021-11-18] MEDS: calcitriol 0.25 mcg Capsule PO (08:37)
[2021-11-18] MEDS: bacitracin ointment Pkt 1 EACH TOPICAL (08:38)
[2021-11-18 11:18] VITALS: BP 132/70; PULSE 72; RESP 16; TEMP 36.7; O2SAT 100
--- NOTE | 2021-11-18 13:02 | P.PN_ITS ---
Subjective Subjective: Mr. Hamilton is awake, interactive, feeling well. Keen to go home. Pending discharge at this time. No other new issues. Dialysis went well yesterday. Medications: Reviewed: Yes Medication Review Details: Generic Name Dose Route Start Last Admin Trade Name Freq PRN Reason Stop Dose Admin Bacitracin 1 each 11/14/21 18:00 11/14/21 20:44 Bacitracin Ointm ent Pkt TOPICAL 1 each BID LAURE Administration Protocol Calcitriol 0.25 mcg 11/11/21 18:00 11/14/21 17:11 Calcitriol 0.25 Mcg Capsule PO 0.25 mcg BID LAURE Administration Clonazepam 0.5 mg 11/11/21 16:32 11/13/21 21:05 Clonazepam 1 Mg Tablet PO 0.5 mg TID PRN Administration Anxiety Heparin Sodium (Po rcine) 5,000 unit 11/11/21 18:00 11/13/21 05:11 Heparin 5,000 Un it/Ml Inj 1 Ml SUBCUT 5,000 unit Q12H LAURE Administration Hydroxyzine Pamoat e 25 mg 11/11/21 16:37 11/13/21 21:05 Hydroxyzine 25 M g Capsule PO 25 mg BID PRN Administration moderate anxiety Ferric Sodium Gluc stephenie 125 mg 110 mls @ 110 mls /hr 11/11/21 15:45 11/14/21 18:09 / Sodium Chlorid e IV 11/18/21 16:44 Infused Q24H [facility] Infusion Multivitamins 1 each 11/12/21 09:00 11/14/21 09:09 B-[id number]-Ptndbc n C Tablet PO Not Given DAILY [facility] Tamsulosin HCl 0.4 mg 11/12/21 09:00 11/14/21 09:09 Tamsulosin 0.4 M g Capsule PO Not Given DAILY [facility] Vitals/I&O/Wt Last Vital Signs Temp 98.0 F 11/18/21 11:18 Pulse 72 11/18/21 11:18 Resp 16 11/18/21 11:18 BP 132/70 11/18/21 11:18 Pulse Ox 100 11/18/21 11:18 11/17/21 11/18/21 11/18/21 22:59 06:59 14:59 Intake Total 110 / 110 0 / 110 Output Total 250 / 2251 Balance -140 / -2141 0 / -2141 Weight last 48 hrs Weight 70.3 kg Physical Exam Narrative: Constitutional: Awake, comfortable HEENT: Wet mucosa, no jvp, non icteric Lungs: Bilaterally clear without discernible wheeze or rales in all lung zones CVS: S1 S2, no murmurs Abdo: Soft, BS ok Ext 4: Minimal edema, peripheral perfusion with no cyanosis Neurological: Grossly non-focal Urinary Catheter Management: Sandoval: Cath Placed During This Visit: yes, but has since been removed by the nurse Reason for Continuing Indwelling Catheter: Accurate Measurement of Urinary Output in Critically Ill Patients Urinary Catheter Date of Insertion: 11/11/21 Urinary Catheter Time of Insertion: 15:37 Date Urinary Catheter Removed: 11/14/21 Time Urinary Catheter Discontinued: 12:00 Data : 11/18/21 04:49 11/18/21 04:49 Micro: Microbiology 11/16/21 18:28 Urine Culture - Preliminary Urine Catheterized Staphylococcus aureus Yeast 11/16/21 13:30 Blood Culture - Preliminary Blood NEGATIVE TO DATE 11/16/21 13:28 Blood Culture - Preliminary Blood NEGATIVE TO DATE A&P Assessment and plan (1) Acute kidney injury superimposed on chronic kidney disease: 1.? Acute kidney injury on chronic kidney disease > likely to now be ESRD S/p tunneled line I anticipate discharge, however, if he does remain in the hospital tomorrow I will dialyze him. Avoid usual nephrotoxic agents Dose medication for GFR less than 50 2.? Chemistry Minor noncritical aberration inc acidosis 3.? CKD-MB Albumin 2.5 thus corrected calcium is roughly 8.8 i.e. within normal range.? PTH is elevated, however this is secondary to vitamin D deficiency.? Currently on Rocaltrol. 4.? Hemodynamics These look stable. 5. Anemia of ESRD s/p transfusion, iv iron, EPO 6. Disposition pending DC today Joey Rothman MD Nephrology [phone] Patient seen and examined via telemedicine, with the assistance of the bedside RN > 25 min spent in evaluation and mgmt of patient Status: Acute Attestations Medical Necessity Statement*: ESRD mgmt Coding Level of Care Code Acute Wired Sweatband Cutter for g Fwd Diagnoses Acute kidney injury superimposed on chronic kidney disease N17.9; N18.9
--- NOTE | 2021-11-18 13:30 | PM.DCS ---
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 diagnosed in 2015 currently on expectant management recent h/o ?left total knee arthroplasty in June 2021. patient was recently admitted in the hospital in september with TIMMY on CKD.During that? hospital stay SCR had peaked to 6.8, he was managed conservatively during that hospital stay with I.V Fluids with improvement in renal function he was discharged home. Patient was in urology clinic today, where his berrios was removed and was sent to ER as his SCR was again found to be 6.8 today. During last admission patient was discharged on berrios catheter as he failed voiding trial. Hospital Course Hospital Course Patient admitted to hospital further evaluation and management of TIMMY on CKD. Nephrology was consulted. On admission in September there is concern for obstruction,Possible AIN, his serologies were negative and SPEP was negative. His nephrotoxic drugs were discontinued. During current hospitalization echocardiogram was done which ruled out pericardial effusion. At start he was treated conservatively by replacing Berrios. Long discussions were done with family and patient himself. Patient agreed for hemodialysis going forward. He underwent tunneled dialysis catheter placement in right internal jugular vein on 11/15. Post placement of dialysis catheter he was started on hemodialysis which he has tolerated well. During hospitalization patient's urine culture grew MRSA which is most likely a contaminant as sample was taken from urine catheter. Repeat urine culture and blood cultures so far are negative. Patient has chair time set as an outpatient on coming on 11/20. He is been discharged hemodynamically stable condition. Physical Exam Const: COMMON NORMALS: no acute distress and patient oriented x3 HENMT: COMMON NORMALS: normocephalic and atraumatic HEAD & SCALP: normocephalic and atraumatic Eye: COMMON NORMALS: no scleral icterus GENERAL EYE: appearance normal, both eyes and all related structures Chest: COMMONS NORMALS: normal inspection of the chest and normal palpation of entire chest wall CHEST: Yes Symmetrical chest wall rise Resp: COMMON NORMALS: normal respiratory effort, No retractions, No use of accessory muscles and clear to auscultation bilaterally EFFORT & INSPECTION: Yes symmetric chest movement AUSCULTATION: clear to auscultation bilaterally Cardio: COMMON NORMALS: regular rate, regular rhythm, S1 normal heart sound present, S2 normal heart sound present, No gallops present (Cardio), No murmurs present (Cardio), No rub (Cardio) and Peripheral pulses 2+ throughout RATE: regular rate RHYTHM: regular rhythm HEART SOUNDS: S1 normal heart sound present and S2 normal heart sound present PERIPHERAL PULSES: Peripheral pulses 2+ throughout GI: COMMON NORMALS: Normal to inspection, nondistended, normoactive bowel sounds present, Soft to palpation, non-tender, No hepatosplenomegaly present and no masses AUSCULTATION: Yes normoactive bowel sounds PALPATION: Yes Soft to palpation and Yes No hepatosplenomegaly present RECTAL EXAM: Yes deferred Extremity: COMMON NORMALS: no clubbing, cyanosis or edema and no pedal edema NARRATIVE EXTREMITY EXAM: Trace bilateral lower extremity pitting edema Neuro: COMMON NORMALS: patient oriented x3 Psych: COMMON NORMALS: mental status grossly normal Urinary Catheter Management: Berrios: Cath Placed During This Visit: yes, but has since been removed by the nurse Reason for Continuing Indwelling Catheter: Accurate Measurement of Urinary Output in Critically Ill Patients Urinary Catheter Date of Insertion: 11/11/21 Urinary Catheter Time of Insertion: 15:37 Date Urinary Catheter Removed: 11/14/21 Time Urinary Catheter Discontinued: 12:00 Discharge Data Studies Completed and Pending Completed Studies During Hospitalization Category Date Time Status XR chest 1V portable [id number] Stat Exams 11/11/21 14:40 Completed CV. echo complete* [id number] Urgent Ultrasound 11/11/21 15:38 Completed US renal BI* [id number] Routine Ultrasound 11/11/21 15:39 Completed Pending at discharge Category Date Time Status Blood Culture Stat Lab 11/16/21 13:30 Results Urine Culture Routine Lab 11/16/21 18:28 Results Radiology Impressions Chest X-Ray 11/11/21 14:40 IMPRESSION: 1. No acute cardiopulmonary finding. No change. Renal Ultrasound 11/11/21 15:39 IMPRESSION: 1. Technically very difficult and extremely limited evaluation of the kidneys. 2. Would be difficult to exclude hydronephrosis or mass. C-Arm Fluoroscopy 11/15/21 07:44 Impression: Insertion of right dialysis catheter into the internal jugular vein and superior vena cava. Laboratory Results WBC 5.5 10^3/uL (4.0-10.0) 11/18/21 04:49 Corrected WBC Cancelled 11/13/21 04:56 RBC 2.61 10^6/uL (4.1-5.3) L 11/18/21 04:49 Hgb 7.5 g/dL (11.7-16.6) L 11/18/21 04:49 Hct 22.8 % (42.0-52.0) L 11/18/21 04:49 MCV 87.4 fl (80-94) 11/18/21 04:49 MCH 28.7 pg (28.0-34.0) 11/18/21 04:49 MCHC 32.9 g/dL (30.0-36.0) 11/18/21 04:49 RDW 15.4 % (12.1-15.1) H 11/18/21 04:49 Plt Count 111 10^3/cmm (130-400) L 11/18/21 04:49 MPV 10.0 fL (7.4-10.4) 11/18/21 04:49 Gran % Cancelled 11/13/21 04:56 Neut % (Auto) 68.3 % 11/18/21 04:49 Lymph % (Auto) 19.5 % 11/18/21 04:49 [place] % (Auto) 7.5 % 11/18/21 04:49 Eos % (Auto) 3.8 % 11/18/21 04:49 Baso % (Auto) 0.5 % 11/18/21 04:49 Neut # (Auto) 3.76 10^3/uL (1.8-7.7) 11/18/21 04:49 Lymph # (Auto) 1.1 10^3/uL (0.8-4.8) 11/18/21 04:49 [place] # (Auto) 0.4 10^3/uL (0.2-0.9) 11/18/21 04:49 Eos # (Auto) 0.2 10^3/uL (0.0-0.8) 11/18/21 04:49 Baso # (Auto) 0.0 10^3/uL (0.0-0.1) 11/18/21 04:49 Absolute Gran (auto) Cancelled 11/13/21 04:56 Nucleated RBC % (auto) 0 % 11/18/21 04:49 Nucleated RBCs # 0.0 /100WBC 11/18/21 04:49 ESR 31 mm/hr (0-10) H 11/16/21 04:18 Sodium 139 mmol/L (136-145) 11/18/21 04:49 Potassium 3.5 mmol/L (3.5-5.1) 11/18/21 04:49 Chloride 100 mmol/L (98-107) 11/18/21 04:49 Carbon Dioxide 20 mmol/L (22-29) L 11/18/21 04:49 Anion Gap 22.5 (5-19) H 11/18/21 04:49 BUN 20 mg/dL (8-23) 11/18/21 04:49 Creatinine 3.7 mg/dL (0.7-1.2) H 11/18/21 04:49 GFR Calculation 16.4 mL/min (90-130) L 11/18/21 04:49 Glucose 72 mg/dL (65-115) 11/18/21 04:49 Calculated Osmolality 289 mOsm/kg (285-295) 11/18/21 04:49 Uric Acid 11.1 mg/dL (3.4-7.0) H 11/11/21 15:28 Calcium 8.4 mg/dL (8.5-10.5) L 11/18/21 04:49 Phosphorus 4.1 mg/dL (2.5-4.5) 11/14/21 03:21 Magnesium 1.6 mg/dL (1.7-2.3) L 11/14/21 03:21 Total Bilirubin 0.5 mg/dL (0.15-1.2) 11/14/21 03:21 AST 21 U/L (0-40) 11/14/21 03:21 ALT 11 U/L (0-41) 11/14/21 03:21 Alkaline Phosphatase 114 IU/L (40-130) 11/14/21 03:21 Troponin T Baseline 39 ng/L (0-15) H 11/11/21 15:30 Troponin T 120 Minute 34.46 ng/L (0-15) H 11/11/21 17:18 Delta Troponin T -4.54 ABS# (0-10) L 11/11/21 17:18 Troponin T Hi Sens 6Hr 35.40 ng/L (0-15) H 11/11/21 21:52 Troponin T Hi Sens 6Hr Delta -3.60 ng/L (0-12) L 11/11/21 21:52 C-Reactive Protein 38.9 mg/L (0.0-4.9) H 11/16/21 04:18 Total Protein 5.4 g/dL (6.6-8.7) L 11/14/21 03:21 Albumin 2.2 g/dL (3.5-5.2) L 11/14/21 03:21 Globulin 3.2 g/dL (1.3-4.6) 11/14/21 03:21 Lipase 5 U/L (13-60) L 11/11/21 15:30 25-OH Vitamin D Total 7 ng/mL (30-100) L 11/12/21 04:34 Procalcitonin 0.43 ng/mL (0-0.5) 11/16/21 04:18 PTH Intact 113.1 pg/mL (15-65) H 11/12/21 04:34 Calcium (PTH Intact) 7.5 mg/dL (8.5-10.5) L 11/12/21 04:34 Urine Color Yellow (Yellow) 11/16/21 18:28 Urine Appearance Sl cloudy (CLEAR) A 11/16/21 18:28 Urine pH 5 (5-7) 11/16/21 18:28 Ur Specific [place] 1.020 (1.005-1.030) 11/16/21 18:28 Urine Protein Neg (Negative) 11/16/21 18:28 Urine Glucose (UA) Norm (Normal) 11/16/21 18:28 Urine Ketones 1+ (Negative) H 11/16/21 18:28 Urine Blood 3+ (Negative) H 11/16/21 18:28 Urine Nitrate Negative (Negative) 11/16/21 18: Urine Bilirubin 1+ (Negative) H 11/16/21 18:28 Urine Urobilinogen Norm mg/dL (Negative) 11/16/21 18:28 Ur Leukocyte Esterase 2+ (Negative) H 11/16/21 18:28 Urine RBC >100 /hpf (0-2) H 11/16/21 18:28 Urine WBC 0-4 /hpf (0-5) H 11/16/21 18:28 Ur Squamous Epith Cells 0-4 /hpf (0-5) H 11/16/21 18:28 Ur Transition Epith Cell Cancelled 11/11/21 17:00 Ur Renal Epithelial Cell Cancelled 11/11/21 17:00 Calcium Oxalate Crystal Cancelled 11/11/21 17:00 Uric Acid Crystals Cancelled 11/11/21 17:00 Triple Phos Crystals Cancelled 11/11/21 17:00 Other Crystals Cancelled 11/11/21 17:00 Amorphous Sediment Not Reportable 11/16/21 18:28 Urine Bacteria 2+ /hpf (NONE) H 11/16/21 18:28 Hyaline Casts Cancelled 11/11/21 17:00 Fine Granular Casts Cancelled 11/11/21 17:00 Coarse Granular Casts Cancelled 11/11/21 17:00 RBC Casts Cancelled 11/11/21 17:00 Other Casts Cancelled 11/11/21 17:00 Urine Mucus Cancelled 11/11/21 17:00 Urine Trichomonas Cancelled 11/11/21 17:00 Urine Yeast Cancelled 11/11/21 17:00 Urine Sperm Cancelled 11/11/21 17:00 Ur Oval Fat Bodies Cancelled 11/11/21 17:00 Ur Random Sodium 31 mmol/L 11/11/21 17:00 Ur Random Potassium 10 mmol/L 11/11/21 17:00 Ur Random Chloride 21 mmol/L 11/11/21 17:00 Urine Creatinine 54 mg/dL (39-259) 11/12/21 17:22 U Free [place] Light Ch 107.15 mg/L (<=32.90) H 11/11/21 17:00 Anti-ds DNA IgG Ab 1 IU/mL 11/11/21 17:18 Free [place] Light Chains 156.4 mg/L (3.3-19.4) H 11/11/21 17:18 Free Lambda Light Chain 144.8 mg/L (5.7-26.3) H 11/11/21 17:18 Free [place]/Lambda Ratio 1.08 (0.26-1.65) 11/11/21 17:18 Hep Bs Antigen Non-reactive (Nonreactive) 11/11/21 15:28 Hep Bs Antibody 3.5 (11.5-1000) L 11/11/21 15:28 Hepatitis C Antibody Non-reactive (Nonreactive) 11/11/21 15:28 Anti-Streptolysin O Ab <50 IU/mL (<200) 11/11/21 17:18 Blood Type A Positive 11/13/21 07:22 Rho(D) Type Positive 11/13/21 07:22 Antibody Screen Negative 11/13/21 07:22 Crossmatch See Detail 11/13/21 07:22 Vitals Last Vital Signs Temp 98.0 F 11/18/21 11:18 Pulse 72 11/18/21 11:18 Resp 16 11/18/21 11:18 BP 132/70 11/18/21 11:18 Pulse Ox 100 11/18/21 11:18 Discharge Plan Discharge Patient Disposition: Home Condition: Stable Prescriptions: New ferrous sulfate 325 mg (65 mg iron) tablet 325 mg PO DAILY Qty: 60 0RF Continued tamsulosin 0.4 mg capsule 0.4 mg PO DAILY 0RF hydroxyzine HCl 50 mg Tablet 25 - 50 mg PO BID PRN (Reason: moderate anxiety) 0RF acetaminophen 500 mg Tablet 1,000 mg PO Q8H PRN (Reason: Pain) 0RF calcitriol 0.25 mcg Capsule 0.25 mcg PO BID Qty: 30 0RF cyproheptadine 4 mg Tablet 4 mg PO BID 0RF clonazepam 1 mg tablet 0.5 - 1 mg PO TID PRN (Reason: Anxiety) 0RF Discontinued sodium bicarbonate 650 mg Tablet 650 mg PO TID 0RF levofloxacin 500 mg Tablet 500 mg PO DAILY 0RF Discharge Orders: Discharge Order (Routine); Ordered 11/18/21 Ordered By: Davin Wei Referrals: [facility] [Outside] Diego,LIAM Dumont [Primary Care Provider] - 7-10 days Discharge Diet: Usual diet Discharge Activity: Resume usual activity Patient Instructions: Opioid Safety Activity Restrictions/Additional Instructions: Please continue outpatient dialysis as discussed in detail. Your next chair time is on 11/20. Please follow-up with a primary care provider within next 1 week. Please follow the result of blood culture and urine culture with your primary care provider. Discharge Attestations Time Spent in Discharge Care*: greater than 30 min Specific Discharge Activities: educating patient, discussing with pcp/other providers, discussing with case reviewer/social workers/dc planners, documenting/other paperwork and evaluating patient/reviewing data Status at Discharge: Cognitive status at discharge: cognitively intact, Behavioral status at discharge: cooperative, Functional status at discharge: uses cane/walker, Overall status at discharge: patient is back to baseline Quality Metrics Clinical Quality Measures [ No reported AMI, CVA or VTE this stay] Coding Level of Care Code Acute Chg FW DC note Diagnoses Acute kidney injury superimposed on chronic kidney disease N17.9; N18.9
== END 2021-11-18 14:30 | disposition home health service (06) | DRG 674 ==
LOC: ER 16:30 → MEDSURG 17:08
PROVIDERS: Family Medicine; Internal Medicine Nephrology; Surgery; Admitting Provider Internal Medicine; Emergency Provider Emergency Medicine; PCP Nurse Practitioner Family; Visit Provider Student in an Organized Health Care Education/Training Program
PROC: 0JH63XZ Insertion of Tunneled Vascular Access Device into Chest Subcutaneous Tissue and Fascia, Percutaneous Approach (ICD-10-PCS; principal; 2021-11-15 08:00)
DX: N17.9 Acute kidney failure, unspecified (principal); E87.2 Acidosis; Z85.038 Personal history of other malignant neoplasm of large intestine; N18.4 Chronic kidney disease, stage 4 (severe); I12.9 Hypertensive chronic kidney disease with stage 1 through stage 4 chronic kidney disease, or unspecified chronic kidney disease; M1A.9XX1 Chronic gout, unspecified, with tophus (tophi); M19.90 Unspecified osteoarthritis, unspecified site; M81.0 Age-related osteoporosis without current pathological fracture; Z90.49 Acquired absence of other specified parts of digestive tract; Z87.891 Personal history of nicotine dependence; D63.1 Anemia in chronic kidney disease; D50.9 Iron deficiency anemia, unspecified
CPT/HCPCS: 36415; 36430; 51702; 71045; 76000; 76770; 77001; 80048; 80053; 81001; 82274; 82306; 82310; 82378; 82436; 82575; 82668; 82728; 83540; 83550; 83690; 83735; 83883; 83970; 84100; 84133; 84145; 84156; 84300; 84484; 84550; 85018; 85025; 85651; 86060; 86140; 86225; 86335; 86706; 86803; 86850; 86900; 86920; 87040; 87077; 87086; 87186; 87340; 93005; 93306; 96365; 96366; 96372; 97110; 97161; 97530; 99214; 99285; 99999; J1644; J1940; J2704; J2916; J3010; J3370; J3475; J3490; J7030; P9016; P9047; Q3014; Q4081

== ENCOUNTER 2021-11-25 13:00 | Oncology outpatient (recurring) (ONCR) | payer MEDICARE, SELFPAY ==
[2021-11-20 11:54] LABS: Basophils % 0.7 %; Eosinophils # 0.3 10^3/uL (0.0-0.8); Eosinophils % 4.8 %; Hematocrit 23.5 % (42.0-52.0); Hemoglobin 7.8 g/dL (11.7-16.6); Lymphocytes # 1.1 10^3/uL (0.8-4.8); Lymphocytes % 18.6 %; Mean Corpuscular HGB Conc 33.2 g/dL (30.0-36.0); Mean Corpuscular Hemoglobin 28.6 pg (28.0-34.0); Mean Corpuscular Volume 86.1 fl (80-94); Mean Platelet Volume 9.7 fL (7.4-10.4); Monocytes # 0.4 10^3/uL (0.2-0.9); Monocytes % 7.6 %; Neutrophils # 3.81 10^3/uL (1.8-7.7); Neutrophils % 67.6 %; Nucleated Red Blood Cells % 0 %; Platelet Count 109 10^3/cmm (130-400); Red Blood Count 2.73 10^6/uL (4.1-5.3); Red Cell Distribution Width 15.2 % (12.1-15.1); White Blood Count 5.6 10^3/uL (4.0-10.0)
[2021-11-20 12:07] LABS: Alanine Aminotransferase 11 U/L (0-41); Albumin Level 2.8 g/dL (3.5-5.2); Alkaline Phosphatase 105 IU/L (40-130); Anion Gap 16.2 (5-19); Aspartate Amino Transferase 20 U/L (0-40); Blood Urea Nitrogen 24 mg/dL (8-23); Calcium 8.8 mg/dL (8.5-10.5); Carbon Dioxide 24 mmol/L (22-29); Chloride 101 mmol/L (98-107); Globulin 3.6 g/dL (1.3-4.6); Glomerular Filtration Rate 9.9 mL/min (90-130); Glucose 111 mg/dL (65-115); Osmolality Calculated 291 mOsm/kg (285-295); Potassium 3.2 mmol/L (3.5-5.1); Sodium 138 mmol/L (136-145); Total Bilirubin 0.5 mg/dL (0.15-1.2); Total Protein 6.4 g/dL (6.6-8.7)
[2021-11-25 12:12] LABS: Basophils % 0.3 %; Eosinophils # 0.2 10^3/uL (0.0-0.8); Eosinophils % 3.2 %; Hematocrit 26.8 % (42.0-52.0); Hemoglobin 8.5 g/dL (11.7-16.6); Lymphocytes # 1.2 10^3/uL (0.8-4.8); Lymphocytes % 19.5 %; Mean Corpuscular HGB Conc 31.7 g/dL (30.0-36.0); Mean Corpuscular Hemoglobin 28.8 pg (28.0-34.0); Mean Corpuscular Volume 90.8 fl (80-94); Mean Platelet Volume 10.3 fL (7.4-10.4); Monocytes # 0.5 10^3/uL (0.2-0.9); Neutrophils # 4.03 10^3/uL (1.8-7.7); Neutrophils % 68.5 %; Nucleated Red Blood Cells % 0 %; Platelet Count 141 10^3/cmm (130-400); Red Blood Count 2.95 10^6/uL (4.1-5.3); Red Cell Distribution Width 15.9 % (12.1-15.1); White Blood Count 5.9 10^3/uL (4.0-10.0)
[2021-11-25 12:37] LABS: Alanine Aminotransferase 15 U/L (0-41); Albumin Level 2.6 g/dL (3.5-5.2); Alkaline Phosphatase 115 IU/L (40-130); Anion Gap 10.6 (5-19); Aspartate Amino Transferase 28 U/L (0-40); Blood Urea Nitrogen 6 mg/dL (8-23); Calcium 7.9 mg/dL (8.5-10.5); Carbon Dioxide 32 mmol/L (22-29); Chloride 98 mmol/L (98-107); Globulin 3.9 g/dL (1.3-4.6); Glomerular Filtration Rate 33.3 mL/min (90-130); Glucose 101 mg/dL (65-115); Osmolality Calculated 282 mOsm/kg (285-295); Potassium 3.6 mmol/L (3.5-5.1); Sodium 137 mmol/L (136-145); Total Bilirubin 0.6 mg/dL (0.15-1.2); Total Protein 6.5 g/dL (6.6-8.7)
== END 2021-12-18 23:59 | disposition home or self-care (01) ==
PROVIDERS: Nurse Practitioner; PCP Nurse Practitioner Family; Visit Provider Internal Medicine Medical Oncology
DX: D50.8 Other iron deficiency anemias (principal); Z53.9 Procedure and treatment not carried out, unspecified reason
CPT/HCPCS: 36591; 36592; 80053; 85025; 86850; 86900; 86920

== ENCOUNTER 2021-12-11 07:24 | Inpatient (IN) | payer MEDICARE, SELFPAY ==
[2021-12-11] VITALS (19 sets, daily range): BP systolic 72–138; BP diastolic 44–74; PULSE 65–82; RESP 13–17; TEMP 36.6–36.9; O2SAT 92–100; BMI 19.5
--- NOTE | 2021-12-11 07:26 | W.ED.SYNCOPE ---
HPI - Syncope General: Chief Complaint: General Medical Stated Complaint: low bp Time Seen by Provider: 12/11/21 07:25 History of Present Illness: Mr. Hamilton is a 71-year-old gentleman with history of colon cancer, urinary retention, end-stage renal disease on hemodialysis who presents to the emergency department due to low blood pressure and syncope. He was admitted to the hospital with TIMMY on CKD and initiated on dialysis through right-sided tunneled catheter insertion with discharge date 11/18/2021. Apparently for some time now he has had recurrent episodes of syncope and feels generalized weakness. He was at dialysis today and noted blood pressure to be low at which point they were unable to initiate dialysis and referred here for further evaluation. The patient himself is fairly vague historian and is unsure of how many times he has had syncope. He he does have generalized weakness though no focality. He reports poor p.o. intake. Intensity of symptoms is moderate. Course has persisted and is intermittent in nature. No other specific changes in health, exacerbating, or alleviating factors identified. Patient typically dialyzes at [facility] in [place]. reports generalized decline which has been ongoing, she agrees no specific new symptoms. Onset (ago): week(s) Associated symptoms: Reports weakness History: other Review of Systems General: Reports: 10 or more systems reviewed and unremarkable except in HPI and below PFSH ED PFSH: Medical History (Updated 12/17/21 @ 00:00 by ) Acute kidney injury Anemia Chronic tophaceous gout of both hands End stage renal disease High risk medication use Hypertension Hypertension Malignant neoplasm of ascending colon Osteoarthritis Osteoporosis Other iron deficiency anemias Urinary retention Surgical History (Updated 12/17/21 @ 00:00 by ) History of colonoscopy (12/19/20) 2019 History of hemicolectomy (03/30/16) laparoscopic right hemicolectomy with extracorporeal ileocolic stapled anastomosis History of laparoscopy (09/14/18) laparoscopy with lysis of adhesions and ileocolectomy with extracorporeal stapled ileocolic anastomosis History of laparoscopy (02/22/19) laparoscopic lysis of adhesions and laparoscopic partial colectomy with ileal colonic anastomosis and with omentectomy Hx of total knee arthroplasty (06/23/21) left S/P hemodialysis catheter insertion (11/15/21) Status post left knee replacement Family History Father , AT 72 CAD (coronary artery disease) Brother Cancer Brain Mother , AT AGE 96 Diabetes Other Arthritis Hypertension Denies family history of Rheumatoid arthritis Lupus Clotting disorder Dementia Hyperlipidemia Psychiatric illness Chronic kidney disease (CKD) Suicide Anesthesia complication Bleeding disorder Lung disease Stroke Social History Smoking and tobacco status: former smoker Alcohol intake: never Marital status: Current occupational status: retired History of recent travel: No Physical Exam Const: COMMON NORMALS: alert GENERAL APPEARANCE: cooperative and well developed HENMT: COMMON NORMALS: normocephalic and atraumatic HEAD & SCALP: normocephalic and atraumatic Eye: COMMON NORMALS: conjunctivae normal CONJUNCTIVA: Yes conjunctivae normal SCLERA: sclerae normal Neck/C-Spine: COMMON NORMALS: supple GENERAL: Yes trachea midline Chest: OTHER: Right tunneled dialysis catheter Resp: COMMON NORMALS: normal respiratory effort EFFORT & INSPECTION: Yes able to speak in complete sentences Cardio: COMMON NORMALS: regular rate and regular rhythm RATE: regular rate RHYTHM: regular rhythm GI: COMMON NORMALS: Soft to palpation PALPATION: Yes Soft to palpation and No Tenderness to palpation present (GI) PERCUSSION: normal to percussion Extremity: GENERAL: Yes normal exam except as noted and No edema Neuro: COMMON NORMALS: moves all extremities SENSORIUM/ORIENTATION: Yes alert and No Orientation impaired OTHER: Poor memory Psych: COMMON NORMALS: mental status grossly normal and Normal thought process present THOUGHT PROCESS: Normal thought process present Course ED course: - Patient was seen and evaluated by me at bedside - Patient placed on cardiac monitors, IV access obtained - Initial evaluation notable for exam as above. EKG showing sinus rhythm with first-degree AV block. No STEMI. - Labs and xrays personally interpreted by me - Labs notable for no leukocytosis, normocytic anemia. Metabolic panel with elevated creatinine. Urinalysis pending - Imaging notable for negative head CT for acute pathology. Chest x-ray with consolidation at the left lung base similar to prior. Right tunneled catheter in place. - Upon serial reexamination after treatment the patient was similar - Based on patient history, evaluation, and testing as interpreted the most likely cause of the patient's condition is end-stage renal disease with persistent hypotension despite fluid resuscitation. Patient is already on outpatient midodrine and therefore requires further inpatient management and adjustment of medications. - The results of ED evaluation were discussed with the patient including plan for admission due to requirement for level of care not available if discharged to prevent significant worsening/deterioration. - Admitting service was contacted and Dr Llanos with the hospitalist service agreed to admit the patient - Patient was admitted without further deterioration or significant events. Note: Click bubbles or prepopulated diaz in note writing are used for assistance with data collection and billing and are inherently more limited than narrative and other text portions of this note. Please use narrative for additional clinical history and defer to narrative/free test for any case of contradictory information. If information appears in only free text or click bubble it should be considered present or absent as reported. Please contact note junior technical writer for clarifications of clinical information or contradictory information. MDM is a brief summary, contradictory or erroneous seeming information should be clarified and full note should be reviewed. Vital Signs: Vital signs: Vital Signs Temperature 97.5 F L 12/16/21 16:45 Pulse Rate 82 12/16/21 16:45 Respiratory Rate 16 12/16/21 16:45 Blood Pressure 141/69 12/16/21 16:45 Pulse Oximetry 95 12/16/21 16:00 MDM - Syncope Medical Decision Making 71-year-old gentleman with history of end-stage renal disease on hemodialysis presenting due to low blood pressure. Unable to get hemodialysis today. Associated syncope and generalized weakness. Patient is on outpatient midodrine. Mild improvement with fluids however given persistence of symptoms and limited ability to give large-volume fluid resuscitation given underlying medical conditions patient requires further inpatient management. Admitted to hospitalist service. Medical Records I reviewed the patient's medical records. Lab Data I reviewed the patient's lab results. : 12/16/21 05:35 12/16/21 05:35 Radiology Impressions Chest X-Ray 12/11/21 07:35 IMPRESSION: 1. Plaque atelectasis in the left base, no acute process. Head CT 12/11/21 07:35 IMPRESSION: 1. No evidence of intracranial hemorrhage or mass effect. 2. Moderate small vessel changes with moderate parenchymal volume loss. 3. Parenchymal volume loss worse in the frontal lobes with chronic incidental subdural hygromas. 4. No acute intracranial findings. Laboratory Results WBC 4.9 10^3/uL (4.0-10.0) 12/12/21 05:12 RBC 2.67 10^6/uL (4.1-5.3) L 12/12/21 05:12 Hgb 7.8 g/dL (11.7-16.6) L 12/12/21 05:12 Hct 23.4 % (42.0-52.0) L 12/12/21 05:12 MCV 87.6 fl (80-94) 12/12/21 05:12 MCH 29.2 pg (28.0-34.0) 12/12/21 05:12 MCHC 33.3 g/dL (30.0-36.0) 12/12/21 05:12 RDW 15.6 % (12.1-15.1) H 12/12/21 05:12 Plt Count 84 10^3/cmm (130-400) L 12/12/21 05:12 MPV 11.0 fL (7.4-10.4) H 12/12/21 05:12 Neut % (Auto) 69.1 % 12/12/21 05:12 Lymph % (Auto) 20.8 % 12/12/21 05:12 [place] % (Auto) 6.4 % 12/12/21 05:12 Eos % (Auto) 2.7 % 12/12/21 05:12 Baso % (Auto) 0.6 % 12/12/21 05:12 Neut # (Auto) 3.35 10^3/uL (1.8-7.7) 12/12/21 05:12 Lymph # (Auto) 1.0 10^3/uL (0.8-4.8) 12/12/21 05:12 [place] # (Auto) 0.3 10^3/uL (0.2-0.9) 12/12/21 05:12 Eos # (Auto) 0.1 10^3/uL (0.0-0.8) 12/12/21 05:12 Baso # (Auto) 0.0 10^3/uL (0.0-0.1) 12/12/21 05:12 Nucleated RBC % (auto) 0 % 12/12/21 05:12 Nucleated RBCs # 0.0 /100WBC 12/12/21 05:12 Sodium 140 mmol/L (136-145) 12/12/21 05:12 Potassium 3.9 mmol/L (3.5-5.1) 12/12/21 05:12 Chloride 103 mmol/L (98-107) 12/12/21 05:12 Carbon Dioxide 27 mmol/L (22-29) 12/12/21 05:12 Anion Gap 13.9 (5-19) 12/12/21 05:12 BUN 18 mg/dL (8-23) 12/12/21 05:12 Creatinine 4.7 mg/dL (0.7-1.2) H 12/12/21 05:12 GFR Calculation 12.4 mL/min (90-130) L 12/12/21 05:12 Glucose 64 mg/dL (65-115) L 12/12/21 05:12 Calculated Osmolality 290 mOsm/kg (285-295) 12/12/21 05:12 Calcium 7.2 mg/dL (8.5-10.5) L 12/12/21 05:12 Magnesium 1.7 mg/dL (1.7-2.3) 12/12/21 05:12 Total Bilirubin 0.4 mg/dL (0.15-1.2) 12/12/21 05:12 AST 24 U/L (0-40) 12/12/21 05:12 ALT 13 U/L (0-41) 12/12/21 05:12 Alkaline Phosphatase 102 IU/L (40-130) 12/12/21 05:12 Troponin T Baseline 39 ng/L (0-15) H 12/11/21 07:40 Troponin T 120 Minute 33.65 ng/L (0-15) H 12/11/21 09:43 Delta Troponin T -5.35 ABS# (0-10) L 12/11/21 09:43 Troponin T Hi Sens 6Hr 33.75 ng/L (0-15) H 12/11/21 13:26 Troponin T Hi Sens 6Hr Delta -5.25 ng/L (0-12) L 12/11/21 13:26 Total Protein 4.9 g/dL (6.6-8.7) L 12/12/21 05:12 Albumin 1.8 g/dL (3.5-5.2) L 12/12/21 05:12 Globulin 3.1 g/dL (1.3-4.6) 12/12/21 05:12 TSH 2.51 uIU/mL (0.27-4.20) 12/11/21 09:00 Random Cortisol 16.76 ug/dL (2.47-19.5) 12/11/21 09:00 Urine Color Yellow (Yellow) 12/11/21 12:05 Urine Appearance Cloudy (CLEAR) 12/11/21 12:05 Urine pH 7 (5-7) 12/11/21 12:05 Ur Specific [place] 1.010 (1.005-1.030) 12/11/21 12:05 Urine Protein Neg (Negative) 12/11/21 12:05 Urine Glucose (UA) Norm (Normal) 12/11/21 12:05 Urine Ketones Negative (Negative) 12/11/21 12:05 Urine Blood 3+ (Negative) H 12/11/21 12:05 Urine Nitrate Negative (Negative) 12/11/21 12:05 Urine Bilirubin Neg (Negative) 12/11/21 12:05 Urine Urobilinogen Norm mg/dL (Negative) 12/11/21 12:05 Ur Leukocyte Esterase 2+ (Negative) H 12/11/21 12:05 Urine RBC 10-15 /hpf (0-2) H 12/11/21 12:05 Urine WBC Too numerous to cnt /hpf (0-5) H 12/11/21 12:05 Ur Squamous Epith Cells 0-4 /hpf (0-5) H 12/11/21 12:05 Amorphous Sediment Not Reportable 12/11/21 12:05 Urine Bacteria 3+ /hpf (NONE) H 12/11/21 12:05 Urine Yeast 2+ /hpf H 12/11/21 12:05 Discharge Plan Discharge Patient Disposition: Placed in Observation Admit Provider: Brendan Llanos Clinical Impression: Orthostatic hypotension, Syncope Discharge Diet: Usual diet Discharge Activity: Resume usual activity and Increase activity as tolerated Coding Level of Care Code ED Mine Wedge Sawyer for Chg Fwd Exam Comprehensive
--- NOTE | 2021-12-11 07:35 | CT_ITS ---
WS: [id number] CT HEAD TECHNIQUE: Noncontrast CT of the head obtained from the skullbase to the vertex. CLINICAL INFORMATION: syncope, ams COMPARISON: None. DLP: 680.[address] scans at [facility] use at least one of these dose optimization techniques: automated e xposure control; mA and/or kV adjustment per patient size (includes targeted exams where dose is matc hed to clinical indication); or iterative reconstruction. FINDINGS: No evidence of intracranial hemorrhage or mass effect. Ventricular system and basal cisterns are chaidez nt. Moderate small vessel changes with moderate parenchymal volume loss. Parenchymal volume loss wors e in the frontal lobes. Incidental chronic subdural hygromas overlying the frontal lobes. No evidence of mass or mass effect. Intracranial vascular calcification. Paranasal sinuses and mastoid air cells are well aerated. Mild mucosal thickening LEFT mastoid tip. . Normal visualized soft tissues. CT/CT head wo con* [id number] IMPRESSION: 1. No evidence of intracranial hemorrhage or mass effect. 2. Moderate small vessel changes with moderate parenchymal volume loss. 3. Parenchymal volume loss worse in the frontal lobes with chronic incidental subdural hygromas. 4. No acute intracranial findings.
--- NOTE | 2021-12-11 07:35 | XR_ITS ---
WS: [id number] Exam: XR chest 1V portable [id number] Date/Time of Exam: 12/11/2021 7:38 AM Reason For Exam: hypotension Comparison 11/11/2021. The lungs are fully expanded. No acute infiltrates are seen. There may be some subsegmental atelectas is in the left lower lobe. Pleural thickening at the left costophrenic angle. Bowel interposed beneat h the right diaphragm. Double lumen right-sided dialysis catheter in place appearing to be in satisfa ctory position. Bony structures are intact. Cardiomediastinal silhouette is unremarkable for techniqu e. XR/XR chest 1V portable [id number] IMPRESSION: 1. Plaque atelectasis in the left base, no acute process.
--- NOTE | 2021-12-11 07:36 | ECG_ITS ---
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 Measurements Intervals Anita Rate: 73 P: 0 OR: 190 QRS: -37 QRSD: 109 T: -5 QT: 419 QTc: 462 Interpretive Statements SINUS RHYTHM LOW QRS VOLTAGE IN PRECORDIAL LEADS [QRS DEFLECTION < 1.0 mV IN CHEST LEADS] INCOMPLETE RIGHT BUNDLE BRANCH BLOCK [90+ ms QRS DURATION, TERMINAL R IN V1/V2, 40+ ms S IN I/aVL/V4/V5/V6] POSSIBLE ANTERIOR MYOCARDIAL INFARCTION , PROBABLY OLD [30 ms Q WAVE IN V3/V4, OR R < 0.2 mV IN V4] INFERIOR MYOCARDIAL INFARCTION , PROBABLY OLD [40+ ms Q WAVE AND/OR ST/T ABNORMALITY IN II/aVF] Compared to ECG 11/11/2021 20:47:10 Incomplete right bundle-branch block now present Left-axis deviation no longer present Myocardial infarct finding still present Electronically Signed On 12-11-2021 22:30:19 CDT by Cesar Espino M.D. [id number] f
[2021-12-11 07:52] LABS: Basophils % 0.5 %; Eosinophils # 0.1 10^3/uL (0.0-0.8); Eosinophils % 1.7 %; Hematocrit 29.8 % (42.0-52.0); Hemoglobin 9.7 g/dL (11.7-16.6); Lymphocytes % 17.5 %; Mean Corpuscular HGB Conc 32.6 g/dL (30.0-36.0); Mean Corpuscular Hemoglobin 29.6 pg (28.0-34.0); Mean Corpuscular Volume 90.9 fl (80-94); Mean Platelet Volume 10.6 fL (7.4-10.4); Monocytes # 0.4 10^3/uL (0.2-0.9); Monocytes % 6.8 %; Neutrophils # 4.32 10^3/uL (1.8-7.7); Neutrophils % 73.2 %; Nucleated Red Blood Cells % 0 %; Platelet Count 117 10^3/cmm (130-400); Red Blood Count 3.28 10^6/uL (4.1-5.3); Red Cell Distribution Width 15.9 % (12.1-15.1); White Blood Count 5.9 10^3/uL (4.0-10.0)
[2021-12-11] MEDS: sodium chloride 0.9% 500 ML 999 ML IV ×2 (08:04→09:22)
[2021-12-11 08:15] LABS: Alanine Aminotransferase 15 U/L (0-41); Albumin Level 2.2 g/dL (3.5-5.2); Alkaline Phosphatase 118 IU/L (40-130); Anion Gap 15.4 (5-19); Aspartate Amino Transferase 26 U/L (0-40); Blood Urea Nitrogen 13 mg/dL (8-23); Calcium 7.6 mg/dL (8.5-10.5); Carbon Dioxide 29 mmol/L (22-29); Chloride 98 mmol/L (98-107); Globulin 3.8 g/dL (1.3-4.6); Glomerular Filtration Rate 14.5 mL/min (90-130); Glucose 94 mg/dL (65-115); Osmolality Calculated 288 mOsm/kg (285-295); Potassium 3.4 mmol/L (3.5-5.1); Sodium 139 mmol/L (136-145); Total Bilirubin 0.6 mg/dL (0.15-1.2)
[2021-12-11 08:16] LABS: Troponin(5th) Baseline 39 ng/L (0-15)
--- NOTE | 2021-12-11 09:36 | ECG_ITS ---
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 Measurements Intervals Roe Rate: 75 P: 7 CT: 193 QRS: -29 QRSD: 106 T: 9 QT: 408 QTc: 457 Interpretive Statements SINUS RHYTHM LOW QRS VOLTAGE IN PRECORDIAL LEADS [QRS DEFLECTION < 1.0 mV IN CHEST LEADS] INCOMPLETE RIGHT BUNDLE BRANCH BLOCK [90+ ms QRS DURATION, TERMINAL R IN V1/V2, 40+ ms S IN I/aVL/V4/V5/V6] POSSIBLE ANTERIOR MYOCARDIAL INFARCTION , PROBABLY OLD [30 ms Q WAVE IN V3/V4, OR R < 0.2 mV IN V4] Compared to ECG 11/11/2021 20:47:10 Incomplete right bundle-branch block now present Left-axis deviation no longer present Myocardial infarct finding still present Electronically Signed On 12-11-2021 22:32:41 CDT by Cesar Espino M.D. [id number]
[2021-12-11 10:15] LABS: Troponin 5 2HR 33.65 ng/L (0-15)
[2021-12-11 10:16] LABS: Troponin 5 2HR Delta -5.35 ABS# (0-10)
--- NOTE | 2021-12-11 11:18 | PM.CONSULT ---
Providers/Reason For Consult Consulting Physician/Specialty*: Nephrology Reason for Consult*: eval for ESRD Primary Care Provider: Julia Diego APN History of Present Illness History of Present Illness Thank for consultation, today I reviewed Mr. Hamilton that I know very well from recent hospitalization. We did start him on dialysis roughly 1 month ago. Dialysis is being relatively unremarkable. His reports that frequently when you move him i.e. standing up or even sitting up that he becomes overtly hypotensive, dizzy, passes out. On arrival to the dialysis clinic this morning his systolic was in the low 80 range and subsequently he was sent to the emergency room for evaluation. On arrival here he received some intravenous fluid with subsequent improvement in his blood pressure to 103/64, however, he is still hypotensive and symptomatic on standing. Is a deny any other symptoms that could account for this i.e. no chest pain, palpitations, shortness of breath, cough, cold, fevers, chills etc. He is otherwise compliant with his medication. Medications/Allergies Home Medications Medication Instructions Recorded Confirmed Last Taken Type hydroxyzine HCl 50 mg tablet 25 - 50 mg PO BID PRN 10/02/21 12/11/21 Unknown History acetaminophen 500 mg tablet 1,000 mg PO Q8H PRN 10/03/21 12/11/21 Unknown History calcitriol 0.25 mcg capsule 0.25 mcg PO BID #30 cap 10/07/21 12/11/21 12/10/21 Rx cyproheptadine 4 mg tablet 4 mg PO BID 11/11/21 12/11/21 12/10/21 History alprazolam 2 mg tablet 1 - 2 mg PO BID PRN 12/11/21 12/11/21 Unknown History amitriptyline 75 mg tablet 75 - 150 mg PO BEDTIME 12/11/21 12/11/21 12/10/21 History citalopram 20 mg tablet 40 mg PO BID 12/11/21 12/11/21 12/10/21 History ergocalciferol (vitamin D2) 1,250 1,250 mcg PO Q7D 12/11/21 12/11/21 12/09/21 History mcg (50,000 unit) capsule famotidine 20 mg tablet 20 mg PO BID 12/11/21 12/11/21 12/10/21 History midodrine 5 mg tablet 5 mg PO TID 12/11/21 12/11/21 12/11/21 History sodium bicarbonate 650 mg tablet 650 mg PO TID 12/11/21 12/11/21 12/10/21 History vit B,C-folic ac 800 mcg-zinc 12.5 1 tab PO DAILY 12/11/21 12/11/21 12/10/21 History mg-selen-D3 2,000 unit-vit E tablet (RenaPlex-D) Allergies Allergy/AdvReac Type Severity Reaction Status Date / Time Penicillins Allergy Unknown Unknown Verified 11/11/21 15:33 Sulfa (Sulfonamide Allergy Unknown Unknown Verified 11/11/21 15:33 Antibiotics) aspirin AdvReac Intermediate GI bleed Verified 11/11/21 15:33 ibuprofen AdvReac Intermediate GI bleed Verified 11/11/21 15:33 [From NeoProfen (ibuprofen lysn)(PF)] PFSH Acute PFSH: Medical History Acute kidney injury Anemia Chronic tophaceous gout of both hands End stage renal disease Hypertension Hypertension Malignant neoplasm of ascending colon Osteoarthritis Osteoporosis Surgical History History of colonoscopy (12/19/20) 2019 History of hemicolectomy (03/30/16) laparoscopic right hemicolectomy with extracorporeal ileocolic stapled anastomosis History of laparoscopy (09/14/18) laparoscopy with lysis of adhesions and ileocolectomy with extracorporeal stapled ileocolic anastomosis History of laparoscopy (02/22/19) laparoscopic lysis of adhesions and laparoscopic partial colectomy with ileal colonic anastomosis and with omentectomy Hx of total knee arthroplasty (06/23/21) left S/P hemodialysis catheter insertion (11/15/21) Family History Father , AT 72 CAD (coronary artery disease) Brother Cancer Brain Mother , AT AGE 96 Diabetes Other Arthritis Hypertension Denies family history of Rheumatoid arthritis Lupus Clotting disorder Dementia Hyperlipidemia Psychiatric illness Chronic kidney disease (CKD) Suicide Anesthesia complication Bleeding disorder Lung disease Stroke Social History Smoking and tobacco status: former smoker Alcohol intake: never Marital status: Current occupational status: retired History of recent travel: No Vitals/I&O/Wt Last Vital Signs Temp 98.4 F 12/11/21 07:56 Pulse 72 12/11/21 08:36 Resp 14 12/11/21 08:36 BP 103/64 12/11/21 08:36 Pulse Ox 92 12/11/21 08:36 12/10/21 12/11/21 12/11/21 22:59 06:59 14:59 Intake Total 500 / 500 Balance 500 / 500 Weight last 48 hrs Weight 61.689 kg Physical Exam Narrative: Constitutional: Awake, comfortable HEENT: Wet mucosa, no jvp, non icteric Lungs: Bilaterally clear without discernible wheeze, rales in all lung zones CVS: S1 S2, no murmurs Abdo: Soft, BS ok Ext 4: Minimal edema, peripheral perfusion with no cyanosis Neurological: Grossly non-focal Data : 12/11/21 07:40 12/11/21 07:40 A&P Assessment and plan (1) End stage renal disease: 1. End-stage renal disease No indication for dialysis today, will monitor him for the next few days with next dialysis planned either tomorrow or Wednesday depending on needs. Currently on Wednesday, , Wednesday schedule as an outpatient. Dose medication for GFR less than 15 2. Orthostatic hypotension Will increase his dry weight by 2 kg. I have reached out to Dr. Scott to find out his dry weight and will increase it by at least 2 kg, to try to find a happy medium between symptomatic orthostasis, supine hypertension and hypervolemia. Increase midodrine to 10 mg p.o. 3 times daily Will get TSH and cortisol. 3. Chemistry Potassium slightly low at 3.4, monitor for now. Will stop sodium bicarb 4. Chronic ESRD issues Continue outpatient medication, no need to check/manage these issues as inpatient including anemia, secondary hyperparathyroidism etc. 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
[2021-12-11] MEDS: midodrine 5 mg TABLET 10 MG PO ×3 (11:27→19:40)
--- NOTE | 2021-12-11 11:41 | PM.HP ---
Providers/Chief Complaint Primary Care Provider: Julia Diego APN Chief Complaint: low bp History of Present Illness Darion Hamilton is a 71 year old male brought in by his for repetitive syncopal events. She reports it happens whenever she sets them up, or transfers him and is happening very commonly. Today at dialysis they noticed that, so had them go to the emergency department. He did not receive dialysis today. They noted his blood pressure to be low. He has had no fever, cough, vomiting, blood in the stool, black or tarry stools. He eats very poorly, and is very weak at home. It has been going on at least a week, perhaps longer. reports he does not have any swelling or edema. Patient participates somewhat in history and physical but appears sleepy. She reports he is confused at times. In the emergency department he has received several boluses for orthostatic hypotension. Review of Systems General: Reports: 10 or more systems reviewed and unremarkable except in HPI and below Const: Denies: fever(s) or chills Eyes: Denies: change in vision ENMT: Denies: throat pain Card: Reports: lightheadedness and syncope; Denies: chest pain Resp: Denies: dyspnea GI: Denies: abdominal pain : Denies: flank pain Musc: Denies: neck pain Skin/Breast: Denies: rash Neuro: Reports: dizziness Psych: Denies: anxiety or depression Endo: Denies: polyuria Ba/Lymph: Denies: easy bruising All/Imm: Denies: urticaria Medications/Allergies Home Medications Medication Instructions Recorded Confirmed Last Taken Type hydroxyzine HCl 50 mg tablet 25 - 50 mg PO BID PRN 10/02/21 12/11/21 Unknown History acetaminophen 500 mg tablet 1,000 mg PO Q8H PRN 10/03/21 12/11/21 Unknown History calcitriol 0.25 mcg capsule 0.25 mcg PO BID #30 cap 10/07/21 12/11/21 12/10/21 Rx cyproheptadine 4 mg tablet 4 mg PO BID 11/11/21 12/11/21 12/10/21 History alprazolam 2 mg tablet 1 - 2 mg PO BID PRN 12/11/21 12/11/21 Unknown History amitriptyline 75 mg tablet 75 - 150 mg PO BEDTIME 12/11/21 12/11/2122 History citalopram 20 mg tablet 40 mg PO BID 12/11/21 12/11/21 12/10/21 History ergocalciferol (vitamin D2) 1,250 1,250 mcg PO Q7D 12/11/21 12/11/21 12/09/21 History mcg (50,000 unit) capsule famotidine 20 mg tablet 20 mg PO BID 12/11/21 12/11/21 12/10/21 History midodrine 5 mg tablet 5 mg PO TID 12/11/21 12/11/21 12/11/21 History sodium bicarbonate 650 mg tablet 650 mg PO TID 12/11/21 12/11/21 12/10/21 History vit B,C-folic ac 800 mcg-zinc 12.5 1 tab PO DAILY 12/11/21 12/11/21 12/10/21 History mg-selen-D3 2,000 unit-vit E tablet (RenaPlex-D) Allergies Allergy/AdvReac Type Severity Reaction Status Date / Time Penicillins Allergy Unknown Unknown Verified 11/11/21 15:33 Sulfa (Sulfonamide Allergy Unknown Unknown Verified 11/11/21 15:33 Antibiotics) aspirin AdvReac Intermediate GI bleed Verified 11/11/21 15:33 ibuprofen AdvReac Intermediate GI bleed Verified 11/11/21 15:33 [From NeoProfen (ibuprofen lysn)(PF)] PFSH Acute PFSH: Medical History (Updated 12/11/21 @ 11:50 by Brendan Llanos MD) Acute kidney injury Anemia Chronic tophaceous gout of both hands End stage renal disease Hypertension Hypertension Malignant neoplasm of ascending colon Osteoarthritis Osteoporosis Surgical History History of colonoscopy (12/19/20) 2019 History of hemicolectomy (03/30/16) laparoscopic right hemicolectomy with extracorporeal ileocolic stapled anastomosis History of laparoscopy (09/14/18) laparoscopy with lysis of adhesions and ileocolectomy with extracorporeal stapled ileocolic anastomosis History of laparoscopy (02/22/19) laparoscopic lysis of adhesions and laparoscopic partial colectomy with ileal colonic anastomosis and with omentectomy Hx of total knee arthroplasty (06/23/21) left S/P hemodialysis catheter insertion (11/15/21) Family History Father , AT 72 CAD (coronary artery disease) Brother Cancer Brain Mother , AT AGE 96 Diabetes Other Arthritis Hypertension Denies family history of Rheumatoid arthritis Lupus Clotting disorder Dementia Hyperlipidemia Psychiatric illness Chronic kidney disease (CKD) Suicide Anesthesia complication Bleeding disorder Lung disease Stroke Social History Smoking and tobacco status: former smoker Alcohol intake: never Marital status: Current occupational status: retired History of recent travel: No Vitals/I&O/Wt Last Vital Signs Temp 98.4 F 12/11/21 07:56 Pulse 75 12/11/21 11:15 Resp 13 12/11/21 11:15 BP 132/69 12/11/21 11:15 Pulse Ox 100 12/11/21 11:15 12/10/21 12/11/21 12/11/21 22:59 06:59 14:59 Intake Total 500 / 500 Balance 500 / 500 Weight last 48 hrs Weight 61.689 kg Physical Exam Narrative: General exam demonstrates a white male, no distress, sleepy but can awaken and answer questions. HEENT: Pupils equally round. Oropharynx clear. Mucous membranes somewhat dry. Cardiovascular regular rate and rhythm without murmur. Dialysis catheter noted right side of chest Lungs clear no wheezing or crackles Abdomen is soft, positive bowel sounds. No obvious organomegaly demonstrates Sandoval Extremities no cyanosis clubbing or edema, cap refill brisk Skin no rash Neuro no focal deficits Data : 12/11/21 07:40 12/11/21 07:40 Other Labs: I have ordered a urinalysis. Calcium is 7.6, albumin 2.2, LFTs normal, troponin 39 with repeat of 33. Nephrology who has already seen him has ordered a TSH and cortisol which is pending EKG demonstrates normal sinus rhythm, left axis deviation, poor R wave progression and incomplete right bundle CT head negative Chest x-ray dialysis catheter noted, no infiltrate A&P Assessment and plan (1) Orthostatic hypotension: Patient presents with orthostatic hypotension. This may be a manifestation of poor oral intake, need for adjustment of dry weight with dialysis. Amitriptyline, alprazolam could also potentially contribute. Nephrology services will be consulted, will adjust dialysis fluid removal as appropriate. At this point will hold alprazolam, amitriptyline I discussed with nephrology and they are going to be increasing midodrine to 10 mg 3 times daily Orthostatic blood pressures 3 times daily TSH and cortisol level have been ordered Status: Acute (2) Syncope: See above This appears to be secondary to the above concerns but no urinalysis has been done. He does have a chronic indwelling catheter. He has not had a history of fever and his white blood cell count is not elevated. However, we will make sure no overwhelming infection is present. Telemetry to rule out any arrhythmia, although not likely considering this occurs with positional changes. Status: Acute (3) End stage renal disease: Nephrology consultation has been obtained Status: Acute (4) Hypokalemia: Supplement orally cautiously in this patient with renal failure Status: Acute (5) Anemia: Has longstanding anemia. Stable at this time. Likely secondary to renal failure and other comorbidities. Status: Acute (6) Malignant neoplasm of ascending colon: Currently on expectant management Status: Acute Plan Multiple other medical problems as outlined in his past medical history Full code Heparin for DVT prophylaxis Has significant weakness he may benefit from nursing facility placement for rehabilitation. Will involve physical therapy and Occupational Therapy. He has recently stopped walking and his would very much like for him to be strengthened enough to help with transfers and perhaps take a few steps or more. Attestations Medical Necessity Statement*: Will need less than 2 midnight stay for evaluation and treatment of orthostatic hypotension, unless further studies which are pending would warrant longer evaluation and diagnostic testing. Coding Level of Care Code Acute Fire Claims Adjuster for Dary Juan Diagnoses Orthostatic hypotension I95.1 Syncope R55 End stage renal disease N18.6 Hypokalemia E87.6 Anemia D64.9 Malignant neoplasm of ascending colon C18.2
[2021-12-11 12:25] LABS: Thyroid Stimulating Hormone 2.51 uIU/mL (0.27-4.20)
[2021-12-11 12:26] LABS: Cortisol Random 16.76 ug/dL (2.47-19.5)
[2021-12-11] MEDS: potassium chloride ER 20 mEq Tablet PO (13:28)
[2021-12-11 13:31] LABS: Bilirubin Urine Neg (Negative); Blood Urine 3+ (Negative); Glucose Urine UA Norm (Normal); Ketones Urine Negative (Negative); Nitrate Urine Negative (Negative); Protein Urine Neg (Negative); Urine Appearance Cloudy (CLEAR); Urine Color Yellow (Yellow); Urobilinogen Urine Norm (Negative); pH Urine 7 (5-7)
[2021-12-11 13:32] LABS: Bacteria Urine 3+ /hpf; Leukocyte Esterase Urine 2+ (Negative); Squamous Epithelial Cell Urine 0-4 /hpf (0-5); WBC Urine TOO NUMEROUS TO CNT /hpf (0-5)
[2021-12-11 13:33] LABS: Add Urine Culture? Yes
--- NOTE | 2021-12-11 13:36 | ECG_ITS ---
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 Measurements Intervals [place] Rate: 71 P: 5 NM: 206 QRS: -38 QRSD: 109 T: -2 QT: 425 QTc: 462 Interpretive Statements SINUS RHYTHM LEFT AXIS DEVIATION [QRS AXIS < -30] LOW QRS VOLTAGE IN PRECORDIAL LEADS [QRS DEFLECTION < 1.0 mV IN CHEST LEADS] POSSIBLE ANTERIOR MYOCARDIAL INFARCTION , OF INDETERMINATE AGE [30 ms Q WAVE IN V3/V4, OR R < 0.2 mV IN V4] Compared to ECG 12/11/2021 09:14:23 Left-axis deviation now present Incomplete right bundle-branch block no longer present Myocardial infarct finding still present Electronically Signed On 12-11-2021 22:32:02 CDT by Cesar Espino M.D. [id number]
[2021-12-11 14:07] LABS: Troponin 5 6HR 33.75 ng/L (0-15)
[2021-12-11 14:13] LABS: Troponin 5 6HR Delta -5.25 ng/L (0-12)
[2021-12-11] MEDS: cefTRIAXone 1,000 MG in sodium chloride 0.9% (plus) 50 ML 100 MG IV (14:36)
[2021-12-11] MEDS: calcitriol 0.25 mcg Capsule PO (19:40)
[2021-12-11] MEDS: famotidine 20 mg Tablet PO (19:40)
[2021-12-11] MEDS: heparin 5,000 unit/mL INJ 1 mL 5000 UNIT SUBCUT (19:40)
[2021-12-11] MEDS: citalopram 20 mg Tablet 40 MG PO (19:40)
[2021-12-11] MEDS: amitriptyline 25 mg Tablet 150 MG PO (21:55)
[2021-12-12] VITALS (11 sets, daily range): BP systolic 75–128; BP diastolic 49–82; PULSE 59–97; RESP 12–20; TEMP 36.4–36.7; O2SAT 90–100
[2021-12-12] MEDS: heparin 5,000 unit/mL INJ 1 mL 5000 UNIT SUBCUT ×2 (05:35→18:27)
[2021-12-12 06:43] LABS: Basophils % 0.6 %; Eosinophils # 0.1 10^3/uL (0.0-0.8); Eosinophils % 2.7 %; Hematocrit 23.4 % (42.0-52.0); Hemoglobin 7.8 g/dL (11.7-16.6); Lymphocytes % 20.8 %; Mean Corpuscular HGB Conc 33.3 g/dL (30.0-36.0); Mean Corpuscular Hemoglobin 29.2 pg (28.0-34.0); Mean Corpuscular Volume 87.6 fl (80-94); Monocytes # 0.3 10^3/uL (0.2-0.9); Monocytes % 6.4 %; Neutrophils # 3.35 10^3/uL (1.8-7.7); Neutrophils % 69.1 %; Nucleated Red Blood Cells % 0 %; Platelet Count 84 10^3/cmm (130-400); Red Blood Count 2.67 10^6/uL (4.1-5.3); Red Cell Distribution Width 15.6 % (12.1-15.1); White Blood Count 4.9 10^3/uL (4.0-10.0)
[2021-12-12 06:46] LABS: Alanine Aminotransferase 13 U/L (0-41); Albumin Level 1.8 g/dL (3.5-5.2); Alkaline Phosphatase 102 IU/L (40-130); Anion Gap 13.9 (5-19); Aspartate Amino Transferase 24 U/L (0-40); Blood Urea Nitrogen 18 mg/dL (8-23); Calcium 7.2 mg/dL (8.5-10.5); Carbon Dioxide 27 mmol/L (22-29); Chloride 103 mmol/L (98-107); Globulin 3.1 g/dL (1.3-4.6); Glomerular Filtration Rate 12.4 mL/min (90-130); Glucose 64 mg/dL (65-115); Magnesium 1.7 mg/dL (1.7-2.3); Osmolality Calculated 290 mOsm/kg (285-295); Potassium 3.9 mmol/L (3.5-5.1); Sodium 140 mmol/L (136-145); Total Bilirubin 0.4 mg/dL (0.15-1.2); Total Protein 4.9 g/dL (6.6-8.7)
--- NOTE | 2021-12-12 09:09 | PM.PN ---
Subjective Subjective: Darion relates he feels quite a bit better. Denies feeling dizzy right now. I do not see any orthostatic blood pressures as of yet. After admission yesterday, urine came back as possible infection. This is somewhat difficult to interpret as he has a longstanding urinary catheter and could have colonization. However, in the scenario of hypotension he was treated for infection with Rocephin, and I added vancomycin today based on some past cultures with MRSA isolated from his urine. Catheter was also changed yesterday. Medications: Reviewed: Yes Vitals/I&O/Wt Last Vital Signs Temp 97.9 F 12/12/21 08:00 Pulse 67 12/12/21 08:57 Resp 15 12/12/21 08:00 BP 107/61 12/12/21 08:00 Pulse Ox 100 12/12/21 08:57 12/11/21 12/12/21 12/12/21 22:59 06:59 14:59 Intake Total 530 / 1530 Output Total 50 / 50 Balance 530 / 1530 -50 / 1480 Weight last 48 hrs Weight 61.689 kg Weight 61.689 kg Physical Exam Narrative: General exam demonstrates a white male, awake, responsive, and answering questions. Cardiovascular regular rate and rhythm without murmur. Dialysis catheter noted right side of chest Lungs clear no wheezing or crackles Abdomen is soft, positive bowel sounds. No obvious organomegaly demonstrates Sandoval Extremities no cyanosis clubbing or edema, cap refill brisk Skin no rash Neuro no focal deficits Data : 12/12/21 05:12 12/12/21 05:12 Micro: Microbiology 12/11/21 12:05 Urine Culture - Preliminary Urine,Clean Catch Gram Negative Rods 12/11/21 12:14 Blood Culture - Preliminary Blood SPECIMEN COLLECTED 12/11/21 11:56 Blood Culture - Preliminary Blood SPECIMEN COLLECTED A&P Assessment and plan (1) Orthostatic hypotension: Patient presents with orthostatic hypotension. This may be a manifestation of poor oral intake, need for adjustment of dry weight with dialysis. Amitriptyline, alprazolam could also potentially contribute. Alprazolam discontinued. It appears amitriptyline was Riyad last night. We will reduce dose significantly. Appreciate nephrology consultation Midodrine he was on at home to try to improve blood pressures has been increased to 10 mg 3 times daily Await orthostatic blood pressures today TSH and cortisol levels have been checked and are normal Urine was checked and concern of UTI. Could not rule out systemic effects causing hypotension so placed on Rocephin, and ultimately vancomycin as well based on past cultures. We will await his urine culture result from this hospital stay. Secondary to cofactor of decreasing platelets, concern of urinary tract infection in face of hypotension, significant anemia with hemoglobin less than 8, will change to regular admission. Status: Acute (2) Syncope: See above This appears to be secondary to the above concerns but no urinalysis has been done. He does have a chronic indwelling catheter. He has not had a history of fever and his white blood cell count is not elevated. Urine is concerning for infection, although colonization is also possible. See notation above. Continue telemetry. No significant arrhythmia has been noted. Status: Acute (3) End stage renal disease: Nephrology consultation has been obtained Status: Acute (4) Hypokalemia: Resolved after supplementation Status: Acute (5) Anemia: Has longstanding anemia. Stable at this time. Likely secondary to renal failure and other comorbidities. Status: Acute (6) Malignant neoplasm of ascending colon: Currently on expectant management Status: Acute Plan Thrombocytopenia. Hold heparin. Recheck tomorrow. Cannot rule out possibility of urinary tract infection contributing. Multiple other medical problems as outlined in his past medical history Full code SCDs for DVT prophylaxis. Heparin discontinued with significant drop in platelets Has significant weakness he may benefit from nursing facility placement for rehabilitation. Will involve physical therapy and Occupational Therapy. He has recently stopped walking and his would very much like for him to be strengthened enough to help with transfers and perhaps take a few steps or more. Attestations Medical Necessity Statement*: Needs continued hospitalization secondary to probable UTI, anemia, thrombocytopenia, orthostatic hypotension with need for close monitoring of blood pressures. Coding Level of Care Code Acute Supervisor Delivery Department for Dary Juan Diagnoses Orthostatic hypotension I95.1 Syncope R55 End stage renal disease N18.6 Hypokalemia E87.6 Anemia D64.9 Malignant neoplasm of ascending colon C18.2
[2021-12-12] MEDS: calcitriol 0.25 mcg Capsule PO ×2 (09:27→18:28)
[2021-12-12] MEDS: midodrine 5 mg TABLET 10 MG PO ×3 (09:27→22:17)
[2021-12-12] MEDS: citalopram 20 mg Tablet 40 MG PO ×2 (09:29→18:28)
[2021-12-12] MEDS: famotidine 20 mg Tablet PO ×2 (09:30→18:28)
[2021-12-12] MEDS: vancomycin 750 MG in sodium chloride 0.9% 250 ML 250 MG IV (09:43)
--- NOTE | 2021-12-12 09:57 | P.PN_ITS ---
Subjective Subjective: Mr. Hamilton feels okay with no acute issues. He does still feel unsteady on standing. Blood pressure robust while supine. No orthostatic vitals yet today. Medications: Reviewed: Yes Vitals/I&O/Wt Last Vital Signs Temp 97.9 F 12/12/21 08:00 Pulse 67 12/12/21 08:57 Resp 15 12/12/21 08:00 BP 107/61 12/12/21 08:00 Pulse Ox 100 12/12/21 08:57 12/11/21 12/12/21 12/12/21 22:59 06:59 14:59 Intake Total 530 / 1530 240 / 240 Output Total 50 / 50 Balance 530 / 1530 -50 / 1480 240 / 240 Weight last 48 hrs Weight 61.689 kg Weight 61.689 kg Physical Exam Narrative: Constitutional: Awake, comfortable HEENT: Wet mucosa, no jvp, non icteric Lungs: Bilaterally clear without discernible wheeze, rales in all lung zones CVS: S1 S2, no murmurs Abdo: Soft, BS ok Ext 4: Minimal edema, peripheral perfusion with no cyanosis Neurological: Grossly non-focal Data : 12/12/21 05:12 12/12/21 05:12 Micro: Microbiology 12/11/21 12:05 Urine Culture - Preliminary Urine,Clean Catch Gram Negative Rods 12/11/21 12:14 Blood Culture - Preliminary Blood SPECIMEN COLLECTED 12/11/21 11:56 Blood Culture - Preliminary Blood SPECIMEN COLLECTED A&P Assessment and plan (1) End stage renal disease: 1. End-stage renal disease HD planned for tomorrow, 3K, UF 0 Currently on Wednesday, , Wednesday schedule as an outpatient. Dose medication for GFR less than 15 2. Orthostatic hypotension Will increase his dry weight by 2 kg. If he remains orthostatic today ok to bolus another 1L of fluid Increase midodrine to 10 mg p.o. 3 times daily TSH and cortisol both look good 3. Chemistry Potassium slightly low at 3.4, monitor for now. Will stop sodium bicarb 4. Chronic ESRD issues Continue outpatient medication, no need to check/manage these issues as inpat ient including anemia, secondary hyperparathyroidism etc. Joey Rothman MD Nephrology [phone] Patient seen and examined via telemedicine, with the assistance of the bedside RN > 25 min spent in evaluation and mgmt of patient Status: Acute Attestations Medical Necessity Statement*: eval for ESRD Coding Level of Care Code Acute Quality Assurance Nurse for jose alberto Juan Diagnoses End stage renal disease N18.6
--- NOTE | 2021-12-12 11:08 | PC.CHAP ---
Pastoral Care Encounter/Spiritual Assessment Type of Contact [] Declined strike operations officer visit [] Patient/Family/Request visit [] Outpatient visit [] Follow-up visit [] Physician referral [] Code/Alert [x] Routine visit [] Staff referral [] Actively dying [x] Patient sleeping [] Family support [] [] Out of room [] Palliative care [] [] Receiving care in room [] Pre-surgical visit [] Trauma [] Long length of stay [] ICU visit [] Other: Relational/Emotional Strength [] Patient feels connected with others/family/visitors/staff [] Distress [] Loneliness/isolation [] Abandonment Spirituality of Patient [] Person of Aletha [] Attends Baptism of their Aletha [] Believes in Prayer [] Reads Bible or Worship materials [] There are Spiritual issues to be addressed Web Press Operator Assistant Interventions [] Prayer [] Active listening [] Non-anxious presence [] Spiritual/emotional support [] Crisis/trauma care [] Spiritual counseling [] Bereavement support [] Provided bereavement packet [] Provided Bible/devotional materials [] Provided toy/stuffed animal, coloring book to patient or family member [] Provided Communion [] Anointing/Eads [] Salvation [] Completed spiritual assessment [] Other: Impact on Illness or Injury [] Angry [] Fearful [] Anxious [] Often cries [] Exhaustion [] Unable to work [] Unable to attend holiness [] Unable to walk/stand [] Unable to read [] Unable to drive [] Unable to eat/drink [] Unable to sleep [] Unable to be with family [] Patient intubated [] Other: Summary Time spent with patient
[2021-12-12] MEDS: cefTRIAXone 1,000 MG in sodium chloride 0.9% (plus) 50 ML 100 MG IV (16:14)
[2021-12-12] MEDS: amitriptyline 25 mg Tablet 50 MG PO (22:16)
[2021-12-13] VITALS (13 sets, daily range): BP systolic 60–125; BP diastolic 40–75; PULSE 62–97; RESP 16–20; TEMP 36.4–36.8; O2SAT 94–97
[2021-12-13 05:47] LABS: Basophils % 0.7 %; Eosinophils # 0.2 10^3/uL (0.0-0.8); Eosinophils % 3.5 %; Hematocrit 24.7 % (42.0-52.0); Hemoglobin 7.9 g/dL (11.7-16.6); Lymphocytes # 1.1 10^3/uL (0.8-4.8); Lymphocytes % 24.2 %; Mean Corpuscular Hemoglobin 28.8 pg (28.0-34.0); Mean Corpuscular Volume 90.1 fl (80-94); Mean Platelet Volume 10.4 fL (7.4-10.4); Monocytes # 0.3 10^3/uL (0.2-0.9); Monocytes % 7.6 %; Neutrophils # 2.76 10^3/uL (1.8-7.7); Neutrophils % 63.5 %; Nucleated Red Blood Cells % 0 %; Platelet Count 105 10^3/cmm (130-400); Red Blood Count 2.74 10^6/uL (4.1-5.3); Red Cell Distribution Width 15.9 % (12.1-15.1); White Blood Count 4.3 10^3/uL (4.0-10.0)
[2021-12-13 06:12] LABS: Alanine Aminotransferase 12 U/L (0-41); Albumin Level 1.7 g/dL (3.5-5.2); Alkaline Phosphatase 101 IU/L (40-130); Anion Gap 8.6 (5-19); Aspartate Amino Transferase 20 U/L (0-40); Blood Urea Nitrogen 25 mg/dL (8-23); Calcium 7.8 mg/dL (8.5-10.5); Carbon Dioxide 30 mmol/L (22-29); Chloride 104 mmol/L (98-107); Globulin 3.1 g/dL (1.3-4.6); Glomerular Filtration Rate 10.8 mL/min (90-130); Glucose 86 mg/dL (65-115); Magnesium 1.9 mg/dL (1.7-2.3); Osmolality Calculated 292 mOsm/kg (285-295); Potassium 3.6 mmol/L (3.5-5.1); Sodium 139 mmol/L (136-145); Total Bilirubin 0.2 mg/dL (0.15-1.2); Total Protein 4.8 g/dL (6.6-8.7)
[2021-12-13] MEDS: heparin 5,000 unit/mL INJ 1 mL 5000 UNIT SUBCUT ×2 (06:21→18:56)
--- NOTE | 2021-12-13 08:11 | P.PN_ITS ---
Subjective Subjective: Mr. Hamilton is doing well on hemodialysis today. No acute issues. Blood pressure noted to be low in the night, however, dialysis initiation blood pressure looks okay. No extremity edema, shortness of breath or other hypervolemic symptoms. He has not gotten up to walk today. Medications: Reviewed: Yes Vitals/I&O/Wt Last Vital Signs Temp 98.2 F 12/13/21 04:00 Pulse 71 12/13/21 07:50 Resp 18 12/13/21 04:00 BP 118/62 12/13/21 07:50 Pulse Ox 97 12/13/21 04:00 12/12/21 12/13/21 12/13/21 22:59 06:59 14:59 Intake Total 690 / 1180 750 / 1930 Output Total 150 / 150 Balance 690 / 1180 600 / 1780 Weight last 48 hrs Weight 78.063 kg Weight 61.689 kg Physical Exam Narrative: Constitutional: Awake, comfortable HEENT: Wet mucosa, no jvp, non icteric Lungs: Bilaterally clear without discernible wheeze, rales in all lung zones CVS: S1 S2, no murmurs Abdo: Soft, BS ok Ext 4: Minimal edema, peripheral perfusion with no cyanosis Neurological: Grossly non-focal Urinary Catheter Management: Sandoval: Cath Placed During This Visit: no Reason for Continuing Indwelling Catheter: Chronic Indwelling Urinary Catheter on Admission Data : 12/13/21 05:10 12/13/21 05:10 Micro: Microbiology 12/11/21 12:14 Blood Culture - Preliminary Blood NEGATIVE TO DATE 12/11/21 11:56 Blood Culture - Preliminary Blood NEGATIVE TO DATE 12/11/21 12:05 Urine Culture - Preliminary Urine,Clean Catch Gram Negative Rods A&P Assessment and plan (1) End stage renal disease: 1. End-stage renal disease On dialysis today 3K, UF 0 Currently on Wednesday, , Wednesday schedule as an outpatient. Dose medication for GFR less than 15 2. Orthostatic hypotension If he remains orthostatic today he can still have additional ivf On midodrine to 10 mg p.o. 3 times daily TSH and cortisol both look good 3. Chemistry Potassium slightly low at 3.4, monitor for now. Will stop sodium bicarb 4. Chronic ESRD issues Continue outpatient medication, no need to check/manage these issues as inp atient including anemia, secondary hyperparathyroidism etc. Joey Rothman MD Nephrology [phone] Patient seen and examined via telemedicine, with the assistance of the bedside RN > 25 min spent in evaluation and mgmt of patient Status: Acute Attestations Medical Necessity Statement*: ESRD mgmt Coding Level of Care Code Acute Steam Locomotive Firer/Fireman for Chg Fwd Diagnoses End stage renal disease N18.6
--- NOTE | 2021-12-13 10:37 | PC.OT ---
Unable to see this date due to being in dialysis and with hypotension
[2021-12-13] MEDS: midodrine 5 mg TABLET 10 MG PO ×3 (12:16→22:33)
[2021-12-13] MEDS: famotidine 20 mg Tablet PO ×2 (12:16→18:56)
[2021-12-13] MEDS: citalopram 20 mg Tablet 40 MG PO ×2 (12:17→18:56)
[2021-12-13] MEDS: calcitriol 0.25 mcg Capsule PO ×2 (12:17→18:56)
--- NOTE | 2021-12-13 14:29 | PM.PN ---
Subjective Subjective: seen this am. no acute events overnight. eating breakfast Vitals/I&O/Wt Last Vital Signs Temp 97.9 F 12/13/21 12:08 Pulse 75 12/13/21 12:08 Resp 16 12/13/21 12:08 BP 125/75 12/13/21 12:08 Pulse Ox 97 12/13/21 04:00 12/12/21 12/13/21 12/13/21 22:59 06:59 14:59 Intake Total 690 / 1180 750 / 1930 300 / 300 Output Total 150 / 150 300 / 300 Balance 690 / 1180 600 / 1780 0 / 0 Weight last 48 hrs Weight 76.5 kg Weight 78.063 kg Weight 61.689 kg Physical Exam Narrative: General: Alert oriented x3, patient seen sitting up in bed HEENT: Normocephalic, atraumatic, EOMI, breathing normally appearing comfortable pectus excavatum Cardio: Regular rate rhythm, normal S1-S2, no murmurs, dialysis catheter on right side of chest Respiratory: Good bilateral air entry, no wheezes no rhonchi appreciated GI: Abdomen soft, nontender, nondistended, bowel sounds + Extremities: no edema, no cyanosis Urinary Catheter Management: Sandoval: Cath Placed During This Visit: no Reason for Continuing Indwelling Catheter: Chronic Indwelling Urinary Catheter on Admission Data : 12/13/21 05:10 12/13/21 05:10 Micro: Microbiology 12/11/21 12:05 Urine Culture - Preliminary Urine,Clean Catch Gram Negative Rods 12/11/21 12:14 Blood Culture - Preliminary Blood NEGATIVE TO DATE 12/11/21 11:56 Blood Culture - Preliminary Blood NEGATIVE TO DATE A&P Assessment and plan (1) Syncope: Status: Acute (2) Orthostatic hypotension: Status: Acute (3) Hypokalemia: Status: Acute (4) Anemia: Status: Acute (5) S/P hemodialysis catheter insertion: Status: Acute (6) Acute kidney injury superimposed on chronic kidney disease: Status: Acute (7) End stage renal disease: Status: Acute Plan #Orthostatic hypotension #Syncope #End-stage renal disease, dialysis dependent #Hypokalemia?resolved #Anemia of chronic disease #Malignant neoplasm of ascending colon #Thrombocytopenia #Urinary tract infection with gram-negative rods ? Patient presented with orthostatic hypotension. Alprazolam was discontinued. Amitriptyline dose was reduced significantly midodrine was increased to 10 mg 3 times daily. TSH cortisol levels normal ? Urine culture positive for gram-negative rods ? Thrombocytopenia could possibly due to infection ? Anemia most likely secondary to end-stage renal disease. Will check iron panel. Possibly administer Epo versus iron with dialysis sessions. Will defer Epo admin tp nephrology ? Patient does have a chronic indwelling catheter. Has been afebrile and WBC not elevated. ? Heparin was held yesterday. Platelets rechecked today. Yesterday [id number] today [id number]. Most likely thrombocytopenia is due to infection and not HIT. -Urine culture sensitivity pending. I told patient that he would like people to go home until we have final sensitivities back. ? Orthostatics still positive today. ? Nephrology following and on board Full Code PT recommended rehab. Family also interested in intermediate placement but patient is resistant. I will try to discuss this issue with the family. However until urine cultures finalize he is not ready for discharge. Attestations Medical Necessity Statement*: Continue to treat urinary tract infection in the hospital. Patient still orthostatic positive. Coding Level of Care Code Acute Software Quality Automation Engineer for Chg Fwd Diagnoses Syncope R55 Orthostatic hypotension I95.1 Hypokalemia E87.6 Anemia D64.9 S/P hemodialysis catheter insertion Z99.2 Acute kidney injury superimposed on chronic kidney disease N17.9; N18.9 End stage renal disease N18.6
[2021-12-13] MEDS: cefTRIAXone 1,000 MG in sodium chloride 0.9% (plus) 50 ML 100 MG IV (15:52)
[2021-12-13 15:58] LABS: Ferritin 859 ng/mL (30-400); Iron 51 ug/dL (59-158)
[2021-12-13 16:37] LABS: Percent Saturation 115.9 % (20-50); Total Iron Binding Capacity 44 mcg/dl; Unsaturated Iron Binding -7 ug/dL (112-347)
[2021-12-13] MEDS: amitriptyline 25 mg Tablet 50 MG PO (22:34)
[2021-12-14] VITALS (10 sets, daily range): BP systolic 99–123; BP diastolic 61–72; PULSE 60–77; RESP 14–18; TEMP 36.4–36.8; O2SAT 90–98
[2021-12-14 04:40] LABS: Basophils % 0.9 %; Eosinophils # 0.1 10^3/uL (0.0-0.8); Eosinophils % 3.1 %; Hematocrit 24.8 % (42.0-52.0); Lymphocytes # 1.1 10^3/uL (0.8-4.8); Lymphocytes % 25.8 %; Mean Corpuscular HGB Conc 32.3 g/dL (30.0-36.0); Mean Corpuscular Hemoglobin 29.5 pg (28.0-34.0); Mean Corpuscular Volume 91.5 fl (80-94); Mean Platelet Volume 10.4 fL (7.4-10.4); Monocytes # 0.3 10^3/uL (0.2-0.9); Monocytes % 7.1 %; Neutrophils # 2.65 10^3/uL (1.8-7.7); Neutrophils % 62.6 %; Nucleated Red Blood Cells % 0 %; Platelet Count 112 10^3/cmm (130-400); Red Blood Count 2.71 10^6/uL (4.1-5.3); Red Cell Distribution Width 16.2 % (12.1-15.1); White Blood Count 4.2 10^3/uL (4.0-10.0)
[2021-12-14] MEDS: heparin 5,000 unit/mL INJ 1 mL 5000 UNIT SUBCUT ×2 (06:16→17:41)
[2021-12-14 07:49] LABS: Blood Urea Nitrogen 12 mg/dL (8-23); Calcium 7.4 mg/dL (8.5-10.5); Carbon Dioxide 29 mmol/L (22-29); Chloride 102 mmol/L (98-107); Glomerular Filtration Rate 20.9 mL/min (90-130); Glucose 83 mg/dL (65-115); Magnesium 1.7 mg/dL (1.7-2.3); Osmolality Calculated 285 mOsm/kg (285-295); Sodium 138 mmol/L (136-145)
[2021-12-14 07:53] LABS: Anion Gap 10.8 (5-19); Potassium 3.8 mmol/L (3.5-5.1)
--- NOTE | 2021-12-14 09:00 | P.PN_ITS ---
Subjective Subjective: seen and examined w/ RN. feels well. wants to go home. no n/v/f/c/styles/d/leg pains/sob. not light headed. Medications: Reviewed: Yes Medication Review Details: Current Medications Acetaminophen (Acetaminophen 325 Mg Tablet) 650 mg PO Q6H PRN PRN Reason: Mild/Mod Pain Or Temp >/= 101 Amitriptyline HCl (Amitriptyline 25 Mg Tablet) 50 mg PO BEDTIME [facility] Last Admin: 12/13/21 22:34 Dose: 50 mg Documented by: Calcitriol (Calcitriol 0.25 Mcg Capsule) 0.25 mcg PO BID [facility] Last Admin: 12/13/21 18:56 Dose: 0.25 mcg Documented by: Citalopram Hydrobromide (Citalopram 20 Mg Tablet) 40 mg PO BID [facility] Last Admin: 12/13/21 18:56 Dose: 40 mg Documented by: Famotidine (Famotidine 20 Mg Tablet) 20 mg PO BID [facility] Last Admin: 12/13/21 18:56 Dose: 20 mg Documented by: Heparin Sodium (Porcine) (Heparin 5,000 Unit/Ml Inj 1 Ml) 5,000 unit SUBCUT Q12H [facility] Last Admin: 12/14/21 06:16 Dose: 5,000 unit Documented by: Ceftriaxone Sodium 1,000 mg/ (Sodium Chloride) 50 mls @ 100 mls/hr IV Q24H [facility]; Protocol Last Infusion: 12/13/21 17:21 Dose: Infused Documented by: Midodrine (Midodrine 5 Mg Tablet) 10 mg PO TID [facility] Last Admin: 12/13/21 22:33 Dose: 10 mg Documented by: Ondansetron HCl (Ondansetron 2 Mg/Ml Sdv 2 Ml) 4 mg IVP Q6H PRN PRN Reason: vomiting, or N/V if npo Vitals/I&O/Wt Last Vital Signs Temp 98.1 F 12/14/21 08:00 Pulse 68 12/14/21 08:00 Resp 16 12/14/21 08:00 BP 115/71 12/14/21 08:00 Pulse Ox 96 12/14/21 08:00 12/13/21 12/14/21 12/14/21 22:59 06:59 14:59 Intake Total 290 / 590 100 / 690 Output Total 100 / 400 Balance 290 / 290 0 / 290 Weight last 48 hrs Weight 78.109 kg Weight 76.5 kg Weight 78.063 kg Physical Exam Narrative: comfortable in bed, NARD vss heent- nc/at, eomi, anicteric neck supple lungs- clear b/l heart reg abd soft, nt, nd, + bs + berrios - is chronic ext no edema access- rt ij pc neuro- a,a, o x 3 Urinary Catheter Management: Berrios: Cath Placed During This Visit: no Reason for Continuing Indwelling Catheter: Acute Urinary Retention or Obstruction Data : 12/14/21 03:35 12/14/21 07:14 Micro: Microbiology 12/13/21 05:26 Urine Culture - Preliminary Urine Catheterized Yeast species 12/11/21 12:05 Urine Culture - Preliminary Urine,Clean Catch Gram Negative Rods A&P Assessment and plan (1) End stage renal disease: 71 yr old man 1. ESRD - HD TTS 2. anemia- iron sat =38%. ferritin 859 will give SHIVA 3. uti - per medicine 4. Thrombocytopenia- is improving 5. malnourished- alb 1.7 - needs nutrition 6. pth 113 in october- may calcitriol to tiw Status: Acute Plan see above Attestations Medical Necessity Statement*: per medicine Time Spent in Patient Care: 16 - 35 minutes (>than 50% of time spent in counselling and/or direct pt care on unit) . Coding Level of Care Code Acute Transmission Supervisor for Dary Juan Diagnoses End stage renal disease N18.6
[2021-12-14] MEDS: citalopram 20 mg Tablet 40 MG PO ×2 (09:47→17:41)
[2021-12-14] MEDS: midodrine 5 mg TABLET 10 MG PO ×2 (09:47→14:06)
[2021-12-14] MEDS: famotidine 20 mg Tablet PO ×2 (09:47→17:41)
[2021-12-14] MEDS: epoetin alfa 10,000 unit/mL INJ 10000 UNIT SUBCUT (11:28)
--- NOTE | 2021-12-14 13:46 | PM.PN ---
Subjective Subjective: Seen this AM. UCx sensitivity pending. Vitals/I&O/Wt Last Vital Signs Temp 97.5 F L 12/14/21 12:00 Pulse 65 12/14/21 12:00 Resp 14 12/14/21 12:00 BP 123/71 12/14/21 12:00 Pulse Ox 90 12/14/21 12:00 12/13/21 12/14/21 12/14/21 22:59 06:59 14:59 Intake Total 290 / 590 100 / 690 120 / 120 Output Total 100 / 400 Balance 290 / 290 0 / 290 120 / 120 Weight last 48 hrs Weight 78.109 kg Weight 76.5 kg Weight 78.063 kg Physical Exam Narrative: General: Alert oriented x3, patient seen sitting up in bed HEENT: Normocephalic, atraumatic, EOMI, breathing normally appearing comfortable pectus excavatum Cardio: Regular rate rhythm, normal S1-S2, no murmurs, dialysis catheter on right side of chest Respiratory: Good bilateral air entry, no wheezes no rhonchi appreciated GI: Abdomen soft, nontender, nondistended, bowel sounds + Extremities: no edema, no cyanosis Urinary Catheter Management: Sandoval: Cath Placed During This Visit: no Reason for Continuing Indwelling Catheter: Acute Urinary Retention or Obstruction Data : 12/14/21 03:35 12/14/21 07:14 Micro: Microbiology 12/11/21 12:05 Urine Culture - Final Urine,Clean Catch Burkholderia cepacia 12/13/21 05:26 Urine Culture - Preliminary Urine Catheterized Yeast species A&P Assessment and plan (1) Anemia: Status: Acute (2) Hypokalemia: Status: Acute (3) Orthostatic hypotension: Status: Acute (4) Syncope: Status: Acute (5) S/P hemodialysis catheter insertion: Status: Acute (6) Acute kidney injury superimposed on chronic kidney disease: Status: Acute (7) End stage renal disease: Status: Acute (8) Malignant neoplasm of ascending colon: Status: Acute (9) Osteoporosis: Status: Acute Qualifiers: Osteoporosis type: age-related Presence of current pathological fracture: without current pathological fracture Qualified Code(s): M81.0 - Age-related osteoporosis without current pathological fracture (10) Osteoarthritis: Status: Acute Qualifiers: Osteoarthritis location: multiple joints Osteoarthritis type: primary Qualified Code(s): M15.0 - Primary generalized (osteo)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 Patient presented with orthostatic hypotension.? Alprazolam was discontinued.? Amitriptyline dose was reduced significantly midodrine was increased to 10 mg 3 times daily.? TSH cortisol levels normal ? Urine culture positive for gram-negative rods ? Thrombocytopenia could possibly due to infection ? Anemia most likely secondary to end-stage renal disease. ? Patient does have a chronic indwelling catheter.? Has been afebrile and WBC not elevated. -Urine culture sensitivity pending.? ? Orthostatics recheck today. HE has not been out of bed. - PT eval ? Nephrology following and on board Full Code PT recommended rehab.? Family and pt would like to go home.? However until urine cultures finalize he is not ready for discharge. 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[employer] Diagnoses Anemia D64.9 Hypokalemia E87.6 Orthostatic hypotension I95.1 Syncope R55 S/P hemodialysis catheter insertion Z99.2 Acute kidney injury superimposed on chronic kidney disease N17.9; N18.9 End stage renal disease N18.6 Malignant neoplasm of ascending colon C18.2 Osteoporosis M81.0 Osteoporosis type: age-related Presence of current pathological fracture: without current pathological fracture Osteoarthritis M15.0 Osteoarthritis location: multiple joints Osteoarthritis type: primary Chronic tophaceous gout of both hands [id number] High risk medication use Z79.899 Urinary retention R33.9 Status post left knee replacement Z96.652
[2021-12-14] MEDS: cefTRIAXone 1,000 MG in sodium chloride 0.9% (plus) 50 ML 100 MG IV (14:06)
[2021-12-14] MEDS: ALPRAZolam 0.5 mg Tablet PO (16:30)
[2021-12-15] VITALS (14 sets, daily range): BP systolic 78–136; BP diastolic 43–83; PULSE 61–79; RESP 13–18; TEMP 36.1–36.9; O2SAT 91–100
[2021-12-15 04:39] LABS: Basophils % 0.8 %; Eosinophils # 0.1 10^3/uL (0.0-0.8); Eosinophils % 2.8 %; Hematocrit 23.8 % (42.0-52.0); Hemoglobin 7.6 g/dL (11.7-16.6); Lymphocytes # 1.1 10^3/uL (0.8-4.8); Lymphocytes % 29.8 %; Mean Corpuscular HGB Conc 31.9 g/dL (30.0-36.0); Mean Corpuscular Hemoglobin 29.2 pg (28.0-34.0); Mean Corpuscular Volume 91.5 fl (80-94); Mean Platelet Volume 10.3 fL (7.4-10.4); Monocytes # 0.3 10^3/uL (0.2-0.9); Monocytes % 7.3 %; Nucleated Red Blood Cells % 0 %; Platelet Count 88 10^3/cmm (130-400); White Blood Count 3.6 10^3/uL (4.0-10.0)
[2021-12-15 04:58] LABS: Alanine Aminotransferase 13 U/L (0-41); Albumin Level 1.6 g/dL (3.5-5.2); Alkaline Phosphatase 90 IU/L (40-130); Anion Gap 7.5 (5-19); Aspartate Amino Transferase 18 U/L (0-40); Blood Urea Nitrogen 14 mg/dL (8-23); Calcium 7.5 mg/dL (8.5-10.5); Carbon Dioxide 31 mmol/L (22-29); Chloride 104 mmol/L (98-107); Globulin 2.9 g/dL (1.3-4.6); Glomerular Filtration Rate 15.9 mL/min (90-130); Glucose 72 mg/dL (65-115); Magnesium 1.7 mg/dL (1.7-2.3); Osmolality Calculated 287 mOsm/kg (285-295); Phosphorus 3.4 mg/dL (2.5-4.5); Potassium 3.5 mmol/L (3.5-5.1); Sodium 139 mmol/L (136-145); Total Bilirubin 0.3 mg/dL (0.15-1.2); Total Protein 4.5 g/dL (6.6-8.7)
[2021-12-15] MEDS: heparin 5,000 unit/mL INJ 1 mL 5000 UNIT SUBCUT ×2 (06:32→18:22)
--- NOTE | 2021-12-15 07:27 | PM.PN ---
Subjective Subjective: no complaints. no n/v/f/c/styles/d. + weak Medications: Reviewed: Yes Medication Review Details: Current Medications Acetaminophen (Acetaminophen 325 Mg Tablet) 650 mg PO Q6H PRN PRN Reason: Mild/Mod Pain Or Temp >/= 101 Amitriptyline HCl (Amitriptyline 25 Mg Tablet) 50 mg PO BEDTIME [facility] Last Admin: 12/15/21 00:19 Dose: Not Given Documented by: Calcitriol (Calcitriol 0.25 Mcg Capsule) 0.25 mcg PO QMWF [facility] Citalopram Hydrobromide (Citalopram 20 Mg Tablet) 40 mg PO BID [facility] Last Admin: 12/14/21 17:41 Dose: 40 mg Documented by: Famotidine (Famotidine 20 Mg Tablet) 20 mg PO BID [facility] Last Admin: 12/14/21 17:41 Dose: 20 mg Documented by: Heparin Sodium (Porcine) (Heparin 5,000 Unit/Ml Inj 1 Ml) 5,000 unit SUBCUT Q12H [facility] Last Admin: 12/15/21 06:32 Dose: 5,000 unit Documented by: Ceftriaxone Sodium 1,000 mg/ (Sodium Chloride) 50 mls @ 100 mls/hr IV Q24H [facility]; Protocol Last Infusion: 12/14/21 17:58 Dose: Infused Documented by: Midodrine (Midodrine 5 Mg Tablet) 10 mg PO TID [facility] Last Admin: 12/15/21 00:19 Dose: Not Given Documented by: Ondansetron HCl (Ondansetron 2 Mg/Ml Sdv 2 Ml) 4 mg IVP Q6H PRN PRN Reason: vomiting, or N/V if npo Vitals/I&O/Wt Last Vital Signs Temp 98.1 F 12/14/21 23:53 Pulse 64 12/14/21 23:53 Resp 16 12/14/21 23:53 BP 103/61 12/14/21 23:53 Pulse Ox 98 12/14/21 23:53 12/14/21 12/15/21 12/15/21 22:59 06:59 14:59 Intake Total 50 / 170 Balance 50 / 170 Weight last 48 hrs Weight 78.109 kg Weight 76.5 kg Physical Exam Narrative: comfortable in bed, NARD vss heent- nc/at, eomi, anicteric neck supple lungs- clear b/l heart reg abd soft, nt, nd, + bs + berrios - is chronic ext no edema access- rt ij pc neuro- a,a, o x 3 Urinary Catheter Management: Berrios: Cath Placed During This Visit: no Reason for Continuing Indwelling Catheter: Acute Urinary Retention or Obstruction Data : 12/15/21 04:25 12/15/21 04:25 Micro: Microbiology 12/13/21 05:26 Urine Culture - Preliminary Urine Catheterized Yeast species 12/11/21 12:05 Urine Culture - Final Urine,Clean Catch Burkholderia cepacia A&P Assessment and plan (1) End stage renal disease: 71 yr old man 1. ESRD - HD TTS 2. anemia- iron sat is 116%%. ferritin 859 will give SHIVA 3. uti - per medicine 4. Thrombocytopenia-Q if from meds or infection -eval per medicine -send ldh, retic, haptoglobin 5. malnourished- alb 1.7 - needs nutrition 6. pth 113 in october- we decreased calcitriol to tiw Status: Acute Plan see above Attestations Medical Necessity Statement*: per medicine Time Spent in Patient Care: 16 - 35 minutes (>than 50% of time spent in counselling and/or direct pt care on unit). 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
[2021-12-15 07:45] LABS: Reticulocyte % 2.1 % (0.5-2.0)
[2021-12-15 07:57] LABS: Lactate Dehydrogenase 122 U/L (135-225)
[2021-12-15] MEDS: citalopram 20 mg Tablet 40 MG PO ×2 (09:27→18:22)
[2021-12-15] MEDS: midodrine 5 mg TABLET 10 MG PO ×3 (09:28→21:04)
[2021-12-15] MEDS: famotidine 20 mg Tablet PO (09:28)
--- NOTE | 2021-12-15 12:55 | PC.SOCIAL ---
Pg 2 IMM Explained to pt & Pg 2 IMM. No questions voiced. Provided pt a copy. Initialed, dated, & timed a copy & placed in chart.
--- NOTE | 2021-12-15 15:03 | PM.PN ---
Subjective Subjective: Hospital course, labs appreciated. On examination patient sitting up in chair. Family at bedside. Denies any nausea vomiting, headache. Asking when can he go home. Orthostatics better. Still complaining of weakness. Vitals/I&O/Wt Last Vital Signs Temp 98.4 F 12/15/21 12:00 Pulse 76 12/15/21 12:00 Resp 18 12/15/21 12:00 BP 104/64 12/15/21 12:00 Pulse Ox 98 12/15/21 12:00 12/15/21 12/15/21 12/15/21 06:59 14:59 22:59 Intake Total 240 / 240 Output Total 175 / 175 Balance -175 / -5 240 / 240 Weight last 48 hrs Weight 78.109 kg Physical Exam Narrative: General: Alert oriented x3, patient seen sitting up in bed HEENT: Normocephalic, atraumatic, EOMI, breathing normally appearing comfortable pectus excavatum Cardio: Regular rate rhythm, normal S1-S2, no murmurs, dialysis catheter on right side of chest Respiratory: Good bilateral air entry, no wheezes no rhonchi appreciated GI: Abdomen soft, nontender, nondistended, bowel sounds + Extremities: no edema, no cyanosis Urinary Catheter Management: Sandoval: Cath Placed During This Visit: no Reason for Continuing Indwelling Catheter: Acute Urinary Retention or Obstruction Data : 12/15/21 04:25 12/15/21 04:25 Micro: Microbiology 12/13/21 05:26 Urine Culture - Preliminary Urine Catheterized Yeast species 12/11/21 12:05 Urine Culture - Final Urine,Clean Catch Burkholderia cepacia A&P Assessment and plan (1) Orthostatic hypotension: Status: Acute (2) Syncope: Status: Acute (3) Anemia: Status: Acute (4) Hypokalemia: Status: Acute (5) S/P hemodialysis catheter insertion: Status: Acute (6) End stage renal disease: Status: Acute (7) Malignant neoplasm of ascending colon: Status: Acute (8) High risk medication use: Status: Acute (9) Urinary retention: Status: Acute Plan Syncope: Secondary to orthostatic hypotension: No signs of infection. Better. Midodrine increased to 10 mg 3 times a day. TSH, cortisol levels normal. Could be secondary to bacteremia. Urine culture growing E. Cultures positive for Burkholderia. Stop ceftriaxone. Start on fluconazole for 7 days in setting of chronic Sandoval. Sandoval catheter keeping this admission. Anemia: Most likely multifactorial including malnutrition, anemia of chronic kidney disease. Given history of colon cancer cannot rule out lower GI bleed. Stool for occult blood. Protonix 40 mg twice daily, Carafate. Transfuse 1 unit of PRBC. Keep hemoglobin over 8. Analgesia: Tylenol as needed Glycemic control: Not needed Nutrition: Renal dialysis diet with protein supplementation CODE STATUS: Full code PUD prophylaxis: Protonix DVT prophylaxis: Heparin 5000 every 12 hourly. Discharge planning: Home with home health. PT recommends rehabitation at SNF. Patient would want to go home. Plan for discharge in next 24 hours if hemoglobin remains stable and orthostatics negative. Continue with care at [facility] floor with telemetry. Attestations Medical Necessity Statement*: Requires further hospitalization for further work-up of anemia, orthostatic hypotension leading to syncope in a patient with end-stage renal disease. 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
[2021-12-15] MEDS: calcitriol 0.25 mcg Capsule PO (15:13)
[2021-12-15] MEDS: fluconazole 100 mg Tablet PO (15:23)
[2021-12-15] MEDS: sucralfate 1 gm/10 mL Oral Liq UDC PO ×2 (18:22→21:04)
[2021-12-15] MEDS: pantoprazole DR 40 mg Tablet PO (18:22)
[2021-12-15] MEDS: amitriptyline 25 mg Tablet 50 MG PO (21:04)
[2021-12-15] MEDS: sodium chloride 0.9% (100 ml) 100 ML 30 ML (21:05)
[2021-12-16] VITALS (9 sets, daily range): BP systolic 117–141; BP diastolic 69–78; PULSE 68–87; RESP 12–17; TEMP 36.2–36.8; O2SAT 90–100
[2021-12-16 06:12] LABS: Basophils % 0.6 %; Eosinophils # 0.1 10^3/uL (0.0-0.8); Hematocrit 28.5 % (42.0-52.0); Hemoglobin 9.2 g/dL (11.7-16.6); Lymphocytes % 19.1 %; Mean Corpuscular HGB Conc 32.3 g/dL (30.0-36.0); Mean Corpuscular Hemoglobin 29.8 pg (28.0-34.0); Mean Corpuscular Volume 92.2 fl (80-94); Mean Platelet Volume 10.6 fL (7.4-10.4); Monocytes # 0.3 10^3/uL (0.2-0.9); Monocytes % 6.7 %; Neutrophils # 3.61 10^3/uL (1.8-7.7); Neutrophils % 71.2 %; Nucleated Red Blood Cells % 0 %; Platelet Count 99 10^3/cmm (130-400); Red Blood Count 3.09 10^6/uL (4.1-5.3); Red Cell Distribution Width 15.7 % (12.1-15.1); White Blood Count 5.1 10^3/uL (4.0-10.0)
[2021-12-16] MEDS: heparin 5,000 unit/mL INJ 1 mL 5000 UNIT SUBCUT (06:17)
[2021-12-16] MEDS: sucralfate 1 gm/10 mL Oral Liq UDC PO ×2 (06:17→11:01)
[2021-12-16 06:32] LABS: Alanine Aminotransferase 15 U/L (0-41); Alkaline Phosphatase 106 IU/L (40-130); Anion Gap 9.4 (5-19); Aspartate Amino Transferase 21 U/L (0-40); Blood Urea Nitrogen 20 mg/dL (8-23); Calcium 7.9 mg/dL (8.5-10.5); Carbon Dioxide 30 mmol/L (22-29); Chloride 103 mmol/L (98-107); Globulin 3.2 g/dL (1.3-4.6); Glomerular Filtration Rate 13.4 mL/min (90-130); Glucose 96 mg/dL (65-115); Magnesium 1.8 mg/dL (1.7-2.3); Osmolality Calculated 290 mOsm/kg (285-295); Phosphorus 3.1 mg/dL (2.5-4.5); Potassium 3.4 mmol/L (3.5-5.1); Sodium 139 mmol/L (136-145); Total Bilirubin 0.7 mg/dL (0.15-1.2); Total Protein 5.2 g/dL (6.6-8.7)
--- NOTE | 2021-12-16 06:46 | PM.PN ---
Subjective Subjective: feels better. s/p 1 u prbc tx. no n/v/f/c/styles/d/leg pains. Medications: Reviewed: Yes Medication Review Details: Current Medications Acetaminophen (Acetaminophen 325 Mg Tablet) 650 mg PO Q6H PRN PRN Reason: Mild/Mod Pain Or Temp >/= 101 Amitriptyline HCl (Amitriptyline 25 Mg Tablet) 50 mg PO BEDTIME [facility] Last Admin: 12/15/21 21:04 Dose: 50 mg Documented by: Calcitriol (Calcitriol 0.25 Mcg Capsule) 0.25 mcg PO QMWF [facility] Last Admin: 12/15/21 15:13 Dose: 0.25 mcg Documented by: Citalopram Hydrobromide (Citalopram 20 Mg Tablet) 40 mg PO BID [facility] Last Admin: 12/15/21 18:22 Dose: 40 mg Documented by: Fluconazole (Fluconazole 100 Mg Tablet) 100 mg PO DAILY [facility] Stop: 12/22/21 15:14 Last Admin: 12/15/21 15:23 Dose: 100 mg Documented by: Heparin Sodium (Porcine) (Heparin 5,000 Unit/Ml Inj 1 Ml) 5,000 unit SUBCUT Q12H [facility] Last Admin: 12/16/21 06:17 Dose: 5,000 unit Documented by: Albumin Human (Albumin) 12.5 gm in 50 mls @ 60 mls/hr IV PRN PRN PRN Reason: Hypotension and/or symptomatic Midodrine (Midodrine 5 Mg Tablet) 10 mg PO TID [facility] Last Admin: 12/15/21 21:04 Dose: 10 mg Documented by: Ondansetron HCl (Ondansetron 2 Mg/Ml Sdv 2 Ml) 4 mg IVP Q6H PRN PRN Reason: vomiting, or N/V if npo Pantoprazole Sodium (Pantoprazole Dr 40 Mg Tablet) 40 mg PO BID [facility] Last Admin: 12/15/21 18:22 Dose: 40 mg Documented by: Sucralfate (Sucralfate 1 Gm/10 Ml Oral Liq Udc) 1 gm PO AC&BEDTIME [facility] Last Admin: 12/16/21 06:17 Dose: 1 gm Documented by: Vitals/I&O/Wt Last Vital Signs Temp 97.9 F 12/16/21 04:00 Pulse 74 12/16/21 04:00 Resp 17 12/16/21 04:00 BP 134/77 12/16/21 04:00 Pulse Ox 90 12/16/21 04:00 12/15/21 12/15/21 12/16/21 14:59 22:59 06:59 Intake Total 240 / 240 240 / 480 380 / 860 Output Total 100 / 100 Balance 240 / 240 240 / 480 280 / 760 Physical Exam Narrative: comfortable in bed, NARD vss heent- nc/at, eomi, anicteric neck supple lungs- crackles and wheezes b/l heart reg abd soft, nt, nd, + bs + berrios - is chronic ext 1+ leg edema access- rt ij pc neuro- a,a, o x 3 Urinary Catheter Management: Berrios: Cath Placed During This Visit: no Reason for Continuing Indwelling Catheter: Acute Urinary Retention or Obstruction Data : 12/16/21 05:35 12/16/21 05:35 Micro: Microbiology 12/13/21 05:26 Urine Culture - Preliminary Urine Catheterized Yeast species A&P Assessment and plan (1) End stage renal disease: 71 yr old man 1. ESRD - HD TTS - 3 k bath, remove 2 l as tolerated 2. anemia- iron sat is 116%%. ferritin 859 will give SHIVA -s/p prbc tx yesterday -elevated free kappa and free lambda- normal ratio- consider outpt heme eval 3. uti - per medicine 4. Thrombocytopenia-Q if from meds or infection -improving -eval per medicine -normal ldh and haptoglobin 5. malnourished- alb 1.7 improved to 2- continue nutrition 6. pth 113 in october- we decreased calcitriol to tiw seen and examined w / RN - telehealth visit time spent 30 min Status: Acute Plan see above Attestations Medical Necessity Statement*: per medicine Time Spent in Patient Care: 16 - 35 minutes (>than 50% of time spent in counselling and/or direct pt care on unit). 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
[2021-12-16] MEDS: pantoprazole DR 40 mg Tablet PO (08:46)
[2021-12-16] MEDS: citalopram 20 mg Tablet 40 MG PO (08:46)
[2021-12-16] MEDS: midodrine 5 mg TABLET 10 MG PO ×2 (08:46→16:09)
[2021-12-16] MEDS: b-complex-vitamin c Tablet 1 EACH PO (08:46)
[2021-12-16] MEDS: fluconazole 100 mg Tablet PO (08:46)
--- NOTE | 2021-12-16 12:41 | P.DS_ITS ---
Discharge Providers Date of Admission: 12/12/21 12:00 Date of Discharge: December 16, 2021 Attending Provider at Admission: Brendan Llanos MD Attending Provider at Discharge: Davin Wei MD Primary Care Provider: Julia Diego APN Diagnoses at Discharge Discharge Diagnosis (1) End stage renal disease: Status: Acute Reason for Visit Reason for Visit: low bp Brief History: History as per HPI: Darion Hamilton is a 71 year old male brought in by his for repetitive syncopal events.? She reports it happens whenever she sets them up, or transfers him and is happening very commonly.? Today at dialysis they noticed that, so had them go to the emergency department.? He did not receive dialysis today.? They noted his blood pressure to be low.? He has had no fever, cough, vomiting, blood in the stool, black or tarry stools.? He eats very poorly, and is very weak at home.? It has been going on at least a week, perhaps longer.? reports he does not have any swelling or edema.? Patient participates somewhat in history and physical but appears sleepy.? She reports he is confused at times. Hospital Course Hospital Course Patient under the hospital for further evaluation and management. On admission there is a possibility of UTI which is difficult to interpret because of longstanding urinary catheter which could have colonization. Urinary catheter was changed. Final urine cultures grew Burkholderia and yeast species. He has finished a course of IV antibiotics and is currently on oral fluconazole for possible Jammie. His dose of midodrine was increased to 10 mg 3 times a day. It is believed his symptoms are most likely secondary to poor oral intake leading to protein energy malnutrition. His dose of amitriptyline was adjusted and alprazolam has been discontinued. During hospitalization he was also found to have a low hemoglobin. Patient has a care home history of anemia which is most likely secondary to renal failure and severe protein energy malnutrition. He has had colonoscopy within last negative for any acute abnormality. He received monitor blood transfusion. Patient has been discharged hemodynamically stable condition with advised to increase his oral intake as much as possible, take Ensure with each meals, continue with dialysis session as before and take midodrine 10 mg 3 times a day. Physical Exam Narrative: Alert oriented x3, patient seen sitting up in bed, neck HEENT: Normocephalic, atraumatic, EOMI, breathing normally appearing comfortable pectus excavatum Cardio: Regular rate rhythm, normal S1-S2, no murmurs, dialysis catheter on right side of chest Respiratory: Good bilateral air entry, no wheezes no rhonchi appreciated GI: Abdomen soft, nontender, nondistended, bowel sounds + Extremities: no edema, no cyanosis Urinary Catheter Management: Sandoval: Cath Placed During This Visit: no Reason for Continuing Indwelling Catheter: Acute Urinary Retention or Obstruction Discharge Data Studies Completed and Pending Completed Studies During Hospitalization Category Date Time Status CT head wo con* [id number] Stat Cat Scan 12/11/21 07:35 Completed XR chest 1V portable [id number] Stat Exams 12/11/21 07:35 Completed Pending at discharge Category Date Time Status Complete Blood Count w/Auto AM LABS Lab 12/17/21 04:00 Ordered Comprehensive Metabolic Panel AM LABS Lab 12/17/21 04:00 Ordered Immunochemical Fecal OCB Routine Lab 12/15/21 14:59 Ordered Magnesium AM LABS Lab 12/17/21 04:00 Ordered Phosphorus AM LABS Lab 12/17/21 04:00 Ordered Urine Culture Routine Lab 12/13/21 05:26 Results Radiology Impressions Chest X-Ray 12/11/21 07:35 IMPRESSION: 1. Plaque atelectasis in the left base, no acute process. Head CT 12/11/21 07:35 IMPRESSION: 1. No evidence of intracranial hemorrhage or mass effect. 2. Moderate small vessel changes with moderate parenchymal volume loss. 3. Parenchymal volume loss worse in the frontal lobes with chronic incidental subdural hygromas. 4. No acute intracranial findings. Laboratory Results WBC 5.1 10^3/uL (4.0-10.0) 12/16/21 05:35 RBC 3.09 10^6/uL (4.1-5.3) L 12/16/21 05:35 Hgb 9.2 g/dL (11.7-16.6) L 12/16/21 05:35 Hct 28.5 % (42.0-52.0) L 12/16/21 05:35 MCV 92.2 fl (80-94) 12/16/21 05:35 MCH 29.8 pg (28.0-34.0) 12/16/21 05:35 MCHC 32.3 g/dL (30.0-36.0) 12/16/21 05:35 RDW 15.7 % (12.1-15.1) H 12/16/21 05:35 Plt Count 99 10^3/cmm (130-400) L 12/16/21 05:35 MPV 10.6 fL (7.4-10.4) H 12/16/21 05:35 Neut % (Auto) 71.2 % 12/16/21 05:35 Lymph % (Auto) 19.1 % 12/16/21 05:35 [place] % (Auto) 6.7 % 12/16/21 05:35 Eos % (Auto) 2.0 % 12/16/21 05:35 Baso % (Auto) 0.6 % 12/16/21 05:35 Reticulocyte % (Auto) 2.1 % (0.5-2.0) H 12/15/21 04:25 Neut # (Auto) 3.61 10^3/uL (1.8-7.7) 12/16/21 05:35 Lymph # (Auto) 1.0 10^3/uL (0.8-4.8) 12/16/21 05:35 [place] # (Auto) 0.3 10^3/uL (0.2-0.9) 12/16/21 05:35 Eos # (Auto) 0.1 10^3/uL (0.0-0.8) 12/16/21 05:35 Baso # (Auto) 0.0 10^3/uL (0.0-0.1) 12/16/21 05:35 Nucleated RBC % (auto) 0 % 12/16/21 05:35 Nucleated RBCs # 0.0 /100WBC 12/16/21 05:35 Haptoglobin 102.0 mg/L (30-200) 12/15/21 04:25 Sodium 139 mmol/L (136-145) 12/16/21 05:35 Potassium 3.4 mmol/L (3.5-5.1) L 12/16/21 05:35 Chloride 103 mmol/L (98-107) 12/16/21 05:35 Carbon Dioxide 30 mmol/L (22-29) H 12/16/21 05:35 Anion Gap 9.4 (5-19) 12/16/21 05:35 BUN 20 mg/dL (8-23) 12/16/21 05:35 Creatinine 4.4 mg/dL (0.7-1.2) H 12/16/21 05:35 GFR Calculation 13.4 mL/min (90-130) L 12/16/21 05:35 Glucose 96 mg/dL (65-115) 12/16/21 05:35 Calculated Osmolality 290 mOsm/kg (285-295) 12/16/21 05:35 Calcium 7.9 mg/dL (8.5-10.5) L 12/16/21 05:35 Phosphorus 3.1 mg/dL (2.5-4.5) 12/16/21 05:35 Magnesium 1.8 mg/dL (1.7-2.3) 12/16/21 05:35 Iron 51 ug/dL (59-158) L 12/13/21 05:10 TIBC 44 mcg/dl 12/13/21 05:10 % Saturation 115.9 % (20-50) H 12/13/21 05:10 Unsat Iron Binding -7 ug/dL (112-347) L 12/13/21 05:10 Ferritin 859 ng/mL (30-400) H 12/13/21 05:10 Total Bilirubin 0.7 mg/dL (0.15-1.2) 12/16/21 05:35 AST 21 U/L (0-40) 12/16/21 05:35 ALT 15 U/L (0-41) 12/16/21 05:35 Alkaline Phosphatase 106 IU/L (40-130) 12/16/21 05:35 Lactate Dehydrogenase 122 U/L (135-225) L 12/15/21 04:25 Troponin T Baseline 39 ng/L (0-15) H 12/11/21 07:40 Troponin T 120 Minute 33.65 ng/L (0-15) H 12/11/21 09:43 Delta Troponin T -5.35 ABS# (0-10) L 12/11/21 09:43 Troponin T Hi Sens 6Hr 33.75 ng/L (0-15) H 12/11/21 13:26 Troponin T Hi Sens 6Hr Delta -5.25 ng/L (0-12) L 12/11/21 13:26 Total Protein 5.2 g/dL (6.6-8.7) L 12/16/21 05:35 Albumin 2.0 g/dL (3.5-5.2) L 12/16/21 05:35 Globulin 3.2 g/dL (1.3-4.6) 12/16/21 05:35 TSH 2.51 uIU/mL (0.27-4.20) 12/11/21 09:00 Random Cortisol 16.76 ug/dL (2.47-19.5) 12/11/21 09:00 Urine Color Yellow (Yellow) 12/11/21 12:05 Urine Appearance Cloudy (CLEAR) 12/11/21 12:05 Urine pH 7 (5-7) 12/11/21 12:05 Ur Specific [place] 1.010 (1.005-1.030) 12/11/21 12:05 Urine Protein Neg (Negative) 12/11/21 12:05 Urine Glucose (UA) Norm (Normal) 12/11/21 12:05 Urine Ketones Negative (Negative) 12/11/21 12:05 Urine Blood 3+ (Negative) H 12/11/21 12:05 Urine Nitrate Negative (Negative) 12/11/21 12:05 Urine Bilirubin Neg (Negative) 12/11/21 12:05 Urine Urobilinogen Norm mg/dL (Negative) 12/11/21 12:05 Ur Leukocyte Esterase 2+ (Negative) H 12/11/21 12:05 Urine RBC 10-15 /hpf (0-2) H 12/11/21 12:05 Urine WBC Too numerous to cnt /hpf (0-5) H 12/11/21 12:05 Ur Squamous Epith Cells 0-4 /hpf (0-5) H 12/11/21 12:05 Amorphous Sediment Not Reportable 12/11/21 12:05 Urine Bacteria 3+ /hpf (NONE) H 12/11/21 12:05 Urine Yeast 2+ /hpf H 12/11/21 12:05 Blood Type A Positive 12/15/21 18:18 Rho(D) Type Positive 12/15/21 18:18 Antibody Screen Negative 12/15/21 18:18 Crossmatch See Detail 12/15/21 18:18 Vitals Last Vital Signs Temp 97.9 F 12/16/21 12:00 Pulse 68 12/16/21 12:00 Resp 16 12/16/21 12:00 BP 135/70 12/16/21 12:00 Pulse Ox 98 12/16/21 12:00 Discharge Plan Discharge Patient Disposition: Home Condition: Stable Prescriptions: New pantoprazole 40 mg Tablet,Delayed Release (Dr/Ec) 40 mg PO BID Qty: 60 0RF fluconazole 100 mg Tablet 100 mg PO DAILY Qty: 6 0RF sucralfate [Carafate] 1 gram tablet 1 g PO BID 28 Days Qty: 56 0RF Continued hydroxyzine HCl 50 mg Tablet 25 - 50 mg PO BID PRN (Reason: moderate anxiety) 0RF acetaminophen 500 mg Tablet 1,000 mg PO Q8H PRN (Reason: Pain) 0RF calcitriol 0.25 mcg Capsule 0.25 mcg PO BID Qty: 30 0RF cyproheptadine 4 mg Tablet 4 mg PO BID 0RF citalopram 20 mg Tablet 40 mg PO BID 0RF sodium bicarbonate 650 mg tablet 650 mg PO TID 0RF ergocalciferol (vitamin D2) 1,250 mcg (50,000 unit) Capsule 1,250 mcg PO Q7D 0RF Rx Instructions: On Tuesdays RenaPlex-D 800 mcg-12.5 mg -2,000 unit tablet 1 tab PO DAILY 0RF Changed alprazolam 2 mg Tablet 1 mg PO BID PRN (Reason: Anxiety) Qty: 0 0RF midodrine 5 mg Tablet 10 mg PO TID Qty: 0 0RF amitriptyline 75 mg Tablet 75 mg PO BEDTIME Qty: 0 0RF Discontinued famotidine 20 mg Tablet 20 mg PO BID 0RF Discharge Orders: Discharge Order (Routine); Ordered 12/16/21 Ordered By: Davin Wei Referrals: [facility] [Other] [facility] [Outside] Diego,LIAM Dumont [Primary Care Provider] - 7-10 days Discharge Diet: Usual diet Discharge Activity: Resume usual activity and Increase activity as tolerated Patient Instructions: Opioid Safety Activity Restrictions/Additional Instructions: Dose of midodrine has been increased to 10 mg 3 times a day. Please continue to take Ensure with each meal as discussed in detail. Take fluconazole to take the antifungal for next 5 to 6 days. Please continue dialysis sessions as before. Discharge Attestations Time Spent in Discharge Care*: greater than 30 min Specific Discharge Activities: educating patient, educating and/or supporting family/caregiver, discussing with case finisher/social workers/dc planners, documenting/other paperwork and evaluating patient/reviewing data Status at Discharge: Cognitive status at discharge: cognitively intact , Behavioral status at discharge: cooperative , Functional status at discharge: other assisted ambulation , Overall status at discharge: patient is progressing back to baseline Quality Metrics Clinical Quality Measures [ No reported AMI, CVA or VTE this stay] Coding Level of Care Code Acute Chg DC note Diagnoses End stage renal disease N18.6
--- NOTE | 2021-12-16 16:51 | PC.NURSE ---
dc'd pts piv and tele. discharge instructions discussed thoroughly with and patient. no further questions, pt left via wc to private vehicle.
== END 2021-12-16 16:49 | disposition home health service (06) | DRG 698 ==
LOC: ER 10:59 → MEDSURG 16:10
PROVIDERS: Internal Medicine; Internal Medicine Nephrology; Admitting Provider Internal Medicine; Emergency Provider Emergency Medicine; PCP Nurse Practitioner Family; Visit Provider Student in an Organized Health Care Education/Training Program
DX: T83.511A Infection and inflammatory reaction due to indwelling urethral catheter, initial encounter (principal); N18.6 End stage renal disease; I12.0 Hypertensive chronic kidney disease with stage 5 chronic kidney disease or end stage renal disease; E46 Unspecified protein-calorie malnutrition; Y73.8 Miscellaneous gastroenterology and urology devices associated with adverse incidents, not elsewhere classified; I95.1 Orthostatic hypotension; D63.1 Anemia in chronic kidney disease; M1A.9XX1 Chronic gout, unspecified, with tophus (tophi); Z99.2 Dependence on renal dialysis; Z85.038 Personal history of other malignant neoplasm of large intestine; M81.0 Age-related osteoporosis without current pathological fracture; Z90.49 Acquired absence of other specified parts of digestive tract; Z87.891 Personal history of nicotine dependence; E87.6 Hypokalemia; B37.9 Candidiasis, unspecified; B96.89 Other specified bacterial agents as the cause of diseases classified elsewhere; R33.9 Retention of urine, unspecified; M15.9 Polyosteoarthritis, unspecified; D69.6 Thrombocytopenia, unspecified; Z96.0 Presence of urogenital implants
CPT/HCPCS: 36415; 36430; 70450; 71045; 80048; 80053; 81001; 82533; 82728; 83010; 83540; 83550; 83615; 83735; 84100; 84443; 84484; 85025; 85045; 86850; 86900; 86920; 87040; 87077; 87086; 87106; 87186; 93005; 96365; 96367; 96372; 97110; 97161; 97165; 97530; 97535; 99285; G0378; J0696; J1644; J3370; J7040; J7050; P9016; Q4081

== ENCOUNTER 2021-12-31 08:41 | Oncology outpatient (recurring) (ONCR) | payer MEDICARE, SELFPAY ==
[2021-12-31 11:32] LABS: Carcinoembryonic Antigen 11.6 ng/mL (0.0-4.7); Thyroid Stimulating Hormone 3.02 uIU/mL (0.27-4.20)
[2021-12-31 11:37] LABS: Basophils % 0.8 %; Eosinophils # 0.1 10^3/uL (0.0-0.8); Eosinophils % 2.1 %; Hematocrit 35.9 % (42.0-52.0); Hemoglobin 11.4 g/dL (11.7-16.6); Lymphocytes # 1.1 10^3/uL (0.8-4.8); Lymphocytes % 21.6 %; Mean Corpuscular HGB Conc 31.8 g/dL (30.0-36.0); Mean Corpuscular Hemoglobin 30.2 pg (28.0-34.0); Mean Platelet Volume 10.7 fL (7.4-10.4); Monocytes # 0.3 10^3/uL (0.2-0.9); Neutrophils # 3.55 10^3/uL (1.8-7.7); Neutrophils % 69.1 %; Nucleated Red Blood Cells % 0 %; Platelet Count 118 10^3/cmm (130-400); Red Blood Count 3.78 10^6/uL (4.1-5.3); Red Cell Distribution Width 16.8 % (12.1-15.1); White Blood Count 5.1 10^3/uL (4.0-10.0)
[2021-12-31 11:38] LABS: Erythrocyte Sedimentation Rate 9 mm/hr (0-10)
[2021-12-31 11:44] LABS: Alanine Aminotransferase 16 U/L (0-41); Albumin Level 2.3 g/dL (3.5-5.2); Alkaline Phosphatase 131 IU/L (40-130); Anion Gap 12.5 (5-19); Aspartate Amino Transferase 20 U/L (0-40); Blood Urea Nitrogen 21 mg/dL (8-23); C Reactive Protein 14.5 mg/L (0.0-4.9); Calcium 7.7 mg/dL (8.5-10.5); Carbon Dioxide 31 mmol/L (22-29); Chloride 97 mmol/L (98-107); Globulin 3.5 g/dL (1.3-4.6); Glomerular Filtration Rate 18.7 mL/min (90-130); Glucose 90 mg/dL (65-115); Osmolality Calculated 287 mOsm/kg (285-295); Potassium 3.5 mmol/L (3.5-5.1); Sodium 137 mmol/L (136-145); Total Bilirubin 0.5 mg/dL (0.15-1.2); Total Protein 5.8 g/dL (6.6-8.7)
[2021-12-31 13:16] LABS: Vitamin B12 814 pg/mL (232-1245)
== END 2021-12-31 23:59 | disposition home or self-care (01) ==
PROVIDERS: PCP Nurse Practitioner Family; Visit Provider Internal Medicine Medical Oncology
DX: C18.2 Malignant neoplasm of ascending colon (principal); C77.8 Secondary and unspecified malignant neoplasm of lymph nodes of multiple regions; N18.6 End stage renal disease; Z99.2 Dependence on renal dialysis; I95.1 Orthostatic hypotension; R33.9 Retention of urine, unspecified; R19.7 Diarrhea, unspecified; Z79.899 Other long term (current) drug therapy; Z92.21 Personal history of antineoplastic chemotherapy
CPT/HCPCS: 36415; 80053; 82378; 82607; 84443; 85025; 85651; 86140; 99215

== ENCOUNTER 2022-01-01 09:27 | Oncology outpatient (recurring) (ONCR) | payer MEDICARE, SELFPAY | END 2022-01-18 23:59 | disposition home or self-care (01) | LOC: ONCMED 09:28 | PROVIDERS: PCP Nurse Practitioner Family; Visit Provider Internal Medicine Medical Oncology | DX: R19.7 Diarrhea, unspecified; C18.2 Malignant neoplasm of ascending colon | CPT/HCPCS: 87493 ==

== ENCOUNTER → 2022-01-08 11:14 | Day surgery (SDC) | payer MEDICARE, SELFPAY ==
[2022-01-08 11:52] VITALS: BP 95/55; PULSE 94; RESP 18; TEMP 36.2; O2SAT 98
[2022-01-08] MEDS: cosyntropin 0.25 mg SDV IVP (12:13)
[2022-01-08 13:37] LABS: Cosyntropin 30 Minute 20.14 mcg/dL
== END ==
PROVIDERS: PCP Nurse Practitioner Family; Visit Provider Internal Medicine Medical Oncology
DX: C18.2 Malignant neoplasm of ascending colon (principal)
CPT/HCPCS: 36415; 82533; 96374; J0834

== ENCOUNTER 2022-03-03 07:35 | Emergency (ER) | payer MEDICARE, SELFPAY ==
[2022-03-03 07:41] VITALS: BP 91/60; PULSE 85; RESP 19; TEMP 35.9; O2SAT 96; BMI 23.6
--- NOTE | 2022-03-03 07:43 | XR_ITS ---
WS: [id number] XR chest 1V portable [id number] REASON FOR EXAM: dyspnea/cough FINDINGS: Right transjugular dual-lumen dialysis catheter remains in place. Tortuous thoracic aorta. The heart is at the upper limits of normal in size. Compared to previous examination of 12/11/2021 there is extensive reticular interstitial lung opacity throughout both lungs most prominent centrally. There is colon Interposition under the right hemidiaphragm as noted before. XR/XR chest 1V portable [id number] IMPRESSION: Interval development of diffuse lung abnormality which most likely relates to f luid imbalance, pulmonary edema. Presentation would be atypical however a subac светлана pneumonitis is possible.
--- NOTE | 2022-03-03 08:08 | ECG_ITS ---
[facility] Test Date: 2022-03-03 Pat Name: Darion Hamilton Department: Room: Gender: Male [employer] Machine: : 1950 Requested By: Salazar Welsh Order Number: [id number] Alli MD: Paloma Tracey M.D. Measurements Intervals [place] Rate: 82 P: 4 MD: 171 QRS: -36 QRSD: 85 T: 120 QT: 376 QTc: 441 Interpretive Statements SINUS RHYTHM LOW QRS VOLTAGE INFERIOR MYOCARDIAL INFARCTION , PROBABLY OLD ANTEROLATERAL MYOCARDIAL INFARCTION , PROBABLY OLD Compared to ECG 12/11/2021 13:51:37 Left-axis deviation no longer present Myocardial infarct finding still present Electronically Signed On 03-03-2022 18:04:52 CDT by Paloma Tracey M.D. [id number]
[2022-03-03 08:19] LABS: Eosinophils % 0.2 %; Hematocrit 26.6 % (42.0-52.0); Hemoglobin 8.7 g/dL (11.7-16.6); Lymphocytes % 9.3 %; Mean Corpuscular HGB Conc 32.7 g/dL (30.0-36.0); Mean Corpuscular Volume 94.7 fl (80-94); Mean Platelet Volume 10.2 fL (7.4-10.4); Monocytes # 0.5 10^3/uL (0.2-0.9); Monocytes % 4.1 %; Neutrophils # 9.62 10^3/uL (1.8-7.7); Neutrophils % 85.8 %; Nucleated Red Blood Cells % 0 %; Platelet Count 139 10^3/cmm (130-400); Red Blood Count 2.81 10^6/uL (4.1-5.3); Red Cell Distribution Width 18.5 % (12.1-15.1); White Blood Count 11.2 10^3/uL (4.0-10.0)
--- NOTE | 2022-03-03 08:38 | W.ED.AMS ---
HPI - Altered Mental Status General: Chief Complaint: Altered Mental Status Stated Complaint: AMS/ HIGH BP Time Seen by Provider: 03/03/22 07:36 Source: patient Mode of arrival: ambulatory Limitations: no limitations History of Present Illness: 71-year-old male presents emergency room from dialysis. He was hypertensive when he arrived there and they were not able to do dialysis. Patient has extensive medical history including cancer he said serious decline over the last few months. Market Research Lead had contacted us prior to his arrival stating that he would no longer be a candidate for dialysis and should be considered for hospice. Patient is confused and disoriented on arrival here. He is hypotensive extremities: Difficult to maintain oxygen sat monitoring. MD complaint: altered mental status Onset (ago): unknown Severity: moderate Consistency of symptoms: Getting Worse Associated symptoms: Deny auditory hallucinations, visual hallucinations, delusions or depression Review of Systems Const: Reports: change in appetite, fatigue and malaise; Denies: fever(s), chills or body aches Card: Reports: dyspnea on exertion and orthopnea; Denies: chest pain, palpitations, irregular heart rhythm or edema Resp: Denies: dyspnea, productive cough or non-productive cough GI: Reports: nausea; Denies: abdominal pain, vomiting, hematemesis, coffee ground emesis, diarrhea, constipation, bloating, hematochezia or melena Psych: Denies: depression, visual hallucinations or auditory hallucinations PFS ED PFSH: Medical History Anemia Chronic tophaceous gout of both hands Colon cancer End stage renal disease History of hypertension Osteoarthritis Osteoporosis Urinary retention Surgical History History of colonoscopy (12/19/20) 2019 History of hemicolectomy (03/30/16) laparoscopic right hemicolectomy with extracorporeal ileocolic stapled anastomosis History of laparoscopy (09/14/18) laparoscopy with lysis of adhesions and ileocolectomy with extracorporeal stapled ileocolic anastomosis History of laparoscopy (02/22/19) laparoscopic lysis of adhesions and laparoscopic partial colectomy with ileal colonic anastomosis and with omentectomy Hx of total knee arthroplasty (06/23/21) left S/P hemodialysis catheter insertion (11/15/21) Status post left knee replacement Family History Father , AT 72 CAD (coronary artery disease) Brother Cancer Brain Mother , AT AGE 96 Diabetes Other Arthritis Hypertension Denies family history of Rheumatoid arthritis Lupus Clotting disorder Dementia Hyperlipidemia Psychiatric illness Chronic kidney disease (CKD) Suicide Anesthesia complication Bleeding disorder Lung disease Stroke Social History Smoking and tobacco status: former smoker Alcohol intake: never Marital status: Current occupational status: retired History of recent travel: No Physical Exam Const: NUTRITIONAL APPEARANCE: cachectic Chest: OTHER: Soft tissue mass right flank Resp: EFFORT & INSPECTION: Yes labored and Yes uses accessory muscles AUSCULTATION: rhonchi and wheezes Cardio: COMMON NORMALS: regular rate and regular rhythm RATE: regular rate RHYTHM: regular rhythm GI: INSPECTION: Yes abdominal distension : COMMON NORMALS: Yes no CVA tenderness BLADDER/KIDNEY EXAM: Yes no CVA tenderness Back/Pelvis: COMMON NORMALS: no CVA tenderness Extremity: COMMON NORMALS: no pedal edema Psych: THOUGHT CONTENT: No delusions Course Vital Signs: Vital signs: Vital Signs Temperature 96.7 F L 03/03/22 07:41 Pulse Rate 74 03/03/22 08:55 Respiratory Rate 14 03/03/22 08:55 Blood Pressure 103/54 03/03/22 09:20 Pulse Oximetry 96 03/03/22 07:41 Oxygen Delivery Me thod 03/03/22 07:41 Oxygen Flow Rate 3 03/03/22 07:41 MDM - Altered Mental Status Medical Decision Making Reviewed medical records. Patient is maxed out all of his medical therapies at this point. Nephrology had contacted us prior to his arrival states he did not feel he was a candidate for any further dialysis because of his weakened condition his blood pressure would not tolerate it. Long discussion with the family. Also contacted Dr. Matos and he is in agreement there is really nothing more that can be done. Any attempted treatments would likely be futile and would just prolong his discomfort. After this discussion with the family they are agreeable and wished to go home with the patient and consult hospice were making arrangements for hospice to see him in his home later today. Medical Records I reviewed the patient's medical records. Lab Data I reviewed the patient's lab results. : 03/03/22 08:14 03/03/22 08:14 Radiology Impressions Chest X-Ray 03/03/22 07:43 IMPRESSION: Interval development of diffuse lung abnormality which most likely relates to fluid imbalance, pulmonary edema. Presentation would be atypical however a subacute pneumonitis is possible. Laboratory Results WBC 11.2 10^3/uL (4.0-10.0) H 03/03/22 08:14 RBC 2.81 10^6/uL (4.1-5.3) L 03/03/22 08:14 Hgb 8.7 g/dL (11.7-16.6) L 03/03/22 08:14 Hct 26.6 % (42.0-52.0) L 03/03/22 08:14 MCV 94.7 fl (80-94) H 03/03/22 08:14 MCH 31.0 pg (28.0-34.0) 03/03/22 08:14 MCHC 32.7 g/dL (30.0-36.0) 03/03/22 08:14 RDW 18.5 % (12.1-15.1) H 03/03/22 08:14 Plt Count 139 10^3/cmm (130-400) 03/03/22 08:14 MPV 10.2 fL (7.4-10.4) 03/03/22 08:14 Neut % (Auto) 85.8 % 03/03/22 08:14 Lymph % (Auto) 9.3 % 03/03/22 08:14 [place] % (Auto) 4.1 % 03/03/22 08:14 Eos % (Auto) 0.2 % 03/03/22 08:14 Baso % (Auto) 0.0 % 03/03/22 08:14 Neut # (Auto) 9.62 10^3/uL (1.8-7.7) H 03/03/22 08:14 Lymph # (Auto) 1.0 10^3/uL (0.8-4.8) 03/03/22 08:14 [place] # (Auto) 0.5 10^3/uL (0.2-0.9) 03/03/22 08:14 Eos # (Auto) 0.0 10^3/uL (0.0-0.8) 03/03/22 08:14 Baso # (Auto) 0.0 10^3/uL (0.0-0.1) 03/03/22 08:14 Nucleated RBC % (auto) 0 % 03/03/22 08:14 Nucleated RBCs # 0.0 /100WBC 03/03/22 08:14 Sodium 138 mmol/L (136-145) 03/03/22 08:14 Potassium 3.7 mmol/L (3.5-5.1) 03/03/22 08:14 Chloride 100 mmol/L (98-107) 03/03/22 08:14 Carbon Dioxide 26 mmol/L (22-29) 03/03/22 08:14 Anion Gap 15.7 (5-19) 03/03/22 08:14 BUN 28 mg/dL (8-23) H 03/03/22 08:14 Creatinine 4.3 mg/dL (0.7-1.2) H 03/03/22 08:14 GFR Calculation 13.8 mL/min (90-130) L 03/03/22 08:14 Glucose 123 mg/dL (65-115) H 03/03/22 08:14 Calculated Osmolality 293 mOsm/kg (285-295) 03/03/22 08:14 Calcium 7.9 mg/dL (8.5-10.5) L 03/03/22 08:14 Total Bilirubin 0.8 mg/dL (0.15-1.2) 03/03/22 08:14 AST 12 U/L (0-40) 03/03/22 08:14 ALT 14 U/L (0-41) 03/03/22 08:14 Alkaline Phosphatase 123 U/L (40-130) 03/03/22 08:14 Total Protein 6.1 g/dL (6.6-8.7) L 03/03/22 08:14 Albumin 1.6 g/dL (3.5-5.2) L 03/03/22 08:14 Globulin 4.5 g/dL (1.3-4.6) 03/03/22 08:14 Urine Color Dark yellow (Yellow) 03/03/22 09:21 Urine Appearance Cloudy (CLEAR) 03/03/22 09:21 Urine pH 7 (5-7) 03/03/22 09:21 Ur Specific [place] 1.005 (1.005-1.030) 03/03/22 09:21 Urine Protein 2+ (Negative) H 03/03/22 09:21 Urine Glucose (UA) Norm (Normal) 03/03/22 09:21 Urine Ketones Negative (Negative) 03/03/22 09:21 Urine Blood 3+ (Negative) H 03/03/22 09:21 Urine Nitrate Negative (Negative) 03/03/22 09:21 Urine Bilirubin 2+ (Negative) H 03/03/22 09:21 Urine Urobilinogen Norm mg/dL (Negative) 03/03/22 09:21 Ur Leukocyte Esterase 2+ (Negative) H 03/03/22 09:21 Urine RBC 5-10 /hpf (0-2) H 03/03/22 09:21 Urine WBC Too numerous to cnt /hpf (0-5) H 03/03/22 09:21 Ur Squamous Epith Cells 0-4 /hpf (0-5) H 03/03/22 09:21 Amorphous Sediment Not Reportable 03/03/22 09:21 Urine Bacteria 4+ /hpf (NONE) H 03/03/22 09:21 Discharge Plan Discharge Patient Disposition: Home Clinical Impression: ESRD on dialysis, Malignant neoplasm of ascending colon, Anemia, Orthostatic hypotension Condition: Stable Prescriptions: No Action midodrine 5 mg tablet 5 mg PO TID hydrocortisone 10 mg tablet 10 mg PO .COMPLEX Qty: 75 0RF Rx Instructions: Take 1.5 tab in the morning Take 1 tab in the evening megestrol 400 mg/10 mL (40 mg/mL) suspension 800 mg PO DAILY tramadol 50 mg tablet 50 mg PO Q4H PRN (Reason: Pain) triamterene-hydrochlorothiazid 37.5-25 mg tablet 1 tab PO DAILY PRN (Reason: Edema) omeprazole 20 mg capsule,delayed release(DR/EC) 20 mg PO BID [place] 12,000-38,000 -60,000 unit capsule,delayed release(DR/EC) 1 cap PO TIDWM RenaPlex-D 800 mcg-12.5 mg -2,000 unit tablet 1 tab PO DAILY amitriptyline 75 mg tablet 75 - 150 mg PO BEDTIME PRN (Reason: Sleep) fludrocortisone 0.1 mg tablet 0.1 mg PO QAM acetaminophen 500 mg Tablet 1,000 mg PO Q8H PRN (Reason: Pain) ergocalciferol (vitamin D2) 1,250 mcg (50,000 unit) Capsule 1,250 mcg PO Q7D Rx Instructions: On Tuesdays alprazolam 2 mg Tablet 1 mg PO BID PRN (Reason: Anxiety) Qty: 0 0RF citalopram 20 mg tablet 40 mg PO BID Discharge Orders: Discharge ED (Routine); Ordered 03/03/22 Ordered By: Salazar Lockwood Referrals: Julia Diego APN [Primary Care Provider] - Discharge Diet: Usual diet Discharge Activity: Resume usual activity Activity Restrictions/Additional Instructions: Hospice will consult with you at home. Coding Level of Care Code ED Digital Experience Manager for Dary Juan
[2022-03-03 08:49] LABS: Alanine Aminotransferase 14 U/L (0-41); Albumin Level 1.6 g/dL (3.5-5.2); Alkaline Phosphatase 123 U/L (40-130); Anion Gap 15.7 (5-19); Aspartate Amino Transferase 12 U/L (0-40); Blood Urea Nitrogen 28 mg/dL (8-23); Calcium 7.9 mg/dL (8.5-10.5); Carbon Dioxide 26 mmol/L (22-29); Chloride 100 mmol/L (98-107); Globulin 4.5 g/dL (1.3-4.6); Glomerular Filtration Rate 13.8 mL/min (90-130); Glucose 123 mg/dL (65-115); Osmolality Calculated 293 mOsm/kg (285-295); Potassium 3.7 mmol/L (3.5-5.1); Sodium 138 mmol/L (136-145); Total Bilirubin 0.8 mg/dL (0.15-1.2); Total Protein 6.1 g/dL (6.6-8.7)
[2022-03-03 08:55] VITALS: BP 107/64; PULSE 74; RESP 14
[2022-03-03 09:16] VITALS: BP 103/54
[2022-03-03 09:20] VITALS: BP 103/54
--- NOTE | 2022-03-03 09:28 | PC.PHAR ---
pt and pts family unable to verify medications-medications entered are from what [facility] has filled recently and what was on previous entered med list-[facility] pharmacy states the pt has no refills on the fludrocortisone 0.1mg qam and hydrocortisone 10mg 1.5tab qam and 1 tab qpm both filled 01/12/22 30d/s no refills-[facility] states the pt hasnt picked up the megestrol filled 02/25/22-notes are made in the pharmacy comments with last fill dates and if it was on a previous entered med list
[2022-03-03 09:45] LABS: Add Urine Culture? Yes; Add Urine Microscopic? YES; Bacteria Urine 4+ /hpf; Bilirubin Urine 2+ (Negative); Blood Urine 3+ (Negative); Glucose Urine UA Norm (Normal); Ketones Urine Negative (Negative); Leukocyte Esterase Urine 2+ (Negative); Nitrate Urine Negative (Negative); Protein Urine 2+ (Negative); Specific Gravity, Urine 1.005 (1.005-1.030); Squamous Epithelial Cell Urine 0-4 /hpf (0-5); Urine Appearance Cloudy (CLEAR); Urine Color Dark Yellow (Yellow); Urobilinogen Urine Norm (Negative); WBC Urine TOO NUMEROUS TO CNT /hpf (0-5); pH Urine 7 (5-7)
[2022-03-03 11:17] VITALS: BP 103/54
--- NOTE | 2022-03-03 11:40 | DCPLANNER ---
order manager was asked to speak with patients family about hospice services. order manager spoke with family, patients family chose [facility], a choice sheet was signed to be put into patients chart. order manager faxed patients information to [facility] for review. Hospice company will call patients and schedule a time to meet with patients family.
[2022-03-03 11:59] VITALS: BP 102/68; PULSE 78
== END 2022-03-03 12:00 | disposition home or self-care (01) ==
PROVIDERS: Emergency Provider Family Medicine; PCP Nurse Practitioner Family
DX: C18.2 Malignant neoplasm of ascending colon (principal); D64.9 Anemia, unspecified; I95.1 Orthostatic hypotension; I12.0 Hypertensive chronic kidney disease with stage 5 chronic kidney disease or end stage renal disease; N18.6 End stage renal disease; Z99.2 Dependence on renal dialysis; Z87.891 Personal history of nicotine dependence
CPT/HCPCS: 71045; 80053; 81001; 85025; 87077; 87086; 87186; 93005; 99285